=== PATIENT | female | born 1980 | race Caucasian/White ===

== ENCOUNTER 2025-06-26 18:13 | Outpatient (REF) | payer BC, MEDICARE, SELFPAY ==
--- OUTSIDE RECORDS SUMMARY | 2024-07-31 07:00 | XMS_ITS ---
Author Organization [facility] Address [address] [place] [address] Care Team Providers Care Emergency Department Name Role Phone Kath VILLALOBOS, Gael Primary Care Provider UnavailEmir Jackson Unavailable [phone] Medications Medication SIG (Take, Route, Frequency, Duration) Notes Start Date End Date Status Topiramate 100 MG TAKE 3 TABLETS BY MOUTH ONCE DAILY; Duration: 90 Active Ubrelvy 100 MG TAKE 1 TAB AT ONSET OF MIGRAINE ALONG WITH 2 EXCEDRIN MAY REPEAT X1 AFTER 4 HOURS IF HEADACHE RECURS ORALLY AT ONSET OF MIGRAINE. MAY REPEAT ONCE AFTER 2 HRS IF HEADACHE RETURNS.; Duration: 30 Active Motegrity 2 MG 1 tablet Orally Once a day; Duration: 90 days Active DULoxetine HCl 60 MG TAKE 2 CAPSULES BY MOUTH EVERY MORNING; Duration: 90 Active VITAMIN D3 5,000 UNIT SOFTGEL 125 MCG (5,000 UNIT) 0 1 qam; Duration: 01/25/2021 Active LEVOTHYROXINE 50 MCG CAPSULE 0 1 qhs; Duration: 01/25/2021 Active HUMULIN R 100 UNIT/ML VIAL 0 20 u/day via pump; Duration: 01/25/2021 Active PULMOZYME 1 MG/ML AMPUL 0 1 q[pm via neb ; Duration: 01/25/2021 Active MUCINEX FAST-MAX CHEST-CONGEST 100 MG/5 ML 0 1 bid; Duration: 01/25/2021 Active PROAIR HFA 90 MCG INHALER MCG/ACTUATION 0 PRn; Duration: 01/25/2021 Active EXCEDRIN MIGRAINE CAPLET 250-250-65 MG 0 2 tabs prn, uses 12/week; Duration: 01/25/[address] 24,000 UNITS CAPSULE 24,000-76,000 -120,000 UNIT 0 4-6 caps/meal; Duration: 01/25/2021 Active domperidone 0 10 mg qid for gastroparesis; Duration: 01/25/2021 Active CAYSTON 75 MG INHAL SOLUTION MG/ML 0 1 qpm via neb; Duration: 01/25/2021 Active CETIRIZINE HCL 10 MG TABLET 0 1 qhs; Duration: 01/25/2021 Active Vitamin B-2 100 mg 120 Oral Take 2 tabs bid with meals (4 tabs qd).; Duration: 01/25/2021 Active Belsomra 15 MG 1 tablet at bedtime as needed Oral Once a day; Duration: 01/25/2021 Active clonazePAM 0.25 MG 1 tablet Oral twice a day; Duration: 01/25/2021 Active Ondansetron HCl 8 MG 0 Oral 1 tab q6h pr n nausea.; Duration: 01/25/2021 Active Azithromycin 500 MG 0 Oral 1 tab 3 days/week; Duration: 01/25/2021 Active Omeprazole 40 MG 1 capsule 30 minutes before morning meal Orally bid Active Symbicort 80-4.5 MCG/ACT 2 puffs Inhalat ion Once a day 12/22/2021 Active Atenolol 25 MG TAKE 1 TABLET BY MOUTH EVERY DAY AT BEDTIME FOR TREMOR; Duration: 90 Active Norethindrone 0.35 MG 1 tablet Orally On ce a day 11/22/2023 Active Trikafta 50-25-37.5 & 75 MG as directed Orally 1 tab bid 07/28/2021 Active Naratriptan HCl 2.5 MG 1 tablet Oral twi ce daily for migraine prevention; Duration: 30 03/21/2024 07/31/2024 Active acetaZOLAMIDE 125 MG 1/2 tablet Orally a t night for 1 week, then increase as rafael to 1 tab every night.; Duration: 07/31/2024 Active Linzess 290 MCG 1 capsule at least 3 0 minutes before the first meal of the day on an empty stomach Orally Once a day Not-Taking QVAR 80 MCG ORAL INHALER MCG/ACTUATION 0 bid; Duration: 01/25/2021 Not-Navneet ing Qulipta 60 MG 1 tablet Orally Once a day; Duration: 30 days 09/03/2022 11/05/2024 Active Gabapentin 600 MG 1 tablet in morning, 1 tab at supper and 2 tabs at bedtime.; Duration: 30 days Active Vital Signs Blood pressure systolic 129 mm Hg 07/31/20 24 Blood pressure diastolic 77 mm Hg 024 Heart Rate 95 /min 07/31/2024 Height 66 in 07/31/2024 Weight 139.9 lbs 07/31/2024 BMI 22.58 kg/m2 07/31/2024 Weight-kg 63.46 kg 07/31/2024 Encounters [facility]counter [facility] Date [facility] [address] [place] [address] 07/31/2024 Emir Chamorro Chronic migraine wit hout aura, intractable, without status migrainosus G43.719 and Cystic fibrosis with other manifestations E84.8 Assessments Encounter Date Diagnosis (ICD Code) Assessment Notes Treatment Notes Treatment Clinical Notes Section Notes 07/31/2024 Chronic migraine without aura, intractable, without status migrainosus (ICD-10 - G43.719) 07/31/2024 Cystic fibrosis with other manifestations (ICD-10 - E84.8) Plan Of Treatment Medication Medication Name Sig Start Date Stop Date Notes acetaZOLAMIDE 125 MG 1/2 tablet Orally a t night for 1 week, then increase as rafael to 1 tab every night.; Duration: 30 days 07/31/2024 Next Appt Details Follow Up: 6 Weeks, Reason: Provider Name:Emir manzanares, 08/20/2025 11:30:00 AM, [address] [place] [address], [id number], Progress Notes * Carla TEJEDADOB:1980 (44 yo F)Acc No.[id number]:07/31/2024 Progress Notes Patient: Carla VARGAS Provider: Terence Chamorro MD :1980 A ge:43 Y S ex:Female Date:07/31/2024 Address:[address] [place] [address] Pcp:Gael Stockton MD Subjective: * Chief Complaints: * * Medical History: * Medications: T aking Atenolol 25 MG Tablet TAKE 1 TABLET BY MOUTH EVERY DAY AT BEDTIME FOR TREMOR , Taking Norethindrone 0.35 MG Tablet 1 tablet Orally Once a day , Taking Omeprazole 40 MG Capsule Delayed Release 1 capsule 30 minutes before morning meal Orally bid , Taking Symbicort 80-4.5 MCG/ACT Aerosol 2 puffs Inhalation Once a day , Taking Trikafta 50-25-37.5 & 75 MG Tablet Therapy Pack as directed Orally 1 tab bid , Taking Azithromycin 500 MG Tablet 0 Oral 1 tab 3 days/week , Taking clonazePAM 0.25 MG Tablet Disintegrating 1 tablet Oral twice a day , Taking Ondansetron HCl 8 MG Tablet 0 Oral 1 tab q6h prn nausea. , Taking Vitamin B-2 100 mg Tablet 120 Oral Take 2 tabs bid with meals (4 tabs qd). , Taking Belsomra 15 MG Tablet 1 tablet at bedtime as needed Oral Once a day , Taking CAYSTON 75 MG INHAL SOLUTION MG/ML VIAL-NEB 0 1 qpm via neb , Taking CETIRIZINE HCL 10 MG TABLET TABLET 0 1 qhs , Taking CREON DR 24,000 UNITS CAPSULE 24,000-76,000 -120,[address] 0 4-6 caps/meal , Taking domperidone 0 10 mg qid for gastroparesis , Taking EXCEDRIN MIGRAINE CAPLET 250-250-65 MG TABLET 0 2 tabs prn, uses 12/week , Taking HUMULIN R 100 UNIT/ML VIAL VIAL 0 20 u/day via pump , Taking LEVOTHYROXINE 50 MCG CAPSULE CAPSULE 0 1 qhs , Taking MUCINEX FAST-MAX CHEST-CONGEST 100 MG/5 ML LIQUID 0 1 bid , Taking PROAIR HFA 90 MCG INHALER MCG/ACTUATION HFA AER AD 0 PRn , Taking PULMOZYME 1 MG/ML AMPUL SOLUTION 0 1 q[pm via neb , Taking VITAMIN D3 5,000 UNIT SOFTGEL 125 MCG (5,000 UNIT) CAPSULE 0 1 qam , Taking Motegrity 2 MG Tablet 1 tablet Orally Once a day , Taking DULoxetine HCl 60 MG Capsule Delayed Release Particles TAKE 2 CAPSULES BY MOUTH EVERY MORNING , Taking Topiramate 100 MG Tablet TAKE 3 TABLETS BY MOUTH ONCE DAILY , Taking Ubrelvy 100 MG Tablet TAKE 1 TAB AT ONSET OF MIGRAINE ALONG WITH 2 EXCEDRIN MAY REPEAT X1 AFTER 4 HOURS IF HEADACHE RECURS ORALLY AT ONSET OF MIGRAINE. MAY REPEAT ONCE AFTER 2 HRS IF HEADACHE RETURNS. , Taking Gabapentin 600 MG Tablet 1 tablet in morning, 1 tab at supper and 2 tabs at bedtime. , Taking Naratriptan HCl 2.5 MG Tablet 1 tablet Oral twice daily for migraine prevention , stop date 07/31/2024, Taking Qulipta 60 MG Tablet 1 tablet Orally Once a day , stop date 11/05/2024, Not-Taking Linzess 290 MCG Capsule 1 capsule at least 30 minutes before the first meal of the day on an empty stomach Orally Once a day , Not-Taking QVAR 80 MCG ORAL INHALER MCG/ACTUATION AER W/ADAP 0 bid Objective: * Vitals: B P:129/77mm Hg, HR:95/min, Wt:139.9lbs, Wt-k.46 kg, Ht: 66 in, BMI:22.58Index, Body Surface Area: 1.72. Assessment: * Assessment: 1. C hronic migraine without aura, intractable, without status migrainosus - G43.719 2 . C ystic fibrosis with other manifestations - E84.8 Plan: * Treatment: * Follow Up: 6 Weeks * Billing Information: * Visit Code: 55486 OFFICE VISIT,EST PT,LEVEL 4. * Procedure Codes: * Electronic [place], [id number] on 06/26/2025 at 06:25 PM EDT Sign off status: Pending * Provider: Terence Chamorro MD Date: 1 Generated for Hadley serrano/Lizzy/eTransmitting on: 0 06/26/2025 06:25 PM EDT
--- OUTSIDE RECORDS SUMMARY | 2024-10-02 07:30 | XMS_ITS ---
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 MAY REPEAT ONCE AFTER 2 HRS IF HEADACHE RETURNS.; Duration: 30 Active QVAR 80 MCG ORAL INHALER MCG/ACTUATION 0 bid; Duration: 01/25/2021 Not-Navneet ing Gabapentin 600 MG 1 tablet in morning, 1 tab at supper and 2 tabs at bedtime.; Duration: 30 days Active Linzess 290 MCG 1 capsule at least 3 0 minutes before the first meal of the day on an empty stomach Orally Once a day Not-Taking Qulipta 60 MG 1 tablet Orally Once a day; Duration: 30 days 09/03/2022 11/05/2024 Active PULMOZYME 1 MG/ML AMPUL 0 1 q[pm via neb ; Duration: 01/25/2021 Active VITAMIN D3 5,000 UNIT SOFTGEL 125 MCG (5,000 UNIT) 0 1 qam; Duration: 01/25/2021 Active DULoxetine HCl 60 MG TAKE 2 CAPSULES BY MOUTH EVERY MORNING; Duration: 90 Active Motegrity 2 MG 1 tablet Orally Once a day; Duration: 90 days Active Topiramate 100 MG TAKE 3 TABLETS BY MOUTH ONCE DAILY; Duration: 90 Active MUCINEX FAST-MAX CHEST-CONGEST 100 MG/5 ML 0 1 bid; Duration: 01/25/2021 Active LEVOTHYROXINE 50 MCG CAPSULE 0 1 qhs; Duration: 01/25/2021 Active PROAIR HFA 90 MCG INHALER MCG/ACTUATION 0 PRn; Duration: 01/25/2021 Active HUMULIN R 100 UNIT/ML VIAL 0 20 u/day via pump; Duration: 01/25/2021 Active EXCEDRIN MIGRAINE CAPLET 250-250-65 MG 0 2 tabs prn, uses 12/week; Duration: 01/25/2021 Active Belsomra 15 MG 1 tablet at bedtime as needed Oral Once a day; Duration: 30 01/25/2021 Active CETIRIZINE HCL 10 MG TABLET 0 1 qhs; Duration: 01/25/2021 Active CAYSTON 75 MG INHAL SOLUTION MG/ML 0 1 qpm via neb; Duration: 01/25/2021 Active domperidone 0 10 mg qid for gastroparesis; Duration: 01/25/[address] 24,000 UNITS CAPSULE 24,000-76,000 -120,000 UNIT 0 4-6 caps/meal; Duration: 01/25/2021 Active clonazePAM 0.25 MG 1 tablet Oral twice a day; Duration: 01/25/2021 Active Azithromycin 500 MG 0 Oral 1 tab 3 days/week; Duration: 01/25/2021 Active Vitamin B-2 100 mg 120 Oral Take 2 tabs bid with meals (4 tabs qd).; Duration: 01/25/2021 Active Ondansetron HCl 8 MG 0 Oral 1 tab q6h pr n nausea.; Duration: 0 01/25/2021 Active Trikafta 50-25-37.5 & 75 MG as directed Orally 1 tab bid 07/28/2021 Active Atenolol 25 MG TAKE 1 TABLET BY MOUTH EVERY DAY AT BEDTIME FOR TREMOR; Duration: 90 Active Omeprazole 40 MG 1 capsule 30 minutes before morning meal Orally bid Active Norethindrone 0.35 MG 1 tablet Orally On a day 11/22/2023 Active Symbicort 80-4.5 MCG/ACT 2 puffs Inhalat ion Once a day 12/22/2021 Active Encounters [facility]counter [facility] Date [facility] [address] [place] [address] [facility]24 Emir Chamorro Plan Of Treatment Next Appt Details Provider Name:Emir Otto manzanares, 08/20/2025 11:30:00 AM, [address] [place], [address], Progress Notes * Carla TEJEDADOB:1980 (44 yo F)Acc No.[id number]:10/02/2024 Progress Notes Patient: Carla VARGAS Provider: Terence Chamorro MD :1980 A ge:43 Y S ex:Female Date:10/02/2024 Address:[address] [place], [place] [id number] Pcp:Gael Stockton MD Subjective: * Chief Complaints: [...] TABLETS BY MOUTH ONCE DAILY , Taking Gabapentin 600 MG Tablet 1 tablet in morning, 1 tab at supper and 2 tabs at bedtime. , Taking Qulipta 60 MG Tablet 1 tablet Orally Once a day , stop date 11/05/2024, Taking Ubrelvy 100 MG Tablet TAKE 1 TAB AT ONSET OF MIGRAINE ALONG WITH 2 EXCEDRIN MAY REPEAT X1 AFTER 4 HOURS IF HEADACHE RECURS ORALLY AT ONSET OF MIGRAINE. MAY REPEAT ONCE AFTER 2 HRS IF HEADACHE RETURNS. , Not-Taking Linzess 290 MCG Capsule 1 capsule at least 30 minutes before the first meal of the day on an empty stomach Orally Once a day , Not-Taking QVAR 80 MCG ORAL INHALER MCG/ACTUATION AER W/ADAP 0 bid Objective: * Vitals: Assessment: Plan: * Treatment: * Billing Information: * Visit Code: * Procedure Codes: * [place], [id number] on 06/26/2025 at 06:26 PM EDT Sign off status: Pending * Provider: Terence Chamorro MD Date: 12/03/2023 Generated for Hadley serrano/Lizzy/Adenike on: 0 06/26/2025 06:26 PM EDT
--- OUTSIDE RECORDS SUMMARY | 2025-02-25 10:30 | XMS_ITS ---
Author Organization [facility] Address [address] [place] [address] Care Team Providers Care Bible Reader Name Role Phone Kath VILLALOBOS, Gael Primary Care Provider UnavailEmir Jackson Unavailable [phone] Allergies Allergen (clinical drug ingredient) Drug/Non Drug Allergy documented on EMR Reaction Allergy Type Onset Date Status ceftazidime cefTAZidime itchy mouth and chest pain Drug Allergy Active Substance with sulfonamide structure and antibacterial mechanism of action (substance) Sulfa Antibiotics hives Drug Allergy Active vancomycin Vancomycin hives Drug Allergy Activ e REASON FOR VISIT Migraine follow up Medications Medication SIG (Take, Route, Frequency, Duration) Notes Start Date End Date Status clonazePAM 0.25 MG 1 tablet Oral twice a day; Duration: 30 days 01/25/2021 Active Vitamin B-2 100 mg 120 Oral Take 2 tabs bid with meals (4 tabs qd).; Duration: 30 01/25/2021 Active Ondansetron HCl 8 MG 0 Oral 1 tab q6h prn nausea.; Duration: 0 1-2x/day for nausea and gastroparesis 01/25/2021 Active Belsomra 15 MG 1 tablet at bedtime as needed Oral Once a day; Duration: 30 days 01/25/2021 Active CAYSTON 75 MG INHAL SOLUTION MG/ML 0 1 qpm via neb; Duration: 30 every other month 01/25/2021 Active Atenolol 25 MG TAKE 1 TABLET BY MOUTH EVERY DAY AT BEDTIME FOR TREMOR; Duration: 90 Active Trelegy Ellipta 100-62.5-25 MCG/ACT 1 puff Inhalation Once a day Active Trikafta 50-25-37.5 & 75 MG as directed Orally 1 tab bid 07/28/2021 Active Omeprazole 40 MG 1 capsule 30 minutes before morning meal Orally bid Active Azithromycin 500 MG 0 Oral 1 tab 3 days/week; Duration: 01/25/2021 Active DULoxetine HCl 60 MG 2 capsule Orally Once a day in the morning.; Duration: 90 days Active Gabapentin 600 MG 1 tablet in morning, 1 tab at supper and 2 tabs at bedtime.; Duration: 90 days Active QVAR 80 MCG ORAL INHALER MCG/ACTUATION 0 bid; Duration: 01/25/2021 Not-Taking Linzess 290 MCG 1 capsule at least 30 minutes before the first meal of the day on an empty stomach Orally Once a day Not-Taking Ubrelvy 100 MG TAKE 1 TAB BY MOUTH AT ONSET OF MIGRAINE ALONG WITH 2 EXCEDRIN MAY REPEAT 1 TIME AFTER 2 HOURS IF HEADACHE RECURS.; Duration: 8 Active PULMOZYME 1 MG/ML AMPUL 0 1 q[pm via neb; Duration: 01/25/2021 Active PROAIR HFA 90 MCG INHALER MCG/ACTUATION 0 PRn; Duration: 01/25/2021 Active VITAMIN D3 5,000 UNIT SOFTGEL 125 MCG (5,000 UNIT) 0 1 qam; Duration: 01/25/2021 Active Topiramate 100 MG 3 tablets orally Once a day; Duration: 90 days Active Motegrity 2 MG 1 tablet Orally Once a day; Duration: 90 days Active domperidone 0 10 mg qid for gastroparesis; Duration: 01/25/2021 Active HUMULIN R 100 UNIT/ML VIAL 0 20 u/day via pump; Duration: 01/25/2021 Active EXCEDRIN MIGRAINE CAPLET 250-250-65 MG 0 2 tabs prn, uses 12/week; Duration: 30 daily 01/25/2021 Active MUCINEX FAST-MAX CHEST-CONGEST 100 MG/5 ML 0 1 bid; Duration: 30 PRN 01/25/2021 Active LEVOTHYROXINE 50 MCG CAPSULE 0 1 qhs; Duration: 01/25/[address] 24,000 UNITS CAPSULE 24,000-76,000 -120,000 UNIT 0 4-6 caps/meal; Duration: 01/25/2021 Active CETIRIZINE HCL 10 MG TABLET 0 1 qhs; Duration: 01/25/2021 Active Encounters Encounter Location Date [facility] [address] [place] [address] [facility]25/2025 Emir Chamorro Chronic migraine wit hout aura, intractable, without status migrainosus G43.719 and Cystic fibrosis with other manifestations E84.8 Assessments Encounter Date Diagnosis (ICD Code) Assessment Notes Treatment Notes Treatment Clinical Notes Section Notes 02/25/2025 Chronic migraine without aura, intractable, without status migrainosus (ICD-10 - G43.719) Pt with >15 headache days per month. She has tried and failed many different medications including mAb. Pt is on Qulipta which she feels is slightly helpful but is less effective than it was when starting initially in 2021. Pt would benefit from addition of botox protocol for migraines to treat chronic migraine >15 headaches per month. Reviewed risks and benefits of botox. Pt interested in starting. Plan: -Start Botox protocol for migraines q12W -Continue Qulipta 60mg daily -Start Zavzpret 1 spray for rescue in 24h, pt has nausea and gastroparesis so would benefit from intranasal rescue medication Will continue with current regimen for now with hopes to decrease other medications once she has stabilized on botox as they have unclear efficacy at this point. Follow up in 2M after botox treatment sooner as needed. Patient agrees with plan. All questions and concerns addressed. Patient instructed to maintain headache logs. Patient advised to contact office for any change in headache pattern, increase in frequency, duration, or severity of headaches. Medication reconciliation completed. Previous office visit note reviewed. Patient presents for evaluation and management. Pt was seen and evaluated by Hina MON. Pt consents to virtual visit. 02/25/2025 Cystic fibrosis with other manifestations (ICD-10 - E84.8) Patient presents for evaluation and management. Pt was seen and evaluated by Hina MON. Pt consents to virtual visit. Plan Of Treatment Treatment Notes Assessment Notes Chronic migraine without aur a, intractable, without status migrainosus Pt with >15 headache days per month. She has tried and failed many different medications including mAb. Pt is on Qulipta which she feels is slightly helpful but is less effective than it was when starting initially in 2021. Pt would benefit from addition of botox protocol for migraines to treat chronic migraine >15 headaches per month. Reviewed risks and benefits of botox. Pt interested in starting. Plan: -Start Botox protocol for migraines q12W -Continue Qulipta 60mg daily -Start Zavzpret 1 spray for rescue in 24h, pt has nausea and gastroparesis so would benefit from intranasal rescue medication Will continue with current regimen for now with hopes to decrease other medications once she has stabilized on botox as they have unclear efficacy at this point. Follow up in 2M after botox treatment sooner as needed. Patient agrees with plan. All questions and concerns addressed. Patient instructed to maintain headache logs. Patient advised to contact office for any change in headache pattern, increase in frequency, duration, or severity of headaches. Medication reconciliation completed. Previous office visit note reviewed. Next Appt Details Follow Up: 2 Months, 2 month s, Reason: Follow-up after Botox administration Provider Name:Emir manzanares, 08/20/2025 11:30:00 AM, [address] [place] [address], [id number], Progress Notes * Carla TEJEDADOB:1980 (44 yo F)Acc No.[id number]:02/25/2025 Patient: Carla VARGAS Provider: Terence Chamorro MD :1980 A ge:44 Y S ex:Female Date:02/25/2025 Address:[address] [place] [address] Pcp:Gael Stockton MD Subjective: * Chief Complaints: * 1 . Migraine follow up. * HPI: H sabihadache: Pt presents for eval and management of migraines. Last office visit 10/31/24 via telehealth. Pt reports headaches have been not good in the past couple months. She has journals. Pt reports headaches have been gradually getting worse over the past few months. She has done prednisone once a month, last done 10/15/24 8 day taper, 4 days of 60 and 4 days of 20. She has been doing this taper once a month since the fall. She feels it initially was fantastic but now is starting to be less effective. She finds it is just taking the edge off. Headaches return to baseline after about 3-4 days. Denies side effects, she has a setting on her insulin pump to adjust it. We reviewed risks of immunosuppression with repeated steroid use. She is also taking Qulipta 60 mg per day since 08/13 and has failed all 3 injectable monoclonal antibodies. She felt it was initially very effective, but then she got COVID in Summer 2022, and she felt it reset her migraines to being awful. Headache is bifrontal and left hemicranial, pulsatile, associated with photophobia, sonophobia and nausea but no vomiting. The headache gets worse in the afternoon. Meds taking: Gabapentin, Duloxetine, Qulipta, Atenolol, mostly for tachycardia is 80s with medication and for tremors, Topiramate 300mg (unsure if helpful), Ubrelvy Meds tried: Acetazolamide 125mg (severe fatigue), naratriptan BID (not helpful she thought initially, was on for 4 months, no s/e). Propranolol BID caused severe fatigue. She did Botox 9 years ago, works great at the time, she reports weird pressure headache with sumatriptan, zolmitriptan tablet. Pt reports blood work is always normal, she checks it yearly. She is sleeping well. She denies depression. Side effects of medication include dry mouth. 08/15: 1x4, 2x4, 3x3, 4x2, 5x6, 6x1, 7x2, 8x1 09/15: 1x2, 2x1, 3x5, 4x4, 5x4, 6x3, 7x4, 8x1 10/15: 1x2, 2x1, 3x2, 4x7, 5x4, 6x3, 7x4 11/16: 0x2, 5x2, 7x1, 8x1. H eadache/Migraine: Carla is a 44-year-old female who reports experiencing chronic migraines. She describes having good and bad days, with December and January being better months compared to October and November. Carla maintains a headache diary, which shows a decrease in headache severity over the months. She notes that she has headaches almost every day, but the frequency and intensity have improved by 36% over the past months. Carla is awaiting approval for Botox treatment, which she has used successfully in the past for her migraines. She also mentions starting magnesium supplements recently, although she is unsure of their effectiveness. Carla experiences difficulty falling asleep and wakes up frequently at night to use the bathroom, approximately three times per night. She denies feeling depressed but reports dry mouth and chronic fatigue as side effects of her medications. Carla has a firm diagnosis of cystic fibrosis since she was [age] weeks old, confirmed by sweat and genetic tests. She denies symptoms of postural orthostatic tachycardia syndrome (POTS) and reports having a port for her condition. * ROS: G eneral / Constitutional: Patient denies c hills, fever, recent exposure to viruses.? O phthalmologic: Patient denies b lurry vision, diminished visual acuity, eye pain, flashes of light in the visual field, floaters in the visual field. C ardiovascular: Patient denies c hest pain, palpitations. G astrointestinal: Patient complains of c onstipation. N eurologic: Patient denies b alance difficulty, confusion, loss of strength, memory loss, seizures, tingling / numbness, tremor. P atient complains of h eadache.? * Medical History: M igraine, Cystic fibrosis, Constipation, Hypothyroidism, Gastroparesis, Anxiety, Cystic fibrosis-related diabetes (pancreatic insufficiency), Chronic migraine, ongoing, Cystic fibrosis, diagnosed at six weeks old. * Medications: T caitlyn Alaniz Ellipta 100-62.5-25 MCG/ACT Aerosol Powder Breath Activated 1 puff Inhalation Once a day , Taking Atenolol 25 MG Tablet TAKE 1 TABLET BY MOUTH EVERY DAY AT BEDTIME FOR TREMOR , Taking Omeprazole 40 MG Capsule Delayed Release 1 capsule 30 minutes before morning meal Orally bid , Taking Trikafta 50-25-37.5 & 75 MG Tablet Therapy Pack as directed Orally 1 tab bid , Taking Azithromycin 500 MG Tablet 0 Oral 1 tab 3 days/week , Taking clonazePAM 0.25 MG Tablet Disintegrating 1 tablet Oral twice a day , Taking Ondansetron HCl 8 MG Tablet 0 Oral 1 tab q6h prn nausea. , Notes to Pharmacist: 1-2x/day for nausea and gastroparesis, Taking Vitamin B-2 100 mg Tablet 120 Oral Take 2 tabs bid with meals (4 tabs qd). , Taking Belsomra 15 MG Tablet 1 tablet at bedtime as needed Oral Once a day , Taking CAYSTON 75 MG INHAL SOLUTION MG/ML VIAL-NEB 0 1 qpm via neb , Notes to Pharmacist: every other month, Taking CETIRIZINE HCL 10 MG TABLET TABLET 0 1 qhs , Taking CREON DR 24,000 UNITS CAPSULE 24,000-76,000 -120,[address] 0 4-6 caps/meal , Taking domperidone 0 10 mg qid for gastroparesis , Taking EXCEDRIN MIGRAINE CAPLET 250-250-65 MG TABLET 0 2 tabs prn, uses 12/week , Notes to Pharmacist: daily, Taking HUMULIN R 100 UNIT/ML VIAL VIAL 0 20 u/day via pump , Taking LEVOTHYROXINE 50 MCG CAPSULE CAPSULE 0 1 qhs , Taking MUCINEX FAST-MAX CHEST-CONGEST 100 MG/5 ML LIQUID 0 1 bid , Notes to Pharmacist: PRN, Taking PROAIR HFA 90 MCG INHALER MCG/ACTUATION HFA AER AD 0 PRn , Taking PULMOZYME 1 MG/ML AMPUL SOLUTION 0 1 q[pm via neb , Taking VITAMIN D3 5,000 UNIT SOFTGEL 125 MCG (5,000 UNIT) CAPSULE 0 1 qam , Taking Motegrity 2 MG Tablet 1 tablet Orally Once a day , Taking Topiramate 100 MG Tablet 3 tablets orally Once a day , Taking Gabapentin 600 MG Tablet 1 tablet in morning, 1 tab at supper and 2 tabs at bedtime. , Taking DULoxetine HCl 60 MG Capsule Delayed Release Particles 2 capsule Orally Once a day in the morning. , Taking Ubrelvy 100 MG Tablet TAKE 1 TAB BY MOUTH AT ONSET OF MIGRAINE ALONG WITH 2 EXCEDRIN MAY REPEAT 1 TIME AFTER 2 HOURS IF HEADACHE RECURS. , Not-Taking Linzess 290 MCG Capsule 1 capsule at least 30 minutes before the first meal of the day on an empty stomach Orally Once a day , Not- Taking QVAR 80 MCG ORAL INHALER MCG/ACTUATION AER W/ADAP 0 bid , Medication List reviewed and reconciled with the patient * Allergies: V ancomycin: hives, Sulfa Antibiotics: hives, cefTAZidime: itchy mouth and chest pain. Objective: * Vitals: Assessment: * Assessment: 1. C hronic migraine without aura, intractable, without status migrainosus - G43.719 (Primary)? 2. C ystic fibrosis with other manifestations - E84.8 Patient presents for evaluat ion and management. Pt was seen and evaluated by Hina MON. Pt consents to virtual visit. Plan: * Treatment: * Follow Up: 2 Months, 2 months (Reason: Follow-up after Botox administration) * Billing Information: * Visit Code: 56261 OFFICE VISIT,ELIUD PT,LEVEL 4. Modifiers: 95 * Procedure Codes: * Electronic [place], [id number] on 06/26/2025 at 06:23 PM EDT Sign off status: Pending * Provider: Terence Chamorro MD Date: 0 02/25/2025 Generated for Hadley serrano/Lizzy/eTransmitting on: 0 06/26/2025 06:23 PM EDT History and Physical Notes * HPI (History of Present Illness) Category Sub-Category Detail Notes Category Not es Headache/Migraine Carla is a 44-year-old female who reports experiencing chronic migraines. She describes having good and bad days, with December and January being better months compared to October and November. Carla maintains a headache diary, which shows a decrease in headache severity over the months. She notes that she has headaches almost every day, but the frequency and intensity have improved by 36% over the past months. Carla is awaiting approval for Botox treatment, which she has used successfully in the past for her migraines. She also mentions starting magnesium supplements recently, although she is unsure of their effectiveness. Carla experiences difficulty falling asleep and wakes up frequently at night to use the bathroom, approximately three times per night. She denies feeling depressed but reports dry mouth and chronic fatigue as side effects of her medications. Carla has a firm diagnosis of cystic fibrosis since she was six weeks old, confirmed by sweat and genetic tests. She denies symptoms of postural orthostatic tachycardia syndrome (POTS) and reports having a port for her condition.
--- OUTSIDE RECORDS SUMMARY | 2025-06-19 07:30 | XMS_ITS ---
Author Organization [facility] Address [address] [place] [address] Care Team Providers Care Greeter Name Role Phone Kath VILLALOBOS, Gael Primary Care Provider UnavailEmir Jackson Unavailable [phone] Medications Medication SIG (Take, Route, Frequency, Duration) Notes Start Date End Date Status Atenolol 25 MG TAKE 1 TABLET BY MOUTH EVERY DAY AT BEDTIME FOR TREMOR; Duration: 90 Active QVAR 80 MCG ORAL INHALER MCG/ACTUATION 0 bid; Duration: 01/25/2021 Not-Taking Linzess 290 MCG 1 capsule at least 30 minutes before the first meal of the day on an empty stomach Orally Once a day Not-Taking Qulipta 60 MG 1 tablet Orally Once a day; Duration: 30 days 09/03/2022 Active Ubrelvy 100 MG TAKE 1 TAB BY MOUTH AT ONSET OF MIGRAINE ALONG WITH 2 EXCEDRIN MAY REPEAT 1 TIME AFTER 2 HOURS IF HEADACHE RECURS.; Duration: 8 Active VITAMIN D3 5,000 UNIT SOFTGEL 125 MCG (5,000 UNIT) 0 1 qam; Duration: 01/25/2021 Active Topiramate 100 MG 3 tablets orally Once a day; Duration: 90 days Active Motegrity 2 MG 1 tablet Orally Once a day; Duration: 90 days Active DULoxetine HCl 60 MG 2 capsule Orally Once a day in the morning.; Duration: 90 days Active Gabapentin 600 MG 1 tablet in morning, 1 tab at supper and 2 tabs at bedtime.; Duration: 90 days Active PROAIR HFA 90 MCG INHALER MCG/ACTUATION 0 PRn; Duration: 01/25/2021 Active PULMOZYME 1 MG/ML AMPUL 0 1 q[pm via neb; Duration: 01/25/2021 Active HUMULIN R 100 UNIT/ML VIAL 0 20 u/day via pump; Duration: 01/25/2021 Active MUCINEX FAST-MAX CHEST-CONGEST 100 MG/5 ML 0 1 bid; Duration: 30 PRN 01/25/2021 Active LEVOTHYROXINE 50 MCG CAPSULE 0 1 qhs; Duration: 01/25/2021 Active EXCEDRIN MIGRAINE CAPLET 250-250-65 MG 0 2 tabs prn, uses 12/week; Duration: 30 daily 01/25/2021 Active CETIRIZINE HCL 10 MG TABLET 0 1 qhs; Duration: 01/25/2021 Active CAYSTON 75 MG INHAL SOLUTION MG/ML 0 1 qpm via neb; Duration: 30 every other month 01/25/2021 Active domperidone 0 10 mg qid for gastroparesis; Duration: 01/25/[address] 24,000 UNITS CAPSULE 24,000-76,000 -120,000 UNIT 0 4-6 caps/meal; Duration: 01/25/2021 Active Belsomra 15 MG 1 tablet at bedtime as needed Oral Once a day; Duration: 30 days 01/25/2021 Active Vitamin B-2 100 mg 120 Oral Take 2 tabs bid with meals (4 tabs qd).; Duration: 01/25/2021 Active Ondansetron HCl 8 MG 0 Oral 1 tab q6h prn nausea.; Duration: 0 1-2x/day for nausea and gastroparesis 01/25/2021 Active clonazePAM 0.25 MG 1 tablet Oral twice a day; Duration: 30 days 01/25/2021 Active Azithromycin 500 MG 0 Oral 1 tab 3 days/week; Duration: 01/25/2021 Active Trikafta 50-25-37.5 & 75 MG as directed Orally 1 tab bid 07/28/2021 Active Omeprazole 40 MG 1 capsule 30 minutes before morning meal Orally bid Active Trelegy Ellipta 100-62.5-25 MCG/ACT 1 puff Inhalation Once a day Active Vital Signs Blood pressure systolic 141 mm Hg 06/19/20 25 Blood pressure diastolic 77 mm Hg 025 Heart Rate 98 /min 06/19/2025 Height 66 in 06/19/2025 Weight 144.6 lbs 06/19/2025 BMI 23.34 kg/m2 06/19/2025 Weight-kg 65.59 kg 06/19/2025 Encounters Encounter Location Date Provider Diagnosis [facility] [address] [place] [address] 06/19/2025 Emir Chamorro Chronic migraine wit hout aura, intractable, without status migrainosus G43.719 and Cystic fibrosis with other manifestations E84.8 Assessments Encounter Date Diagnosis (ICD Code) Assessment Notes Treatment Notes Treatment Clinical Notes Section Notes 06/19/2025 Chronic migraine without aura, intractable, without status migrainosus (ICD-10 - G43.719) 06/19/2025 Cystic fibrosis with other manifestations (ICD-10 - E84.8) Plan Of Treatment Next Appt Details Follow Up: 2 Months, Reason: Provider Name:Emir Menjivar Brandon manzanares, 08/20/2025 11:30:00 AM, [address] [place] [address], [phone], Progress Notes * Carla TEJEDADOB:1980 (44 yo F)Acc No.[id number]:06/19/2025 Progress Notes Patient: Carla VARGAS Provider: Terence Chamorro MD :1980 A ge:44 Y S ex:Female Date:06/19/2025 Address:[address] [place] [address] Pcp:Gael Stockton MD Subjective: * Chief Complaints: * * Medical History: * Medications: T aking Trelegy Ellipta 100-62.5-25 MCG/ACT Aerosol Powder Breath Activated 1 puff Inhalation Once a day , Taking Omeprazole 40 [...] AFTER 2 HOURS IF HEADACHE RECURS. , Taking Qulipta 60 MG Tablet 1 tablet Orally Once a day , stop date 07/16/2025, Taking Atenolol 25 MG Tablet TAKE 1 TABLET BY MOUTH EVERY DAY AT BEDTIME FOR TREMOR , Not-Taking Linzess 290 MCG Capsule 1 capsule at least 30 minutes before the first meal of the day on an empty stomach Orally Once a day , Not-Taking QVAR 80 MCG ORAL INHALER MCG/ACTUATION AER W/ADAP 0 bid Objective: * Vitals: B P:141/77mm Hg, HR:98/min, Wt:144.6lbs, Wt-k.59 kg, Ht: 66 in, BMI:23.34Index, Body Surface Area: 1.75. Assessment: * Assessment: 1. C hronic migraine without aura, intractable, without status migrainosus - G43.719 (Primary)? 2. C ystic fibrosis with other manifestations - E84.8 Plan: * Treatment: * Follow Up: 2 Months * Billing Information: * Visit Code: 31613 OFFICE VISIT,EST PT,LEVEL 4. * Procedure Codes: * [place], [id number] on 06/26/2025 at 06:26 PM EDT Sign off status: Pending * Provider: Terence Chamorro MD Date: 0 06/19/2025 Generated for Hadley serrano/Lizzy/Robertitting on: 0 06/26/2025 06:26 PM EDT
--- OUTSIDE RECORDS SUMMARY | 2025-06-26 18:22 | XMS_ITS | Encounter Summary ---
Author Organization [facility] Address [address] [place] [address] Care Team Providers Care Accounting Professional Name Role Phone Sanjay Fernandes MD Primary Care Provider [phone] Franklin Simmons MD Unavailable [phone] Godwin Saunders DO Unavailable [phone] Gael Stockton MD Unavailable Unavailable Gael Stockton MD Primary Care Provider Unavail able Godwin Malcolm MD Unavailable Unavailable Gael Stockton MD Unavailable Unavailable Ochoa Heather FLIGHT CONTROL MANAGER Unavailable [phone] Antonia Willis MD Unavailable Logan Doran MD Unavailable [phone] Sanjay Fernandes MD Primary Care Provider [phone] Reason for Visit * Reason Comments Medication Refill Encounter Details Date Type Department Care Team (Late st Contact Info) Description 03/05/2018 Refill [facility] [place] [address] [place] [address] [address] [place] [address] Yvette Green APRN Chronic migraine without aura, with intractable migraine, so stated, with status migrainosus Social History Tobacco Use Types Packs/Day Years Used Date Smoking Tobacco: Never Smokeless Tobacco: Never Alcohol Use Standard Drinks/Week Comments No 0 (1 standard drink = 0.6 oz pur e alcohol) Comments No Sex and Gender Information Value Date Recorded Sex Assigned at Female 02/17/2023 1:57 PM EDT Legal Sex Female 2:57 PM EDT Gender Identity Female 02/17/2023 1:57 PM EDT Sexual Orientation Heterosexual (straight) 02/17 1:57 PM EDT documented as of this encounter Plan of Treatment Upcoming Encounters Date Type Department Care Team (Latest Contact Info) Description 07/02/2025 11:00 AM EDT Clinical Support [facility] [address] [place] [address] 4th [place] [phone] 08/18/2025 10:30 AM EDT Hospital Encounter [facility] [address] [place] [address] [phone] Vitor Morales MD [address] [place] [address] [id number] 08/18/2025 10:30 AM EDT Appointment [facility] [address] [place] [address] Vitor Morales MD [address] [place] [address] 08/18/2025 10:30 AM EDT - 08/18/2025 11:00 AM EDT Surgery [facility] [address] [place] [address] [phone] Vitor Morales MD [address] [place] [address] COLONOSCOPY 05/04/2026 11:00 AM EDT Office Visit [facility] Department of Cardiology [place] [address] [place] [phone] Aashish Silva PA [address] [place] [address] Scheduled Procedures Name Priority Associated Diagnoses Date/Ti me COLONOSCOPY Colon cancer screening 08/18/2025 10:30 AM EDT documented as of this encounter Visit Diagnoses Diagnosis Chronic migraine without aura, with intractable migraine, so stated, with status migrainosus Chronic migraine without aura, with intractable migraine, so stated, with status migrainosus Colon cancer screening Special screening for malignant neoplasms, colon documented in this encounter Additional Health Concerns Infection Onset Date Last Indicated Resolved Time 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:Sputum- 09/201610/18/2016 10/18/2016 08/28/2018 12:30 PM EST MDRO Comment:Contact Precautions every admission, 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 Other CF 08/16/2018 08/28/2018 08/28/2018 Cystic Fibrosis (CF) Comment:Place on contact isolation for each encounter 12/05/2023 12/05/2023 documented as of this encounter Care Teams Accounting Professional Relationship Specialty Start Date End Date Sanjay Fernandes MD [address] [place] [address] PCP - General Pulmonary Disease 05/28/16 06/22/20 Gael Stockton MD [address] [place] [address] PCP - General Internal Medicine 06/23/20 05/04/25 Gael Stockton MD PCP - [facility] Medicare Patients 11/23/22 03/22/23 Sanjay Fernandes MD [address] [place] [address] PCP - General Pulmonary Disease 05/05/25 Franklin Simmons MD [address] [place], [place] [phone] Physician Otolaryngology 06/14/17 Godwin Saunders DO [address] [place] [address] Physician Endocrinology 06/14/17 Gael Stockton MD [address] [address] Internal Medicine 05/26/20 Godwin Malcolm MD [address] [address] Hematology Oncology 11/03/20 Heather Packer, FLIGHT CONTROL MANAGER [address] [place] [address] Respiratory Care Practitioner Respiratory Therapist 09/20/24 Antonia Willis MD [address] [facility] [place] [address] Internal Medicine 02/17/25 Logan Doran MD 30 [place] [address] 03/18/25 documented as of this encounter
--- OUTSIDE RECORDS SUMMARY | 2025-06-26 18:22 | XMS_ITS | Encounter Summary ---
Author Organization [facility] Address [address] [place] [address] Care Team Providers Care Hotel Front Desk Agent Name Role Phone Sanjay Fernandes MD Primary Care Provider [phone] Franklin Simmons MD Unavailable Godwin Saunders DO Unavailable [phone] Gael Stockton MD Unavailable Unavailable Gael Stockton MD Primary Care Provider Unavail able Godwin Malcolm MD Unavailable Unavailable Gael Stockton MD Unavailable Unavailable Heather Packer MANAGER STORE Unavailable Antonia Willis MD Unavailable Logan Doran MD Unavailable Sanjay Fernandes MD Primary Care Provider Encounter Details Date Type Department Care Team (Late st Contact Info) Description 03/21/2018 Scanned Document [facility] [address] [facility] [address] [place], [place] [phone] Lisa Barr PA [address] [place], [place] [phone] Social History Tobacco Use Types Packs/Day Years [...] 11:00 AM EDT Clinical Support [facility] [address] [place] [address] 4th [place] [phone] 08/18/2025 10:30 AM EDT Hospital Encounter [facility] [address] [place] [phone] Vitor Morales MD [address] [place] [address] [phone] 08/18/2025 10:30 AM EDT Appointment [facility] [address] [place] [address] Vitor Morales MD [address] [place] [address] [id number] 08/18/2025 10:30 AM EDT - 08/18/2025 11:00 AM EDT Surgery [facility] [address] [place] [address] [phone] Vitor Morales MD [address] [place] [address] COLONOSCOPY 05/04/2026 11:00 AM EDT Office Visit [facility] Department of Cardiology [place] [address] [place] [phone] Aashish Silva PA [address] [place] [address] Scheduled Procedures Name Priority Associated Diagnoses Date/Ti me COLONOSCOPY Colon cancer screening 08/18/2025 10:30 AM EDT documented as of this encounter Visit Diagnoses Not on filedocumented in this encounter Additional Health Concerns Infection [...] documented as of this encounter Care Teams Hotel Front Desk Agent Relationship Specialty Start Date End Date Sanjay Fernandes MD [address] [place] [address] PCP - General Pulmonary Disease 05/28/16 06/22/20 Gael Stockton MD [address] [place] [address] PCP - General Internal Medicine 06/23/20 05/04/25 Gael Stockton MD PCP - [facility] Medicare Patients 11/23/22 03/22/23 Sanjay Fernandes MD [address] [place] [address] PCP - General Pulmonary Disease 05/05/25 Franklin iSmmons MD [address] [place] [address] Physician Otolaryngology 06/14/17 Godwin Saunders DO [address] [place] [address] Physician Endocrinology 06/14/17 Gael Stockton MD [address] [address] Internal Medicine 05/26/20 Godwin Malcolm MD [address] [address] Hematology Oncology 11/03/20 Heather Packer, MANAGER STORE [address] [place] [address] Respiratory Care Practitioner Respiratory Therapist 09/20/24 Antonia Willis MD [address] [facility] [place] [address] Internal Medicine 02/17/25 Logan Doran MD 30 [place] [address] 03/18/25 documented as of this encounter
--- OUTSIDE RECORDS SUMMARY | 2025-06-26 18:22 | XMS_ITS | Encounter Summary ---
Author Organization [facility] Address [address] [place] [address] Care Team Providers Care Postdoctoral Fellow Name Role Phone Sanjay Fernandes MD Primary Care Provider Franklin Simmons MD Unavailable [phone] Godwin Saunders DO Unavailable Gael Stockton MD Unavailable Unavailable Gael Stockton MD Primary Care Provider Unavail able Godwin Malcolm MD Unavailable Unavailable Gael Stockton MD Unavailable Unavailable Heather Packer DIET TECHNICIAN REGISTERED Unavailable [phone] Antonia Willis MD Unavailable Logan Doran MD Unavailable [phone] Sanjay Fernandes MD Primary Care Provider Encounter Details Date Type Department Care Team (Late st Contact Info) Description 04/03/2018 Scanned Document [facility] [address] [place] [phone] Social History Tobacco Use Types Packs/Day Years [...] 07/02/2025 11:00 AM EDT Clinical Support [facility]rosis [facility] [address] [place] [address] 4th [place] [phone] 08/18/2025 10:30 AM EDT Hospital Encounter [facility] Gastroenterology Division [address] [place] [phone] Vitor Morales MD [address] [place] [address] [id number] 08/18/2025 10:30 AM EDT Appointment [facility] [address] [place] [address] Vitor Morales MD [address] [place] [address] [id number] 08/18/2025 10:30 AM EDT - 08/18/2025 11:00 AM EDT Surgery [facility]astro[facility]ology [facility] [address] [place] [address] [phone] Vitor Morales MD [address] [place] [address] [phone] COLONOSCOPY 05/04/2026 11:00 AM EDT Office Visit [facility] Department of Cardiology [place] [address] [place] [phone] Aashish Silva PA [address] [place] [address] 056653 Scheduled Procedures Name Priority Associated Diagnoses Date/Ti [...] documented as of this encounter Care Teams Postdoctoral Fellow Relationship Specialty Start Date End Date Sanjay Fernandes MD [address] [address] PCP - General Pulmonary Disease 05/28/16 06/22/20 Gael Stockton MD [address] [place] [address] PCP - General Internal Medicine 06/23/20 05/04/25 Gael Stockton MD PCP - [facility] Medicare Patients 11/23/22 03/22/23 Sanjay Fernandes MD [address] [place] [address] PCP - General Pulmonary Disease 05/05/25 Franklin Simmons MD [address] [place] [address] Physician Otolaryngology 06/14/17 Godwin Saunders DO [address] [address] Physician Endocrinology 06/14/17 Gael Stockton MD [address] [place] [address] Internal Medicine 05/26/20 Godwin Malcolm MD 85 [facility] 923 [place] [address] Hematology Oncology 11/03/20 Heather Packer, DIET TECHNICIAN REGISTERED [address] [facility] 4 [place] [address] Respiratory Care Practitioner Respiratory Therapist 09/20/24 Antonia Willis MD 850 [facility] 530 [facility] [place] [address] Internal Medicine 02/17/25 Logan Doran MD 30 [place] [address] 03/18/25 documented as of this encounter
--- OUTSIDE RECORDS SUMMARY | 2025-06-26 18:22 | XMS_ITS | Encounter Summary ---
Author Organization [facility] Address [address] [place] [address] Care Team Providers Care Informatics Scientist Name Role Phone Sanjay Fernandes MD Primary Care Provider Franklin Simmons MD Unavailable [phone] Godwin Saunders DO Unavailable [phone] Gael Stockton MD Unavailable Unavailable Gael Stockton MD Primary Care Provider Unavail able Godwin Malcolm MD Unavailable Unavailable Gael Stockton MD Unavailable Unavailable Heather Packer FIREBRICK LAYER HELPER Unavailable [phone] Antonia Willis MD Unavailable Logan Doran MD Unavailable [phone] Sanjay Fernandes MD Primary Care Provider Encounter Details Date Type Department Care Team (Late st Contact Info) Description 03/20/2018 Scanned Document [facility] [address] [place] [phone] Social History Tobacco Use Types Packs/Day [...] EDT Clinical Support [facility] [address] [place] [address] 4th [place] [phone] 08/18/2025 10:30 AM EDT Hospital Encounter [facility] Gastroenterology Division [address] [place] [phone] Vitor Morales MD [address] [place] [address] [phone] 08/18/2025 10:30 AM EDT Appointment [facility] [address] [place] [address] Vitor Morales MD [address] [place] [address] [phone] 08/18/2025 10:30 AM EDT - 08/18/2025 11:00 AM EDT Surgery [facility] [address] [place] [address] [phone] Vitor Morales MD [address] [place] [address] [phone] COLONOSCOPY 05/04/2026 11:00 AM EDT Office Visit [facility] Department of Cardiology [place] [address] [place] [phone] Aashish Silva PA [address] [place] [address] [phone] Scheduled Procedures Name Priority Associated Diagnoses Date/Ti [...] documented as of this encounter Care Teams Informatics Scientist Relationship Specialty Start Date End Date Sanjay Fernandes MD [address] [address] PCP - General Pulmonary Disease 05/28/16 06/22/20 Gael Stockton MD [address] [place] [address] PCP - General Internal Medicine 06/23/20 05/04/25 Gael Stockton MD PCP - [facility] Medicare Patients 11/23/22 03/22/23 Sanjay Fernandes MD [address] [place] [address] PCP - General Pulmonary Disease 05/05/25 Franklin Simmons MD [address] [place] [address] Physician Otolaryngology 06/14/17 Godwin Saunders DO [address] [address] Physician Endocrinology 06/14/17 Gael Stockton MD [address] [place] [address] Internal Medicine 05/26/20 Godwin Malcolm MD 85 [facility] 923 [place] [address] Hematology Oncology 11/03/20 Heather Packer, FIREBRICK LAYER HELPER [address] [facility] 4 [place] [address] Respiratory Care Practitioner Respiratory Therapist 09/20/24 Antonia Willis MD 850 [facility] 530 [facility] [place] [address] Internal Medicine 02/17/25 Logan Doran MD 30 [place] [address] 03/18/25 documented as of this encounter
--- OUTSIDE RECORDS SUMMARY | 2025-06-26 18:22 | XMS_ITS | Encounter Summary ---
Author Organization [facility] Address [address] [place] [address] Care Team Providers Care Allocations Clerk Name Role Phone Sanjay Fernandes MD Primary Care Provider Franklin Simmons MD Unavailable Godwin Saunders DO Unavailable [phone] Gael Stockton MD Unavailable Unavailable Gael Stockton MD Primary Care Provider Unavail able Godwin Malcolm MD Unavailable Unavailable Gael Stockton MD Unavailable Unavailable Heather Packer FABRICATION AND ASSEMBLY SUPERVISOR Unavailable [phone] Antonia Willis MD Unavailable Logan Doran MD Unavailable Sanjay Fernandes MD Primary Care Provider [phone] Encounter Details Date Type Department Care Team (Late st Contact Info) Description 03/21/2018 Scanned Document [facility] [address] [facility] [place], [place] [phone] Lisa Barr PA [address] [place], [place] [phone] Social History Tobacco Use Types Packs/Day Years [...] 11:00 AM EDT Clinical Support [facility] [address] [place] [address] 4th [place] [phone] 08/18/2025 10:30 AM EDT Hospital Encounter [facility]astro[facility]ology [facility] [address] [place] [phone] Vitor Morales MD [address] [place] [address] [id number] 08/18/2025 10:30 AM EDT Appointment [facility] [address] [place] [address] Vitor Morales MD [address] [place] [address] [phone] 08/18/2025 10:30 AM EDT - 08/18/2025 11:00 AM EDT Surgery [facility] [address] [place] [phone] Vitor Morales MD [address] [place] [address] COLONOSCOPY 05/04/2026 11:00 AM EDT Office Visit [facility] Department of Cardiology [place] [address] [place] [phone] Aashish Silva PA [address] [place] [address] Scheduled Procedures Name Priority Associated Diagnoses Date/Ti [...] documented as of this encounter Care Teams Allocations Clerk Relationship Specialty Start Date End Date Sanjay Fernandes MD [address] [place] [address] PCP - General Pulmonary Disease 05/28/16 06/22/20 Gael Stockton MD [address] [place] [address] PCP - General Internal Medicine 06/23/20 05/04/25 Gael Stockton MD PCP - [facility] Medicare Patients 11/23/22 03/22/23 Sanjay Fernandes MD [address] [place] [address] PCP - General Pulmonary Disease 05/05/25 Franklin Simmons MD [address] [place] [address] Physician Otolaryngology 06/14/17 Godwin Saunders DO [address] [place] [address] Physician Endocrinology 06/14/17 Gael Stockton MD [address] [address] Internal Medicine 05/26/20 Godwin Malcolm MD [address] [address] Hematology Oncology 11/03/20 Heather Packer, FABRICATION AND ASSEMBLY SUPERVISOR [address] [place] [address] Respiratory Care Practitioner Respiratory Therapist 09/20/24 Antonia Willis MD [address] [facility] [place] [address] Internal Medicine 02/17/25 Logan Doran MD 30 [place] [address] 03/18/25 documented as of this encounter
--- OUTSIDE RECORDS SUMMARY | 2025-06-26 18:22 | XMS_ITS | Encounter Summary ---
Author Organization [facility] Address [address] [place] [address] Care Team Providers Care Ship Laborer Name Role Phone Sanjay Fernandes MD Primary Care Provider Franklin Simmons MD Unavailable [phone] Godwin Saunders DO Unavailable [phone] Gael Stockton MD Unavailable Unavailable Gael Stockton MD Primary Care Provider Unavail able Godwin Malcolm MD Unavailable Unavailable Gael Stockton MD Unavailable Unavailable Heather Packer PRIVATE SECRETARY Unavailable Antonia Willis MD Unavailable Logan Doran MD Unavailable Sanjay Fernandes MD Primary Care Provider Encounter Details Date Type Department Care Team (Late st Contact Info) Description 04/04/2018 Scanned Document [facility] [address] [place] [address] 4th [place] [phone] Sanjay Fernandes MD [address] [place] [address] Social History Tobacco Use Types Packs/Day Years [...] 11:00 AM EDT Clinical Support [facility] 79 [facility] 4th [place] [phone] 08/18/2025 10:30 AM EDT Hospital Encounter [facility] Gastroenterology Division [address] [place] [phone] Vitor Morales MD [address] [place] [address] [phone] 08/18/2025 10:30 AM EDT Appointment [facility] [address] [place] [address] Vitor Morales MD [address] [place] [address] [phone] 08/18/2025 10:30 AM EDT - 08/18/2025 11:00 AM EDT Surgery [facility]ology Division [address] [place] [address] [phone] Vitor Morales MD [address] [place] [address] COLONOSCOPY 05/04/2026 11:00 AM EDT Office Visit [facility] Department of Cardiology [place] [address] [place] [phone] Aashish Silva PA [address] [place] [address] Scheduled Procedures Name Priority Associated Diagnoses Date/Ti wi COLONOSCOPY Colon cancer screening 08/18/2025 10:30 AM [...] documented as of this encounter Care Teams Ship Laborer Relationship Specialty Start Date End Date Sanjay Fernandes MD [address] [place] [address] PCP - General Pulmonary Disease 05/28/16 06/22/20 Gael Stockton MD [address] [place] [address] PCP - General Internal Medicine 06/23/20 05/04/25 Gael Stockton MD PCP - [facility] Medicare Patients 11/23/22 03/22/23 Sanjay Fernandes MD [address] [place] [address] PCP - General Pulmonary Disease 05/05/25 Franklin Simmons MD [address] [place] [address] Physician Otolaryngology 06/14/17 Godwin Saunders DO [address] [place] [address] Physician Endocrinology 06/14/17 Gael Stockton MD [address] [address] Internal Medicine 05/26/20 Godwin Malcolm MD [address] [address] Hematology Oncology 11/03/20 Heather Packer, PRIVATE SECRETARY [address] [place] [address] [place] [address] Respiratory Care Practitioner Respiratory Therapist 09/20/24 Antonia Willis MD [address] [facility] [place] [address] Internal Medicine 02/17/25 Logan Doran MD 30 [place] [address] 03/18/25 documented as of this encounter
--- OUTSIDE RECORDS SUMMARY | 2025-06-26 18:22 | XMS_ITS | Encounter Summary ---
Author Organization [facility] Address [address] [place] [address] Care Team Providers Care Loader Helper Name Role Phone Sanjay Fernandes MD Primary Care Provider Franklin Simmons MD Unavailable [phone] Godwin Saunders DO Unavailable Gael [place] MD Unavailable Unavailable Gael [place] MD Primary Care Provider Unavail able Godwin Malcolm MD Unavailable Unavailable Gael [place] MD Unavailable Unavailable Heather Packer BIG DATA SOFTWARE ENGINEER Unavailable Antonia Willis MD Unavailable Logan Doran MD Unavailable Sanjay Fernandes MD Primary Care Provider Encounter Details Date Type Department Care Team (Late st Contact Info) Description 04/05/2018 Telephone [facility] [address] [place] [phone] Provider, MD Devyn [address] [place] [address] Social History Tobacco Use Types Packs/Day Years [...] PM EDT documented as of this encounter Miscellaneous Notes * Telephone Encounter - Evelin Shravan - 04/05/2018 12:56 PM EDT Carla's rx for Dexilant was approved today from 04/05/2018-04/05/2019. [facility] [place], [place] they reprocessed the claim, it paid and they will fill. I called Vitor Floyd, no answer and vm box is full. Called Carla and gave her the update. Note for future reference... Although her insurance card provides the RX information for express scripts (bin [id number], PCN [id number], RxGrp MASA), Her plan [employer] [place] is the plan that handles the PAs at phone number . To get this approved need to let the insurance know that she has tried and failed all other therapy options for this diagnosis (omeprazole, pantoprazole, etc.) documented in this encounter Plan of Treatment Upcoming Encounters Date Type Department Care Team (Latest Contact Info) Description 07/02/2025 11:00 AM EDT Clinical Support [facility] [address] [place] [phone] 08/18/2025 10:30 AM EDT Hospital Encounter [facility] Gastroenterology Division [address] [place] [phone] Vitor Morales MD [address] [place] [address] [phone] 08/18/2025 10:30 AM EDT Appointment [facility] [address] [phone] Vitor Morales MD [address] [place] [address] 08/18/2025 10:30 AM EDT - 08/18/2025 11:00 AM EDT Surgery [facility] Gastroenterology Division [address] [place] [phone] Vitor Morales MD [address] [place] [address] COLONOSCOPY 05/04/2026 11:00 AM EDT Office Visit [facility] Department of Cardiology [place] [address] [place] [phone] Aashish Silva PA [address] [place] [address] Scheduled Procedures Name Priority Associated Diagnoses Date/Ti [...] documented as of this encounter Care Teams Loader Helper Relationship Specialty Start Date End Date Sanjay Fernandes MD [address] [place] [address] PCP - General Pulmonary Disease 05/28/16 06/22/20 Gael [place] MD [address] [place] [address] PCP - General Internal Medicine 06/23/20 05/04/25 Gael [place] MD PCP - [facility] Medicare Patients 11/23/22 03/22/23 Sanjay Fernandes MD [address] [phone] PCP - General Pulmonary Disease 05/05/25 Franklin Simmons MD [address] [place] [address] Physician Otolaryngology 06/14/17 Godwin Saunders DO [address] [place] [address] Physician Endocrinology 06/14/17 Gael [place] MD [address] [place] [address] Internal Medicine 05/26/20 Godwin Malcolm MD [address] [place] [address] Hematology Oncology 11/03/20 Heather Packer, BIG DATA SOFTWARE ENGINEER [address] [place] [address] [place] [address] Respiratory Care Practitioner Respiratory Therapist 09/20/24 Antonia Willis MD [address] [place] [address] and [place] [address] Internal Medicine 02/17/25 Logan Doran MD [address] [place] [address] 03/18/25 documented as of this encounter
--- OUTSIDE RECORDS SUMMARY | 2025-06-26 18:23 | XMS_ITS | Encounter Summary ---
Author Organization [facility] Address [address] [place] [address] Care Team Providers Care Electronic Funds Transfer Coordinator Name Role Phone Franklin Simmons MD Unavailable [phone] Godwin Saunders DO Unavailable Gael [place] MD Unavailable Unavailable Gael [place] MD Primary Care Provider Unavail able Godwin Malcolm MD Unavailable Unavailable Gael [place] MD Unavailable Unavailable OchoaHeather NURSE NAVIGATOR Unavailable Antonia Willis MD Unavailable Logan Doran MD Unavailable Sanjay Fernandes MD Primary Care Provider Encounter Details Date Type Department Care Team (Late st Contact Info) Description 12/22/2021 Scanned Document [facility] [address] [place] [address] [address] [place] [phone] Social History Tobacco Use Types Packs/Day Years Used Date Smoking Tobacco: Never Smokeless Tobacco: Never Alcohol Use Standard Drinks/Week Comments No 0 (1 standard drink = 0.6 oz pur e alcohol) PHQ-2 Answer Date Recorded PHQ-2 Total Score 1 10/06/2021 Comments No Sex and Gender Information Value [...] EDT Clinical Support [facility] [address] [place] [address] [address] [place] [phone] 08/18/2025 10:30 AM EDT Hospital Encounter [facility] Gastroenterology Division [address] [place] [phone] Vitor Morales MD [address] [place] [address] [phone] 08/18/2025 10:30 AM EDT Appointment [facility] [address] [place] [address] Vitor Morales MD [address] [place] [address] [phone] 08/18/2025 10:30 AM EDT - 08/18/2025 11:00 AM EDT Surgery [facility] Gastroenterology Division [address] [place] [phone] Vitor Morales MD [address] [place] [address] [phone] COLONOSCOPY 05/04/2026 11:00 AM EDT Office Visit [facility] Physicians Department of Cardiology [place] [address] [place] [phone] Aashish Silva PA [address] [place] [address] 798703 Scheduled Procedures Name Priority Associated Diagnoses Date/Ti me COLONOSCOPY Colon cancer screening 08/18/2025 10:30 AM EDT documented as of this encounter Visit Diagnoses Not on filedocumented in this encounter Additional Health Concerns Infection Onset Date Last Indicated Resolved Time MDRO Comment:Contact Precautions every admission, 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 Other CF 08/16/2018 08/28/2018 08/28/2018 Cystic Fibrosis (CF) Comment:Place on contact isolation for each encounter 12/05/2023 12/05/2023 documented as of this encounter Care Teams Electronic Funds Transfer Coordinator Relationship Specialty Start Date End Date Gael [place] MD PCP - General Internal Medicine 06/23/20 05/04/25 Gael [place] MD PCP - [place] Medicare Patients 11/23/22 03/22/23 Sanjay Fernandes MD 85 [facility] 923 [place] [address] PCP - General Pulmonary Disease 05/05/25 Franklin Simmons MD Physician Otolaryngology 06/14/17 Godwin Saunders DO Physician Endocrinology 06/14/17 Gael [place] MD Internal Medicine 05/26/20 Godwin Malcolm MD Hematology Oncology 11/03/20 Heather Pacekr, NURSE NAVIGATOR [address] [place] 4 [place] [address] Respiratory Care Practitioner Respiratory Therapist 09/20/24 Antonia Willis MD 850 [facility] [address] [place] [address] Internal Medicine 02/17/25 Logan Doran MD 30 [place] [address] 03/18/25 documented as of this encounter
--- OUTSIDE RECORDS SUMMARY | 2025-06-26 18:23 | XMS_ITS | Encounter Summary ---
Author Organization [facility] Address [address] [place] [address] Care Team Providers Care Ferry Hand Name Role Phone Franklin Simmons MD Unavailable Godwin Saunders DO Unavailable Gael [place] MD Unavailable Unavailable Gael [place] MD Primary Care Provider Unavail able Godwin Malcolm MD Unavailable Unavailable Gael [place] MD Unavailable Unavailable Heather Packer REGISTERED MIDWIFE Unavailable Antonia Willis MD Unavailable Logan Doran MD Unavailable [phone] Sanjay Fernandes MD Primary Care Provider Reason for Visit * Reason Comments Medication Refill Encounter Details Date Type Department Care Team (Late st Contact Info) Description 04/30/2022 Refill [facility] [address] [place] [address] [address] [place] [phone] Terry Su MD [address] [phone] Neuralgia Social History Tobacco Use Types Packs/Day Years Used Date Smoking Tobacco: Never Smokeless Tobacco: Never Alcohol Use Standard Drinks/Week Comments No 0 (1 standard drink = 0.6 oz pur e alcohol) PHQ-2 Answer Date Recorded PHQ-2 Total Score 1 03/23/2022 Comments No Sex and Gender Information Value [...] 11:00 AM EDT Clinical Support [facility] [address] [place] [address] 4[address] [place] [phone] 08/18/2025 10:30 AM EDT Hospital Encounter [facility] Gastroenterology Division [address] [place] [phone] Vitor Morales MD [address] [place], [place] [phone] 08/18/2025 10:30 AM EDT Appointment [facility] [address] [place] [address] Vitor Morales MD [address] [place] [address] [phone] 08/18/2025 10:30 AM EDT - 08/18/2025 11:00 AM EDT Surgery [facility] Gastroenterology Division [address] [place] [phone] Vitor Morales MD [address] [place] [address] [phone] COLONOSCOPY 05/04/2026 11:00 AM EDT Office Visit [facility] Physicians Department of Cardiology [place] [address] [place] [phone] Aashish Silva PA [address] [place] [address] Scheduled Procedures Name Priority Associated Diagnoses Date/Ti me COLONOSCOPY Colon cancer screening 08/18/2025 10:30 AM EDT documented as of this encounter Visit Diagnoses Diagnosis Neuralgia Unspecified neuralgia, neuritis, and radiculitis Colon cancer screening Special screening for malignant [...] documented as of this encounter Care Teams Ferry Hand Relationship Specialty Start Date End Date Gael [place] MD PCP - General Internal Medicine 06/23/20 05/04/25 Gael [place] MD PCP - [facility] Medicare Patients 11/23/22 03/22/23 Sanjay Fernandes MD [address] [place] [address] PCP - General Pulmonary Disease 05/05/25 Franklin Simmons MD Physician Otolaryngology 06/14/17 Godwin Saunders DO Physician Endocrinology 06/14/17 Gael [place] MD Internal Medicine 05/26/20 Godwin Malcolm MD Hematology Oncology 11/03/20 Heather Packer, REGISTERED MIDWIFE [facility] [place] [address] Respiratory Care Practitioner Respiratory Therapist 09/20/24 Antonia Willis MD [address] [address] [place] [address] Internal Medicine 02/17/25 Logan Doran MD 30 [place] [address] 03/18/25 documented as of this encounter
--- OUTSIDE RECORDS SUMMARY | 2025-06-26 18:23 | XMS_ITS | Encounter Summary ---
Author Organization [facility] Address [address] [place] [address] Care Team Providers Care Workers Compensation Specialist Name Role Phone Sanjay Fernandes MD Primary Care Provider Franklin Simmons MD Unavailable [phone] Godwin Saunders DO Unavailable [phone] Gael [place] MD Unavailable Unavailable Gael [place] MD Primary Care Provider Unavail able Godwin Malcolm MD Unavailable Unavailable Gael [place] MD Unavailable Unavailable Heather Packer FIXTURE FABRICATOR REPAIRER Unavailable [phone] Antonia Willis MD Unavailable Logan Doran MD Unavailable [phone] Sanjay Fernandes MD Primary Care Provider [phone] Encounter Details Date Type Department Care Team (Late st Contact Info) Description 04/23/2020 Scanned Document [facility] [address] [place] [phone] Social History Tobacco Use Types Packs/Day [...] Orientation Heterosexual (straight) 02/17 1:57 PM EDT COVID-19 Exposure Response Date Recorded In the last month, have you been in contact with someone who was confirmed or suspected to have Coronavirus / COVID-19? No / Unsure 04/16/2020 11:19 AM EDT documented as of this encounter Plan of Treatment Upcoming Encounters Date Type Department Care Team (Latest Contact Info) Description 07/02/2025 11:00 AM EDT Clinical Support [facility] [address] [place] [address] [address] [place] [phone] 08/18/2025 10:30 AM EDT Hospital Encounter [facility] Gastroenterology Division [address] [place] [phone] Vitor Morales MD [address] [place] [address] 08/18/2025 10:30 AM EDT Appointment [facility] [address] [place] [address] Vitor Morales MD [address] [place] [address] [phone] 08/18/2025 10:30 AM EDT - 08/18/2025 11:00 AM EDT Surgery [facility] Gastroenterology Division [address] [place] [phone] Vitor Morales MD [address] [place] [address] COLONOSCOPY 05/04/2026 11:00 AM EDT Office Visit [facility] Department of Cardiology [place] [address] [place] [phone] Aashish Silva PA [address] [place] [address] Scheduled Procedures Name Priority Associated Diagnoses Date/Ti [...] documented as of this encounter Care Teams Workers Compensation Specialist Relationship Specialty Start Date End Date Sanjay Fernandes MD [address] [place] [address] PCP - General Pulmonary Disease 05/28/16 06/22/20 Gael [place] MD [address] [place] [address] PCP - General Internal Medicine 06/23/20 05/04/25 Gael [place] MD PCP - [facility] Medicare Patients 11/23/22 03/22/23 Sanjay Fernandes MD [address] [place] [address] PCP - General Pulmonary Disease 05/05/25 Franklin Simmons MD [address] [place] [address] Physician Otolaryngology 06/14/17 Godwin Saunders DO [address] [place] [address] Physician Endocrinology 06/14/17 Gael [place] MD [address] [place] [address] Internal Medicine 05/26/20 Godwin Malcolm MD 85 [facility] 923 [place] [address] Hematology Oncology 11/03/20 Heather Packer, FIXTURE FABRICATOR REPAIRER [address] [place] 4 [place] [address] Respiratory Care Practitioner Respiratory Therapist 09/20/24 Antonia Willis MD 850 [facility] 530 [facility] and [place] [address] Internal Medicine 02/17/25 Logan Doran MD 30 [place] [address] 03/18/25 documented as of this encounter
--- OUTSIDE RECORDS SUMMARY | 2025-06-26 18:23 | XMS_ITS | Encounter Summary ---
Author Organization [facility] Address [address] [place] [address] Care Team Providers Care Mosaicist Name Role Phone Franklin Simmons MD Unavailable [phone] Godwin Saunders DO Unavailable [phone] Gael [place] MD Unavailable Unavailable Gael [place] MD Primary Care Provider Unavail able Godwin Malcolm MD Unavailable Unavailable Gael [place] MD Unavailable Unavailable OchoaHeather WAREHOUSE HAND Unavailable Antonia Willis MD Unavailable Logan Doran MD Unavailable [phone] Sanjay Fernandes MD Primary Care Provider Reason for Visit * Reason Comments Medication Management Encounter Details Date Type Department Care Team (Late st Contact Info) Description 04/18/2022 Telephone [facility] [address] [place] [address] Vitor Morales MD [address] [phone] Medication Management Social History Tobacco Use Types Packs/Day Years [...] Exposure Response Date Recorded In the last 10 days, have yo u been in contact with someone who was confirmed or suspected to have Coronavirus/COVID-19? No / Unsure 03/23/2022 10:00 AM EDT documented as of this encounter Miscellaneous Notes * Telephone Encounter - Mady Case - 04/18/2022 11:04 AM EDT PA for Omeprazole 40mg- Pt has bcbs of [place] all PPI's are an Exclusion from the pt's plan PA for Motegrity 2mg submitted via CMM I will let you know when decision is made. documented in this encounter Plan of Treatment Upcoming Encounters Date Type Department Care Team (Latest Contact Info) Description 07/02/2025 11:00 AM EDT Clinical Support [facility]rosis [facility] [address] [place] [phone] 08/18/2025 10:30 AM EDT Hospital Encounter [facility] Gastroenterology Division [address] [place] [phone] Vitor Morales MD [address] [place] [address] 08/18/2025 10:30 AM EDT Appointment [facility] [address] [address] Vitor Morales MD [address] [place] [address] [phone] 08/18/2025 10:30 AM EDT - 08/18/2025 11:00 AM EDT Surgery [facility] Gastroenterology Division 85 [place] [address] Vitor Morales MD 85 [facility] 1000 [place] [address] COLONOSCOPY 05/04/2026 11:00 AM EDT Office Visit [facility] Department of Cardiology [place] [address] [place] [phone] Aashish Silva PA [address] [place] [address] Scheduled Procedures Name Priority Associated Diagnoses Date/Ti oh COLONOSCOPY Colon cancer screening 08/18/2025 10:30 AM [...] documented as of this encounter Care Teams Mosaicist Relationship Specialty Start Date End Date Gael [place] MD PCP - General Internal Medicine 06/23/20 05/04/25 Gael [place] MD PCP - [facility] Medicare Patients 11/23/22 03/22/23 Sanjay Fernandes MD [address] [place], [place] [address]43 [place] [address] PCP - General Pulmonary Disease 05/05/25 Franklin Simmons MD Physician Otolaryngology 06/14/17 Godwin Saunders DO Physician Endocrinology 06/14/17 Gael [place] MD Internal Medicine 05/26/20 Godwin Malcolm MD Hematology Oncology 11/03/20 Heather Packer, WAREHOUSE HAND 79 [facility] 4 [place] [address] Respiratory Care Practitioner Respiratory Therapist 09/20/24 Antonia Willis MD [address] [place], [place] [address]am and [place] [address] Internal Medicine 02/17/25 Logan Doran MD 30 [place] [address] 03/18/25 documented as of this encounter
--- OUTSIDE RECORDS SUMMARY | 2025-06-26 18:23 | XMS_ITS | Encounter Summary ---
Author Organization [facility] Address [address] [place] [address] Care Team Providers Care Metal Mockup Maker Name Role Phone Franklin Simmons MD Unavailable Godwin Saunders DO Unavailable Gael [place] MD Unavailable Unavailable Gael [place] MD Primary Care Provider Unavail able Godwin Malcolm MD Unavailable Unavailable Gael [place] MD Unavailable Unavailable Heather Packer FOURDRINIER OPERATOR Unavailable Antonia Willis MD Unavailable Logan Doran MD Unavailable Sanjay Fernandes MD Primary Care Provider [phone] Reason for Visit * Reason Comments Medication Refill Encounter Details Date Type Department Care Team (Late st Contact Info) Description 01/16/2022 Refill [facility] [address] [place] [address] [address] [place] [address] Terry Su MD [address] [phone] GERD with esophagitis Social History Tobacco Use Types Packs/Day Years [...] 11:00 AM EDT Clinical Support [facility] 79 [facility] 4th [place] [phone] 08/18/2025 10:30 AM EDT Hospital Encounter [facility] Gastroenterology Division [address] [place] [phone] Vitor Morales MD [address] [place] [address] [phone] 08/18/2025 10:30 AM EDT Appointment [facility] [address] [place] [address] Vitor Morales MD [address] [place] [address] [phone] 08/18/2025 10:30 AM EDT - 08/18/2025 11:00 AM EDT Surgery [facility] Gastroenterology Division [address] [place] [phone] Vitor Morales MD [address] [place] [address] [phone] COLONOSCOPY 05/04/2026 11:00 AM EDT Office Visit [facility] Department of Cardiology [place] [address] [place] [phone] Aashish Silva PA [address] [place] [address] Scheduled Procedures Name Priority Associated Diagnoses Date/Ti me COLONOSCOPY Colon cancer screening 08/18/2025 10:30 AM EDT documented as of this encounter Visit Diagnoses Diagnosis GERD with esophagitis Colon cancer screening Special screening for malignant [...] documented as of this encounter Care Teams Metal Mockup Maker Relationship Specialty Start Date End Date Gael [place] MD PCP - General Internal Medicine 06/23/20 05/04/25 Gael [place] MD PCP - [place] Medicare Patients 11/23/22 03/22/23 Sanjay Fernandes MD [address] [place] [address] PCP - General Pulmonary Disease 05/05/25 Franklin Simmons MD Physician Otolaryngology 06/14/17 Godwin Saunders DO Physician Endocrinology 06/14/17 Gael [place] MD Internal Medicine 05/26/20 Godwin Malcolm MD Hematology Oncology 11/03/20 Heather Packer, FOURDRINIER OPERATOR [address] [place] 4 [place] [address] Respiratory Care Practitioner Respiratory Therapist 09/20/24 Antonia Willis MD [address] [place] [address] and [place] [address] Internal Medicine 02/17/25 Logan Doran MD 30 [place] [address] 03/18/25 documented as of this encounter
--- OUTSIDE RECORDS SUMMARY | 2025-06-26 18:23 | XMS_ITS | Encounter Summary ---
Author Organization [facility] Address [address] [place] [address] Care Team Providers Care Assistant Farm Operations Manager Name Role Phone Sanjay Fernandes MD Primary Care Provider Franklin Simmons MD Unavailable [phone] Godwin Saunders DO Unavailable Gael Stockton MD Unavailable Unavailable Gael Stockton MD Primary Care Provider Unavail able Godwin Malcolm MD Unavailable Unavailable Gael Stockton MD Unavailable Unavailable Heather Packer VEHICLE DETAILER Unavailable [phone] Antonia Willis MD Unavailable Logan Doran MD Unavailable [phone] Sanjay Fernandes MD Primary Care Provider Encounter Details Date Type Department Care Team (Late st Contact Info) Description 01/08/[address] [facility] [address] [place] [address] Alexandra Kendrick MA [address] [place] [address] Social History Tobacco Use Types Packs/Day Years [...] 11:00 AM EDT Clinical Support [facility] [address] [place] [address] 4th [place] [phone] 08/18/2025 10:30 AM EDT Hospital Encounter [facility] G[facility]ology [facility] [address] [place] [phone] Vitor Morales MD [address] [place] [address] [phone] 08/18/2025 10:30 AM EDT Appointment [facility] [address] [place] [address] Vitor Morales MD [address] [place] [address] [phone] 08/18/2025 10:30 AM EDT - 08/18/2025 11:00 AM EDT Surgery [facility] Gastroenterology [facility] [address] [place] [phone] Vitor Morales MD [address] [place] [address] COLONOSCOPY 05/04/2026 11:00 AM EDT Office Visit [facility] Department of Cardiology [place] [address] [place] [address] Aashish Silva PA [address] [place] [address] Scheduled Procedures Name Priority Associated Diagnoses Date/Ti [...] documented as of this encounter Care Teams Assistant Farm Operations Manager Relationship Specialty Start Date End Date Sanjay Fernandes MD [address] [place] [address] PCP - General Pulmonary Disease 05/28/16 06/22/20 Gael Stockton MD [address] [place] [address] PCP - General Internal Medicine 06/23/20 05/04/25 Gael Stockton MD PCP - [facility] Medicare Patients 11/23/22 03/22/23 Sanjay Fernandes MD [address] [place] [address] PCP - General Pulmonary Disease 05/05/25 Franklin Simmons MD [address] [place] [address] Physician Otolaryngology 06/14/17 Godwin Saunders DO [address] [place] [address] Physician Endocrinology 06/14/17 Gael Stockton MD [address] [address] Internal Medicine 05/26/20 Godwin Malcolm MD [address] [address] Hematology Oncology 11/03/20 Heather Packer, VEHICLE DETAILER [address] [place] [address] [place] [address] Respiratory Care Practitioner Respiratory Therapist 09/20/24 Antonia Willis MD [address] [facility] [place] [address] Internal Medicine 02/17/25 Logan Doran MD 30 [place] [address] 03/18/25 documented as of this encounter
--- OUTSIDE RECORDS SUMMARY | 2025-06-26 18:23 | XMS_ITS | Encounter Summary ---
Author Organization [facility] Address [address] [place] [address] Care Team Providers Care Sleeve Maker Name Role Phone Franklin Simmons MD Unavailable [phone] Godwin Saunders DO Unavailable [phone] Gael Stockton MD Unavailable Unavailable Gael Stockton MD Primary Care Provider Unavail able Godwin Malcolm MD Unavailable Unavailable Gael Stockton MD Unavailable Unavailable OchoaHeather POOL HAND Unavailable Antonia Willis MD Unavailable Logan Doran MD Unavailable [phone] Sanjay Fernandes MD Primary Care Provider Encounter Details Date Type Department Care Team (Late st Contact Info) Description 09/08/2020 Scanned Document [facility] [address] [place] [phone] Social History Tobacco Use Types Packs/Day Years [...] AM EDT Clinical Support [facility] [address] [facility] 4th [place] [phone] 08/18/2025 10:30 AM EDT Hospital Encounter [facility] Gastroenterology Division [address] [place] [phone] Vitor Morales MD [address] [place] [address] [phone] 08/18/2025 10:30 AM EDT Appointment [facility] [address] [place] [address] Vitor Morales MD [address] [place] [place] [address] [phone] 08/18/2025 10:30 AM EDT - 08/18/2025 11:00 AM EDT Surgery [facility] [address] [place] [phone] Vitor Morales MD [address] [place] [place] [address] [phone] COLONOSCOPY 05/04/2026 11:00 AM EDT Office Visit [facility] Department of Cardiology [place] [address] [place] [phone] Aashish Silva PA [address] [place] [address] [phone] Scheduled Procedures Name Priority Associated Diagnoses Date/Ti [...] documented as of this encounter Care Teams Sleeve Maker Relationship Specialty Start Date End Date Gael Stockton MD PCP - General Internal Medicine 06/23/20 05/04/25 Gael Stockton MD PCP - [place] Medicare Patients 11/23/22 03/22/23 Sanjay Fernandes MD 85 [facility] [address] [place] [address] PCP - General Pulmonary Disease 05/05/25 Franklin Simmons MD Physician Otolaryngology 06/14/17 Godwin Saunders DO Physician Endocrinology 06/14/17 Gael Stockton MD Internal Medicine 05/26/20 Godwin Malcolm MD Hematology Oncology 11/03/20 Heather Packer, POOL HAND [address] [place] [address] [place] [address] Respiratory Care Practitioner Respiratory Therapist 09/20/24 Antonia Willis MD [address] [place] [address] [facility] [place] [address] Internal Medicine 02/17/25 Logan Doran MD [address] [place] [address] 03/18/25 documented as of this encounter
--- OUTSIDE RECORDS SUMMARY | 2025-06-26 18:23 | XMS_ITS | Encounter Summary ---
Author Organization [facility] Address [address] [place] [address] Care Team Providers Care Criminology Professor Name Role Phone Sanjay Fernandes MD Primary Care Provider Franklin Simmons MD Unavailable [phone] Godwin Saunders DO Unavailable Gael Stockton MD Unavailable Unavailable Gael Stockton MD Primary Care Provider Unavail able Godwin Malcolm MD Unavailable Unavailable Gael Stockton MD Unavailable Unavailable Heather Packer QUALITY CONTROL ASSISTANT Unavailable Antonia Willis MD Unavailable Logan Doran MD Unavailable Sanjay Fernandes MD Primary Care Provider Encounter Details Date Type Department Care Team (Late st Contact Info) Description 01/31/2018 Scanned Document [facility] [address] [place] [address] 4th [place] [phone] Sanjay Fernandes MD [address] [place] [address] Social History Tobacco Use Types Packs/Day Years [...] 11:00 AM EDT Clinical Support [facility] [address] [facility] 4th [place] [phone] 08/18/2025 10:30 AM EDT Hospital Encounter [facility]ology [facility] [address] [place] [phone] Vitor Morales MD [address] [place] [address] [phone] 08/18/2025 10:30 AM EDT Appointment [facility] [address] [place] [address] Vitor Morales MD [address] [place] [address] [phone] 08/18/2025 10:30 AM EDT - 08/18/2025 11:00 AM EDT Surgery [facility] [address] [place] [phone] Vitor Morales MD [address] [place] [address] COLONOSCOPY 05/04/2026 11:00 AM EDT Office Visit [facility] Department of Cardiology [place] [address] [place] [phone] Aashish Silva PA [address] [place] [address] Scheduled Procedures Name Priority Associated Diagnoses Date/Ti de COLONOSCOPY Colon cancer screening 08/18/2025 10:30 AM [...] documented as of this encounter Care Teams Criminology Professor Relationship Specialty Start Date End Date Sanjay Fernandes MD [address] [place] [address] PCP - General Pulmonary Disease 05/28/16 06/22/20 Gael Stockton MD [address] [place] [address] PCP - General Internal Medicine 06/23/20 05/04/25 Gael Stockton MD PCP - [place] Medicare Patients 11/23/22 03/22/23 Sanjay Fernandes MD [address] [place] [address] PCP - General Pulmonary Disease 05/05/25 Franklin Simmons MD [address] [place] [address] Physician Otolaryngology 06/14/17 Godwin Saunders DO [address] [place] [address] Physician Endocrinology 06/14/17 Gael Stockton MD [address] [address] Internal Medicine 05/26/20 Godwin Malcolm MD [address] [address] Hematology Oncology 11/03/20 Heather Packer, QUALITY CONTROL ASSISTANT [address] [place] [address] [place] [address] Respiratory Care Practitioner Respiratory Therapist 09/20/24 Antonia Willis MD [address] [facility] [place] [address] Internal Medicine 02/17/25 Logan Doran MD [address] [place] [address] 03/18/25 documented as of this encounter
--- OUTSIDE RECORDS SUMMARY | 2025-06-26 18:23 | XMS_ITS ---
Author Name [facility] Organization Unknown Results Test Name/Text Value Interpretation Date Range Source Gram Stn Spec Abnormal 03/31/2025 [facility] Gram Stn Spec SEE NOTE Normal 01/24/2025 [facility] Acid fast Stn Spec SEE NOTE Normal 01/24/2025 [facility] Acid fast Stn Spec SEE NOTE Normal 09/21/2024 [facility] Fungus Spec Fungus Stn SEE NOTE Abnormal 09/21/2024 [facility] Gram Stn Spec SEE NOTE Normal 09/21/2024 [facility] History of Medication Use Medication Directions Dispensed Refills Start Date End Date Stat us metoCLOPRAMIDE (REGLAN) 5 MG tablet Take 1 tablet (5 mg total) by mouth 4 (four) times a day. 06/11/2025 active cyclobenzaprine (FLEXERIL) 10 MG tablet Take 1 tablet (10 mg total) by mouth 3 times daily (every 8 hours) as needed for muscle spasms. 04/29/2025 active cimetidine (TAGAMET) 800 MG tablet 1 tablet (800 mg total) by Mouth/Oral Cavity route every 12 hours. 02/24/2025 active cefTAZidime (FORTAZ) 2 g Recon Soln injection Infuse 2 g into a venous catheter 3 times daily (every 8 hours). 01/13/2025 active hydrOXYzine HCl (ATARAX) 25 MG tablet Take 1 tablet (25 mg total) by mouth 3 (three) times a day. Prior to ceftazidime infusion 01/13/2025 active Motegrity 2 MG tablet TAKE 1 TABLET BY MOUTH EVERY DAY 11/27/2024 active diazepam (VALIUM) 5 MG tablet 1 tablet p.o. 1.5 hours before upcoming procedure 11/26/2024 active ondansetron (ZOFRAN-ODT) 8 MG disintegrating tablet DISSOLVE 1 TABLET BY MOUTH ON TONGUE 3 TIMES A DAY EVERY 8 HOURS NEEDED FOR NAUSEA AND VOMITING 09/24/2024 active suvorexant (Belsomra) 15 MG tablet TAKE 1 TABLET BY MOUTH EVERY DAY AT NIGHT 09/24/2024 active fluticasone-umeclidiniu m-vilanterol (TRELEGY ELLIPTA) 200-62.5-25 mcg/act inhaler Inhale 1 puff daily. 08/29/2024 4 aborted norethindrone (MICRONOR) 0.35 MG tablet Take 1 tablet (0.35 mg total) by mouth daily. 12/10/2023 active norethindrone (MICRONOR) 0.35 MG tablet Take 1 tablet by mouth daily. 12/10/2023 active ciprofloxacin (CIPRO) 750 MG tablet Take 1 tablet (750 mg total) by mouth 2 (two) times a day. 08/14/2023 active Qulipta 60 MG tablet Take 1 tablet (60 mg total) by mouth daily. 02/07/2023 active predniSONE (DELTASONE) 10 MG tablet 4 tabs once daily x 3 days, then 3 tabs once daily x 3 days, then 2 tablets once daily x 3 days, then 1 tab once daily x 3 days 11/01/2022 active doxycycline (VIBRAMYCIN) 100 MG capsule Take 1 capsule (100 mg total) by mouth 2 (two) times a day. 07/28/2022 3 active predniSONE (DELTASONE) 10 MG tablet Take 1 tablet (10 mg total) by mouth daily. With food. 40mg x 3 days, then 30mg x 3 days, then 20mg x 3 days, then 10mg x 3 days and then stop. 07/22/2022 3 active linaclotide (LINZESS) 290 MCG Cap capsule Take 1 capsule (290 mcg total) by mouth every morning before breakfast. 07/19/2022 2 aborted polyethylene glycol-electrolytes (NuLYTELY, TRILYTE) 420 g solution Drink 8 OZ every 10 min for total of 10 glasses. If no effect repeat. 06/17/2022 active methylPREDNISolone (MEDROL) 8 MG tablet 2 tabs bid x 3 days, then 1 tab bid x 3 days and then 1 tab every day until complete 06/14/2022 3 active albuterol (ProAir HFA) 108 (90 Base) MCG/ACT inhaler Inhale 2 puffs every 4 (four) hours as needed for wheezing (chest tightness). 04/20/2022 active linaclotide (LINZESS) 145 MCG Cap capsule Take 1 capsule (145 mcg total) by mouth every morning before breakfast. 04/19/2022 3 active desipramine (NORPRAMIN) 50 MG tablet Take 1 tablet (50 mg total) by mouth daily. 02/14/2022 active proMETHAZINE (PHENERGAN) 12.5 MG tablet TAKE 1 TABLET BY MOUTH 3 TIMES A DAY NEEDED FOR NAUSEA OR VOMITING. Strength: 12.5 mg 02/08/2022 4 active prucalopride succinate (Motegrity) 2 MG tablet Take 1 tablet (2 mg total) by mouth daily. 01/06/2022 4 active nystatin (MYCOSTATIN) 250246 UNIT/ML suspension Take 5 mL (500,000 Units total) by mouth 4 (four) times a day. 01/03/2022 4 active beclomethasone (QVAR) 80 mcg/puff inhaler Inhale 1 puff (80 mcg total) 2 (two) times a day. 10/20/2021 active guaiFENesin (MUCINEX) 600 MG 12 hr tablet Take 1 tablet (600 mg total) by mouth 2 (two) times a day. 06/30/2021 3 active melatonin 3 MG Tab tablet Take 1 tablet (3 mg total) by mouth nightly. 06/30/2021 3 active fluticasone (FloNASE) 50 mcg/spray nasal spray 1 spray into each nostril 2 (two) times a day. 06/30/2021 active OLANZapine (ZyPREXA) 2.5 MG tablet Take 1 tablet (2.5 mg total) by mouth nightly. 06/30/2021 active senna-docusate (SENNA-S) 8.6-50 MG Take 2 tablets by mouth nightly. 06/30/2021 active DHEA 50 MG Tab Take 100 mg by mouth. 05/28/2021 active levothyroxine (SYNTHROID, LEVOTHROID) 50 MCG tablet Take 1 tablet by mouth 5 (five) times a week. Monday through monday12/17/2020 active levothyroxine (SYNTHROID, LEVOTHROID) 50 MCG tablet Take 1 tablet (50 mcg total) by mouth 5 (five) times a week. Monday through monday12/17/2020 active albuterol (PROVENTIL) (0.083%) 2.5 mg/3 mL nebulizer solution Take 3 mL (2.5 mg total) by nebulization every 4 (four) hours as needed for wheezing or shortness of breath. 10/13/2020 4 active pancrelipase (CREON) 9[address]-[address] Particles Take 4 capsules (96,000 Units total) by mouth 5 (five) times a day. Dose is in units of lipase. 4 AC, 2 with snacks 4 active calcium carbonate (TUMS) 500 MG chewable tablet Chew 1 tablet (500 mg total) every 4 (four) hours as needed for indigestion or heartburn. active diclofenac enteric coated (VOLTAREN) 75 MG EC tablet Take 1 tablet (75 mg total) by mouth. Administer with food avoid GI upset. active naratriptan (AMERGE) 2.5 MG tablet Take 1 tablet (2.5 mg total) by mouth 2 times a day. May repeat in 4 hours if unresolved. Do not exceed 5 mg in 24 hours. active PROGESTERONE PO Take 0.35 mg by mouth 1 time. 1 tablet once per day 3 weeks on 1 week off active Allergies Allergen Reaction Severity Comment Documented Date Source Statu s CEFTAZIDIME OTHER (SEE COMMENTS)OTHER (SEE COMMENTS) Tingling/numbnes s in hands, itchy sensation in mouth along with chest pain. Can tolerate infusion w/ atarax. 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 ProblemAct [facility] Medication overuse headache active 2016-12-20 ProblemAct [facility] Vitamin D deficiency active 2016 ProblemAct [facility] Asthma active 2014-04-24 ProblemAct [facility] Chronic sinusitis active 2014-04-24 ProblemAct [facility] Intractable nausea and vomiting active 2021-06-23 ProblemAct [facility] Gastroparesis active 2019-02-28 ProblemAct [facility] Localized edema active 2023-03-02 ProblemAct [facility] Iron deficiency anemia active 2020-05-24 ProblemAct [facility] Chronic migraine without aura, with intractable migraine, so stated, with status migrainosus active 2016-12-20 ProblemAct [facility] Disease of pancreas active 2014-04-24 ProblemAct [facility] Migraine active 2016-12-20 ProblemAct [facility] Acquired hypothyroidism active 2016 ProblemAct [facility] Colon cancer screening active EncounterDiagnosi sAct [facility] Neuralgia active 2017-05-01 ProblemAct [facility] Secondary diabetes mellitus active 2014-04-24 ProblemAct [facility] Cystic fibrosis with pulmonary exacerbation active 2017-03-23 ProblemAct [facility] Heart palpitations active 2024-03-04 ProblemAct [facility] 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 ProblemAct [facility] Sleep disturbance active 2016-12-20 ProblemAct [facility] Constipation active 2020-03-07 ProblemAct [facility] Insomnia active 2014-01-22 ProblemAct [facility] Macromastia active 2019-09-11 ProblemAct [facility] Pancreatic insufficiency due to cystic fibrosis active 2020-10-08 ProblemAct [facility] GERD with esophagitis active 2016-10-18 ProblemAct [facility] Pancreatic insufficiency active EncounterDiagnosisAct [facility] Need for desensitization to allergens active 2014-01-22 ProblemAct [facility] Malabsorption active 2020-03-07 ProblemAct [facility] Cystic fibrosis exacerbation active 2016 ProblemAct [facility] Immunizations Vaccine Date Source Lot Number Status Influenza, Unspecified 07/23/2019 [facility] co mpleted Influenza, Unspecified 07/23/2019 [facility] co mpleted Influenza Inactivated/Split Preservative Free IM 08/22/2018 [facility] [id number] completed Influenza Inactivated/Split Preservative Free IM 08/30/2017 [facility] [id number] completed Encounters Encounter Type Encounter Reason Primary Diagnosis Location Date Ambulatory Encounter for genera l adult medical examination without abnormal findings Encounter for general adult medical examination without abnormal findings [place] [facility] 05/05/2025 Ambulatory Follow-up Follow-up [place] [facility] 05/02/2025 Ambulatory Cystic fibrosis with pulmonary manifestations Cystic fibrosis with pulmonary manifestations [facility] 03/19/2025 Ambulatory Follow-up Follow-up [facility] 12/30/2024 Ambulatory Cystic fibrosis with pulmonary manifestations Cystic fibrosis with pulmonary manifestations [facility] 11/27/2024 Ambulatory Follow-up Follow-up [facility] 11/26/2024 Ambulatory Sinus Problem Sinus Problem [facility] 09/03/2024 Ambulatory Cystic fibrosis with pulmonary manifestations Cystic fibrosis with pulmonary manifestations [facility] 07/24/2024 Ambulatory [facility] 05/08/2024 Ambulatory Cystic fibrosis with pulmonary manifestations Cystic fibrosis with pulmonary manifestations [facility] 04/10/2024 Ambulatory Encounter for genera l adult medical examination without abnormal findings Encounter for general adult medical examination without abnormal findings [facility] 03/04/2024 Ambulatory Cystic fibrosis with pulmonary manifestations Cystic fibrosis with pulmonary manifestations [facility] 11/01/2023 Ambulatory Cystic fibrosis with pulmonary manifestations Cystic fibrosis with pulmonary manifestations [facility] 07/26/2023 Ambulatory Cystic fibrosis with pulmonary manifestations [facility] 04/05/2023 Ambulatory Palpitations [facility] 03/02/2023 Ambulatory Intestinal malabsorption, unspecified [facility] 02/17/2023 Ambulatory Gastroparesis [facility] 12/21/2022 Ambulatory Cystic fibrosis with pulmonary manifestations [facility] 10/12/2022 Ambulatory Nausea [facility] 08/22/2022 Ambulatory Cystic fibrosis with pulmonary manifestations [facility] 06/22/2022 Ambulatory Cystic fibrosis with pulmonary manifestations [facility] 03/23/2022 Ambulatory Gastroparesis [facility] 02/23/2022 Ambulatory [facility] 12/22/2021 Ambulatory Cystic fibrosis with pulmonary manifestations [facility] 10/06/2021 Ambulatory Cystic fibrosis with pulmonary manifestations [facility] 08/04/2021 Ambulatory [facility] 08/03/2021 Care Team Organization Name Specialty Phone Email Start Date End Da te [facility]ICA LEWIS Primary Care 05/05/2025 [facility] GAEL KELLY Primary Care 03/19/2025 06/03/20 25 [facility] GAEL KELLY, Primary Care 01/17/2024 4 [facility] G[facility] Berg Primary Care 08/22/2022 5 [facility] GAEL ROBIN, Primary Care 02/23/2022 06/22/20 22
--- OUTSIDE RECORDS SUMMARY | 2025-06-26 18:23 | XMS_ITS | Encounter Summary ---
Author Organization [facility] Address [address] [place] [address] Care Team Providers Care Flight Surgeon Name Role Phone Sanjay Fernandes MD Primary Care Provider Franklin Simmons MD Unavailable [phone] Godwin Saunders DO Unavailable Gael Stockton MD Unavailable Unavailable Gael Stockton MD Primary Care Provider Unavail able Godwin Malcolm MD Unavailable Unavailable Gael Stockton MD Unavailable Unavailable Heather Packer DIESEL LOCOMOTIVE CRANE OPERATOR Unavailable [phone] Antonia Willis MD Unavailable Logan Doran MD Unavailable [phone] Sanjay Fernandes MD Primary Care Provider [phone] Encounter Details Date Type Department Care Team (Late st Contact Info) Description 03/24/2020 Scanned Document [facility] [address] [place] [phone] Social History Tobacco Use Types Packs/Day [...] have Coronavirus / COVID-19? No / Unsure 03/25/2020 1:40 PM EDT documented as of this encounter Plan of Treatment Upcoming Encounters Date Type Department Care Team (Latest Contact Info) Description 07/02/2025 11:00 AM EDT Clinical Support [facility] [address] [place] [address] 4[address] [place] [phone] 08/18/2025 10:30 AM EDT Hospital Encounter [facility] Gastroenterology Division [address] [place] [phone] Vitor Morales MD [address] [place] [address] 08/18/2025 10:30 AM EDT Appointment [facility] [address] [place] [address] Vitor Morales MD [address] [place] [address] [phone] 08/18/2025 10:30 AM EDT - 08/18/2025 11:[address] [facility] Gastroenterology Division [address] [place] [phone] Vitor Morales MD [address] [place] [address] COLONOSCOPY 05/04/2026 11:00 AM EDT Office Visit [facility] Department of Cardiology [place] [address] [place] [phone] Aashish Silva PA [address] [place] [address] Scheduled Procedures Name Priority Associated Diagnoses Date/Ti [...] documented as of this encounter Care Teams Flight Surgeon Relationship Specialty Start Date End Date Sanjay Fernandes MD [address] [place] [address] PCP - General Pulmonary Disease 05/28/16 06/22/20 Gael Stockton MD [address] [place] [address] PCP - General Internal Medicine 06/23/20 05/04/25 Gael Stockton MD PCP - [place] Medicare Patients 11/23/22 03/22/23 Sanjay Fernandes MD [address] [place] [address] PCP - General Pulmonary Disease 05/05/25 Franklin Simmons MD [address] [place] [address] Physician Otolaryngology 06/14/17 Godwin Saunders DO [address] [place] [address] Physician Endocrinology 06/14/17 Gael Stockton MD [address] [place] [address] Internal Medicine 05/26/20 Godwin Malcolm MD 85 [facility] 923 [place] [address] Hematology Oncology 11/03/20 Heather Packer, DIESEL LOCOMOTIVE CRANE OPERATOR [address] [place] [address] [place] [address] Respiratory Care Practitioner Respiratory Therapist 09/20/24 Antonia Willis MD 850 [facility] 530 [facility] [place] [address] Internal Medicine 02/17/25 Logan Doran MD 30 [place] [address] 03/18/25 documented as of this encounter
--- OUTSIDE RECORDS SUMMARY | 2025-06-26 18:23 | XMS_ITS | Encounter Summary ---
Author Organization [facility] Address [address] [place] [address] Care Team Providers Care Jacquard Loom Weaver Name Role Phone Franklin Simmons MD Unavailable Godwin Saunders DO Unavailable Gael Stockton MD Unavailable Unavailable Gael Stockton MD Primary Care Provider Unavail able Godwin Malcolm MD Unavailable Unavailable Gael Stockton MD Unavailable Unavailable OchoaHeather FUR MATCHER Unavailable Antonia Willis MD Unavailable Logan Doran MD Unavailable Sanjay Fernandes MD Primary Care Provider Encounter Details Date Type Department Care Team (Late st Contact Info) Description 07/29/2020 Telephone [facility] [address] [place] [address] 4th [place] [address] Provider, Devyn, [address] [place] [address] Social History Tobacco Use Types Packs/Day Years [...] have Coronavirus / COVID-19? No / Unsure 07/20/2020 11:24 AM EDT documented as of this encounter Miscellaneous Notes * Telephone Encounter - Evelin Cheney - 07/29/2020 5:22 PM EDT Called Carla Alvesaden vm stating that Felipe is approved by her insurance. CAP sent the prescription to [facility] pharmacy and provided them with the copay processing information. Her copay will be $10. Now all set for her to coordinate delivery with her pharmacy. If any questions, encouraged her to give me a call. documented in this encounter Plan of Treatment Upcoming Encounters Date Type Department Care Team (Latest Contact Info) Description 07/02/2025 11:00 AM EDT Clinical Support [facility] [address] [place] [phone] 08/18/2025 10:30 AM EDT Hospital Encounter [facility] Gastroenterology Division [address] [place] [phone] Vitor Morales MD [address] [place], [place] [phone] 08/18/2025 10:30 AM EDT Appointment [facility] [address] [address] Vitor Morales MD [address] [place] [address] 08/18/2025 10:30 AM EDT - 08/18/2025 11:00 AM EDT Surgery [facility] Gastroenterology Division [address] [place] [phone] Vitor Morales MD 85 [facility] 1000 [place] [address] COLONOSCOPY 05/04/2026 11:00 AM EDT Office Visit [facility] Department of Cardiology [place] [address] [place] [phone] Aashish Silva PA [address] [place] [address] Scheduled Procedures Name Priority Associated Diagnoses Date/Ti co COLONOSCOPY Colon cancer screening 08/18/2025 10:30 AM [...] documented as of this encounter Care Teams Jacquard Loom Weaver Relationship Specialty Start Date End Date Gael Stockton MD PCP - General Internal Medicine 06/23/20 05/04/25 Gael Stockton MD PCP - [place] Medicare Patients 11/23/22 03/22/23 Sanjay Fernandes MD [address] [place] [address] 923 [place] [address] PCP - General Pulmonary Disease 05/05/25 Franklin Simmons MD Physician Otolaryngology 06/14/17 Godwin Saunders DO Physician Endocrinology 06/14/17 Gael Stockton MD Internal Medicine 05/26/20 Godwin Malcolm MD Hematology Oncology 11/03/20 Heather Packer, FUR MATCHER [address] [facility] [place] [address] Respiratory Care Practitioner Respiratory Therapist 09/20/24 Antonia Willis MD [address] [place] [address] and [place] [address] Internal Medicine 02/17/25 Logan Doran MD 30 [place] [address] 03/18/25 documented as of this encounter
--- OUTSIDE RECORDS SUMMARY | 2025-06-26 18:23 | XMS_ITS | Encounter Summary ---
Author Organization [facility] Address [address] [place] [address] Care Team Providers Care Sack Cleaning Hand Name Role Phone Sanjay Fernandes MD Primary Care Provider [phone] Franklin Simmons MD Unavailable [phone] Godwin Saunders DO Unavailable [phone] Gael Stockton MD Unavailable Unavailable Gael Stockton MD Primary Care Provider Unavail able Godwin Malcolm MD Unavailable Unavailable Gael Stockton MD Unavailable Unavailable Hayes Packeristina THEATRICAL AGENT Unavailable [phone] Antonia Willis MD Unavailable Logan Doran MD Unavailable [phone] Sanjay Fernandes MD Primary Care Provider [phone] Reason for Visit * Reason Comments Medication Refill Encounter Details Date Type Department Care Team (Late st Contact Info) Description 01/11/2018 Refill [facility] [address] [place] [address] Yvette Green APRN Chronic migraine without aura, [...] 11:00 AM EDT Clinical Support [facility] [address] [place] [address] 4th [place] [phone] 08/18/2025 10:30 AM EDT Hospital Encounter [facility] Gastroenterology Division [address] [place] [phone] Vitor Morales MD [address] [place] [id number] 08/18/2025 10:30 AM EDT Appointment [facility] [address] [place] [address] Vitor Morales MD [address] [place] [address] [id number] 08/18/2025 10:30 AM EDT - 08/18/2025 11:00 AM EDT Surgery [facility] Gastroenterology Division [address] [place] [phone] Vitor Morales MD [address] [place] [address] COLONOSCOPY 05/04/2026 11:00 AM EDT Office Visit [facility] Department of Cardiology [place] [address] [place] [address] Aashish Silva PA [address] [place] [address] Scheduled Procedures Name Priority Associated Diagnoses Date/Ti [...] documented as of this encounter Care Teams Sack Cleaning Hand Relationship Specialty Start Date End Date Sanjay Fernandes MD [address] [place] [address] PCP - General Pulmonary Disease 05/28/16 06/22/20 Gael Stockton MD [address] [place] [address] PCP - General Internal Medicine 06/23/20 05/04/25 Gael Stockton MD PCP - [place] Medicare Patients 11/23/22 03/22/23 Sanjay Fernandes MD [address] [place] [address] PCP - General Pulmonary Disease 05/05/25 Franklin Simmons MD [address] [place] [address] Physician Otolaryngology 06/14/17 Godwin Saunders DO [address] [place] [address] Physician Endocrinology 06/14/17 Gael Stockton MD [address] [address] Internal Medicine 05/26/20 Godwin Malcolm MD [address] [address] Hematology Oncology 11/03/20 Heather Packer, THEATRICAL AGENT [address] [place] 4 [place] [address] Respiratory Care Practitioner Respiratory Therapist 09/20/24 Antonia Willis MD [address] and [place] [address] Internal Medicine 02/17/25 Logan Doran MD 30 [place] [address] 03/18/25 documented as of this encounter
--- OUTSIDE RECORDS SUMMARY | 2025-06-26 18:23 | XMS_ITS | Encounter Summary ---
Author Organization [facility] Address [address] [place] [address] Care Team Providers Care Business Applications Developer Name Role Phone Franklin Simmons MD Unavailable Godwin Saunders DO Unavailable [phone] Gael Stokcton MD Unavailable Unavailable Gael Stockton MD Primary Care Provider Unavail able Godwin Malcolm MD Unavailable Unavailable Gael Stockton MD Unavailable Unavailable OchoaHeather LEATHER DRESSER Unavailable Antonia Willis MD Unavailable Logan Doran MD Unavailable Sanjay Fernandes MD Primary Care Provider Encounter Details Date Type Department Care Team (Late st Contact Info) Description 07/01/2020 Scanned Document [facility] [address] [place] [address] 4th [place] [phone] Selena Perez, EARLY CHILDHOOD ASSOCIATE TEACHER [address] [place] [address] Social History Tobacco Use Types Packs/Day Years [...] have Coronavirus / COVID-19? No / Unsure 07/01/2020 2:04 PM EDT documented as of this encounter Plan of Treatment Upcoming Encounters Date Type Department Care Team (Latest Contact Info) Description 07/02/2025 11:00 AM EDT Clinical Support [facility] [address] [place] [address] 4th [place] [phone] 08/18/2025 10:30 AM EDT Hospital Encounter [facility] Gastroenterology Division [address] [place] [phone] Vitor Morales MD [address] [place] [address] [phone] 08/18/2025 10:30 AM EDT Appointment [facility] [address] [address] Vitor Morales MD [address] [place] [address] [phone] 08/18/2025 10:30 AM EDT - 08/18/2025 11:00 AM EDT Surgery [facility] Gastroenterology Division [address] [place] [phone] Vitor Morales MD [address] [place] [address] [phone] COLONOSCOPY 05/04/2026 11:00 AM EDT Office Visit [facility] Department of Cardiology [place] [address] [place] [phone] Aashish Silva PA [address] [place] [address] Scheduled Procedures Name Priority Associated Diagnoses Date/Ti [...] documented as of this encounter Care Teams Business Applications Developer Relationship Specialty Start Date End Date Gael Stockton MD PCP - General Internal Medicine 06/23/20 05/04/25 Gael Stockton MD PCP - [place] Medicare Patients 11/23/22 03/22/23 Sanjay Fernandes MD [address] [place] [address] PCP - General Pulmonary Disease 05/05/25 Franklin Simmons MD Physician Otolaryngology 06/14/17 Godwin Saunders DO Physician Endocrinology 06/14/17 Gael Stockton MD Internal Medicine 05/26/20 Godwin Malcolm MD Hematology Oncology 11/03/20 Heather Packer, LEATHER DRESSER [address] [place] [address] [place] [address] Respiratory Care Practitioner Respiratory Therapist 09/20/24 Antonia Willis MD [address] [place] [address] [place] [address] Internal Medicine 02/17/25 Logan Doran MD 30 [place] [address] 03/18/25 documented as of this encounter
--- OUTSIDE RECORDS SUMMARY | 2025-06-26 18:23 | XMS_ITS | Encounter Summary ---
Author Organization [facility] Address [address] [place] [address] Care Team Providers Care Rigging Foreman Name Role Phone Franklin Simmons MD Unavailable Gowdin Saunders DO Unavailable Gael Stockton MD Unavailable Unavailable Gael Stockton MD Primary Care Provider Unavail able Godwin Malcolm MD Unavailable Unavailable Gael Stockton MD Unavailable Unavailable OchoaHeather APPRENTICE EMBALMER Unavailable Antonia Willis MD Unavailable Logan Doran MD Unavailable [phone] Sanjay Fernandes MD Primary Care Provider Encounter Details Date Type Department Care Team (Late st Contact Info) Description 08/18/2020 Scanned Document [facility] [address] [place] [address] 4th [place] [phone] Jersey Morris, DO [address] [phone] Social History Tobacco Use Types Packs/Day Years [...] have Coronavirus / COVID-19? No / Unsure 08/07/2020 1:43 PM EDT documented as of this encounter Plan of Treatment Upcoming Encounters Date Type Department Care Team (Latest Contact Info) Description 07/02/2025 11:00 AM EDT Clinical Support [facility] [address] [place] [address] 4th [place] [phone] 08/18/2025 10:30 AM EDT Hospital Encounter [facility] Gastroenterology Division [address] [place] [phone] Vitor Morales MD [address] [place] [address] [phone] 08/18/2025 10:30 AM EDT Appointment [facility] [address] [address] Vitor Morales MD [address] [place] [address] [phone] 08/18/2025 10:30 AM EDT - 08/18/2025 11:00 AM EDT Surgery [facility] Gastroenterology Division [address] [place] [phone] Vitor Morales MD [address] [place] [address] [phone] COLONOSCOPY 05/04/2026 11:00 AM EDT Office Visit [facility] Department of Cardiology [place] [address] [place] [phone] Aashish Silva PA [address] [place] [address] Scheduled Procedures Name Priority Associated Diagnoses Date/Ti [...] documented as of this encounter Care Teams Rigging Foreman Relationship Specialty Start Date End Date Gael Stockton MD PCP - General Internal Medicine 06/23/20 05/04/25 Gael Stockton MD PCP - [place] Medicare Patients 11/23/22 03/22/23 Sanjay Fernandes MD [address] [place] [address] PCP - General Pulmonary Disease 05/05/25 Franklin Simmons MD Physician Otolaryngology 06/14/17 Godwin Saunders DO Physician Endocrinology 06/14/17 Gael Stockton MD Internal Medicine 05/26/20 Godwin Malcolm MD Hematology Oncology 11/03/20 Heather Packer, APPRENTICE EMBALMER [address] [address] [place] [address] Respiratory Care Practitioner Respiratory Therapist 09/20/24 Antonia Willis MD [address] [place] [address] [place] [place] [address] Internal Medicine 02/17/25 Logan Doran MD 30 [place] [address] 03/18/25 documented as of this encounter
--- OUTSIDE RECORDS SUMMARY | 2025-06-26 18:23 | XMS_ITS | Clinical Summary ---
Author Organization [facility] Address [address] [place] [address] Care Team Providers Care Dietetic Technician Registered Name Role Phone Unavailable Primary Care Provider Unavailabl e Source Comments Please note that some or all of the patient's information could have additional privacy protections. State laws allow health care providers to render certain types of treatment to minors without parental consent. Please do not assume that this information can be shared solely by obtaining just the consent of the patient's parent/guardian. Please determine if all or part of the patient's care was rendered without parent/guardian involvement. And, if so, obtain the minor's consent prior to disclosure.[facility] Social History Tobacco Use Types Packs/Day Years Used Date Smoking Tobacco: Never Assessed Comments Unknown Sex and Gender Information Value Date Recorded Sex Assigned at Not on file Legal Sex Female 2:27 AM EST Gender Identity Not on file Sexual Orientation Not on file Plan of Treatment Not on file
--- OUTSIDE RECORDS SUMMARY | 2025-06-26 18:23 | XMS_ITS | Encounter Summary ---
Author Organization [facility] Address [address] [place] [address] Care Team Providers Care Track Announcer Name Role Phone Franklin Simmons MD Unavailable [phone] Godwin Saunders DO Unavailable [phone] Gael Stockton MD Unavailable Unavailable Gael Stockton MD Primary Care Provider Unavail able Godwin Malcolm MD Unavailable Unavailable Gael Stockton MD Unavailable Unavailable DanielHeather fraser COLOR DIPPER Unavailable Antonia Willis MD Unavailable Logan Doran MD Unavailable [phone] Sanjay Fernandes MD Primary Care Provider Encounter Details Date Type Department Care Team (Late st Contact Info) Description 10/27/2021 Mobile [facility] [address] [place] [address] 4th [place] [phone] Sanjay Fernandes MD [address] [place] [address] Primary insomnia (Primary Dx) Social History Tobacco Use Types Packs/Day Years [...] 11:00 AM EDT Clinical Support [facility] 4th [place] [phone] 08/18/2025 10:30 AM EDT Hospital Encounter [facility] Gastroenterology Division [address] [place] [phone] Vitor Morales MD [address] [place] [address] 08/18/2025 10:30 AM EDT Appointment [facility] [address] [place] [address] Vitor Morales MD [address] [place] [address] [phone] 08/18/2025 10:30 AM EDT - 08/18/2025 11:00 AM EDT Surgery [facility] Gastroenterology Division [address] [place] [phone] Vitor Morales MD [address] [place] [address] COLONOSCOPY 05/04/2026 11:00 AM EDT Office Visit [facility] Department of Cardiology [place] [address] [place] [phone] Aashish Silva PA [address] [place] [address] Scheduled Procedures Name Priority Associated Diagnoses Date/Ti me COLONOSCOPY Colon cancer screening 08/18/2025 10:30 AM EDT documented as of this encounter Visit Diagnoses Diagnosis Primary insomnia- Primary Persistent disorder of initiating or maintaining sleep Colon cancer screening Special screening for malignant [...] documented as of this encounter Care Teams Track Announcer Relationship Specialty Start Date End Date Gael Stockton MD PCP - General Internal Medicine 06/23/20 05/04/25 Gael Stockton MD PCP - [place] Medicare Patients 11/23/22 03/22/23 Sanjay Fernandes MD [address] [place] [address] PCP - General Pulmonary Disease 05/05/25 Franklin Simmons MD Physician Otolaryngology 06/14/17 Godwin Saunders DO Physician Endocrinology 06/14/17 Gael Stockton MD Internal Medicine 05/26/20 Godwin Malcolm MD Hematology Oncology 11/03/20 Heather Packer, COLOR DIPPER [address] [place] [address] [place] [address] Respiratory Care Practitioner Respiratory Therapist 09/20/24 Antonia Willis MD [address] [place], [place] [address]am and [place] [address] Internal Medicine 02/17/25 Logan Doran MD 30 [place] [address] 03/18/25 documented as of this encounter
--- OUTSIDE RECORDS SUMMARY | 2025-06-26 18:23 | XMS_ITS | Encounter Summary ---
Author Organization [facility] Address [address] [place] [address] Care Team Providers Care Correspondence Clerk Name Role Phone Franklin Simmons MD Unavailable Godwin Saunders DO Unavailable [phone] Gael Stockton MD Unavailable Unavailable Gael Stockton MD Primary Care Provider Unavail able Godwin Malcolm MD Unavailable Unavailable Gael Stockton MD Unavailable Unavailable OchoaHeather TILE BURNER Unavailable Antonia Willis MD Unavailable Logan Doran MD Unavailable Sanjay Fernandes MD Primary Care Provider [phone] Encounter Details Date Type Department Care Team (Late st Contact Info) Description 08/14/2020 Telephone [facility] [address] [place] [address] 4th [place] [phone] Provider, Devyn, [address] [place] [address] Social History Tobacco Use Types Packs/Day Years [...] * Telephone Encounter - Evelin Cheney - 08/14/2020 4:51 PM EDT Carla called saying she did get my messages but wanted to confirm again, what pharmacy the medication was sent to. I told her [facility]. I was surprised that she did not receive her Felipe and that [facility] hadn't reached out. I called [facility] and spoke with Juli from the CF dept. She stated that [facility] is ready with a $0 copay. They called two different phone numbers between yesterday and today, but were unsuccessful in reaching Carla. All they need in to touch base with her to schedule delivery. The numbers they were calling was [phone] and [phone]. I gave Juli the number [phone] and that the [phone] is still a good number for Carla. Called Carla with the update. Let her know they will make another attempt to call and schedule delivery. She confirmed the numbers I provided [facility] for her are both good. Encouraged her to contact [facility]. Told Carla if she doesn't hear from them or make contact with them by Monday to give me a call Monday after 12pm and I will follow up again documented in this encounter Plan of Treatment Upcoming Encounters Date Type Department Care Team (Latest Contact Info) Description 07/02/2025 11:00 AM EDT Clinical Support [facility] [address] [place] [phone] 08/18/2025 10:30 AM EDT Hospital Encounter [facility] Gastroenterology Division [address] [place] [phone] Vitor Morales MD [address] [place] [address] [id number] 08/18/2025 10:30 AM EDT Appointment [facility] [address] 3RD [place] [address] Vitor Morales MD [address] [place] [address] [phone] 08/18/2025 10:30 AM EDT - 08/18/2025 11:00 AM EDT Surgery [facility] Gastroenterology Division [address] [place] [phone] Viotr Morales MD [address] [place] [address] [phone] COLONOSCOPY 05/04/2026 11:00 AM EDT Office Visit [facility] Department of Cardiology [place] [address] [place] [address] Aashish Silva PA [address] [place] [address] Scheduled Procedures Name Priority Associated Diagnoses Date/Ti [...] documented as of this encounter Care Teams Correspondence Clerk Relationship Specialty Start Date End Date Gael Stockton MD PCP - General Internal Medicine 06/23/20 05/04/25 Gael Stockton MD PCP - [facility] Medicare Patients 11/23/22 03/22/23 Sanjay Fernandes MD 85 [facility] 923 [place] [address] PCP - General Pulmonary Disease 05/05/25 Franklin Simmons MD Physician Otolaryngology 06/14/17 Godwin Saunders DO Physician Endocrinology 06/14/17 Gael Stockton MD Internal Medicine 05/26/20 Godwin Malcolm MD Hematology Oncology 11/03/20 Heather Packer, TILE BURNER [address] [place] 4 [place] [address] Respiratory Care Practitioner Respiratory Therapist 09/20/24 Antonia Willis MD 850 [facility] [address] [facility] [place] [address] Internal Medicine 02/17/25 Logan Doran MD 30 [place] [address] 03/18/25 documented as of this encounter
--- OUTSIDE RECORDS SUMMARY | 2025-06-26 18:23 | XMS_ITS | Encounter Summary ---
Author Organization [facility] Address [address] [place] [address] Care Team Providers Care Physician Practice Consultant Name Role Phone Sanjay Fernandes MD Primary Care Provider Franklin Simmons MD Unavailable Godwin Saunders DO Unavailable [phone] Gael Stockton MD Unavailable Unavailable Gael Stockton MD Primary Care Provider Unavail able Godwin Malcolm MD Unavailable Unavailable Gael Stockton MD Unavailable Unavailable Ochoa Heather RETAIL PERFORMANCE SPECIALIST Unavailable Antonia Willis MD Unavailable Logan Doran MD Unavailable Sanjay Fernandes MD Primary Care Provider Reason for Visit * Reason Comments Medication Refill Encounter Details Date Type Department Care Team (Late st Contact Info) Description 06/12/2020 Refill [facility] [address] [facility] [address] [place] [phone] Lisa Barr PA 65 [facility] [address] [place], [place] [phone] Chronic migraine without aura, with intractable migraine, [...] or suspected to have Coronavirus / COVID-19? Unable to assess 06/05/2020 6:32 AM EDT documented as of this encounter Plan of Treatment Upcoming Encounters Date Type Department Care Team (Latest Contact Info) Description 07/02/2025 11:00 AM EDT Clinical Support [facility] [address] [place] [address] 4th [place] [phone] 08/18/2025 10:30 AM EDT Hospital Encounter [facility] Gastroenterology Division [address] [place] [phone] Vitor Morales MD [address] [place], [place] [phone] 08/18/2025 10:30 AM EDT Appointment [facility] [address] [place] [address] Vitor Morales MD [address] [place] [address] [phone] 08/18/2025 10:30 AM EDT - 08/18/2025 11:00 AM EDT Surgery [facility] Gastroenterology Division [address] [place] [phone] Vitor Morales MD [address] [place] [address] [phone] COLONOSCOPY 05/04/2026 11:00 AM EDT Office Visit [facility] Department of Cardiology [place] [address] [place] [address] Aashish Silva PA [address] [place] [address] Scheduled Procedures Name Priority Associated Diagnoses Date/Ti [...] documented as of this encounter Care Teams Physician Practice Consultant Relationship Specialty Start Date End Date Sanjay Fernandes MD [address] [place] [address] PCP - General Pulmonary Disease 05/28/16 06/22/20 Gael Stockton MD [address] [place] [address] PCP - General Internal Medicine 06/23/20 05/04/25 Gael Stockton MD PCP - [facility] Medicare Patients 11/23/22 03/22/23 Sanjay Fernandes MD [address] [place] [address] PCP - General Pulmonary Disease 05/05/25 Franklin Simmons MD [address] [address] Physician Otolaryngology 06/14/17 Godwin Saunders DO [address] [address] Physician Endocrinology 06/14/17 Gael Stockton MD 85 [place] [address] Internal Medicine 05/26/20 Godwin Malcolm MD [address] [place] [address] Hematology Oncology 11/03/20 Heather Packer, RETAIL PERFORMANCE SPECIALIST [address] [address] Respiratory Care Practitioner Respiratory Therapist 09/20/24 Antonia Willis MD [address] and [place] [address] Internal Medicine 02/17/25 Logan Doran MD 30 [place] [address] 03/18/25 documented as of this encounter
--- OUTSIDE RECORDS SUMMARY | 2025-06-26 18:23 | XMS_ITS | Encounter Summary ---
Author Organization [facility] Address [address] [place] [address] Care Team Providers Care Assembler Fishing Floats Name Role Phone Sanjay Fernandes MD Primary Care Provider Franklin Simmons MD Unavailable [phone] Godwin Saunders DO Unavailable Gael Stockton MD Unavailable Unavailable Gael Stockton MD Primary Care Provider Unavail able Godwin Malcolm MD Unavailable Unavailable Gael Stockton MD Unavailable Unavailable Heather Packer REAL TIME ANALYST Unavailable Antonia Willis MD Unavailable Logan Doran MD Unavailable Sanjay Fernandes MD Primary Care Provider [phone] Encounter Details Date Type Department Care Team (Late st Contact Info) Description 05/30/2018 Scanned Document [facility] [address] [place] [address] 4th [place] [phone] Sanjay Fernandes MD [address] [place] [address] Social History Tobacco Use Types Packs/Day Years [...] 11:00 AM EDT Clinical Support [facility] [address] [facility] 4th [place] [phone] 08/18/2025 10:30 AM EDT Hospital Encounter [facility] Gastroenterology Division [address] [place] [phone] Vitor Morales MD [address] [place] [address] [phone] 08/18/2025 10:30 AM EDT Appointment [facility] [address] [place] [address] Vitor Morales MD [address] [place] [address] [phone] 08/18/2025 10:30 AM EDT - 08/18/2025 11:00 AM EDT Surgery [facility] Gastroenterology Division [address] [place] [phone] Vitor Morales MD [address] [place] [address] COLONOSCOPY 05/04/2026 11:00 AM EDT Office Visit [facility] Department of Cardiology [place] [address] [place] [phone] Aashish Silva PA [address] [place] [address] Scheduled Procedures Name Priority Associated Diagnoses Date/Ti pr COLONOSCOPY Colon cancer screening 08/18/2025 10:30 AM [...] documented as of this encounter Care Teams Assembler Fishing Floats Relationship Specialty Start Date End Date Sanjay Fernandes MD [address] [place] [address] PCP - General Pulmonary Disease 05/28/16 06/22/20 Gael Stockton MD [address] [place] [address] PCP - General Internal Medicine 06/23/20 05/04/25 Gael Stockton MD PCP - [facility] Medicare Patients 11/23/22 03/22/23 Sanjay Fernandes MD [address] [place] [address] PCP - General Pulmonary Disease 05/05/25 Franklin Simmons MD [address] [place] [address] Physician Otolaryngology 06/14/17 Godwin Saunders DO [address] [place] [address] Physician Endocrinology 06/14/17 Gael Stockton MD [address] [address] Internal Medicine 05/26/20 Godwin Malcolm MD [address] [address] Hematology Oncology 11/03/20 Heather Packer, REAL TIME ANALYST [address] [place] 4 [place] [address] Respiratory Care Practitioner Respiratory Therapist 09/20/24 Antonia Willis MD [address] and [place] [address] Internal Medicine 02/17/25 Logan Doran MD 30 [place] [address] 03/18/25 documented as of this encounter
--- OUTSIDE RECORDS SUMMARY | 2025-06-26 18:23 | XMS_ITS | Encounter Summary ---
Author Organization [facility] Address [address] [place] [address] Care Team Providers Care Order Make Up Clerk Name Role Phone Sanjay Fernandes MD Primary Care Provider [phone] Franklin Simmons MD Unavailable [phone] Godwin Saunders DO Unavailable Gael Stockton MD Unavailable Unavailable Gael Stockton MD Primary Care Provider Unavail able Godwin Malcolm MD Unavailable Unavailable Gael Stockton MD Unavailable Unavailable Heather Packer FOOD SERVICES COORDINATOR Unavailable Antonia Willis MD Unavailable Logan Doran MD Unavailable Sanjay Fernandes MD Primary Care Provider Encounter Details Date Type Department Care Team (Late st Contact Info) Description 05/01/2020 Telephone [facility] [address] [place] [phone] Provider, MD Devyn [address] [place] [address] Social History Tobacco Use Types Packs/Day Years [...] have Coronavirus / COVID-19? No / Unsure 05/04/2020 10:08 AM EDT documented as of this encounter Miscellaneous Notes * Telephone Encounter - Evelin Cheney - 05/01/2020 4:08 PM EDT Carla called me saying she is out of colistin and her pharmacy cannot fill. I attempted a PA over CMM, but her plan did not accept the request. I called her plan and spoke with a rep named Lissett. Reference number for the call is PA- [id number]. Answered clinical questions. She stated this review could have been done by the pharmacy but was willing to take my call. She forwarded this to the clinical pharmacist for further review. 24 hour TAT. I called Carla with the update. I told her to check with her pharmacy if they are open tomorrow since plan will have a determination and it is the weekend. I told her if any issues to give me a call and we can address it Monday. She agreed. documented in this encounter Plan of Treatment Upcoming Encounters Date Type Department Care Team (Latest Contact Info) Description 07/02/2025 11:00 AM EDT Clinical Support [facility] [address] [place] [address] 4th [place] [phone] 08/18/2025 10:30 AM EDT Hospital Encounter Gastroenterology Division [address] [place] [address] Vitor Morales MD [address] [place] [address] 08/18/2025 10:30 AM EDT Appointment [facility] [address] 3RD [place] [address] Vitor Morales MD [address] [place] [address] 08/18/2025 10:30 AM EDT - 08/18/2025 11:00 AM EDT Surgery Gastroenterology Division [address] [place] [phone] Vitor Morales MD [address] [place] [address] [phone] COLONOSCOPY 05/04/2026 11:00 AM EDT Office Visit [facility] Department of Cardiology [place] [address] [place] [phone] Aashish Silva PA [address] [place] [address] Scheduled Procedures Name Priority Associated Diagnoses Date/Ti [...] documented as of this encounter Care Teams Order Make Up Clerk Relationship Specialty Start Date End Date Sanjay Fernandes MD [address] [place] [address] PCP - General Pulmonary Disease 05/28/16 06/22/20 Gael Stockton MD [address] [place] [address] PCP - General Internal Medicine 06/23/20 05/04/25 Gael Stockton MD PCP - [facility] Medicare Patients 11/23/22 03/22/23 Sanjay Fernandes MD [address] [place] [address] PCP - General Pulmonary Disease 05/05/25 Franklin Simmons MD [address] [place] [address] Physician Otolaryngology 06/14/17 Godwin Saunders DO [address] [place] [address] Physician Endocrinology 06/14/17 Gael Stockton MD [address] [place] [address] Internal Medicine 05/26/20 Godwin Malcolm MD [address] [place] [address] Hematology Oncology 11/03/20 Heather Packer, FOOD SERVICES COORDINATOR [address] [facility] 4 [place] [address] Respiratory Care Practitioner Respiratory Therapist 09/20/24 Antonia Willis MD [address] [place] [address] and [facility] [place] [address] Internal Medicine 02/17/25 Logan Doran MD 30 [place] [address] 03/18/25 documented as of this encounter
--- OUTSIDE RECORDS SUMMARY | 2025-06-26 18:23 | XMS_ITS | Encounter Summary ---
Author Organization [facility] Address [address] [place] [address] Care Team Providers Care Laborer Tin [place] Name Role Phone Franklin Simmons MD Unavailable Godwin Saunders DO Unavailable Gael Stockton MD Unavailable Unavailable Gael Stockton MD Primary Care Provider Unavail able Godwin Malcolm MD Unavailable Unavailable Gael Stockton MD Unavailable Unavailable OchoaHeather SHOPPER Unavailable Antonia Willis MD Unavailable Logan Doran MD Unavailable Sanjay Fernandes MD Primary Care Provider Reason for Visit * Reason Comments Medication Management Encounter Details Date Type Department Care Team (Late st Contact Info) Description 04/19/2022 Telephone [facility] 30 [place] [phone] Vitor Morales MD [address] [phone] Medication Management Social History Tobacco Use Types [...] * Telephone Encounter - Mady Case - 04/19/2022 8:56 AM EDT Denial for Motegrity 2mg Denial #[id number] Denial Reason: Pt needs to try Amitiza AND Linzess. documented in this encounter Plan of Treatment Upcoming Encounters Date Type Department Care Team (Latest Contact Info) Description 07/02/2025 11:00 AM EDT Clinical Support [facility] [address] [place] [phone] 08/18/2025 10:30 AM EDT Hospital Encounter [facility] Gastroenterology Division [address] [place] [phone] Vitor Morales MD [address] [place] [address] 08/18/2025 10:30 AM EDT Appointment [facility] [address] [address] Vitor Morales MD [address] [place] [address] [phone] 08/18/2025 10:30 AM EDT - 08/18/2025 11:00 AM EDT Surgery [facility] Gastroenterology Division [address] [place] [phone] Vitor Morales MD 85 [facility] 1000 [place] [address] COLONOSCOPY 05/04/2026 11:00 AM EDT Office Visit [facility] Department of Cardiology [place] [address] [place] [phone] Aashish Silva PA [address] [place] [address] Scheduled Procedures Name Priority Associated Diagnoses Date/Ti ca COLONOSCOPY Colon cancer screening 08/18/2025 10:30 AM [...] documented as of this encounter Care Teams Laborer Tin [place] Relationship Specialty Start Date End Date Gael Stockton MD PCP - General Internal Medicine 06/23/20 05/04/25 Gael Stockton MD PCP - [facility] Medicare Patients 11/23/22 03/22/23 Sanjay Fernandes MD 85 [facility] 923 [place] [address] PCP - General Pulmonary Disease 05/05/25 Franklin Simmons MD Physician Otolaryngology 06/14/17 Godwin Saunders DO Physician Endocrinology 06/14/17 Gael tSockton MD Internal Medicine 05/26/20 Godwin Malcolm MD Hematology Oncology 11/03/20 Heather Packer, SHOPPER [address] [facility] 4 [place] [address] Respiratory Care Practitioner Respiratory Therapist 09/20/24 Antonia Willis MD [address] [place], [place] [address]am and [place] [address] Internal Medicine 02/17/25 Logan Doran MD 30 [place] [address] 03/18/25 documented as of this encounter
--- OUTSIDE RECORDS SUMMARY | 2025-06-26 18:23 | XMS_ITS | Encounter Summary ---
Author Organization [facility] Address [address] [place] [address] Care Team Providers Care Sprinkling Truck Driver Name Role Phone Sanjay Fernandes MD Primary Care Provider Franklin Simmons MD Unavailable [phone] Godwin Saunders DO Unavailable Gael Stockton MD Unavailable Unavailable Gael Stockton MD Primary Care Provider Unavail able Godwin Malcolm MD Unavailable Unavailable Gael Stockton MD Unavailable Unavailable Heather Packer SUPERCHARGE REPAIR SUPERVISOR Unavailable Antonia Willis MD Unavailable Logan Doran MD Unavailable Sanjay Fernandes MD Primary Care Provider Encounter Details Date Type Department Care Team (Late st Contact Info) Description 01/17/2018 Scanned Document [facility] [address] [place] [address] 4th [place] [phone] Sanjay Fernandes MD [address] [place] [address] Social History Tobacco Use Types Packs/Day Years [...] 11:00 AM EDT Clinical Support [facility] 79 [facility] 4th [place] [phone] 08/18/2025 10:30 AM EDT Hospital Encounter [facility] Gastroenterology Division [address] [place] [phone] Vitor Morales MD [address] [place] [phone] 08/18/2025 10:30 AM EDT Appointment [facility] [address] [place] [address] Vitor Morales MD [address] [place] [address] [phone] 08/18/2025 10:30 AM EDT - 08/18/2025 11:00 AM EDT Surgery [facility] Gastroenterology Division [address] [place] [phone] Vitor Morales MD [address] [place] [address] COLONOSCOPY 05/04/2026 11:00 AM EDT Office Visit [facility] Department of Cardiology [place] [address] [place] [phone] Aashish Silva PA [address] [place] [address] Scheduled Procedures Name Priority Associated Diagnoses Date/Ti nm COLONOSCOPY Colon cancer screening 08/18/2025 10:30 AM [...] documented as of this encounter Care Teams Sprinkling Truck Driver Relationship Specialty Start Date End Date Sanjay Fernandes MD [address] [place] [address] PCP - General Pulmonary Disease 05/28/16 06/22/20 Gael Stockton MD [address] [place] [address] PCP - General Internal Medicine 06/23/20 05/04/25 Gael Stockton MD PCP - [facility] Medicare Patients 11/23/22 03/22/23 Sanjay Fernandes MD [address] [place] [address] PCP - General Pulmonary Disease 05/05/25 Franklin Simmons MD [address] [place] [address] Physician Otolaryngology 06/14/17 Godwin Saunders DO [address] [place] [address] Physician Endocrinology 06/14/17 Gael Stockton MD [address] [address] Internal Medicine 05/26/20 Godwin Malcolm MD [address] [address] Hematology Oncology 11/03/20 Heather Packer, SUPERCHARGE REPAIR SUPERVISOR [address] [place] 4 [place] [address] Respiratory Care Practitioner Respiratory Therapist 09/20/24 Antonia Willis MD [address] and [place] [address] Internal Medicine 02/17/25 Logan Doran MD 30 [place] [address] 03/18/25 documented as of this encounter
--- OUTSIDE RECORDS SUMMARY | 2025-06-26 18:23 | XMS_ITS | Encounter Summary ---
Author Organization [facility] Address [address] [place] [address] Care Team Providers Care Director Television News Name Role Phone Sanjay Fernandes MD Primary Care Provider Franklin Simmons MD Unavailable [phone] Godwin Saunders DO Unavailable Gael Stockton MD Unavailable Unavailable Gael Stockton MD Primary Care Provider Unavail able Godwin Malcolm MD Unavailable Unavailable Gael Stockton MD Unavailable Unavailable Heather Packer DIRECTOR VIDEO Unavailable [phone] Antonia Willis MD Unavailable Logan Doran MD Unavailable Sanjay Fernandes MD Primary Care Provider Encounter Details Date Type Department Care Team (Late st Contact Info) Description 06/19/2020 Scanned Document [facility] [address] [place] [phone] Social History Tobacco Use Types Packs/Day [...] have Coronavirus / COVID-19? No / Unsure 06/17/2020 1:02 PM EDT documented as of this encounter Plan of Treatment Upcoming Encounters Date Type Department Care Team (Latest Contact Info) Description 07/02/2025 11:00 AM EDT Clinical Support [facility] [address] [place] [address] 4[address] [place] [phone] 08/18/2025 10:30 AM EDT Hospital Encounter [facility] Gastroenterology Division [address] [place] [phone] Vitor Morales MD [address] [place] [address] 08/18/2025 10:30 AM EDT Appointment [facility] [address] [place] [address] Vitor Morales MD [address] [place] [phone] 08/18/2025 10:30 AM EDT - 08/18/2025 11:00 AM EDT Surgery [facility] Gastroenterology Division [address] [place] [phone] Vitor Morales MD [address] [place] [address] COLONOSCOPY 05/04/2026 11:00 AM EDT Office Visit [facility] Physicians Department of Cardiology [place] [address] [place] [phone] Aashish Silva PA [address] [place] [address] Scheduled Procedures Name Priority Associated Diagnoses Date/Ti [...] documented as of this encounter Care Teams Director Television News Relationship Specialty Start Date End Date Sanjay Fernandes MD [address] [place] [address] PCP - General Pulmonary Disease 05/28/16 06/22/20 Gael Stockton MD [address] [place] [address] PCP - General Internal Medicine 06/23/20 05/04/25 Gael Stockton MD PCP - [facility] Medicare Patients 11/23/22 03/22/23 Sanjay Fernandes MD [address] [place] [address] PCP - General Pulmonary Disease 05/05/25 Franklin Simmons MD [address] [place] [address] Physician Otolaryngology 06/14/17 Godwin Saunders DO [address] [place] [address] Physician Endocrinology 06/14/17 Gael Stockton MD [address] [place] [address] Internal Medicine 05/26/20 Godwin Malcolm MD 85 [facility] 923 [place] [address] Hematology Oncology 11/03/20 Heather Packer, DIRECTOR VIDEO [address] [place] 4 [place] [address] Respiratory Care Practitioner Respiratory Therapist 09/20/24 Antonia Willis MD 850 [facility] 530 [facility] [place] [address] Internal Medicine 02/17/25 Logan Doran MD 30 [place] [address] 03/18/25 documented as of this encounter
--- OUTSIDE RECORDS SUMMARY | 2025-06-26 18:23 | XMS_ITS | Encounter Summary ---
Author Organization [facility] Address [address] [place] [address] Phone Care Team Providers Care Power Sewing Machine Operator Name Role Phone KeyshawnNyla Flor COMPLAINT CLERK Unavailable Sandrine Bartlett CNM Unavailable Antonia York COMPLAINT CLERK Unavailable Oscar Ruiz MD Unavailable Elizabeth Mcintosh COMPLAINT CLERK Unavailable [phone] Demi Perez COMPLAINT CLERK Unavailable Kady Bryant COMPLAINT CLERK Unavailable [phone] Azalea Rehman MD Unavailable Jael Ruiz COMPLAINT CLERK Unavailable [phone] Logan Doran MD Unavailable Sandrine Faustin RDCS Unavailable [email or web address] Halle Cornelius MD Unavailable Maddi Mayers MD Unavailable Chiquis Gusman MD Unavailable [phone] Tremaine Florez MD Unavailable [phone] Sanjay Fernandes MD Primary Care Provider [phone] Hernán Jimenez DO, MPH Unavailable Encounter Details Date Type Department Care Team (Late st Contact Info) Description 05/21/2019 Procedure Pass OR Admitting Dept - Virtual Department [address] [place] [address] Social History Tobacco Use Types Packs/Day Years Used Date Smoking Tobacco: Never Smokeless Tobacco: Never Alcohol Use Standard Drinks/Week Comments No 0 (1 standard drink = 0.6 oz pur e alcohol) Comments No Sex and Gender Information Value Date Recorded Sex Assigned at Female 03/22/2019 9:55 AM EDT Legal Sex Female 5:21 PM EST Gender Identity Female 03/22/2019 9:55 AM EDT Sexual Orientation Choose not to disclose 2019 4:52 PM EST documented as of this encounter Plan of Treatment Upcoming Encounters Date Type Department Care Team (Late Contact Info) Description 07/04/2025 11:30 AM EDT Office Visit [address] [address] Maddi Mayers MD [address] [place] [address] [facility] [place] [place] [address] [email or web address] Caroline [email or web address], PT 4 [place] [address] 07/04/2025 3:00 PM EDT Office Visit [address] [address] Jessica Keyes [address] [place] [address], [address] [place] [address] [email or web address] 07/08/2025 1:15 PM EDT Office Visit [address] [address] Maddi Mayers MD [address] [place] [address], [place], [place] [phone] [email or web address] Caroline [email or web address] 4 [place] [address] [email or web address] 07/15/2025 11:30 AM EDT Office Visit [address] [address] Maddi Mayers MD [address] [place] [address] Sports [facility], [place] [address] [email or web address] Caroline [email or web address], PT 4 [place] [address] 07/22/2025 11:30 AM EDT Office Visit [address] [address] Maddi Mayers MD [address] [place] [address], [place] [address] [email or web address], PT 4 [place] [address] 07/29/2025 11:00 AM EDT Office Visit [address] [address] Maddi Mayers MD [address] [place] [address] Sports [facility], [place] [address] [email or web address] Indira Willingham, TOBACCO BUYER 4 [place] [address] 08/05/2025 11:30 AM EDT Office Visit [address] [phone] Maddi Mayers MD [address] [place] [address] Sports [facility], [place] [address] [email or web address] Caroline [email or web address], PT 4 [place] [address] 08/12/2025 11:00 AM EDT Office Visit [address] [address] Maddi Mayers MD [address] [place] [address] [facility], [place] [address] [email or web address] Indira [email or web address] PTA [address] [place] [address] 08/20/2025 11:00 AM EDT Office Visit [address] [address] Maddi Mayers MD [address] [place] [address] [facility], [place] [address] [email or web address] Caroline [email or web address], PT 4 [place] [address] 08/22/2025 11:00 AM EDT Office Visit [facility], Department of Neurology [address] [place] [address] Antonia Haynes MD [address] [place] [address] documented as of this encounter Visit Diagnoses Not on filedocumented in this encounter Additional Health Concerns 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 per Infection Control as part of historical infection status reconciliation 05/09/2004 05/09/2004 01/09/20 1:25 AM EDT CoV-Risk 02/12/2021 02/13/2021 02/22/2021 1:23 AM EDT documented as of this encounter Care Teams Power Sewing Machine Operator Relationship Specialty Start Date End Date Sanjay Fernandes MD [address] [place] [address] PCP - General Pulmonary Disease 04/17/18 Nyla Mahajan, COMPLAINT CLERK [address] [place] [address] Historical LMR Provider 08/09/17 2 Sandrine Bartlett CNM [address] [place] [address] Historical LMR Provider 08/09/17 2 Antonia York COMPLAINT CLERK 30 [place] [address] Historical LMR Provider 08/09/17 2 Oscar Ruiz MD [address] [place] [address] 102 [place] [address] Historical LMR Provider 08/09/17 10/30/21 Elizabeth Mcintosh, COMPLAINT CLERK [address] [place] [address] Historical LMR Provider 08/09/17 10/30/21 Demi Perez, COMPLAINT CLERK [address] [place] [phone] Historical LMR Provider 08/09/17 2 Kady Bryant, COMPLAINT CLERK [address] [place] [address] Historical LMR Provider 08/09/17 2 Azalea Rehman MD [address] [place] [address] Historical LMR Provider 08/09/17 Jael Ruiz NP [address] [place] [address] Historical LMR Provider 08/09/17 2 Logan Doran MD [address] [place] [address] Historical LMR Provider 08/09/17 Sandrine Faustin, [facility] Historical LMR Provider 08/09/17 10/30/21 Halle Cornelius MD [address] [place] [phone] Historical LMR Provider 08/09/17 2 Maddi Mayers MD [address] [place] [address] [facility], [facility] [place] [address] Historical LMR Provider 08/09/17 Chiquis Gusman MD [address] [place] [address] Historical LMR Provider 08/09/17 Tremaine Florez MD 61 [place] [address] Historical LMR Provider 08/09/17 2 Hernán Jimenez DO, MPH 30 [place] [address] [email or web address] Insurance Assigned Provider 01/27/24 03/02/24 documented as of this encounter Additional Source Comments The information contained in this document represents components of the legal health record. It is not the complete legal health record.[facility]
--- OUTSIDE RECORDS SUMMARY | 2025-06-26 18:23 | XMS_ITS | Encounter Summary ---
Author Organization [facility] Address [address] [place] [address] Care Team Providers Care Financial Institution President Name Role Phone Franklin Simmons MD Unavailable Godwin Saunders DO Unavailable Gael Stockton MD Unavailable Unavailable Gael Stockton MD Primary Care Provider Unavail able Godwin Malcolm MD Unavailable Unavailable Gael Stockton MD Unavailable Unavailable OchoaHeather FLOTATION TANK OPERATOR Unavailable Antonia Willis MD Unavailable Logan Doran MD Unavailable Sanjay Fernandes MD Primary Care Provider Encounter Details Date Type Department Care Team (Late st Contact Info) Description 09/16/[address] [facility] 65 [facility] [address] [place] [phone] Sergio Gonzalez MD [address] [facility] [address] [place] [address] Social History Tobacco Use Types Packs/Day Years [...] AM EDT Clinical Support [facility] [address] [place] [address] 4th [place] [phone] 08/18/2025 10:30 AM EDT Hospital Encounter [facility] Gastroenterology Division [address] [place] [phone] Vitor Morales MD [address] [place] [phone] 08/18/2025 10:30 AM EDT Appointment [facility] [address] [place] [address] Vitor Moarles MD [address] [place] [address] [phone] 08/18/2025 10:30 AM EDT - 08/18/2025 11:00 AM EDT Surgery [facility] Gastroenterology Division [address] [place] [phone] Vitor Morales MD [address] [place] [address] COLONOSCOPY 05/04/2026 11:00 AM EDT Office Visit [facility] Department of Cardiology [place] [address] [place] [phone] Aashish Silva PA [address] [place] [address] Scheduled Procedures Name Priority Associated Diagnoses Date/Ti [...] documented as of this encounter Care Teams Financial Institution President Relationship Specialty Start Date End Date Gael Stockton MD PCP - General Internal Medicine 06/23/20 05/04/25 Gael Stockton MD PCP - [facility] Medicare Patients 11/23/22 03/22/23 Sanjay Fernandes MD [address] [place] [address] 923 [place] [address] PCP - General Pulmonary Disease 05/05/25 Franklin Simmons MD Physician Otolaryngology 06/14/17 Godwin Saunders DO Physician Endocrinology 06/14/17 Gael Stockton MD Internal Medicine 05/26/20 Godwin Malcolm MD Hematology Oncology 11/03/20 Heather Packer, FLOTATION TANK OPERATOR [address] [place] 4 [place] [address] Respiratory Care Practitioner Respiratory Therapist 09/20/24 Antonia Willis MD [address] [place] [address] 530 [facility] [place] [address] Internal Medicine 02/17/25 Logan Doran MD 30 [place] [address] 03/18/25 documented as of this encounter
--- OUTSIDE RECORDS SUMMARY | 2025-06-26 18:23 | XMS_ITS | Encounter Summary ---
Author Organization [facility] Address [address] [place] [address] Care Team Providers Care Casting Operator Helper Name Role Phone Franklin Simmons MD Unavailable [phone] Godwin Saunders DO Unavailable [phone] Gael Stockton MD Unavailable Unavailable Gael Stockton MD Primary Care Provider Unavail able Godwin Malcolm MD Unavailable Unavailable Gael Stockton MD Unavailable Unavailable OchoaHeather FOUNDRY MOLDER Unavailable Antonia Willis MD Unavailable Logan Doran MD Unavailable Sanjay Fernandes MD Primary Care Provider Encounter Details Date Type Department Care Team (Late st Contact Info) Description 02/01/2022 Scanned Document [facility] Pulmonary [place] 85 [facility] [address] [place] [phone] Social History Tobacco Use Types Packs/Day Years [...] EDT Clinical Support [facility] [address] [place] [address] 4[address] [place] [phone] 08/18/2025 10:30 AM EDT Hospital Encounter [facility] Gastroenterology Division [address] [place] [phone] Vitor Morales MD [address] [place] [address] [phone] 08/18/2025 10:30 AM EDT Appointment [facility] [address] [place] [address] Vitor Morales MD [address] [place] [address] [phone] 08/18/2025 10:30 AM EDT - 08/18/2025 11:00 AM EDT Surgery [facility] Gastroenterology Division [address] [place] [phone] Vitor Morales MD [address] [place] [address] [phone] COLONOSCOPY 05/04/2026 11:00 AM EDT Office Visit [facility] Department of Cardiology [place] [address] [place] [address] Aashish Silva PA [address] [place] [phone] Scheduled Procedures Name Priority Associated Diagnoses Date/Ti nh COLONOSCOPY Colon cancer screening 08/18/2025 10:30 AM [...] documented as of this encounter Care Teams Casting Operator Helper Relationship Specialty Start Date End Date Gael Stockton MD PCP - General Internal Medicine 06/23/20 05/04/25 Gael Stockton MD PCP - [facility] Medicare Patients 11/23/22 03/22/23 Sanjay Fernandes MD [address] [place] [address] PCP - General Pulmonary Disease 05/05/25 Franklin Simmons MD Physician Otolaryngology 06/14/17 Godwin Saunders DO Physician Endocrinology 06/14/17 Gael Stockton MD Internal Medicine 05/26/20 Godwin Malcolm MD Hematology Oncology 11/03/20 Heather Packer, FOUNDRY MOLDER [address] [place] 4 [place] [address] Respiratory Care Practitioner Respiratory Therapist 09/20/24 Antonia Willis MD [address] [place] [address] and [place] [address] Internal Medicine 02/17/25 Logan Doran MD [address] [place] [address] 03/18/25 documented as of this encounter
--- OUTSIDE RECORDS SUMMARY | 2025-06-26 18:23 | XMS_ITS | Encounter Summary ---
Author Organization [facility] Address [address] [place] [address] Care Team Providers Care Director Cost Name Role Phone Sanjay Fernandes MD Primary Care Provider [phone] Franklin Simmons MD Unavailable [phone] Godwin Saunders DO Unavailable [phone] Gael Stockton MD Unavailable Unavailable Gael Stockton MD Primary Care Provider Unavail able Godwin Malcolm MD Unavailable Unavailable Gael Stockton MD Unavailable Unavailable Heather Packer OUTBOUND SUPERVISOR Unavailable [phone] Antonia Willis MD Unavailable Logan Doran MD Unavailable Sanjay Fernandes MD Primary Care Provider [phone] Encounter Details Date Type Department Care Team (Late st Contact Info) Description 01/28/2020 Scanned Document [facility] 65 [facility] [address] [place] [address] Lisa Barr PA 65 [facility] [address] [place] [address] Social History Tobacco Use Types [...] have Coronavirus / COVID-19? No / Unsure 01/27/2020 4:23 PM EDT documented as of this encounter Plan of Treatment Upcoming Encounters Date Type Department Care Team (Latest Contact Info) Description 07/02/2025 11:00 AM EDT Clinical Support [facility] [address] [place] [address] 4th [place] [phone] 08/18/2025 10:30 AM EDT Hospital Encounter [facility] Gastroenterology Division [address] [place] [phone] Vitor Morales MD [address] [place] [address] [phone] 08/18/2025 10:30 AM EDT Appointment [facility] [address] [place] [address] Vitor Morales MD [address] [place] [address] [phone] 08/18/2025 10:30 AM EDT - 08/18/2025 11:00 AM EDT Surgery [facility] Gastroenterology Division [address] [place] [phone] Vitor Morales MD [address] [place] [address] [phone] COLONOSCOPY 05/04/2026 11:00 AM EDT Office Visit [facility] Department of Cardiology [place] [address] [place] [address] Aashish Silva PA [address] [place] [address] Scheduled Procedures Name Priority Associated Diagnoses Date/Ti [...] as of this encounter Care Teams Director Cost Relationship Specialty Start Date End Date Sanjay Fernandes MD [address] [place] [address] PCP - General Pulmonary Disease 05/28/16 06/22/20 Gael Stockton MD [address] [place] [address] PCP - General Internal Medicine 06/23/20 05/04/25 Gael Stockton MD PCP - [facility] Medicare Patients 11/23/22 03/22/23 Sanjay Fernandes MD [address] [place] [address] PCP - General Pulmonary Disease 05/05/25 Franklin Simmons MD [address] [place] [address] Physician Otolaryngology 06/14/17 Godwin Saunders DO [address] [place] [address] Physician Endocrinology 06/14/17 Gael Stockton MD [address] [address] Internal Medicine 05/26/20 Godwin Malcolm MD [address] [address] Hematology Oncology 11/03/20 Heather Packer, OUTBOUND SUPERVISOR [address] [place] 4 [place] [address] Respiratory Care Practitioner Respiratory Therapist 09/20/24 Antonia Willis MD [address] [address] [facility] [place] [address] Internal Medicine 02/17/25 Logan Doran MD 30 [place] [address] 03/18/25 documented as of this encounter
--- OUTSIDE RECORDS SUMMARY | 2025-06-26 18:23 | XMS_ITS | Encounter Summary ---
Author Organization [facility] Address [address] [place] [address] Care Team Providers Care Clinical Support Associate Name Role Phone Sanjay Fernandes MD Primary Care Provider Franklin Simmons MD Unavailable Godwin Saunders DO Unavailable Gael Stockton MD Unavailable Unavailable Gael Stockton MD Primary Care Provider Unavail able Godwin Malcolm MD Unavailable Unavailable Gael Stockton MD Unavailable Unavailable Ochoa Heather CLIENT EXPERIENCE SPECIALIST Unavailable Antonia Willis MD Unavailable Logan Doran MD Unavailable [phone] Sanjay Fernandes MD Primary Care Provider Reason for Visit * Reason Comments Medication Refill Encounter Details Date Type Department Care Team (Late st Contact Info) Description 04/27/2020 Refill [facility] 65 [facility] [address] [place] [phone] Lisa Barr PA 65 [facility] [address] [place], [place] [phone] Social History Tobacco Use Types Packs/Day Years [...] AM EDT Clinical Support [facility] Cystic Fibrosis Center [address] [place] [address] 4th [place] [address] 08/18/2025 10:30 AM EDT Hospital Encounter [facility] Gastroenterology Division [address] [place] [phone] Vitor Morales MD [address] [place] [address] [phone] 08/18/2025 10:30 AM EDT Appointment [facility] [address] [place] [address] Vitor Morales MD [address] [place] [address] [phone] 08/18/2025 10:30 AM EDT - 08/18/2025 11:00 AM EDT Surgery [facility] Gastroenterology Division [address] [place] [phone] Vitor Morales MD [address] [place] [address] [phone] COLONOSCOPY 05/04/2026 11:00 AM EDT Office Visit [facility] Department of Cardiology [place] [address] [place] [phone] Aashish Silva PA [address] [place] [address] Scheduled Procedures Name Priority Associated Diagnoses Date/Ti [...] documented as of this encounter Care Teams Clinical Support Associate Relationship Specialty Start Date End Date Sanjay Fernandes MD [address] [place] [address] PCP - General Pulmonary Disease 05/28/16 06/22/20 Gael Stockton MD [address] [place] [address] PCP - General Internal Medicine 06/23/20 05/04/25 Gael Stockton MD PCP - [place] Medicare Patients 11/23/22 03/22/23 Sanjay Fernandes MD [address] [place] [address] PCP - General Pulmonary Disease 05/05/25 Franklin Simmons MD [address] [place] [address] Physician Otolaryngology 06/14/17 Godwin Saunders DO [address] [place] [address] Physician Endocrinology 06/14/17 Gael Stockton MD [address] [address] Internal Medicine 05/26/20 Godwin Malcolm MD [address] [address] Hematology Oncology 11/03/20 Heather Packer, CLIENT EXPERIENCE SPECIALIST [address] [place] 4 [place] [address] Respiratory Care Practitioner Respiratory Therapist 09/20/24 Antonia Willis MD [address] and [place] [address] Internal Medicine 02/17/25 Logan Doran MD 30 [place] [address] 03/18/25 documented as of this encounter
--- OUTSIDE RECORDS SUMMARY | 2025-06-26 18:23 | XMS_ITS | Encounter Summary ---
Author Organization [facility] Address [address] [place] [address] Care Team Providers Care Dairy Clerk Name Role Phone Franklin Simmons MD Unavailable Godwin Saunders DO Unavailable Gael Stockton MD Unavailable Unavailable Gael Stockton MD Primary Care Provider Unavail able Godwin Malcolm MD Unavailable Unavailable Gael Stockton MD Unavailable Unavailable OchoaHeather CREDIT RISK ANALYST Unavailable [phone] Antonia Willis MD Unavailable Logan Doran MD Unavailable Sanjay Fernandes MD Primary Care Provider Encounter Details Date Type Department Care Team (Late st Contact Info) Description 08/03/2020 [facility] Pulmonary [place] [address] [place] [phone] Jersey Morris, DO [address] [address] Cystic fibrosis (HCC); Pseudomonas aeruginosa colonization Social History Tobacco Use Types Packs/Day Years [...] 11:00 AM EDT Clinical Support [facility] [address] [place] [address] 4th [place] [phone] 08/18/2025 10:30 AM EDT Hospital Encounter [facility] Gastroenterology Division [address] [place] [phone] Vitor Morales MD [address] [place] [address] 08/18/2025 10:30 AM EDT Appointment [facility] [address] [address] Vitor Morales MD [address] [place] [address] [phone] 08/18/2025 10:30 AM EDT - 08/18/2025 11:00 AM EDT Surgery [facility]astroenterology [facility] [address] [place] [address] [phone] Vitor Morales MD [address] [place] [address] [phone] COLONOSCOPY 05/04/2026 11:00 AM EDT Office Visit [facility] Department of Cardiology [place] [address] [place] [phone] Aashish Silva PA [address] [place] [address] Scheduled Procedures Name Priority Associated Diagnoses Date/Ti me COLONOSCOPY Colon cancer screening 08/18/2025 10:30 AM EDT documented as of this encounter Visit Diagnoses Diagnosis Cystic fibrosis (HCC) Cystic fibrosis without mention of meconium ileus Pseudomonas aeruginosa colonization Colon cancer screening Special screening for malignant [...] documented as of this encounter Care Teams Dairy Clerk Relationship Specialty Start Date End Date Gael Stockton MD PCP - General Internal Medicine 06/23/20 05/04/25 Gael Stockton MD PCP - [place] Medicare Patients 11/23/22 03/22/23 Sanjay Fernandes MD [address] [place] [address] PCP - General Pulmonary Disease 05/05/25 Franklin Simmons MD Physician Otolaryngology 06/14/17 Godwin Saunders DO Physician Endocrinology 06/14/17 Gael Stockton MD Internal Medicine 05/26/20 Godwin Malcolm MD Hematology Oncology 11/03/20 Heather Packer, CREDIT RISK ANALYST [address] [place] [address] [place] [address] Respiratory Care Practitioner Respiratory Therapist 09/20/24 Antonia Willis MD [address] [address] [facility] [place] [address] Internal Medicine 02/17/25 Logan Doran MD 30 [place] [address] 03/18/25 documented as of this encounter
--- OUTSIDE RECORDS SUMMARY | 2025-06-26 18:23 | XMS_ITS | Encounter Summary ---
Author Organization [facility] Address [address] [place] [address] Care Team Providers Care Personnel Representative Name Role Phone Franklin Simmons MD Unavailable Godwin Saunders DO Unavailable Gael Stockton MD Unavailable Unavailable Gael Stockton MD Primary Care Provider Unavail able Godwin Malcolm MD Unavailable Unavailable Gael Stockton MD Unavailable Unavailable OchoaHeather SPECIAL FORCES SPECIALIST Unavailable Antonia Willis MD Unavailable Logan Doran MD Unavailable Sanjay Fernandes MD Primary Care Provider Encounter Details Date Type Department Care Team (Late st Contact Info) Description 04/19/2022 Scanned Document [facility] [address] [place] [address] Vitor Morales MD 85 [facility] [address] [place] [address] Social History Tobacco Use Types Packs/Day Years [...] AM EDT Clinical Support [facility] [address] [place] [address] 4th [place] [phone] 08/18/2025 10:30 AM EDT Hospital Encounter [facility] Gastroenterology Division [address] [place] [phone] Vitor Morales MD [address] [place] [address] [phone] 08/18/2025 10:30 AM EDT Appointment [facility] [address] [place] [address] Vitor Morales MD [address] [place] [address] [phone] 08/18/2025 10:30 AM EDT - 08/18/2025 11:00 AM EDT Surgery [facility] Gastroenterology Division [address] [place] [phone] Vitor Morales MD [address] [place] [address] COLONOSCOPY 05/04/2026 11:00 AM EDT Office Visit [facility] Department of Cardiology [place] [address] [place] [phone] Aashish Silva PA [address] [place] [address] Scheduled Procedures Name Priority Associated Diagnoses Date/Ti ak COLONOSCOPY Colon cancer screening 08/18/2025 10:30 AM [...] documented as of this encounter Care Teams Personnel Representative Relationship Specialty Start Date End Date Gael Stockton MD PCP - General Internal Medicine 06/23/20 05/04/25 Gael Stockton MD PCP - [place] Medicare Patients 11/23/22 03/22/23 Sanjay Fernandes MD [address] [place] [address] PCP - General Pulmonary Disease 05/05/25 Franklin Simmons MD Physician Otolaryngology 06/14/17 Godwin Saunders DO Physician Endocrinology 06/14/17 Gael Stockton MD Internal Medicine 05/26/20 Godwin Malcolm MD Hematology Oncology 11/03/20 Heather Packer, SPECIAL FORCES SPECIALIST [address] [place] 4 [place] [address] Respiratory Care Practitioner Respiratory Therapist 09/20/24 Antonia Willis MD [address] [address] [facility] [address] Internal Medicine 02/17/25 Logan Doran MD 30 [place] [address] 03/18/25 documented as of this encounter
--- OUTSIDE RECORDS SUMMARY | 2025-06-26 18:23 | XMS_ITS | Encounter Summary ---
Author Organization [facility] Address [address] [place] [address] Care Team Providers Care Lean Facilitator Name Role Phone Franklin Simmons MD Unavailable [phone] Godwin Saunders DO Unavailable [phone] Gael Stockton MD Unavailable Unavailable Gael Stockton MD Primary Care Provider Unavail able Godwin Malcolm MD Unavailable Unavailable Gael Stockton MD Unavailable Unavailable OchoaHeather ENVIRONMENTAL FIELD TECHNICIAN Unavailable Antonia Willis MD Unavailable Logan Doran MD Unavailable Sanjay Fernandes MD Primary Care Provider Encounter Details Date Type Department Care Team (Late st Contact Info) Description 10/06/2020 Scanned Document [facility] [address] [place] [phone] Social History Tobacco Use Types Packs/Day Years [...] have Coronavirus / COVID-19? No / Unsure 10/08/2020 1:14 PM EST documented as of this encounter Plan of Treatment Upcoming Encounters Date Type Department Care Team (Latest Contact Info) Description 07/02/2025 11:00 AM EDT Clinical Support [facility] [address] [place] [address] 4th [place] [phone] 08/18/2025 10:30 AM EDT Hospital Encounter [facility] Gastroenterology Division [address] [place] [address] [phone] Vitor Morales MD [address] [place] [address] [phone] 08/18/2025 10:30 AM EDT Appointment [facility] [address] [place] [address] Vitor Morales MD [address] [place] [address] 08/18/2025 10:30 AM EDT - 08/18/2025 11:00 AM EDT Surgery [facility] Gastroenterology Division [address] [place] [phone] Vitor Morales MD [address] [place] [address] COLONOSCOPY 05/04/2026 11:00 AM EDT Office Visit [facility] Department of Cardiology [place] [address] [place] [address] Aashish Silva PA [address] [place] [address] Scheduled Procedures Name Priority Associated Diagnoses Date/Ti [...] documented as of this encounter Care Teams Lean Facilitator Relationship Specialty Start Date End Date Gael Stockton MD PCP - General Internal Medicine 06/23/20 05/04/25 Gael Stockton MD PCP - [place] Medicare Patients 11/23/22 03/22/23 Sanjay Fernandes MD 85 [facility] 923 [place] [address] PCP - General Pulmonary Disease 05/05/25 Franklin Simmons MD Physician Otolaryngology 06/14/17 Godwin Saunders DO Physician Endocrinology 06/14/17 Gael Stockton MD Internal Medicine 05/26/20 Godwin Malcolm MD Hematology Oncology 11/03/20 Heather Packer, ENVIRONMENTAL FIELD TECHNICIAN [address] [place] [address] [place] [address] Respiratory Care Practitioner Respiratory Therapist 09/20/24 Antonia Willis MD 850 [facility] 530 [facility] [place] [address] Internal Medicine 02/17/25 Logan Doran MD 30 [place] [address] 03/18/25 documented as of this encounter
--- OUTSIDE RECORDS SUMMARY | 2025-06-26 18:23 | XMS_ITS | Encounter Summary ---
Author Organization [facility] Address [address] [place] [address] Care Team Providers Care Technical Laboratory Asst Name Role Phone Sanjay Fernandes MD Primary Care Provider [phone] Franklin Simmons MD Unavailable [phone] Godwin Saunders DO Unavailable [phone] Gael Stockton MD Unavailable Unavailable Gael Stockton MD Primary Care Provider Unavail able Godwin Malcolm MD Unavailable Unavailable Gael Stockton MD Unavailable Unavailable Ochoa Heather EMERGENCY MEDICAL DISPATCHER Unavailable Antonia Willis MD Unavailable Logan Doran MD Unavailable Sanjay Fernandes MD Primary Care Provider Reason for Visit * Reason Comments Medication Refill Encounter Details Date Type Department Care Team (Late st Contact Info) Description 05/08/2020 Refill [facility] [place] [address] [place], [place] [phone] Lisa Barr PA [address] [place], [place] [phone] Chronic migraine without aura, with intractable migraine, [...] have Coronavirus / COVID-19? No / Unsure 05/07/2020 3:03 PM EDT documented as of this encounter Plan of Treatment Upcoming Encounters Date Type Department Care Team (Latest Contact Info) Description 07/02/2025 11:00 AM EDT Clinical Support [facility] [address] [place] [address] 4th [place] [phone] 08/18/2025 10:30 AM EDT Hospital Encounter [facility] Gastro[facility]ology Division [address] [place] [phone] Vitor Morales MD [address] [place] [address] 08/18/2025 10:30 AM EDT Appointment [facility] [address] [place] [address] Vitor Morales MD [address] [place] [address] [phone] 08/18/2025 10:30 AM EDT - 08/18/2025 11:00 AM EDT Surgery [facility] Gastroenterology Division [address] [place] [phone] Vitor Morales MD [address] [place] [address] [phone] COLONOSCOPY 05/04/2026 11:00 AM EDT Office Visit [facility] Department of Cardiology [place] [address] [place] [address] Aashish Silva PA [address] [place] [address] Scheduled Procedures Name Priority Associated Diagnoses Date/Ti [...] documented as of this encounter Care Teams Technical Laboratory Asst Relationship Specialty Start Date End Date Sanjay Fernandes MD [address] [place] [address] PCP - General Pulmonary Disease 05/28/16 06/22/20 Gael Stockton MD [address] [place] [address] PCP - General Internal Medicine 06/23/20 05/04/25 Gael Stockton MD PCP - [place] Medicare Patients 11/23/22 03/22/23 Sanjay Fernandes MD [address] [place] [address] PCP - General Pulmonary Disease 05/05/25 Franklin Simmons MD [address] [address] Physician Otolaryngology 06/14/17 Godwin Saunders DO [address] [address] Physician Endocrinology 06/14/17 Gael Stockton MD [address] [phone] Internal Medicine 05/26/20 Godwin Malcolm MD [address] [place] [address] Hematology Oncology 11/03/20 Heather Packer, EMERGENCY MEDICAL DISPATCHER [address] [place] [address] [place] [address] Respiratory Care Practitioner Respiratory Therapist 09/20/24 Antonia Willis MD [address] [facility] [place] [address] Internal Medicine 02/17/25 Logan Doran MD 30 [place] [address] 03/18/25 documented as of this encounter
--- OUTSIDE RECORDS SUMMARY | 2025-06-26 18:23 | XMS_ITS | Encounter Summary ---
Author Organization [facility] Address [address] [place] [address] Care Team Providers Care Manager Talent Name Role Phone Franklin Simmons MD Unavailable [phone] Godwin Saunders DO Unavailable Gael Stockton MD Unavailable Unavailable Gael Stockton MD Primary Care Provider Unavail able Godwin Malcolm MD Unavailable Unavailable Heather Packer RADIO JOURNALIST Unavailable [phone] Antonia Willis MD Unavailable Logan Doran MD Unavailable [phone] Sanjay Fernandes MD Primary Care Provider [phone] Encounter Details Date Type Department Care Team (Late st Contact Info) Description 05/02/2025 Telephone [facility] Pulmonary [place] [address] [address] Esthela Wilson PA [address] [address] Social History Tobacco Use Types Packs/Day Years Used Date Smoking Tobacco: Never Smokeless Tobacco: Never Alcohol Use Standard Drinks/Week Comments No 0 (1 standard drink = 0.6 oz pur e alcohol) PHQ-2 Answer Date Recorded PHQ-2 Total Score 0 03/19/2025 Comments Unknown Sex and Gender Information Value Date Recorded Sex Assigned at Female 02/17/2023 1:57 PM EDT Legal Sex Female 2:57 PM EDT Gender Identity Female 02/17/2023 1:57 PM EDT Sexual Orientation Heterosexual (straight) 02/17 1:57 PM EDT documented as of this encounter Miscellaneous Notes * Telephone Encounter - Randa Mcdonald MA - 05/02/2025 3:32 PM EDT Pt called requesting to speak with a provider before the office close in regards she have a few questions, she was in the ER overnight on Monday and ct scan showed pt had pneumonia and is on meds and have questions on other meds, pt can be reached at [phone], please advise. documented in this encounter Plan of Treatment Upcoming Encounters Date Type Department Care Team (Latest Contact Info) Description 07/02/2025 11:00 AM EDT Clinical Support [facility] [address] [place] [address] 4th [place] [phone] 08/18/2025 10:30 AM EDT Hospital Encounter [facility] Gastroenterology Division [address] [place] [phone] Vitor Morales MD [address] [place] [address] 08/18/2025 10:30 AM EDT Appointment [facility] [address] [place] [address] Vitor Morales MD [address] [place] [address] [phone] 08/18/2025 10:30 AM EDT - 08/18/2025 11:00 AM EDT Surgery [facility] Gastroenterology Division [address] [place] [phone] Vitor Morales MD [address] [place], [place] [address], [place] [address] COLONOSCOPY 05/04/2026 11:00 AM EDT Office Visit [facility] Department of Cardiology [place] [address] [place] [phone] Aashish Silva PA [address] [place] [address] Scheduled Procedures Name Priority Associated Diagnoses Date/Ti [...] documented as of this encounter Care Teams Manager Talent Relationship Specialty Start Date End Date Gael Stockton MD PCP - General Internal Medicine 06/23/20 05/04/25 Sanjay Fernandes MD [address] [place] [address] 923 [place] [address] PCP - General Pulmonary Disease 05/05/25 Franklin Simmons MD Physician Otolaryngology 06/14/17 Godwin Saunders DO Physician Endocrinology 06/14/17 Gael Stockton MD Internal Medicine 05/26/20 Godwin Malcolm MD Hematology Oncology 11/03/20 Heather Packer, RADIO JOURNALIST [address] [place] [address] [place] [address] Respiratory Care Practitioner Respiratory Therapist 09/20/24 Antonia Willis MD [address] [facility] [place] [address] Internal Medicine 02/17/25 Logan Doran MD 30 [place] [address] 03/18/25 documented as of this encounter
--- OUTSIDE RECORDS SUMMARY | 2025-06-26 18:23 | XMS_ITS | Encounter Summary ---
Author Organization [facility] Address [address] [place] [address] Care Team Providers Care Manager Hotel Name Role Phone Franklin Simmons MD Unavailable Godwin Saunders DO Unavailable Gael Stockton MD Unavailable Unavailable Gael Stockton MD Primary Care Provider Unavail able Godwin Malcolm MD Unavailable Unavailable Gael Stockton MD Unavailable Unavailable OchoaHeather EDGE BANDER OPERATOR Unavailable [phone] Antonia Willis MD Unavailable Logan Doran MD Unavailable Sanjay Fernandes MD Primary Care Provider Encounter Details Date Type Department Care Team (Late st Contact Info) Description 07/15/2020 Scanned Document [facility] [address] [place] [address] 4th [place] [phone] Selena Perez, WASHER HAND [address] [place] [address] Social History Tobacco Use Types Packs/Day Years [...] 11:00 AM EDT Clinical Support [facility] [address] [place] [address] 4th [place] [phone] 08/18/2025 10:30 AM EDT Hospital Encounter [facility] Gastroenterology Division [address] [place] [phone] Vitor Morales MD [address] [place] [address] [phone] 08/18/2025 10:30 AM EDT Appointment [facility] [address] [address] Vitor Morales MD [address] [place] [address] [phone] 08/18/2025 10:30 AM EDT - 08/18/2025 11:00 AM EDT Surgery [facility] Gastroenterology Division [address] [place] [phone] Vitor Morales MD [address] [place] [address] [phone] COLONOSCOPY 05/04/2026 11:00 AM EDT Office Visit [facility] Department of Cardiology [place] [address] [place] [phone] Aashish Silva PA [address] [place] [address] Scheduled Procedures Name Priority Associated Diagnoses Date/Ti [...] as of this encounter Care Teams Manager Hotel Relationship Specialty Start Date End Date Gael Stockton MD PCP - General Internal Medicine 06/23/20 05/04/25 Gael Stockton MD PCP - [place] Medicare Patients 11/23/22 03/22/23 Sanjay Fernandes MD [address] [place] [address] PCP - General Pulmonary Disease 05/05/25 Franklin Simmons MD Physician Otolaryngology 06/14/17 Godwin Saunders DO Physician Endocrinology 06/14/17 Gael Stockton MD Internal Medicine 05/26/20 Godwin Malcolm MD Hematology Oncology 11/03/20 Heather Packer, EDGE BANDER OPERATOR [address] [place] [address] [place] [address] Respiratory Care Practitioner Respiratory Therapist 09/20/24 Antonia Willis MD [address] [place] [address] [place] [address] Internal Medicine 02/17/25 Logan Doran MD 30 [place] [address] 03/18/25 documented as of this encounter
--- OUTSIDE RECORDS SUMMARY | 2025-06-26 18:24 | XMS_ITS | Encounter Summary ---
Author Organization [facility] Address [address] [place] [address] Care Team Providers Care Geriatric Assistant Name Role Phone Sanjay Fernandes MD Primary Care Provider Franklin Simmons MD Unavailable [phone] Godwin Saunders DO Unavailable [phone] Gael Stockton MD Unavailable Unavailable Gael Stockton MD Primary Care Provider Unavail able Godwin Malcolm MD Unavailable Unavailable Gael Stockton MD Unavailable Unavailable Heather Packer CELL OPERATOR Unavailable [phone] Antonia Willis MD Unavailable Logan Doran MD Unavailable [phone] Sanjay Fernandes MD Primary Care Provider Encounter Details Date Type Department Care Team (Late st Contact Info) Description 11/13/2018 Scanned Document [facility] [place] [facility] [address] [place] [phone] Social History Tobacco Use Types Packs/Day [...] EDT Clinical Support [facility]rosis [facility] [address] [place] [address] 4th [place] [phone] 08/18/2025 10:30 AM EDT Hospital Encounter [facility] Gastroenterology Division [address] [place] [phone] Vitor Morales MD [address] [place] [address] [phone] 08/18/2025 10:30 AM EDT Appointment [facility] [address] [place] [address] Vitor Morales MD [address] [place] [address] [phone] 08/18/2025 10:30 AM EDT - 08/18/2025 11:00 AM EDT Surgery [facility] Gastroenterology Division [address] [place] [address] [phone] Vitor Morales MD [address] [place] [address] [phone] COLONOSCOPY 05/04/2026 11:00 AM EDT Office Visit [facility] Department of Cardiology [place] [address] [place] [phone] Aashish Silva PA [address] [place] [address] [phone] Scheduled Procedures Name Priority Associated Diagnoses Date/Ti [...] documented as of this encounter Care Teams Geriatric Assistant Relationship Specialty Start Date End Date Sanjay Fernandes MD [address] [place] [address] PCP - General Pulmonary Disease 05/28/16 06/22/20 Gael Stockton MD [address] [place] [address] PCP - General Internal Medicine 06/23/20 05/04/25 Gael Stockton MD PCP - [place] Medicare Patients 11/23/22 03/22/23 Sanjay Fernandes MD [address] [place] [address] PCP - General Pulmonary Disease 05/05/25 Franklin Simmons MD [address] [place] [address] Physician Otolaryngology 06/14/17 Godwin Saunders DO [address] [place] [address] Physician Endocrinology 06/14/17 Gael Stockton MD [address] [place] [address] Internal Medicine 05/26/20 Godwin Malcolm MD [address] [place] [address] Hematology Oncology 11/03/20 Heather Packer, CELL OPERATOR [address] [place] [address] [place] [address] Respiratory Care Practitioner Respiratory Therapist 09/20/24 Antonia Willis MD [address] [facility] [address] Internal Medicine 02/17/25 Logan Doran MD 30 [place] [address] 03/18/25 documented as of this encounter
--- OUTSIDE RECORDS SUMMARY | 2025-06-26 18:24 | XMS_ITS | Encounter Summary ---
Author Organization [facility] Address [address] [place] [address] Care Team Providers Care Wet Machine Cutter Name Role Phone Sanjay Fernandes MD Primary Care Provider Franklin Simmons MD Unavailable [phone] Godwin Saunders DO Unavailable Gael Stockton MD Unavailable Unavailable Gael Stockton MD Primary Care Provider Unavail able Godwin Malcolm MD Unavailable Unavailable Gael Stockton MD Unavailable Unavailable Heather Packer MENTAL HEALTH CASE MANAGER Unavailable [phone] Antonia Willis MD Unavailable [place] Doran MD Unavailable Sanjay Fernandes MD Primary Care Provider Encounter Details Date Type Department Care Team (Late st Contact Info) Description 11/08/2018 Scanned Document [facility] [place] [facility] [address] [place] [phone] Social History Tobacco Use Types Packs/Day [...] EDT Clinical Support [facility] [address] [place] [address] 4th [place] [phone] 08/18/2025 10:30 AM EDT Hospital Encounter Gastroenterology Division [address] [place] [phone] Vitor Morales MD [address] [place] [address] [phone] 08/18/2025 10:30 AM EDT Appointment [facility] [address] [place] [address] Vitor Morales MD [address] [place] [address] [phone] 08/18/2025 10:30 AM EDT - 08/18/2025 11:00 AM EDT Surgery Gastroenterology Division [address] [place] [address] [phone] Vitor Morales MD [address] [place] [address] [phone] COLONOSCOPY 05/04/2026 11:00 AM EDT Office Visit [facility] Physicians Department of Cardiology [place] [address] [place] [phone] Aashish Silva PA [address] [place] [address] 664753 Scheduled Procedures Name Priority Associated Diagnoses Date/Ti [...] documented as of this encounter Care Teams Wet Machine Cutter Relationship Specialty Start Date End Date Sanjay Fernandes MD [address] [place] [address] PCP - General Pulmonary Disease 05/28/16 06/22/20 Gael Stockton MD [address] [place] [address] PCP - General Internal Medicine 06/23/20 05/04/25 Gael Stockton MD PCP - [place] Medicare Patients 11/23/22 03/22/23 Sanjay Fernandes MD [address] [place] [address] PCP - General Pulmonary Disease 05/05/25 Franklin Simmons MD [address] [place] [address] Physician Otolaryngology 06/14/17 Godwin Saunders DO [address] [place] [address] Physician Endocrinology 06/14/17 Gael Stockton MD [address] [place] [address] Internal Medicine 05/26/20 Godwin Malcolm MD [address] [place] [address] Hematology Oncology 11/03/20 Heather Packer, MENTAL HEALTH CASE MANAGER [address] [place] [address] Respiratory Care Practitioner Respiratory Therapist 09/20/24 Antonia Willis MD [address] [facility] [place] [address] Internal Medicine 02/17/25 [place] Doran MD 30 [place] [address] 03/18/25 documented as of this encounter
--- OUTSIDE RECORDS SUMMARY | 2025-06-26 18:24 | XMS_ITS | Encounter Summary ---
Author Organization [facility] Address [address] [place] [address] Care Team Providers Care Adzing And Boring Machine Helper Name Role Phone Sanjay Fernandes MD Primary Care Provider Franklin Simmons MD Unavailable [phone] Godwin Saunders DO Unavailable Gael Stockton MD Unavailable Unavailable Gael Stockton MD Primary Care Provider Unavail able Godwin Malcolm MD Unavailable Unavailable Gael Stockton MD Unavailable Unavailable Heather Packer OPEN SOAPER TENDER Unavailable [phone] Antonia Willis MD Unavailable [place] Doran MD Unavailable [phone] Sanjay Fernandes MD Primary Care Provider Encounter Details Date Type Department Care Team (Late st Contact Info) Description 08/16/2018 Scanned Document [facility] [place] [facility]rosis [facility] [address] [place] [phone] Social History Tobacco Use Types Packs/Day [...] EDT Clinical Support [facility] [address] [place] [address] 4th [place] [phone] 08/18/2025 10:30 AM EDT Hospital Encounter Gastroenterology Division [address] [place] [phone] Vitor Morales MD [address] [place] [address] [phone] 08/18/2025 10:30 AM EDT Appointment [facility] [address] [place] [address] Vitor Morales MD [address] [place] [address] [phone] 08/18/2025 10:30 AM EDT - 08/18/2025 11:00 AM EDT Surgery Gastroenterology Division [address] [place] [phone] Vitor Morales MD [address] [place] [address] [phone] COLONOSCOPY 05/04/2026 11:00 AM EDT Office Visit [facility] Physicians Department of Cardiology [place] [address] [place] [phone] Aashish Silva PA [address] [place] [address] 735203 Scheduled Procedures Name Priority Associated Diagnoses Date/Ti [...] documented as of this encounter Care Teams Adzing And Boring Machine Helper Relationship Specialty Start Date End Date Sanjay Fernandes MD [address] [address] PCP - General Pulmonary Disease 05/28/16 06/22/20 Gael Stockton MD [address] [place] [address] PCP - General Internal Medicine 06/23/20 05/04/25 Gael Stockton MD PCP - [place] Medicare Patients 11/23/22 03/22/23 Sanjay Fernandes MD [address] [place] [address] PCP - General Pulmonary Disease 05/05/25 [place] Simmons MD [address] [place] [address] Physician Otolaryngology 06/14/17 Godwin Saunders DO [address] [address] Physician Endocrinology 06/14/17 Gael Stockton MD [address] [place] [address] Internal Medicine 05/26/20 Godwin Malcolm MD 85 [facility] 923 [place] [address] Hematology Oncology 11/03/20 Heather Packer, OPEN SOAPER TENDER [address] [facility] 4 [place] [address] Respiratory Care Practitioner Respiratory Therapist 09/20/24 Antonia Willis MD 850 [facility] 530 [facility] [place] [address] Internal Medicine 02/17/25 [place] Doran MD 30 [place] [address] 03/18/25 documented as of this encounter
--- OUTSIDE RECORDS SUMMARY | 2025-06-26 18:24 | XMS_ITS | Encounter Summary ---
Author Organization [facility] Address [address] [place] [address] Care Team Providers Care Bass Mechanism Maker Name Role Phone Sanjay Fernandes MD Primary Care Provider Franklin Simmons MD Unavailable [phone] Godwin Saunders DO Unavailable [phone] Gael Stockton MD Unavailable Unavailable Gael Stockton MD Primary Care Provider Unavail able Godwin Malcolm MD Unavailable Unavailable Gael Stockton MD Unavailable Unavailable Heather Packer HEAD BANDER AND LINER OPERATOR Unavailable Antonia Willis MD Unavailable [place] Doran MD Unavailable [phone] Sanjay Fernandes MD Primary Care Provider [phone] Encounter Details Date Type Department Care Team (Late st Contact Info) Description 08/01/2018 Scanned Document [facility] [place] [facility] C[facility] Fibrosis Center [address] [place] [address] 4th [place] [phone] Sanjay Fernandes MD [address] [place] [address] 76869 Social History Tobacco Use Types Packs/Day Years [...] 11:00 AM EDT Clinical Support [facility] [place] [facility] 79 [facility] 4th [place] [phone] 08/18/2025 10:30 AM EDT Hospital Encounter [facility] Gastroenterology Division [address] [place] [address] [phone] Vitor Morales MD [address] [place] [address] [phone] 08/18/2025 10:30 AM EDT Appointment [facility] [address] [place] [address] Vitor Morales MD [address] [place] [address] [phone] 08/18/2025 10:30 AM EDT - 08/18/2025 11:[address] [facility] Gastroenterology Division [address] [place] [address] [phone] Vitor Morales MD [address] [place] [address] COLONOSCOPY 05/04/2026 11:00 AM EDT Office Visit [facility] Physicians Department of Cardiology [place] [address] [place] [phone] Aashish Silva PA [address] [place] [address] Scheduled Procedures Name Priority Associated Diagnoses Date/Ti ri COLONOSCOPY Colon cancer screening 08/18/2025 10:30 AM [...] documented as of this encounter Care Teams Bass Mechanism Maker Relationship Specialty Start Date End Date Sanjay Fernandes MD [address] [place] [address] PCP - General Pulmonary Disease 05/28/16 06/22/20 Gael Stockton MD [address] [place] [address] PCP - General Internal Medicine 06/23/20 05/04/25 Gael Stockton MD PCP - [place] Medicare Patients 11/23/22 03/22/23 Sanjay Fernandes MD [address] [place] [address] 16156 PCP - General Pulmonary Disease 05/05/25 Franklin Simmons MD [address] [place] [address] Physician Otolaryngology 06/14/17 Godwin Saunders DO [address] [place] [address] Physician Endocrinology 06/14/17 Gael Stockton MD [address] [address] Internal Medicine 05/26/20 Godwin Malcolm MD [address] [address] Hematology Oncology 11/03/20 Heather Packer, HEAD BANDER AND LINER OPERATOR [address] [place] 4 [place] [address] Respiratory Care Practitioner Respiratory Therapist 09/20/24 Antonia Willis MD [address] [facility] [place] [address] Internal Medicine 02/17/25 [place] Doran MD 30 [place] [address] 03/18/25 documented as of this encounter
--- OUTSIDE RECORDS SUMMARY | 2025-06-26 18:24 | XMS_ITS | Encounter Summary ---
Author Organization [facility] Address [address] [place] [address] Care Team Providers Care Sealer Aircraft Name Role Phone Sanjay Fernandes MD Primary Care Provider [phone] Franklin Simmons MD Unavailable [phone] Godwin Saunders DO Unavailable Gael Stockton MD Unavailable Unavailable Gael Stockton MD Primary Care Provider Unavail able Godwin Malcolm MD Unavailable Unavailable Gael Stockton MD Unavailable Unavailable Heather Packer FISHERIES ENFORCEMENT OFFICER Unavailable [phone] Antonia Willis MD Unavailable [place] Doran MD Unavailable Sanjay Fernandes MD Primary Care Provider Encounter Details Date Type Department Care Team (Late st Contact Info) Description 07/11/2018 Scanned Document [facility] [place] [facility]rosis Center [address] [place] [phone] Social History Tobacco Use Types Packs/Day [...] Clinical Support The [facility] Fibrosis Center [address] [place] [address] 4th [place] [phone] 08/18/2025 10:30 AM EDT Hospital Encounter [facility] Gastroenterology Division [address] [place] [phone] Vitor Morales MD [address] [place] [address] [phone] 08/18/2025 10:30 AM EDT Appointment [facility] [address] [place] [address] Vitor Morales MD [address] [place] [address] [phone] 08/18/2025 10:30 AM EDT - 08/18/2025 11:00 AM EDT Surgery [facility] Gastroenterology Division [address] [place] [address] [phone] Vitor Morales MD [address] [place] [address] [phone] COLONOSCOPY 05/04/2026 11:00 AM EDT Office Visit [facility] Physicians Department of Cardiology [place] [address] [place] [phone] Aashish Silva PA [address] [place] [address] [phone] Scheduled Procedures Name Priority Associated Diagnoses Date/Ti [...] documented as of this encounter Care Teams Sealer Aircraft Relationship Specialty Start Date End Date Sanjay Fernandes MD [address] [place] [address] [address] PCP - General Pulmonary Disease 05/28/16 06/22/20 Gael Stockton MD [address] [place] [address] PCP - General Internal Medicine 06/23/20 05/04/25 Gael Stockton MD PCP - [place] Medicare Patients 11/23/22 03/22/23 Sanjay Fernandes MD [address] [place] [address] PCP - General Pulmonary Disease 05/05/25 Franklin Simmons MD [address] [place] [address] Physician Otolaryngology 06/14/17 Godwin Saunders DO [address] [place] [address] [address] Physician Endocrinology 06/14/17 Gael Stockton MD [address] [place] [address] Internal Medicine 05/26/20 Godwin Malcolm MD 85 [facility] 923 [place] [address] Hematology Oncology 11/03/20 Heather Packer, FISHERIES ENFORCEMENT OFFICER 79 [facility] 4 [place] [address] Respiratory Care Practitioner Respiratory Therapist 09/20/24 Antonia Willis MD 850 [facility] 530 [facility] [place] [address] Internal Medicine 02/17/25 [place] Doran MD 30 [place] [address] 03/18/25 documented as of this encounter
--- OUTSIDE RECORDS SUMMARY | 2025-06-26 18:24 | XMS_ITS | Encounter Summary ---
Author Organization [facility] Address [address] [place] [address] Care Team Providers Care Abstract Searcher Name Role Phone Franklin Simmons MD Unavailable Godwin Saunders DO Unavailable Gael Stockton MD Unavailable Unavailable Gael Stockton MD Primary Care Provider Unavail able Godwin Malcolm MD Unavailable Unavailable Heather Packer DIGITAL MEDIA REPRESENTATIVE Unavailable Antonia Willis MD Unavailable [place] Doran MD Unavailable [phone] Sanjay Fernandes MD Primary Care Provider Encounter Details Date Type Department Care Team (Late st Contact Info) Description 03/19/2025 Scanned Document [facility] [address] [place] [address] [phone] Anabela Ralph MA [address] [place] [address] 4 [place], [place] [phone] Social History Tobacco Use Types Packs/Day Years [...] PM EDT documented as of this encounter Functional Status * Question Answer Date of Assessment Author Feeling nervous, anxious, or on edge 1 03/19/2025 12:00 PM EDT Kady Garcia LC SW Not being able to stop or co ntrol worrying 0 03/19/2025 12:00 PM EDT Kady Garcia LC SW Worrying too much about diff erent things 1 03/19/2025 12:00 PM EDT Kady Garcia LC SW Trouble relaxing 0 03/19/2025 12:00 PM EDT Kady Garcia LCSW Being so restless that it is hard to sit still 0 03/19/2025 12:00 PM EDT Kady Garcia LC SW Becoming easily annoyed or irritable 1 03/19/2025 12:00 PM EDT Kady Garcia LC SW Feeling afraid as if somethi ng awful might happen 1 03/19/2025 12:00 PM EDT Kady Garcia LC SW * Over the past 2 weeks, how often have you been bothered by any of the following problems? Question Answer Date of Assessment Author Patient Health Questionnaire -2 Score 0 03/19/2025 12:00 PM EDT Kady Garcia LC SW * Question Answer Date of Assessment Author Patient Health Questionnaire -9 Score 7 03/19/2025 12:00 PM EDT Kady Garcia LC SW * Over the last 2 weeks, how often have you been bothered by any of the following problems? Question Answer Date of Assessment Author BLAKE-7 Total Score 4 03/19/2025 12:00 PM EDT Kady Garcia LCSW * Question Answer Date of Assessment Author Little interest or pleasure in doing things Not at all 03/19/2025 12:00 PM EDT Kady Garcia LCSW Feeling down, depressed, or hopeless Not at all 03/19/2025 12:00 PM EDT Kady Garcia LCSW Trouble falling or staying asleep, or sleeping too much More than half the days 03/19/2025 12:00 PM EDT Kady Garcia LCSW Feeling tired or having little energy More than half the days 03/19/2025 12:00 PM EDT Kady Garcia LCSW Poor appetite or overeating Nearly every day 03/19/2025 12:00 PM EDT Kady Garcia LCSW Feeling bad about yourself - or that you are a failure or have let yourself or your family down Not at all 03/19/2025 12:00 PM EDT Kady Garcia LCSW Trouble concentrating on things, such as reading the newspaper or watching television Not at all 03/19/2025 12:00 PM EDT Kady Garcia LCSW Moving or speaking so slowly that other people could have noticed? Or the opposite - being so fidgety or restless that you have been moving around a lot more than usual. Not at all 03/19/2025 12:00 PM EDT Kady Garcia LCSW Thoughts that you would be better off or hurting yourself in some way Not at all 03/19/2025 12:00 PM EDT Kady Garcia LCSW How difficult have these problems made it for you to do your work, take care of things at home, or get along with other people? Not difficult at all 03/19/2025 12:00 PM EDT Kady Garcia LCSW documented as of this encounter Plan of Treatment Upcoming Encounters Date Type Department Care Team (Latest Contact Info) Description 07/02/2025 11:00 AM EDT Clinical Support [facility] [address] [place] [phone] 08/18/2025 10:30 AM EDT Hospital Encounter [facility] Gastroenterology Division [address] [place] [address] [phone] Vitor Morales MD [address] [place] [address] [phone] 08/18/2025 10:30 AM EDT Appointment [facility] [address] [address] Vitor Morales MD [address] [place] [address] 08/18/2025 10:30 AM EDT - 08/18/2025 11:00 AM EDT Surgery [facility] Gastroenterology Division [address] [place] [phone] Vitor Morales MD [address] [place] [address] COLONOSCOPY 05/04/2026 11:00 AM EDT Office Visit [facility] Department of Cardiology [place] [address] [place] [phone] Aashish Silva PA [address] [place] [address] Scheduled Procedures Name Priority Associated Diagnoses Date/Ti [...] documented as of this encounter Care Teams Abstract Searcher Relationship Specialty Start Date End Date Gael Stockton MD PCP - General Internal Medicine 06/23/20 05/04/25 Sanjay Fernandes MD [address] [place] [address] PCP - General Pulmonary Disease 05/05/25 Franklin Simmons MD Physician Otolaryngology 06/14/17 Godwin Saunders DO Physician Endocrinology 06/14/17 Gael Stockton MD Internal Medicine 05/26/20 Godwin Malcolm MD Hematology Oncology 11/03/20 Heather Packer, DIGITAL MEDIA REPRESENTATIVE [address] [facility] 4 [place] [address] Respiratory Care Practitioner Respiratory Therapist 09/20/24 Antonia Willis MD [address] [facility] [place] [address] Internal Medicine 02/17/25 [place] Doran MD 30 [place] [address] 03/18/25 documented as of this encounter
--- OUTSIDE RECORDS SUMMARY | 2025-06-26 18:24 | XMS_ITS | Encounter Summary ---
Author Organization [facility] Address [address] [place] [address] Care Team Providers Care Senior Sales Representative Name Role Phone Sanjay Fernandes MD Primary Care Provider Franklin Simmons MD Unavailable [phone] Godwin Saunders DO Unavailable [phone] Gael Stockton MD Unavailable Unavailable Gael Stockton MD Primary Care Provider Unavail able Godwin Malcolm MD Unavailable Unavailable Gael Stockton MD Unavailable Unavailable Heather Packer HEATER PLANER OPERATOR Unavailable [phone] Antonia Willis MD Unavailable [place] Doran MD Unavailable [phone] Sanjay Fernandes MD Primary Care Provider Encounter Details Date Type Department Care Team (Late st Contact Info) Description 08/16/2018 Scanned Document [facility] [address] [place] [phone] Social History Tobacco Use Types Packs/Day [...] EDT Clinical Support [facility] [address] [place] [address] 4[address] [place] [phone] 08/18/2025 10:30 AM EDT Hospital Encounter [facility] Gastroenterology Division [address] [place] [phone] Vitor Morales MD [address] [place] [address] [phone] 08/18/2025 10:30 AM EDT Appointment [facility] [address] [place] [address] Vitor Morales MD [address] [place] [address] [phone] 08/18/2025 10:30 AM EDT - 08/18/2025 11:00 AM EDT Surgery [facility] Gastroenterology Division [address] [place] [address] [phone] Vitor Morales MD [address] [place] [address] [phone] COLONOSCOPY 05/04/2026 11:00 AM EDT Office Visit [facility] Physicians Department of Cardiology [place] [address] [place] [phone] Aashish Silva PA [address] [place] [address] [phone] Scheduled Procedures Name Priority Associated Diagnoses Date/Ti [...] documented as of this encounter Care Teams Senior Sales Representative Relationship Specialty Start Date End Date Sanjay Fernandes MD [address] [address] PCP - General Pulmonary Disease 05/28/16 06/22/20 Gael Stockton MD [address] [place] [address] PCP - General Internal Medicine 06/23/20 05/04/25 Gael Stockton MD PCP - [place] Medicare Patients 11/23/22 03/22/23 Sanjay Fernandes MD [address] [place] [address] PCP - General Pulmonary Disease 05/05/25 Franklin Simmons MD [address] [place] [address] Physician Otolaryngology 06/14/17 Godwin Saunders DO [address] [address] Physician Endocrinology 06/14/17 Gael Stockton MD [address] [place] [address] Internal Medicine 05/26/20 Godwin Malcolm MD 85 [facility] 923 [place] [address] Hematology Oncology 11/03/20 Heather Packer, HEATER PLANER OPERATOR [address] [place] [facility] 4 [place] [address] Respiratory Care Practitioner Respiratory Therapist 09/20/24 Antonia Willis MD 850 [facility] 530 [facility] [address] Internal Medicine 02/17/25 [place] Doran MD 30 [place] [address] 03/18/25 documented as of this encounter
--- OUTSIDE RECORDS SUMMARY | 2025-06-26 18:24 | XMS_ITS | Encounter Summary ---
Author Organization Formerly [facility] Address [address] [place] [address] Care Team Providers Care Contract Post Office Clerk Name Role Phone Sanjay Fernandes MD Primary Care Provider Franklin Simmons MD Unavailable Godwin Saunders DO Unavailable Gael Stockton MD Unavailable Unavailable Gael Stockton MD Primary Care Provider Unavail able Godwin Malcolm MD Unavailable Unavailable Gael Stockton MD Unavailable Unavailable Heather Packer BATH TESTER Unavailable Antonia Willis MD Unavailable Logan Doran MD Unavailable [phone] Sanjay Fernandes MD Primary Care Provider Encounter Details Date Type Department Care Team (Late st Contact Info) Description 07/09/[address] [facility] [address] [place], [place] [phone] Sergio Gonzalez MD [address] [place], [place] [phone] Social History Tobacco Use Types Packs/Day Years [...] 11:00 AM EDT Clinical Support [facility] [address] [place] [address] 4th [place] [phone] 08/18/2025 10:30 AM EDT Hospital Encounter [facility] Gastroenterology Division [address] [place] [phone] Vitor Morales MD [address] [place] [address] [phone] 08/18/2025 10:30 AM EDT Appointment [facility] [address]RD [facility] [address] Vitor Morales MD [address] [place] [address] [phone] 08/18/2025 10:30 AM EDT - 08/18/2025 11:00 AM EDT Surgery [facility] Gastroenterology Division [address] [place] [address] [phone] Vitor Morales MD [address] [place] [address] COLONOSCOPY 05/04/2026 11:00 AM EDT Office Visit [facility] Department of Cardiology [place] [address] [place] [phone] Aashish Silva PA [address] [place] [address] Scheduled Procedures Name Priority Associated Diagnoses Date/Ti [...] documented as of this encounter Care Teams Contract Post Office Clerk Relationship Specialty Start Date End Date Sanjay Fernandes MD [address] [place] [address] PCP - General Pulmonary Disease 05/28/16 06/22/20 Gael Stockton MD [address] [place] [address]00 PCP - General Internal Medicine 06/23/20 05/04/25 Gael Stockton MD PCP - [place] Medicare Patients 11/23/22 03/22/23 Sanjay Fernandes MD [address] [place] [address]9 PCP - General Pulmonary Disease 05/05/25 Franklin Simmons MD [address] [place] [address] 29189 Physician Otolaryngology 06/14/17 Godwin Saunders DO [address] [place] [address] 60864 Physician Endocrinology 06/14/17 Gael Stockton MD [address] [address] Internal Medicine 05/26/20 Godwin Malcolm MD [address] [address] Hematology Oncology 11/03/20 Heather Packer, BATH TESTER [address] [place] [address] Respiratory Care Practitioner Respiratory Therapist 09/20/24 Antonia Willis MD [address] [facility] [place] [address] Internal Medicine 02/17/25 Logan Doran MD 30 [place] [address] 03/18/25 documented as of this encounter
--- OUTSIDE RECORDS SUMMARY | 2025-06-26 18:24 | XMS_ITS | Encounter Summary ---
Author Organization [facility] Address [address] [place] [address] Care Team Providers Care Technical Implementation Lead Name Role Phone Franklin Simmons MD Unavailable Godwin Saunders DO Unavailable [phone] Gael Stockton MD Unavailable Unavailable Gael Stockton MD Primary Care Provider Unavail able Godwin Malcolm MD Unavailable Unavailable Gael Stockton MD Unavailable Unavailable DanielHeather fraser STAFF PSYCHIATRIST Unavailable Antonia Willis MD Unavailable Logan Doran MD Unavailable [phone] Sanjay Fernandes MD Primary Care Provider Encounter Details Date Type Department Care Team (Late st Contact Info) Description 06/08/2021 Mobile [facility] [address] [place] [address] 4th [place] [phone] Sanjay Fernandes MD [address] [place] [address] Cystic fibrosis (HCC) (Primary Dx) Social History Tobacco Use Types Packs/Day Years Used Date Smoking Tobacco: Never Smokeless Tobacco: Never Alcohol Use Standard Drinks/Week Comments No 0 (1 standard drink = 0.6 oz pur e alcohol) PHQ-2 Answer Date Recorded PHQ-2 Total Score 0 03/31/2021 Comments No Sex and Gender Information Value [...] have Coronavirus / COVID-19? No / Unsure 05/19/2021 3:18 PM EDT documented as of this encounter Plan of Treatment Upcoming Encounters Date Type Department Care Team (Latest Contact Info) Description 07/02/2025 11:00 AM EDT Clinical Support [facility] [address] [place] [address] 4th [place] [phone] 08/18/2025 10:30 AM EDT Hospital Encounter [facility] Gastroenterology Division [address] [place] [phone] Vitor Morales MD [address] [place] [address] [phone] 08/18/2025 10:30 AM EDT Appointment [facility] [address] 3RD [place] [address] Vitor Morales MD [address] [place] [address] [phone] 08/18/2025 10:30 AM EDT - 08/18/2025 11:00 AM EDT Surgery [facility] Gastroenterology Division [address] [place] [phone] Vitor [place]ales MD [address] [place] [address] [phone] COLONOSCOPY 05/04/2026 11:00 AM EDT Office Visit [facility] Department of Cardiology [place] [address] [place] [address] Aashish Silva PA [address] [place] [address] Scheduled Procedures Name Priority Associated Diagnoses Date/Ti me COLONOSCOPY Colon cancer screening 08/18/2025 10:30 AM EDT documented as of this encounter Visit Diagnoses Diagnosis Cystic fibrosis (HCC)- Primary Cystic fibrosis without mention of meconium ileus Colon cancer screening Special screening for malignant [...] as of this encounter Care Teams Technical Implementation Lead Relationship Specialty Start Date End Date Gael Stockton MD PCP - General Internal Medicine 06/23/20 05/04/25 Gael Stockton MD PCP - [place] Medicare Patients 11/23/22 03/22/23 Sanjay Fernandes MD [address] [place] [address] PCP - General Pulmonary Disease 05/05/25 Franklin Simmons MD Physician Otolaryngology 06/14/17 Godwin Saunders DO Physician Endocrinology 06/14/17 Gael Stockton MD Internal Medicine 05/26/20 Godwin Malcolm MD Hematology Oncology 11/03/20 Heather Packer, STAFF PSYCHIATRIST [address] [place] [address] [address] Respiratory Care Practitioner Respiratory Therapist 09/20/24 Antonia Willis MD [address] [facility] [place] [address] Internal Medicine 02/17/25 Logan Doran MD 30 [place] [address] 03/18/25 documented as of this encounter
--- OUTSIDE RECORDS SUMMARY | 2025-06-26 18:24 | XMS_ITS | Encounter Summary ---
Author Organization [facility] Address [address] [place] [address] Care Team Providers Care Sand Buffer Name Role Phone Sanjay Fernandes MD Primary Care Provider Franklin Simmons MD Unavailable [phone] Godwin Saunders DO Unavailable [phone] Gael Stockton MD Unavailable Unavailable Gael Stockton MD Primary Care Provider Unavail able Godwin Malcolm MD Unavailable Unavailable Gael Stockton MD Unavailable Unavailable OchoaHeather HEEL SPLITTER Unavailable Antonia Willis MD Unavailable Logan Doran MD Unavailable Sanjay Fernandes MD Primary Care Provider Reason for Visit * Reason Comments Medication Refill Encounter Details Date Type Department Care Team (Late st Contact Info) Description 12/05/2018 Refill [facility] [address] [place] [address] 4th [place] [phone] Sanjay Fernandes MD [address] [place] [phone] Other insomnia Social History Tobacco Use Types Packs/Day Years [...] 11:00 AM EDT Clinical Support [facility] [address] [place] [address] 4th [place] [phone] 08/18/2025 10:30 AM EDT Hospital Encounter [facility] G[facility]enterology Division [address] [place] [phone] Vitor [place] MD [address] [place], [place] [phone] 08/18/2025 10:30 AM EDT Appointment [facility] [address] 3[address] [place] [address] Vitor Morales MD [address] [place] [address] [phone] 08/18/2025 10:30 AM EDT - 08/18/2025 11:00 AM EDT Surgery [facility] Gastroenterology Division [address] [place] [address] [phone] Vitor [place]ales MD [address] [place] [address] [phone] COLONOSCOPY 05/04/2026 11:00 AM EDT Office Visit [facility] Department of Cardiology [place] [address] [place] [address] Aashish Silva PA [address] [place] [address] Scheduled Procedures Name Priority Associated Diagnoses Date/Ti me COLONOSCOPY Colon cancer screening 08/18/2025 10:30 AM EDT documented as of this encounter Visit Diagnoses Diagnosis Other insomnia Colon cancer screening Special screening for malignant [...] documented as of this encounter Care Teams Sand Buffer Relationship Specialty Start Date End Date Sanjay Fernandes MD [address] [place] [address] PCP - General Pulmonary Disease 05/28/16 06/22/20 Gael Stockton MD [address] [place] [address] PCP - General Internal Medicine 06/23/20 05/04/25 Gael Stockton MD PCP - [place] Medicare Patients 11/23/22 03/22/23 Sanjay Fernandes MD [address] [place] [address] PCP - General Pulmonary Disease 05/05/25 Franklin Simmons MD [address] [place] [address] Physician Otolaryngology 06/14/17 Godwin Saunders DO [address] [place] [address] Physician Endocrinology 06/14/17 Gael Stockton MD [address] [address] Internal Medicine 05/26/20 Godwin Malcolm MD [address] [address] Hematology Oncology 11/03/20 Heatehr Packer, HEEL SPLITTER [address] [place] [address] Respiratory Care Practitioner Respiratory Therapist 09/20/24 Antonia Willis MD [address] [place] [address] and [place] [address] Internal Medicine 02/17/25 Logan Doran MD 30 [place] [address] 03/18/25 documented as of this encounter
--- OUTSIDE RECORDS SUMMARY | 2025-06-26 18:24 | XMS_ITS | Encounter Summary ---
Author Organization [facility]ly [facility] Address [address] [place] [address] Care Team Providers Care Guard Captain Name Role Phone Sanjay Fernandes MD Primary Care Provider Franklni Simmons MD Unavailable [phone] Godwin Saunders DO Unavailable Gael Stockton MD Unavailable Unavailable Gael Stockton MD Primary Care Provider Unavail able Godwin Malcolm MD Unavailable Unavailable Gael Stockton MD Unavailable Unavailable Heather Packer BRICK OFFBEARER Unavailable Antonia Willis MD Unavailable Logan Doran MD Unavailable Sanjay Fernandes MD Primary Care Provider Encounter Details Date Type Department Care Team (Late st Contact Info) Description 10/18/2018 Scanned Document [facility] [address] [place] [phone] Vitor Duggan, PT [address] [place] [address] Social History Tobacco Use Types Packs/Day Years [...] [facility] [address] [place] [address] 4th [place] [phone] 08/18/2025 10:30 AM EDT Hospital Encounter [facility] Gastroenterology Division [address] [place] [address] [phone] Vitor [place] MD [address] [place] [address] [phone] 08/18/2025 10:30 AM EDT Appointment [facility] [address]RD [place] [address] Vitor [place]ales MD [address] [place] [address] [phone] 08/18/2025 10:30 AM EDT - 08/18/2025 11:00 AM EDT Surgery [facility] Gastroenterology Division [address] [place] [address] [phone] Vitor [place] MD [address] [place] [address] COLONOSCOPY 05/04/2026 11:00 AM EDT Office Visit [facility] Department of Cardiology [place] [address] [place] [address] Aashish Silva PA [address] [place] [address] Scheduled Procedures Name Priority Associated Diagnoses Date/Ti [...] documented as of this encounter Care Teams Guard Captain Relationship Specialty Start Date End Date Sanjay Fernandes MD 85 [place] [address] PCP - General Pulmonary Disease 05/28/16 06/22/20 Gael Stockton MD [address] [place] [address] PCP - General Internal Medicine 06/23/20 05/04/25 Gael Stockton MD PCP - [place] Medicare Patients 11/23/22 03/22/23 Sanjay Fernandes MD [address] [place] [address] PCP - General Pulmonary Disease 05/05/25 Franklin Simmons MD [address] [place] [address] Physician Otolaryngology 06/14/17 Godwin Saunders DO [address] [place] [address] Physician Endocrinology 06/14/17 Gael Stockton MD [address] [place] [address] Internal Medicine 05/26/20 Godwin Malcolm MD 85 [facility] 923 [place] [address] Hematology Oncology 11/03/20 Heather Packer, BRICK OFFBEARER [address] [facility] 4 [place] [address] Respiratory Care Practitioner Respiratory Therapist 09/20/24 Antonia Willis MD 850 [facility] [address] [facility] [place] [address] Internal Medicine 02/17/25 Logan Doran MD 30 [place] [address] 03/18/25 documented as of this encounter
--- OUTSIDE RECORDS SUMMARY | 2025-06-26 18:24 | XMS_ITS | Encounter Summary ---
Author Organization [facility] Address [address] [place] [address] Care Team Providers Care Putty Worker Name Role Phone Sanjay Fernandes MD Primary Care Provider Franklin Simmons MD Unavailable Godwin Saunders DO Unavailable Gael Stockton MD Unavailable Unavailable Gael Stockton MD Primary Care Provider Unavail able Godwin Malcolm MD Unavailable Unavailable Gael Stockton MD Unavailable Unavailable Heather Packer CORPORATE GENERAL MANAGER Unavailable Antonia Willis MD Unavailable Logan Doran MD Unavailable Sanjay Fernandes MD Primary Care Provider Encounter Details Date Type Department Care Team (Late st Contact Info) Description 08/07/[address] [facility] [address] [place] [phone] Provider, MD Devyn [address] [place] [address] Social History Tobacco Use Types Packs/Day Years [...] * Telephone Encounter - Evelin Cheney - 08/07/2018 9:44 AM EDT Carla left a message for me stating her pharmacy does not have the hycodan syrup that Elis was supposed to prescribe. I returned Carla's call to find out what pharmacy she wants it sent to, but she did not answer. I left a voice message. documented in this encounter Plan of Treatment Upcoming Encounters Date Type Department Care Team (Latest Contact Info) Description 07/02/2025 11:00 AM EDT Clinical Support [facility] [address] [place] [address] 4th [place] [phone] 08/18/2025 10:30 AM EDT Hospital Encounter [facility] Gastroenterology Division [address] [place] [phone] Vitor Morales MD [address] [place], [place] [phone] 08/18/2025 10:30 AM EDT Appointment [facility] [address] [place] [address] Vitor Morales MD [address] [place] [address] [phone] 08/18/2025 10:30 AM EDT - 08/18/2025 11:00 AM EDT Surgery [facility] Gastroenterology Division [address] [place] [address] [phone] Vitor Morales MD [address] [place] [address] COLONOSCOPY 05/04/2026 11:00 AM EDT Office Visit [facility] Department of Cardiology [place] [address] [place] [address] Aashish Silva PA 289 [place] [address] Scheduled Procedures Name Priority Associated Diagnoses Date/Ti [...] documented as of this encounter Care Teams Putty Worker Relationship Specialty Start Date End Date Sanjay Fernandes MD [address] [place] [address] PCP - General Pulmonary Disease 05/28/16 06/22/20 Gael Stockton MD [address] [place] [address] PCP - General Internal Medicine 06/23/20 05/04/25 Gael Stockton MD PCP - [place] Medicare Patients 11/23/22 03/22/23 Sanjay Fernandes MD [address] [place] [address] PCP - General Pulmonary Disease 05/05/25 Franklin Simmons MD [address] [address] Physician Otolaryngology 06/14/17 Godwin Saunders DO [address] [address] Physician Endocrinology 06/14/17 Gael Stockton MD [address] [address] Internal Medicine 05/26/20 Godwin Malcolm MD [address] [place] [address] Hematology Oncology 11/03/20 Heather Packer, CORPORATE GENERAL MANAGER [address] [place] [address] [place] [address] Respiratory Care Practitioner Respiratory Therapist 09/20/24 Antonia Willis MD [address] [place] [address] and [place] [address] Internal Medicine 02/17/25 Logan Doran MD 30 [place] [address] 03/18/25 documented as of this encounter
--- OUTSIDE RECORDS SUMMARY | 2025-06-26 18:24 | XMS_ITS | Encounter Summary ---
Author Organization [facility] Address [address] [place] [address] Care Team Providers Care Bag Making Machine Operator Name Role Phone Franklin Simmons MD Unavailable [phone] Godwin Saunders DO Unavailable [phone] Gael Stockton MD Unavailable Unavailable Gael Stockton MD Primary Care Provider Unavail able Godwin Malcolm MD Unavailable Unavailable Gael Stockton MD Unavailable Unavailable OchoaHeather DISC SANDER Unavailable Antonia Willis MD Unavailable Logan Doran MD Unavailable Sanjay Fernandes MD Primary Care Provider [phone] Encounter Details Date Type Department Care Team (Late st Contact Info) Description 06/23/2021 Scanned Document [facility] [address] [place] [address] 4th [place] [phone] Social History Tobacco Use Types Packs/Day Years [...] have Coronavirus / COVID-19? No / Unsure 06/25/2021 7:49 AM EDT documented as of this encounter Plan of Treatment Upcoming Encounters Date Type Department Care Team (Latest Contact Info) Description 07/02/2025 11:00 AM EDT Clinical Support [facility] [address] [place] [address] 4th [place] [phone] 08/18/2025 10:30 AM EDT Hospital Encounter [facility] Gastroenterology Division [address] [place] [address] [phone] Vitor [place]ales MD [address] [place] [address] 08/18/2025 10:30 AM EDT Appointment [facility] [address] [place] [address] Vitor Morales MD [address] [place] [address] [phone] 08/18/2025 10:30 AM EDT - 08/18/2025 11:00 AM EDT Surgery [facility] Gastroenterology Division [address] [place] [address] [phone] Vitor Morales MD [address] [place] [address] COLONOSCOPY 05/04/2026 11:00 AM EDT [facility] Department of Cardiology [place] [address] [place] [phone] Aashish Silva PA [address] [place] [address] Scheduled Procedures Name Priority Associated Diagnoses Date/Ti [...] documented as of this encounter Care Teams Bag Making Machine Operator Relationship Specialty Start Date End Date Gael Stockton MD PCP - General Internal Medicine 06/23/20 05/04/25 Gael Stockton MD PCP - [place] Medicare Patients 11/23/22 03/22/23 Sanjay Fernandes MD [address] [place], [place] [address] [place] [address] PCP - General Pulmonary Disease 05/05/25 Frnaklin Simmons MD Physician Otolaryngology 06/14/17 Godwin Saunders DO Physician Endocrinology 06/14/17 Gael Stockton MD Internal Medicine 05/26/20 Godwin Malcolm MD Hematology Oncology 11/03/20 Heather Packer, DISC SANDER [address] [facility] 4 [place] [address] Respiratory Care Practitioner Respiratory Therapist 09/20/24 Antonia Willis MD [address] [place] [address] [place] [address] Internal Medicine 02/17/25 Logan Doran MD 30 [place] [address] 03/18/25 documented as of this encounter
--- OUTSIDE RECORDS SUMMARY | 2025-06-26 18:24 | XMS_ITS | Encounter Summary ---
Author Organization [facility] Address [address] [place] [address] Care Team Providers Care Service Car Operator Name Role Phone Sanjay Fernandes MD Primary Care Provider Franklin Simmons MD Unavailable Godwin Saunders DO Unavailable [phone] Gael Stockton MD Unavailable Unavailable Gael Stockton MD Primary Care Provider Unavail able Godwin Malcolm MD Unavailable Unavailable Gael Stockton MD Unavailable Unavailable Heather Packer CARPENTER ROUGH Unavailable Antonia Willsi MD Unavailable Logan Doran MD Unavailable Sanjay Fernandes MD Primary Care Provider Encounter Details Date Type Department Care Team (Late st Contact Info) Description 06/06/2018 Scanned Document [facility] [address] [facility] [place], [place] [phone] Lisa aBrr PA [address] [place], [place] [phone] Social History Tobacco Use Types Packs/Day Years [...] 11:00 AM EDT Clinical Support [facility] [address] [place] [address] 4th [place] [phone] 08/18/2025 10:30 AM EDT Hospital Encounter [facility] Gastroenterology Division [address] [place] [address] [phone] Vitor Morales MD [address] [place] [address] [phone] 08/18/2025 10:30 AM EDT Appointment [facility] [address] [place] [address] Vitor Morales MD [address] [place] [address] [phone] 08/18/2025 10:30 AM EDT - 08/18/2025 11:00 AM EDT Surgery [facility] Gastroenterology Division [address] [place] [phone] Vitor Morales MD [address] [place] [address] COLONOSCOPY 05/04/2026 11:00 AM EDT [facility] Department [facility] [place] [address] [place] [phone] Aashish Silva PA [address] [place] [address] Scheduled Procedures Name Priority Associated Diagnoses Date/Ti [...] documented as of this encounter Care Teams Service Car Operator Relationship Specialty Start Date End Date Sanjay Fernandes MD [address] [place] [address] PCP - General Pulmonary Disease 05/28/16 06/22/20 Gael Stockton MD [address] [place] [address] PCP - General Internal Medicine 06/23/20 05/04/25 Gael Stockton MD PCP - [place] Medicare Patients 11/23/22 03/22/23 Sanjay Fernandes MD [address] [place] [address] PCP - General Pulmonary Disease 05/05/25 Franklin Simmons MD [address] [place] [address] Physician Otolaryngology 06/14/17 Godwin Saunders DO [address] [place] [address] Physician Endocrinology 06/14/17 Gael Stockton MD [address] [address] Internal Medicine 05/26/20 Godwin Malcolm MD [address] [address] Hematology Oncology 11/03/20 Heather Packer, CARPENTER ROUGH [address] [place] [address] Respiratory Care Practitioner Respiratory Therapist 09/20/24 Antonia Willis MD [address] and [place] [address] Internal Medicine 02/17/25 Logan Doran MD 30 [place] [address] 03/18/25 documented as of this encounter
--- OUTSIDE RECORDS SUMMARY | 2025-06-26 18:24 | XMS_ITS | Encounter Summary ---
Author Organization [facility] Address [address] [place] [address] Care Team Providers Care Weights And Measures Sealer Name Role Phone Sanjay Fernandes MD Primary Care Provider [place] Simmons MD Unavailable [phone] Godwin Saunders DO Unavailable Gael Stockton MD Unavailable Unavailable Gael Stockton MD Primary Care Provider Unavail able Godwin Malcolm MD Unavailable Unavailable Gael Stockton MD Unavailable Unavailable Heather Packer CLINICAL PRACTICE CONSULTANT Unavailable Antonia Willis MD Unavailable Logan Doran MD Unavailable [phone] Sanjay Fernandes MD Primary Care Provider Encounter Details Date Type Department Care Team (Late st Contact Info) Description 10/09/2018 Scanned Document [facility] - [facility] [address] [facility] [place], [place] [id number] Lisa Barr PA [address] [place], [place] [id number] Social History Tobacco Use Types Packs/Day Years [...] AM EDT Clinical Support [facility] [address] [place] [address] 4th [place] [phone] 08/18/2025 10:30 AM EDT Hospital Encounter [facility] Gastroenterology Division [address] [place] [address] [phone] Vitor Morales MD [address] [place] [address] [phone] 08/18/2025 10:30 AM EDT Appointment [facility] [address] [facility] [address] Vitor Morales MD [address] [place] [address] [phone] 08/18/2025 10:30 AM EDT - 08/18/2025 11:00 AM EDT Surgery [facility] Gastroenterology Division [address] [place] [address] [phone] Vitor Morales MD [address] [place] [address] 17072 COLONOSCOPY 05/04/2026 11:00 AM EDT Office Visit [facility] Department of Cardiology [place] [address] [place] [phone] Aashish Silva PA [address] [place] [address] Scheduled Procedures Name Priority Associated Diagnoses Date/Ti [...] documented as of this encounter Care Teams Weights And Measures Sealer Relationship Specialty Start Date End Date Sanjay Fernandes MD 85 [place] [address] PCP - General Pulmonary Disease 05/28/16 06/22/20 Gael Stockton MD [address] [place] [address] PCP - General Internal Medicine 06/23/20 05/04/25 Gael Stockton MD PCP - [place] Medicare Patients 11/23/22 03/22/23 Sanjay Fernandes MD [address] [place] [address] PCP - General Pulmonary Disease 05/05/25 [place] Simmons MD [address] [place] [address]36 Physician Otolaryngology 06/14/17 Godwin Saunders DO [address] [place] [address] 21686 Physician Endocrinology 06/14/17 Gael Stockton MD [address] [place] [address] 33796 Internal Medicine 05/26/20 Godwin Malcolm MD 85 [facility] 923 [place] [address] Hematology Oncology 11/03/20 Heather Packer, CLINICAL PRACTICE CONSULTANT [address] [facility] 4 [place] [address] Respiratory Care Practitioner Respiratory Therapist 09/20/24 Antonia Willis MD 850 [facility] 530 [facility] [place] [address] Internal Medicine 02/17/25 Logan Doran MD 30 [place] [address] 03/18/25 documented as of this encounter
--- OUTSIDE RECORDS SUMMARY | 2025-06-26 18:24 | XMS_ITS | Encounter Summary ---
Author Organization [facility] Address [address] [place] [address] Care Team Providers Care Manufacturing Software Engineer Name Role Phone Sanjay Fernandes MD Primary Care Provider [place] MD Unavailable Godwin Saunders DO Unavailable [phone] Gael Stockton MD Unavailable Unavailable Gael Stockton MD Primary Care Provider Unavail able Godwin Malcolm MD Unavailable Unavailable Gael Stockton MD Unavailable Unavailable Heather Packer FAST FOOD SERVICES MANAGER Unavailable Antonia Willis MD Unavailable Logan Doran MD Unavailable Sanjay Fernandes MD Primary Care Provider [phone] Encounter Details Date Type Department Care Team (Late st Contact Info) Description 10/05/2018 Scanned Document [facility] [address] [facility] [place], [place] [phone] Lisa Barr PA [address] [place], [place] [phone] Social History Tobacco Use Types Packs/Day Years [...] 11:00 AM EDT Clinical Support [facility] [address] [place] [address] 4th [place] [phone] 08/18/2025 10:30 AM EDT Hospital Encounter [facility] Gastroenterology Division [address] [place] [address] [phone] Vitor Morales MD [address] [place] [address] [phone] 08/18/2025 10:30 AM EDT Appointment [facility] [address] 3RD [place] [address] Vitor Morales MD [address] [place] [address] [id number] 08/18/2025 10:30 AM EDT - 08/18/2025 11:00 AM EDT Surgery [facility] Gastroenterology Division [address] [place] [address] [phone] Vitor Morales MD [address] [place] [address] COLONOSCOPY 05/04/2026 11:00 AM EDT Office Visit [facility] Department of Cardiology [place] [address] [place] [phone] Aashish Silva PA [address] [place] [address] Scheduled Procedures Name Priority Associated Diagnoses Date/Ti [...] documented as of this encounter Care Teams Manufacturing Software Engineer Relationship Specialty Start Date End Date Sanjay Fernandes MD 85 [place] [address] PCP - General Pulmonary Disease 05/28/16 06/22/20 Gael Stockton MD [address] [place] [address] PCP - General Internal Medicine 06/23/20 05/04/25 Gael Stockton MD PCP - [place] Medicare Patients 11/23/22 03/22/23 Sanjay Fernandes MD [address] [place] [address] PCP - General Pulmonary Disease 05/05/25 [place] Simmons MD [address] [place] [address] 39431 Physician Otolaryngology 06/14/17 Godwin Saunders DO [address] [place] [address] 58664 Physician Endocrinology 06/14/17 Gael Stockton MD [address] [place] [address] 9[address] Internal Medicine 05/26/20 Godwin Malcolm MD 85 [facility] 923 [place] [address] Hematology Oncology 11/03/20 Heather Packer, FAST FOOD SERVICES MANAGER 79 [place] [facility] 4 [place] [address] Respiratory Care Practitioner Respiratory Therapist 09/20/24 Antonia Willis MD 850 [facility] 530 [facility] [place] [address] Internal Medicine 02/17/25 [place] Doran MD 30 [place] [address] 03/18/25 documented as of this encounter
--- OUTSIDE RECORDS SUMMARY | 2025-06-26 18:24 | XMS_ITS | Encounter Summary ---
Author Organization [facility] Address [address] [place] [address] Care Team Providers Care Fiberglass Container Winding Operator Name Role Phone [place] MD Unavailable [phone] Godwin Saunders DO Unavailable Gael Stockton MD Unavailable Unavailable Gael Stockton MD Primary Care Provider Unavail able Godwin Malcolm MD Unavailable Unavailable Gael Stockton MD Unavailable Unavailable OchoaHeather LENS HARDENER Unavailable [phone] Antonia Willis MD Unavailable [place] Doran MD Unavailable Sanjay Fernandes MD Primary Care Provider Encounter Details Date Type Department Care Team (Late st Contact Info) Description 03/23/2022 Scanned Document [facility] [address] [place] [address] 4th [place] [phone] Social History Tobacco Use Types Packs/Day Years [...] Recorded In the last 10 days, have piyush u been in contact with someone who was confirmed or suspected to have Coronavirus/COVID-19? No / Unsure 03/23/2022 10:00 AM EDT documented as of this encounter Plan of Treatment Upcoming Encounters Date Type Department Care Team (Latest Contact Info) Description 07/02/2025 11:00 AM EDT Clinical Support [facility] [address] [place] [address] 4th [place] [phone] 08/18/2025 10:30 AM EDT Hospital Encounter [facility] Gastroenterology Division [address] [place] [address] [phone] Vitor Morales MD [address] [place] [address] 08/18/2025 10:30 AM EDT Appointment [facility] [address]RD [place] [address] Vitor Morales MD [address] [place] [address] [phone] 08/18/2025 10:30 AM EDT - 08/18/2025 11:00 AM EDT Surgery [facility] Gastroenterology Division [address] [place] [address] [phone] Vitor Morales MD [address] [place] [address] COLONOSCOPY 05/04/2026 11:00 AM EDT Office Visit [facility]icians Department of Cardiology [place] [address] [place] [phone] Aashish Silva PA [address] [place] [address] Scheduled Procedures Name Priority Associated Diagnoses Date/Ti [...] documented as of this encounter Care Teams Fiberglass Container Winding Operator Relationship Specialty Start Date End Date Gael Stockton MD PCP - General Internal Medicine 06/23/20 05/04/25 Gael Stockton MD PCP - [place] Medicare Patients 11/23/22 03/22/23 Sanjay Fernandes MD [address]803 [place] [address] PCP - General Pulmonary Disease 05/05/25 [place] Simmons MD Physician Otolaryngology 06/14/17 Godwin Saunders DO Physician Endocrinology 06/14/17 Gael Stockton MD Internal Medicine 05/26/20 Godwin Malcolm MD Hematology Oncology 11/03/20 Heather Packer, LENS HARDENER 79 [facility] 4 [place] [address] Respiratory Care Practitioner Respiratory Therapist 09/20/24 Antonia Willis MD [address] [place] [address] [facility] [place] [address] Internal Medicine 02/17/25 [place] Doran MD 30 [place] [address] 03/18/25 documented as of this encounter
--- OUTSIDE RECORDS SUMMARY | 2025-06-26 18:24 | XMS_ITS | Encounter Summary ---
Author Organization [facility] Address [address] [place] [address] Care Team Providers Care Energy Derivatives Trader Name Role Phone [place] MD Unavailable [phone] Godwin Saunders DO Unavailable [phone] Gael Stockton MD Unavailable Unavailable Gael Stockton MD Primary Care Provider Unavail able Godwin Malcolm MD Unavailable Unavailable Gael Stockton MD Unavailable Unavailable OchoaHeather ADVERTISING CAMPAIGN MANAGER Unavailable [phone] Antonia Willis MD Unavailable [place] Doran MD Unavailable Sanjay Fernandes MD Primary Care Provider [phone] Encounter Details Date Type Department Care Team (Late st Contact Info) Description 07/01/2021 Scanned Document [facility] [address] [place] [address] 4th [place] [phone] Social History Tobacco Use Types Packs/Day Years [...] 11:00 AM EDT Clinical Support [facility] [address] [place] [address] 4th [place] [phone] 08/18/2025 10:30 AM EDT Hospital Encounter [facility] Gastroenterology Division [address] [place] [address] [phone] Vitor Morales MD [address] [place] [address] 08/18/2025 10:30 AM EDT Appointment [facility] [address] [place] [address] Vitor Morales MD [address] [place] [address] [phone] 08/18/2025 10:30 AM EDT - 08/18/2025 11:00 AM EDT Surgery [facility] Gastroenterology Division [address] [place] [address] [phone] Vitor Morales MD [address] [place] [address] 91049 COLONOSCOPY 05/04/2026 11:00 AM EDT Office Visit [facility] Department of Cardiology [place] [address] [place] [phone] Aashish Silva PA [address] [place] [address] Scheduled Procedures Name Priority Associated Diagnoses Date/Ti [...] documented as of this encounter Care Teams Energy Derivatives Trader Relationship Specialty Start Date End Date Gael Stockton MD PCP - General Internal Medicine 06/23/20 05/04/25 Gael Stockton MD PCP - [place] Medicare Patients 11/23/22 03/22/23 Sajnay Fernandes MD [address] [place], [place] [address] [place] [address] PCP - General Pulmonary Disease 05/05/25 [place] Simmons MD Physician Otolaryngology 06/14/17 Godwin Saunders DO Physician Endocrinology 06/14/17 Gael Stockton MD Internal Medicine 05/26/20 Godwin Malcolm MD Hematology Oncology 11/03/20 Heather Packer, ADVERTISING CAMPAIGN MANAGER 79 [place] [facility] 4 [place] [address] Respiratory Care Practitioner Respiratory Therapist 09/20/24 Antonia Willis MD [address] [place] [address] [facility] [place] [address] Internal Medicine 02/17/25 [place] Doran MD 30 [place] [address] 03/18/25 documented as of this encounter
--- OUTSIDE RECORDS SUMMARY | 2025-06-26 18:24 | XMS_ITS | Encounter Summary ---
Author Organization [facility] Address [address] [place] [address] Care Team Providers Care Motor Polarizer Name Role Phone [place] MD Unavailable Godwin Saunders DO Unavailable Gael Stockton MD Unavailable Unavailable Gael Stockton MD Primary Care Provider Unavail able Godwin Malcolm MD Unavailable Unavailable Gael Stockton MD Unavailable Unavailable OchoaHeather INDUSTRIAL RENDERER Unavailable [phone] Antonia Willis MD Unavailable Logan Doran MD Unavailable Sanjay Fernandes MD Primary Care Provider Encounter Details Date Type Department Care Team (Late st Contact Info) Description 06/04/2021 Scanned Document [facility] [address] [place] [address] Vitor Morales MD 85 [facility] 1000 [place] [address] Social History Tobacco Use Types Packs/Day Years [...] 11:00 AM EDT Clinical Support [facility] [address] [place] [address] 4th [place] [phone] 08/18/2025 10:30 AM EDT Hospital Encounter [facility] Gastroenterology Division [address] [place] [phone] Vitor Morales MD [address] [place] [address] [phone] 08/18/2025 10:30 AM EDT Appointment [facility] [address] 3RD [place] [address] Vitor Morales MD [address] [place] [address] [phone] 08/18/2025 10:30 AM EDT - 08/18/2025 11:00 AM EDT Surgery [facility] Gastroenterology Division [address] [place] [address] [phone] Vitor Morales MD [address] [place] [address]106 COLONOSCOPY 05/04/2026 11:00 AM EDT Office Visit [facility] Department of Cardiology [place] [address] [place] [phone] Aashish Silva PA [address] [place] [address] Scheduled Procedures Name Priority Associated Diagnoses Date/Ti [...] documented as of this encounter Care Teams Motor Polarizer Relationship Specialty Start Date End Date Gael Stockton MD PCP - General Internal Medicine 06/23/20 05/04/25 Gael Stockton MD PCP - [place] Medicare Patients 11/23/22 03/22/23 Sanjay Fernandes MD [address] [place] [address] PCP - General Pulmonary Disease 05/05/25 [place] Simmons MD Physician Otolaryngology 06/14/17 Godwin Saunders DO Physician Endocrinology 06/14/17 Gael Stockton MD Internal Medicine 05/26/20 Godwin Malcolm MD Hematology Oncology 11/03/20 Heather Packer, INDUSTRIAL RENDERER [address] [place] [address] [place] [address] Respiratory Care Practitioner Respiratory Therapist 09/20/24 Antonia Willis MD [address] [address] [facility] [place] [address] Internal Medicine 02/17/25 [place] Doran MD 30 [place] [address] 03/18/25 documented as of this encounter
--- OUTSIDE RECORDS SUMMARY | 2025-06-26 18:24 | XMS_ITS | Encounter Summary ---
Author Organization [facility] Address [address] [place] [address] Care Team Providers Care Preassembler And Inspector Name Role Phone [place] Simmons MD Unavailable [phone] Godwin Saunders DO Unavailable [phone] Gael Stockton MD Unavailable Unavailable Gael Stockton MD Primary Care Provider Unavail able Godwin Malcolm MD Unavailable Unavailable Heather Packer DIRECTOR CUSTOMER Unavailable [phone] Antonia Willis MD Unavailable [place] Doran MD Unavailable Sanjay Fernandes MD Primary Care Provider [phone] Encounter Details Date Type Department Care Team (Late st Contact Info) Description 02/17/2025 Scanned Document [facility] Pulmonary [place] 85 [facility] [address] [place] [phone] Antonia Willis MD [address] [place] [address] [facility] [place] [address] Social History Tobacco Use Types Packs/Day Years Used Date Smoking Tobacco: Never Smokeless Tobacco: Never Alcohol Use Standard Drinks/Week Comments No 0 (1 standard drink = 0.6 oz pur e alcohol) PHQ-2 Answer Date Recorded PHQ-2 Total Score 0 11/27/2024 Comments Unknown Sex and Gender Information Value [...] 11:00 AM EDT Clinical Support [facility] [address] [place] [address] 4th [place] [phone] 08/18/2025 10:30 AM EDT Hospital Encounter [facility] Gastroenterology Division [address] [place] [address] [phone] Vitor Morales MD [address] [place] [address] [phone] 08/18/2025 10:30 AM EDT Appointment [facility] [address] [facility] [place] [address] Vitor Morales MD [address] [place] [address] [phone] 08/18/2025 10:30 AM EDT - 08/18/2025 11:00 AM EDT Surgery [facility] Gastroenterology Division [address] [place] [phone] Vitor Morales MD [address] [place] [address] 32778 COLONOSCOPY 05/04/2026 11:00 AM EDT Office Visit [facility] Department of Cardiology [place] [address] [place] [phone] Aashish Silva PA [address] [place] [address] Scheduled Procedures Name Priority Associated Diagnoses Date/Ti [...] documented as of this encounter Care Teams Preassembler And Inspector Relationship Specialty Start Date End Date Gael Stockton MD PCP - General Internal Medicine 06/23/20 05/04/25 Sanjay Fernandes MD 85 [facility] 923 [place] [address] PCP - General Pulmonary Disease 05/05/25 [place] Simmons MD Physician Otolaryngology 06/14/17 Godwin Saunders DO Physician Endocrinology 06/14/17 Gael Stockton MD Internal Medicine 05/26/20 Godwin Malcolm MD Hematology Oncology 11/03/20 Heather Packer, DIRECTOR CUSTOMER 79 [place] 4 [place] [address] Respiratory Care Practitioner Respiratory Therapist 09/20/24 Antonia Willis MD 850 [facility] [place] [address] Internal Medicine 02/17/25 [place] Doran MD 30 [place] [address] 03/18/25 documented as of this encounter
--- OUTSIDE RECORDS SUMMARY | 2025-06-26 18:24 | XMS_ITS | Encounter Summary ---
Author Organization [facility] Address [address] [place] [address] Care Team Providers Care Library Customer Service Clerk Name Role Phone Sanjay Fernandes MD Primary Care Provider [phone] [place] Simmons MD Unavailable [phone] Godwin Saunders DO Unavailable Gael Stockton MD Unavailable Unavailable Gael Stockton MD Primary Care Provider Unavail able Godwin Malcolm MD Unavailable Unavailable Gael Stockton MD Unavailable Unavailable Heather Packer APPRENTICE TECHNICIAN Unavailable [phone] Antonia Willis MD Unavailable [place] Doran MD Unavailable Sanjay Fernandes MD Primary Care Provider Encounter Details Date Type Department Care Team (Late st Contact Info) Description 06/12/2018 Scanned Document [facility] [address] [place] [phone] Social History Tobacco Use Types Packs/Day [...] EDT Clinical Support [facility] [address] [place] [address] 4th [place] [address]-2527 08/18/2025 10:30 AM EDT Hospital Encounter [facility] Gastroenterology Division [address] [place] [phone] Vitor Morales MD [address] [place] [address] [phone] 08/18/2025 10:30 AM EDT Appointment [facility] [address] [place] [address] Vitor oMrales MD [address] [place] [address] [phone] 08/18/2025 10:30 AM EDT - 08/18/2025 11:00 AM EDT Surgery [facility] Gastroenterology Division [address] [place] [address] [phone] Vitor Morales MD [address] [place] [address] [phone] COLONOSCOPY 05/04/2026 11:00 AM EDT Office Visit [facility]icians Department of Cardiology [place] [address] [place] [phone] Aashish Silva PA [address] [place] [address] 940253 Scheduled Procedures Name Priority Associated Diagnoses Date/Ti [...] documented as of this encounter Care Teams Library Customer Service Clerk Relationship Specialty Start Date End Date Sanjay Fernandes MD [address] [address] PCP - General Pulmonary Disease 05/28/16 06/22/20 Gael Stockton MD [address] [place] [address] PCP - General Internal Medicine 06/23/20 05/04/25 Gael Stockton MD PCP - [place] Medicare Patients 11/23/22 03/22/23 Sanjay Fernandes MD [address] [place] [address] PCP - General Pulmonary Disease 05/05/25 [place] Simmons MD [address] [place] [address] Physician Otolaryngology 06/14/17 Godwin Saunders DO [address] [address] Physician Endocrinology 06/14/17 Gael Stockton MD [address] [place] [address] Internal Medicine 05/26/20 Godwin Malcolm MD 85 [facility] 923 [place] [address] Hematology Oncology 11/03/20 Heather Packer, APPRENTICE TECHNICIAN 79 [place] [facility] 4 [place] [address] Respiratory Care Practitioner Respiratory Therapist 09/20/24 Antonia Willis MD 850 [facility] 530 [facility] [place] [address] Internal Medicine 02/17/25 [place] Doran MD 30 [place] [address] 03/18/25 documented as of this encounter
--- OUTSIDE RECORDS SUMMARY | 2025-06-26 18:24 | XMS_ITS | Encounter Summary ---
Author Organization [facility] Address [address] [place] [address] Care Team Providers Care Animal Nutritionist Name Role Phone Sanjay Fernandes MD Primary Care Provider Franklin Simmons MD Unavailable [phone] Godwin Saunders DO Unavailable Gael Stockton MD Unavailable Unavailable Gael Stockton MD Primary Care Provider Unavail able Godwin Malcolm MD Unavailable Unavailable Gael Stockton MD Unavailable Unavailable Ochoa Heather ELECTION SUPERVISOR Unavailable Antonia Willis MD Unavailable Logan Doran MD Unavailable Sanjay Fernandes MD Primary Care Provider Encounter Details Date Type Department Care Team (Late st Contact Info) Description 03/04/2020 Mobile [facility] VIRTUAL ICU [address] [place] [address] Sanjay Fernandes MD 85 [facility] [address] [place] [address] Cystic fibrosis of the lung (HCC) (Primary Dx) Social History Tobacco Use [...] have Coronavirus / COVID-19? No / Unsure 03/03/2020 7:25 AM EDT documented as of this encounter Plan of Treatment Upcoming Encounters Date Type Department Care Team (Latest Contact Info) Description 07/02/2025 11:00 AM EDT Clinical Support [facility] [address] [place] [address] 4th [place] [phone] 08/18/2025 10:30 AM EDT Hospital Encounter [facility] Gastroenterology Division [address] [place] [phone] Vitor Morales MD [address] [place] [address] [id number] 08/18/2025 10:30 AM EDT Appointment [facility] [address] [place] [address] Vitor Morales MD [address] [place] [address] [id number] 08/18/2025 10:30 AM EDT - 08/18/2025 11:00 AM EDT Surgery [facility]astroenterology Division [address] [place] [address] Vitor Morales MD [address] [place] [address] [phone] COLONOSCOPY 05/04/2026 11:00 AM EDT Office Visit [facility] Department of Cardiology [place] [address] [facility] [address] [place] [address] Aashish Silva PA [address] [place] [address] Scheduled Procedures Name Priority Associated Diagnoses Date/Ti me COLONOSCOPY Colon cancer screening 08/18/2025 10:30 AM EDT documented as of this encounter Visit Diagnoses Diagnosis Cystic fibrosis of the lung (HCC)- Primary Cystic fibrosis with pulmonary manifestations Colon cancer screening Special screening for malignant [...] documented as of this encounter Care Teams Animal Nutritionist Relationship Specialty Start Date End Date Sanjay Fernandes MD [address] [place] [address] PCP - General Pulmonary Disease 05/28/16 06/22/20 Gael Stockton MD [address] [place] [address] PCP - General Internal Medicine 06/23/20 05/04/25 Gael Stockton MD PCP - [facility] Medicare Patients 11/23/22 03/22/23 Sanjay Fernandes MD [address] [place] [address] PCP - General Pulmonary Disease 05/05/25 Franklin Simmons MD [address] [place] [address] Physician Otolaryngology 06/14/17 Godwin Suanders DO [address] [place] [address] Physician Endocrinology 06/14/17 Gael Stockton MD [address] [address] Internal Medicine 05/26/20 Godwin Maclolm MD [address] [address] Hematology Oncology 11/03/20 Heather Packer, ELECTION SUPERVISOR [address] [place] 4 [place] [address] Respiratory Care Practitioner Respiratory Therapist 09/20/24 Antonia Willis MD [address] [place], [place] [address]am and [place] [address] Internal Medicine 02/17/25 Logan Doran MD 30 [place] [address] 03/18/25 documented as of this encounter
--- OUTSIDE RECORDS SUMMARY | 2025-06-26 18:24 | XMS_ITS | Encounter Summary ---
Author Organization [facility] Address [address] [place] [address] Care Team Providers Care Dosier Operator Name Role Phone Franklin Simmons MD Unavailable [phone] Godwin Saunders DO Unavailable Gael Stockton MD Unavailable Unavailable Gael Stockton MD Primary Care Provider Unavail able Godwin Malcolm MD Unavailable Unavailable Gael Stockton MD Unavailable Unavailable OchoaHeather PROGRAM MANAGEMENT MANAGER Unavailable Antonia Willis MD Unavailable Logan Doran MD Unavailable [phone] Sanjay Fernandes MD Primary Care Provider Encounter Details Date Type Department Care Team (Late st Contact Info) Description 03/23/2022 Scanned Document [facility] [address] [place] [address] 4th [place] [phone] Social History Tobacco Use Types Packs/Day Years [...] AM EDT Clinical Support [facility] [address] [place] [address] 4th [place] [phone] 08/18/2025 10:30 AM EDT Hospital Encounter [facility] Gastroenterology Division [address] [place] [address] [phone] Vitor Morales MD [address] [place] [address] 08/18/2025 10:30 AM EDT Appointment [facility] [address] [place] [address] Vitor Morales MD [address] [place] [address] [id number] 08/18/2025 10:30 AM EDT - 08/18/2025 11:00 AM EDT Surgery [facility]astroenterology Division [address] [place] [phone] Vitor Morales MD [address] [place] [address] COLONOSCOPY 05/04/2026 11:00 AM EDT Office Visit [facility] Physicians Department of Cardiology [place] [address] [place] [address] Aashish Silva PA [address] [place] [address] Scheduled Procedures Name Priority Associated Diagnoses Date/Ti [...] documented as of this encounter Care Teams Dosier Operator Relationship Specialty Start Date End Date Gael Stockton MD PCP - General Internal Medicine 06/23/20 05/04/25 Gael Stockton MD PCP - [facility] Medicare Patients 11/23/22 03/22/23 Sanjay Fernandes MD [address] [place] [address] PCP - General Pulmonary Disease 05/05/25 Franklin Simmons MD Physician Otolaryngology 06/14/17 Godwin Saunders DO Physician Endocrinology 06/14/17 Gael Stockton MD Internal Medicine 05/26/20 Godwin Malcolm MD Hematology Oncology 11/03/20 Heather Packer, PROGRAM MANAGEMENT MANAGER [address] [facility] 4 [place] [address] Respiratory Care Practitioner Respiratory Therapist 09/20/24 Antonia Willis MD [address] [place] [address] [facility] [place] [address] Internal Medicine 02/17/25 Logan Doran MD 30 [place] [address] 03/18/25 documented as of this encounter
--- OUTSIDE RECORDS SUMMARY | 2025-06-26 18:24 | XMS_ITS | Encounter Summary ---
Author Organization [facility] Address [address] [place] [address] Care Team Providers Care Urgent Care Physician Name Role Phone Sanjay Fernandes MD Primary Care Provider [phone] Franklin Simmons MD Unavailable [phone] Godwin Saunders DO Unavailable Gael Stockton MD Unavailable Unavailable Gael Stockton MD Primary Care Provider Unavail able Godwin Malcolm MD Unavailable Unavailable Gael Stockton MD Unavailable Unavailable Heather Packer CARTOGRAPHY TEACHER Unavailable [phone] Antonia Willis MD Unavailable Logan Doran MD Unavailable Sanjay Fernandes MD Primary Care Provider Encounter Details Date Type Department Care Team (Late st Contact Info) Description 11/29/2018 Scanned Document [facility] [address] [place] [phone] Social History Tobacco Use Types Packs/Day [...] EDT Clinical Support [facility] [address] [place] [address] 4th [place] [phone] 08/18/2025 10:30 AM EDT Hospital Encounter [facility] Gastroenterology Division [address] [place] [phone] Vitor Morales MD [address] [place] [address] [phone] 08/18/2025 10:30 AM EDT Appointment [facility] [address] [place] [address] Vitor Morales MD [address] [place] [address] [id number] 08/18/2025 10:30 AM EDT - 08/18/2025 11:00 AM EDT Surgery [facility] Gastroenterology Division [address] [place] [address] [phone] Vitor Morales MD [address] [place] [address] [phone] COLONOSCOPY 05/04/2026 11:00 AM EDT Office Visit [facility] Department of Cardiology [place] [address] [place] [phone] Aashish Silva PA [address] [place] [address] 787503 Scheduled Procedures Name Priority Associated Diagnoses Date/Ti [...] documented as of this encounter Care Teams Urgent Care Physician Relationship Specialty Start Date End Date Sanjay Fernandes MD [address] [place] [address] PCP - General Pulmonary Disease 05/28/16 06/22/20 Gael Stockton MD [address] [place] [address] PCP - General Internal Medicine 06/23/20 05/04/25 Gael Stockton MD PCP - [facility] Medicare Patients 11/23/22 03/22/23 Sanjay Fernandes MD [address] [place] [address] PCP - General Pulmonary Disease 05/05/25 Franklin Simmons MD [address] [place] [address] Physician Otolaryngology 06/14/17 Godwin Saunders DO [address] [place] [address] Physician Endocrinology 06/14/17 Gael Stockton MD [address] [place] [address] Internal Medicine 05/26/20 Godwin Malcolm MD [address] [place] [address] Hematology Oncology 11/03/20 Heather Packer, CARTOGRAPHY TEACHER [address] [place] 4 [place] [address] Respiratory Care Practitioner Respiratory Therapist 09/20/24 Antonia Willis MD [address] and [place] [address] Internal Medicine 02/17/25 Logan Doran MD 30 [place] [address] 03/18/25 documented as of this encounter
--- OUTSIDE RECORDS SUMMARY | 2025-06-26 18:24 | XMS_ITS | Encounter Summary ---
Author Organization [facility] Address [address] [place] [address] Care Team Providers Care Substitute Crossing Guard Name Role Phone Sanjay Fernandes MD Primary Care Provider Franklin Simmons MD Unavailable Godwin Saunders DO Unavailable Gael Stockton MD Unavailable Unavailable Gael Stockton MD Primary Care Provider Unavail able Godwin Malcolm MD Unavailable Unavailable Gael Stockton MD Unavailable Unavailable Heather Packer GAS TORCH SOLDERER Unavailable [phone] Antonia Willis MD Unavailable Logan Doran MD Unavailable [phone] Sanjay Fernandes MD Primary Care Provider [phone] Encounter Details Date Type Department Care Team (Late st Contact Info) Description 09/27/2018 Scanned Document [facility] [address] [facility] [place], [place] [phone] Lisa Barr PA [address] [place], [place] [phone] Social History Tobacco Use Types Packs/Day Years [...] 11:00 AM EDT Clinical Support [facility] [address] [place] [address] 4th [place] [phone] 08/18/2025 10:30 AM EDT Hospital Encounter [facility] Gastroenterology Division [address] [place] [phone] Vitor Morales MD [address] [place] [address] [phone] 08/18/2025 10:30 AM EDT Appointment [facility] [address] [place] [address] Vitor Morales MD [address] [place] [address] [id number] 08/18/2025 10:30 AM EDT - 08/18/2025 11:00 AM EDT Surgery [facility] Gastroenterology Division [address] [place] [address] [phone] Vitor Morales MD [address] [place] [address] COLONOSCOPY 05/04/2026 11:00 AM EDT Office Visit [facility] Department of Cardiology [place] [address] [place] [phone] Aashish Silva PA [address] [place] [address] Scheduled Procedures Name Priority Associated Diagnoses Date/Ti [...] documented as of this encounter Care Teams Substitute Crossing Guard Relationship Specialty Start Date End Date Sanjay Fernandes MD 85 [place] [address] PCP - General Pulmonary Disease 05/28/16 06/22/20 Gael Stockton MD [address] [place] [address] PCP - General Internal Medicine 06/23/20 05/04/25 Gael Stockton MD PCP - [facility] Medicare Patients 11/23/22 03/22/23 Sanjay Fernandes MD [address] [place] [address] PCP - General Pulmonary Disease 05/05/25 Franklin Simmons MD [address] [place] [address] Physician Otolaryngology 06/14/17 Godwin Saunders DO [address] [place] [address] Physician Endocrinology 06/14/17 Gael Stockton MD [address] [place] [address] Internal Medicine 05/26/20 Godwin Malcolm MD 85 [facility] 923 [place] [address] Hematology Oncology 11/03/20 Heather Packer, GAS TORCH SOLDERER [address] [facility] 4 [place] [address] Respiratory Care Practitioner Respiratory Therapist 09/20/24 Antonia Willis MD 850 [facility] 530 [facility] and [place] [address] Internal Medicine 02/17/25 Logan Doran MD 30 [place] [address] 03/18/25 documented as of this encounter
--- OUTSIDE RECORDS SUMMARY | 2025-06-26 18:24 | XMS_ITS | Encounter Summary ---
Author Organization [facility] Address [address] [place] [address] Care Team Providers Care Dust Mixer Name Role Phone Sanjay Fernandes MD Primary Care Provider Franklin Simmons MD Unavailable Godwin Saunders DO Unavailable [phone] Gael Stockton MD Unavailable Unavailable Gael Stockton MD Primary Care Provider Unavail able Godwin Malcolm MD Unavailable Unavailable Gael Stockton MD Unavailable Unavailable Heather Packer PEDIATRIC ASSOCIATE Unavailable Antonia Willis MD Unavailable Logan Doran MD Unavailable Sanjay Fernandes MD Primary Care Provider [phone] Encounter Details Date Type Department Care Team (Late st Contact Info) Description 12/03/2018 Telephone [facility] [address] [place] [phone] Provider, MD Devyn [address] [place] [address] Social History Tobacco Use Types Packs/Day Years [...] encounter Miscellaneous Notes * Telephone Encounter - Evelinrhonda Matiashenrietta - 12/03/2018 2:18 PM EST Called [facility] for another patient and then asked the rep Moe to check and see if they shipped Carla's colistimethate sodium. I had called last week and was told it was ready for shipping they just needed to reach out to pt. Today Moe tells me that it has not been shipped out. She said she will call [facility]. When I asked the copay, Moe could not tell me because it hadn't been billed. Which is an issue because I was initially informed it was all set. Moe contacted insurance team they billed and confirmed pt's copay is $0. Moe said they just need to fill the colistimethate. I asked what the problem was since this medication was sent over on 11/26 and I had followed up twice. Moe stated they have a new system. Moe is going to rula urgent and ship colistimethate sod out to [facility]la overnight. They will still have to get shipping details and confirmation from [facility]la. I called [facility]la and left her a VM with the update and advised if [facility] does not contact her, to make sure she contacts them today to prevent any further delay and if any other issues come up, we can take care of it immediately. documented in this encounter Plan of Treatment Upcoming Encounters Date Type Department Care Team (Latest Contact Info) Description 07/02/2025 11:00 AM EDT Clinical Support [facility] [address] [place] [address] 4th [place] [address] 08/18/2025 10:30 AM EDT Hospital Encounter [facility] Gastroenterology Division [address] [place] [phone] Vitor Morales MD [address] [place] [address] [phone] 08/18/2025 10:30 AM EDT Appointment [facility] [address] 3RD [place] [address] Vitor Morales MD [address] [place] [address] [phone] 08/18/2025 10:30 AM EDT - 08/18/2025 11:00 AM EDT Surgery [facility] Gastroenterology Division [address] [place] [address] [phone] Vitor Morales MD [address] [place] [address] [phone] COLONOSCOPY 05/04/2026 11:00 AM EDT Office Visit [facility] Department of Cardiology [place] [address] [place] [address] Aashish Silva PA [address] [place] [address] [phone] Scheduled Procedures Name Priority Associated Diagnoses Date/Ti [...] documented as of this encounter Care Teams Dust Mixer Relationship Specialty Start Date End Date Sanjay Fernandes MD [address] [place] [address] PCP - General Pulmonary Disease 05/28/16 06/22/20 Gael Stockton MD [address] [place] [address] PCP - General Internal Medicine 06/23/20 05/04/25 Gael Stockton MD PCP - [facility] Medicare Patients 11/23/22 03/22/23 Sanjay Fernandes MD [address] [place] [address] PCP - General Pulmonary Disease 05/05/25 Franklin Simmons MD [address] [place] [address] Physician Otolaryngology 06/14/17 Godwin Saunders DO [address] [place] [address] Physician Endocrinology 06/14/17 Gael Stockton MD [address] [place] [address] Internal Medicine 05/26/20 Godwin Malcolm MD [address] [place] [address] Hematology Oncology 11/03/20 Heather Packer, PEDIATRIC ASSOCIATE [address] [place] [address] [address] Respiratory Care Practitioner Respiratory Therapist 09/20/24 Antonia Willis MD [address] [place], [place] [address]am and [place] [address] Internal Medicine 02/17/25 Logan Doran MD [address] [place] [address] 03/18/25 documented as of this encounter
--- OUTSIDE RECORDS SUMMARY | 2025-06-26 18:24 | XMS_ITS | Encounter Summary ---
Author Organization [facility] Address [address] [place] [address] Care Team Providers Care Customer Assistant Name Role Phone Franklin Simmons MD Unavailable [phone] Godwin Saunders DO Unavailable Gael Stockton MD Unavailable Unavailable Gael Stockton MD Primary Care Provider Unavail able Godwin Malcolm MD Unavailable Unavailable Gael Stockton MD Unavailable Unavailable OchoaHeather PERSONNEL SCHEDULER Unavailable Antonia Willis MD Unavailable Logan Doran MD Unavailable Sanjay Fernandes MD Primary Care Provider Encounter Details Date Type Department Care Team (Late st Contact Info) Description 08/04/2021 Scanned Document [facility] [address] [place] [address] 4th [place] [phone] Social History Tobacco Use Types Packs/Day Years [...] have Coronavirus / COVID-19? No / Unsure 08/04/2021 2:02 PM EDT documented as of this encounter Plan of Treatment Upcoming Encounters Date Type Department Care Team (Latest Contact Info) Description 07/02/2025 11:00 AM EDT Clinical Support [facility] [address] [place] [address] 4th [place] [phone] 08/18/2025 10:30 AM EDT Hospital Encounter [facility] Gastroenterology Division [address] [place] [phone] Vitor Morales MD [address] [place] [address] 08/18/2025 10:30 AM EDT Appointment [facility] [address] [place] [address] Vitor Morales MD [address] [place] [address] 08/18/2025 10:30 AM EDT - 08/18/2025 11:00 AM EDT Surgery [facility]ology [facility] [address] [place] [address] [phone] Vitor Morales MD [address] [place] [address] COLONOSCOPY 05/04/2026 11:00 AM EDT Office Visit [facility] Physicians Department of Cardiology [place] [address] [place] [address] Aashish Silva PA [address] [place] [address] Scheduled Procedures Name Priority Associated Diagnoses Date/Ti [...] documented as of this encounter Care Teams Customer Assistant Relationship Specialty Start Date End Date Gael Stockton MD PCP - General Internal Medicine 06/23/20 05/04/25 Gael Stockton MD PCP - [facility] Medicare Patients 11/23/22 03/22/23 Sanjay Fernandes MD [address] [place], [place] [address] [place] [address] PCP - General Pulmonary Disease 05/05/25 Franklin Simmons MD Physician Otolaryngology 06/14/17 Godwin Saunders DO Physician Endocrinology 06/14/17 Geal Stockton MD Internal Medicine 05/26/20 Godwin Malcolm MD Hematology Oncology 11/03/20 Heather Packer, PERSONNEL SCHEDULER [address] [facility] 4 [place] [address] Respiratory Care Practitioner Respiratory Therapist 09/20/24 Antonia Willis MD [address] [place] [address] [facility] [place] [address] Internal Medicine 02/17/25 Logan Doran MD 30 [place] [address] 03/18/25 documented as of this encounter
--- OUTSIDE RECORDS SUMMARY | 2025-06-26 18:24 | XMS_ITS | Encounter Summary ---
Author Organization [facility] Address [address] [place] [address] Care Team Providers Care Egg Crater Name Role Phone Franklin Simmons MD Unavailable Godwin Saunders DO Unavailable Gael Stockton MD Unavailable Unavailable Gael Stockton MD Primary Care Provider Unavail able Godwin Malcolm MD Unavailable Unavailable Heather Packer METEOROLOGICAL TECHNICIAN Unavailable Antonia Willis MD Unavailable Logan Doran MD Unavailable [phone] Sanjay Fernandes MD Primary Care Provider Encounter Details Date Type Department Care Team (Late st Contact Info) Description 05/02/2024 Scanned Document [facility] Department of Internal Medicine [place] [address] [place] [phone] Josiane Colvin PA [address] [place] [address] Social History Tobacco Use Types Packs/Day Years Used Date Smoking Tobacco: Never Smokeless Tobacco: Never Alcohol Use Standard Drinks/Week Comments No 0 (1 standard drink = 0.6 oz pur e alcohol) PHQ-2 Answer Date Recorded PHQ-2 Total Score 0 07/26/2023 Comments No Sex and Gender Information Value [...] 11:00 AM EDT Clinical Support [facility] [address] [place] [address] 4[address] [place] [phone] 08/18/2025 10:30 AM EDT Hospital Encounter [facility] G[facility]ology Division [address] [place] [address] [phone] Vitor Morales MD [address] [place] [address] [phone] 08/18/2025 10:30 AM EDT Appointment [facility] [address] [place] [address] Vitor Morales MD [address] [place] [address] [phone] 08/18/2025 10:30 AM EDT - 08/18/2025 11:00 AM EDT Surgery [facility]ology Division [address] [place] [phone] Vitor Morales MD [address] [place] [address] COLONOSCOPY 05/04/2026 11:00 AM EDT Office Visit [facility] Department of Cardiology [place] [address] [place] [address] Aashish Silva PA [address] [place] [address] Scheduled Procedures Name Priority Associated Diagnoses Date/Ti [...] documented as of this encounter Care Teams Egg Crater Relationship Specialty Start Date End Date Gael Stockton MD PCP - General Internal Medicine 06/23/20 05/04/25 Sanjay Fernandes MD [address] [place] [address] PCP - General Pulmonary Disease 05/05/25 Franklin Simmons MD Physician Otolaryngology 06/14/17 Godwin Saunders DO Physician Endocrinology 06/14/17 Gael Stockton MD Internal Medicine 05/26/20 Godwin Malcolm MD Hematology Oncology 11/03/20 Heather Packer, METEOROLOGICAL TECHNICIAN [address] [place] 4 [place] [address] Respiratory Care Practitioner Respiratory Therapist 09/20/24 Antonia Willis MD [address] and [place] [address] Internal Medicine 02/17/25 Logan Doran MD 30 [place] [address] 03/18/25 documented as of this encounter
--- OUTSIDE RECORDS SUMMARY | 2025-06-26 18:24 | XMS_ITS | Encounter Summary ---
Author Organization [facility] Address [address] [place] [address] Care Team Providers Care Webbing Supervisor Name Role Phone Franklin Simmons MD Unavailable [phone] Godwin Saunders DO Unavailable [phone] Gael Stockton MD Unavailable Unavailable Gael Stockton MD Primary Care Provider Unavail able Godwin Malcolm MD Unavailable Unavailable Gael Stockton MD Unavailable Unavailable OchoaHeather BEVELER Unavailable Antonia Willis MD Unavailable Logan Doran MD Unavailable Sanjay Fernandes MD Primary Care Provider Encounter Details Date Type Department Care Team (Late st Contact Info) Description 06/22/2021 Scanned Document [facility] [address] [place] [address] 4th [place] [phone] Social History Tobacco Use Types Packs/Day Years [...] 11:00 AM EDT Clinical Support [facility] [address] [place] [address] 4[address] [place] [address] 08/18/2025 10:30 AM EDT Hospital Encounter [facility] Gastroenterology Division [address] [place] [address] [phone] Vitor Morales MD [address] [place] [address] 08/18/2025 10:30 AM EDT Appointment [facility] [address] [place] [address] Vitor Morales MD [address] [place] [address] [phone] 08/18/2025 10:30 AM EDT - 08/18/2025 11:00 AM EDT Surgery [facility] Gastroenterology Division [address] [place] [address] [phone] Vitor Morales MD [address] [place] [address] COLONOSCOPY 05/04/2026 11:00 AM EDT Office Visit [facility] Physicians Department of Cardiology [place] [address] [place] [phone] Aashish Silva PA [address] [place] [address] Scheduled Procedures Name Priority Associated Diagnoses Date/Ti [...] documented as of this encounter Care Teams Webbing Supervisor Relationship Specialty Start Date End Date Gael Stockton MD PCP - General Internal Medicine 06/23/20 05/04/25 Gael Stockton MD PCP - [place] Medicare Patients 11/23/22 03/22/23 Sanjay Fernandes MD [address] [place], [place] [address] [place] [address] PCP - General Pulmonary Disease 05/05/25 Franklin Simmons MD Physician Otolaryngology 06/14/17 Godwin Saunders DO Physician Endocrinology 06/14/17 Gael Stockton MD Internal Medicine 05/26/20 Godwin Malcolm MD Hematology Oncology 11/03/20 Heather Packer, BEVELER [address] [facility] 4 [place] [address] Respiratory Care Practitioner Respiratory Therapist 09/20/24 Antonia Willis MD [address] [place] [address] [facility] [place] [address] Internal Medicine 02/17/25 Logan Doran MD 30 [place] [address] 03/18/25 documented as of this encounter
--- OUTSIDE RECORDS SUMMARY | 2025-06-26 18:24 | XMS_ITS | Encounter Summary ---
Author Organization [facility] Address [address] [place] [address] Care Team Providers Care District Court Bailiff Name Role Phone Franklin Simmons MD Unavailable [phone] Godwin Saunders DO Unavailable Gael Stockton MD Unavailable Unavailable Gael Stockton MD Primary Care Provider Unavail able Godwin Malcolm MD Unavailable Unavailable Gael Stockton MD Unavailable Unavailable OchoaHeather HIGHER LEVEL TEACHING ASSISTANT Unavailable Antonia Willis MD Unavailable Logan Doran MD Unavailable [phone] Sanjay Fernandes MD Primary Care Provider [phone] Encounter Details Date Type Department Care Team (Late st Contact Info) Description 06/08/2021 Scanned Document [facility] [address] [place] [address] 4th [place] [phone] Social History Tobacco Use Types Packs/Day Years [...] 11:00 AM EDT Clinical Support [facility] [address] [place] [address] 4th [place] [address] 08/18/2025 10:30 AM EDT Hospital Encounter [facility] Gastroenterology Division [address] [place] [address] [phone] Vitor Morales MD [address] [place] [address] 08/18/2025 10:30 AM EDT Appointment [facility] [address] [place] [address] Vitor Morales MD [address] [place] [address] [phone] 08/18/2025 10:30 AM EDT - 08/18/2025 11:00 AM EDT Surgery [facility] Gastroenterology Division [address] [place] [address] [phone] Vitor Morales MD [address] [place] [address] COLONOSCOPY 05/04/2026 11:00 AM EDT Office Visit [facility] Physicians Department of Cardiology [place] [address] [place] [phone] Aashish Silva PA [address] [place] [address] Scheduled Procedures Name Priority Associated Diagnoses Date/Ti [...] documented as of this encounter Care Teams District Court Bailiff Relationship Specialty Start Date End Date Gael Stockton MD PCP - General Internal Medicine 06/23/20 05/04/25 Gael Stockton MD PCP - [place] Medicare Patients 11/23/22 03/22/23 Sanjay Fernandes MD [address] [place], [place] [address] [place] [address] PCP - General Pulmonary Disease 05/05/25 Franklin Simmons MD Physician Otolaryngology 06/14/17 Godwin Saunders DO Physician Endocrinology 06/14/17 Gael Stockton MD Internal Medicine 05/26/20 Godwin Malcolm MD Hematology Oncology 11/03/20 Heather Packer, HIGHER LEVEL TEACHING ASSISTANT 79 [place] [facility] 4 [place] [address] Respiratory Care Practitioner Respiratory Therapist 09/20/24 Antonia Willis MD [address] [place] [address] [facility] [place] [address] Internal Medicine 02/17/25 Logan Doran MD 30 [place] [address] 03/18/25 documented as of this encounter
--- OUTSIDE RECORDS SUMMARY | 2025-06-26 18:24 | XMS_ITS | Encounter Summary ---
Author Organization [facility] Address [address] [place] [address] Care Team Providers Care Trigonometry Tutor Name Role Phone Franklin Simmons MD Unavailable [phone] Godwin Saunders DO Unavailable Gael Stockton MD Unavailable Unavailable Gael Stockton MD Primary Care Provider Unavail able Godwin Malcolm MD Unavailable Unavailable Gael Stockton MD Unavailable Unavailable OchoaHeather WEB FEEDER Unavailable Antonia Willis MD Unavailable Logan Doran MD Unavailable Sanjay Fernandes MD Primary Care Provider Encounter Details Date Type Department Care Team (Late st Contact Info) Description 06/23/2021 Scanned Document [facility] [address] [place] [address] 4th [place] [phone] Social History Tobacco Use Types Packs/Day Years [...] [facility] [address] [place] [address] 4th [place] [address] 08/18/2025 10:30 AM EDT Hospital Encounter [facility] Gastroenterology Division [address] [place] [phone] Vitor Morales MD [address] [place] [address] 08/18/2025 10:30 AM EDT Appointment [facility] [address] [place] [address] Vitor Morales MD [address] [place] [address] [phone] 08/18/2025 10:30 AM EDT - 08/18/2025 11:00 AM EDT Surgery [facility] Gastroenterology Division [address] [place] [address] [phone] Vitor Morales MD [address] [place] [address] COLONOSCOPY 05/04/2026 11:00 AM EDT Office Visit [facility] Physicians Department of Cardiology [place] [address] [place] [phone] Aashish Silva PA [address] [place] [address] Scheduled Procedures Name Priority Associated Diagnoses Date/Ti [...] documented as of this encounter Care Teams Trigonometry Tutor Relationship Specialty Start Date End Date Gael Stockton MD PCP - General Internal Medicine 06/23/20 05/04/25 Gael Stockton MD PCP - [place] Medicare Patients 11/23/22 03/22/23 Sanjay Fernandes MD [address] [place], [place] [address] [place] [address] PCP - General Pulmonary Disease 05/05/25 Franklin Simmons MD Physician Otolaryngology 06/14/17 Godwin Saunders DO Physician Endocrinology 06/14/17 Gael Stockton MD Internal Medicine 05/26/20 Godwin Malcolm MD Hematology Oncology 11/03/20 Heather Packer, WEB FEEDER 79 [facility] 4 [place] [address] Respiratory Care Practitioner Respiratory Therapist 09/20/24 Antonia Willis MD [address] [place] [address] [facility] [place] [address] Internal Medicine 02/17/25 Logan Doran MD 30 [place] [address] 03/18/25 documented as of this encounter
--- OUTSIDE RECORDS SUMMARY | 2025-06-26 18:24 | XMS_ITS | Encounter Summary ---
Author Organization [facility] Address [address] [place] [address] Care Team Providers Care Collator Hand Name Role Phone Franklin Simmons MD Unavailable [phone] Godwin Saunders DO Unavailable Gael Stockton MD Unavailable Unavailable Gael Stockton MD Primary Care Provider Unavail able Godwin Malcolm MD Unavailable Unavailable Heather Packer FILLER [place] Unavailable Antonia Willis MD Unavailable Logan Doran MD Unavailable Sanjay Fernandes MD Primary Care Provider [phone] Encounter Details Date Type Department Care Team (Late st Contact Info) Description 02/07/2024 Scanned Document [facility] Pulmonary [address] [place] [address] Sanjay Fernandes MD [address] [place] [address] Social History Tobacco Use Types Packs/Day Years [...] EDT Clinical Support [facility] [address] [place] [address] 4th [place] [phone] 08/18/2025 10:30 AM EDT Hospital Encounter [facility] Gastroenterology Division [address] [place] [address] [phone] Vitor Morales MD [address] [place] [address] [phone] 08/18/2025 10:30 AM EDT Appointment [facility] [address] [place] [address] Vitor Morales MD [address] [place] [address] [phone] 08/18/2025 10:30 AM EDT - 08/18/2025 11:00 AM EDT Surgery [facility] Gastroenterology Division [address] [place] [address] [phone] Vitor Morales MD [address] [place] [phone] COLONOSCOPY 05/04/2026 11:00 AM EDT Office Visit [facility] Physicians Department of Cardiology [place] [address] [place] [phone] Aashish Silva PA [address] [place] [address] Scheduled Procedures Name Priority Associated Diagnoses Date/Ti [...] documented as of this encounter Care Teams Collator Hand Relationship Specialty Start Date End Date Gael Stockton MD PCP - General Internal Medicine 06/23/20 05/04/25 Sanjay Fernandes MD 85 [facility] 923 [place] [address] PCP - General Pulmonary Disease 05/05/25 Franklin Simmons MD Physician Otolaryngology 06/14/17 Godwin Saunders DO Physician Endocrinology 06/14/17 Gael Stockton MD Internal Medicine 05/26/20 Godwin Malcolm MD Hematology Oncology 11/03/20 Heather Packer, FILLER [place] 79 [place] [facility] 4 [place] [address] Respiratory Care Practitioner Respiratory Therapist 09/20/24 Antonia Willis MD 850 [facility] 530 [facility] [place] [address] Internal Medicine 02/17/25 Logan Doran MD 30 [place] [address] 03/18/25 documented as of this encounter
--- OUTSIDE RECORDS SUMMARY | 2025-06-26 18:24 | XMS_ITS | Encounter Summary ---
Author Organization [facility] Address [address] [place] [address] Care Team Providers Care Delivery Man Name Role Phone Sanjay Fernandes MD Primary Care Provider Frnaklin Simmons MD Unavailable [phone] Godwin Saunders DO Unavailable Gael Stockton MD Unavailable Unavailable Gael Stockton MD Primary Care Provider Unavail able Godwin Malcolm MD Unavailable Unavailable Gael Stockton MD Unavailable Unavailable Heather Packer DIRECTOR MULTIMEDIA Unavailable Antonia Willis MD Unavailable Logan Doran MD Unavailable Sanjay Fernandes MD Primary Care Provider [phone] Encounter Details Date Type Department Care Team (Late st Contact Info) Description 10/09/2018 Scanned Document [facility] [address] [facility] [place], [place] [phone] Lisa Barr PA [address] [place], [place] [phone] Social History Tobacco Use Types Packs/Day Years [...] 11:00 AM EDT Clinical Support [facility] [address] [place] [address] 4th [place] [phone] 08/18/2025 10:30 AM EDT Hospital Encounter [facility] Gastroenterology Division [address] [place] [address] [phone] Vitor Morales MD [address] [place] [address] [phone] 08/18/2025 10:30 AM EDT Appointment [facility] [address] [place] [address] Vitor Morales MD [address] [place] [address] [phone] 08/18/2025 10:30 AM EDT - 08/18/2025 11:00 AM EDT Surgery [facility] Gastroenterology Division [address] [place] [address] [phone] Vitor Morales MD [address] [place] [address] COLONOSCOPY 05/04/2026 11:00 AM EDT Office Visit [facility] Department of Cardiology [place] [address] [place] [phone] Aashish Silva PA [address] [place] [address] Scheduled Procedures Name Priority Associated Diagnoses Date/Ti [...] documented as of this encounter Care Teams Delivery Man Relationship Specialty Start Date End Date Sanjay Fernandes MD 85 [place] [address] PCP - General Pulmonary Disease 05/28/16 06/22/20 Gael Stockton MD [address] [place] [address] PCP - General Internal Medicine 06/23/20 05/04/25 Gael Stockton MD PCP - [place] Medicare Patients 11/23/22 03/22/23 Sanjay Fernandes MD [address] [place] [address] PCP - General Pulmonary Disease 05/05/25 Franklin Simmons MD [address] [place] [address] Physician Otolaryngology 06/14/17 Godwin Saunders DO [address] [place] [address] Physician Endocrinology 06/14/17 Gael Stockton MD [address] [place] [address] Internal Medicine 05/26/20 Godwin Malcolm MD 85 [facility] 923 [place] [address] Hematology Oncology 11/03/20 Heather Packer, DIRECTOR MULTIMEDIA 79 [place] 4 [place] [address] Respiratory Care Practitioner Respiratory Therapist 09/20/24 Antonia Willsi MD 850 [facility] 530 [facility] [place] [address] Internal Medicine 02/17/25 Logan Doran MD 30 [place] [address] 03/18/25 documented as of this encounter
--- OUTSIDE RECORDS SUMMARY | 2025-06-26 18:24 | XMS_ITS | Encounter Summary ---
Author Organization [facility] Address [address] [place] [address] Care Team Providers Care Mechanical Inspector Name Role Phone Sanjay Fernandes MD Primary Care Provider Franlkin Simmons MD Unavailable [phone] Godwin Saunders DO Unavailable Gael Stockton MD Unavailable Unavailable Gael Stockton MD Primary Care Provider Unavail able Godwin Malcolm MD Unavailable Unavailable Gael Stockton MD Unavailable Unavailable Heather Packer SOLAR THERMAL TECHNICIAN Unavailable [phone] Antonia Willis MD Unavailable Logan Doran MD Unavailable [phone] Sanjay Fernandes MD Primary Care Provider [phone] Encounter Details Date Type Department Care Team (Late st Contact Info) Description 09/19/2018 Scanned Document [facility] [address] [place] [phone] Social History Tobacco Use Types Packs/Day [...] EDT Clinical Support [facility] [address] [place] [address] 4th [place] [phone] 08/18/2025 10:30 AM EDT Hospital Encounter [facility] Gastroenterology Division [address] [place] [phone] Vitor Morales MD [address] [place] [address] [phone] 08/18/2025 10:30 AM EDT Appointment [facility] [address] [place] [address] Vitor Morales MD [address] [place] [address] [phone] 08/18/2025 10:30 AM EDT - 08/18/2025 11:00 AM EDT Surgery [facility] Gastroenterology Division [address] [place] [address] [phone] Vitor Morales MD [address] [place] [address] [phone] COLONOSCOPY 05/04/2026 11:00 AM EDT Office Visit [facility] Physicians Department of Cardiology [place] [address] [place] [phone] Aashish Sliva PA [address] [place] [address] 013293 Scheduled Procedures Name Priority Associated Diagnoses Date/Ti [...] documented as of this encounter Care Teams Mechanical Inspector Relationship Specialty Start Date End Date Sanjay Fernandes MD [address] [place] [address] PCP - General Pulmonary Disease 05/28/16 06/22/20 Gael Stockton MD [address] [place] [address] PCP - General Internal Medicine 06/23/20 05/04/25 Gael Stockton MD PCP - [place] Medicare Patients 11/23/22 03/22/23 Sanjay Fernandes MD [address] [place] [address] PCP - General Pulmonary Disease 05/05/25 Franklin Simmons MD [address] [place] [address] Physician Otolaryngology 06/14/17 Godwin Saunders DO [address] [place] [address] Physician Endocrinology 06/14/17 Gael Stoctkon MD [address] [place] [address] Internal Medicine 05/26/20 Godwin Malcolm MD [address] [place] [address] Hematology Oncology 11/03/20 Heather Packer, SOLAR THERMAL TECHNICIAN [address] [place] 4 [place] [address] Respiratory Care Practitioner Respiratory Therapist 09/20/24 Antonia Willis MD [address] [facility] [place] [address] Internal Medicine 02/17/25 Logan Doran MD 30 [place] [address] 03/18/25 documented as of this encounter
--- OUTSIDE RECORDS SUMMARY | 2025-06-26 18:24 | XMS_ITS | Encounter Summary ---
Author Organization [facility] Address [address] [place] [address] Care Team Providers Care Jig Hand Name Role Phone Franklin Simmons MD Unavailable [phone] Godwin Saunders DO Unavailable [phone] Gael Stockton MD Unavailable Unavailable Gael Stockton MD Primary Care Provider Unavail able Godwin Malcolm MD Unavailable Unavailable Heather Packer NETWORK PROGRAM MANAGER Unavailable [phone] Antonia Willis MD Unavailable Logan Doran MD Unavailable Sanjay Fernandes MD Primary Care Provider [phone] Encounter Details Date Type Department Care Team (Late st Contact Info) Description 02/17/2025 Scanned Document [facility] Pulmonary [place] [address] [facility] [address] [place] [phone] Antonia Willis MD [address] [place] [address] [facility] [place] [address] Social History Tobacco Use Types [...] 11:00 AM EDT Clinical Support [facility] [address] [place] [address] 4th [place] [phone] 08/18/2025 10:30 AM EDT Hospital Encounter [facility] Gastroenterology Division [address] [place] [address] [phone] Vitor Morales MD [address] [place] [address] [phone] 08/18/2025 10:30 AM EDT Appointment [facility] [address] [facility] [place] [address] Vitor Morales MD [address] [place] [address] [phone] 08/18/2025 10:30 AM EDT - 08/18/2025 11:00 AM EDT Surgery [facility] Gastroenterology Division [address] [place] [phone] Vitor Morales MD [address] [place] [address]20 COLONOSCOPY 05/04/2026 11:00 AM EDT Office Visit [facility] Department of Cardiology [place] [address] [place] [phone] Aashish Silva PA [address] [place] [address] Scheduled Procedures Name Priority Associated Diagnoses Date/Ti [...] documented as of this encounter Care Teams Jig Hand Relationship Specialty Start Date End Date Gael Stockton MD PCP - General Internal Medicine 06/23/20 05/04/25 Sanjay Fernandes MD 85 [facility] 923 [place] [address] PCP - General Pulmonary Disease 05/05/25 Franklin Simmons MD Physician Otolaryngology 06/14/17 Godwin Saunders DO Physician Endocrinology 06/14/17 Gael Stockton MD Internal Medicine 05/26/20 Godwin Malcolm MD Hematology Oncology 11/03/20 Heather Packer, NETWORK PROGRAM MANAGER 79 [facility] 4 [place] [address] Respiratory Care Practitioner Respiratory Therapist 09/20/24 Antonia Willis MD 850 [facility] 530 [facility] [place] [address] Internal Medicine 02/17/25 Logan Doran MD 30 [place] [address] 03/18/25 documented as of this encounter
--- OUTSIDE RECORDS SUMMARY | 2025-06-26 18:25 | XMS_ITS | Encounter Summary ---
Author Organization [facility] Address [address] [place] [address] Care Team Providers Care Glove Machine Operator Name Role Phone Sanjay Fernandes MD Primary Care Provider Franklin Simmons MD Unavailable [phone] Godwin Saunders DO Unavailable Gael Stockton MD Unavailable Unavailable Gael Stockton MD Primary Care Provider Unavail able Godwin Malcolm MD Unavailable Unavailable Gael Stockton MD Unavailable Unavailable Heather Packer GOLF COURSE KEEPER Unavailable Antonia Willis MD Unavailable Logan Doran MD Unavailable Sanjay Fernandes MD Primary Care Provider Encounter Details Date Type Department Care Team (Late st Contact Info) Description 09/19/2018 Scanned Document [facility] [address] [place] [address] 4th [place] [phone] Sanjay Fernandes MD [address] [place] [address] Social History Tobacco Use Types Packs/Day Years [...] 11:00 AM EDT [facility] Support [facility] [address] [facility] 4th [place] [phone] 08/18/2025 10:30 AM EDT Hospital Encounter [facility] Gastro[facility]ology Division [address] [place] [address] [phone] Vitor Morales MD [address] [place] [address] [id number] 08/18/2025 10:30 AM EDT Appointment [facility] [address] [place] [address] Vitor Morales MD [address] [place] [address] [id number] 08/18/2025 10:30 AM EDT - 08/18/2025 11:00 AM EDT Surgery [facility] Gastroenterology Division [address] [place] [address] [phone] Vitor Morales MD [address] [place] [address] COLONOSCOPY 05/04/2026 11:00 AM EDT Office Visit [facility] Department of Cardiology [place] [address] [place] [phone] Aashish Silva PA [address] [place] [address] Scheduled Procedures Name Priority Associated Diagnoses Date/Ti [...] documented as of this encounter Care Teams Glove Machine Operator Relationship Specialty Start Date End Date Sanjay Fernandes MD [address] [place] [address] PCP - General Pulmonary Disease 05/28/16 06/22/20 Gael Stockton MD [address] [place] [address] PCP - General Internal Medicine 06/23/20 05/04/25 Gael Stockton MD PCP - [place] Medicare Patients 11/23/22 03/22/23 Sanjay Fernandes MD [address] [place] [address] PCP - General Pulmonary Disease 05/05/25 Franklin Simmons MD [address] [place] [address] Physician Otolaryngology 06/14/17 Godwin Saunders DO [address] [place] [address] Physician Endocrinology 06/14/17 Gael Stockton MD [address] [place] [address] Internal Medicine 05/26/20 Godwin Malcolm MD 85 [facility] 923 [place] [address] Hematology Oncology 11/03/20 Heather Packer, GOLF COURSE KEEPER [address] [place] 4 [place] [address] Respiratory Care Practitioner Respiratory Therapist 09/20/24 Antonia Willis MD 850 [facility] [address] [facility] [address] Internal Medicine 02/17/25 Logan Doran MD 30 [place] [address] 03/18/25 documented as of this encounter
--- OUTSIDE RECORDS SUMMARY | 2025-06-26 18:25 | XMS_ITS | Encounter Summary ---
Author Organization [facility] Address [address] [place] [address] Care Team Providers Care Cashier Greeter Name Role Phone Sanjay Fernandes MD Primary Care Provider Franklin Simmons MD Unavailable [phone] Godwin Saunders DO Unavailable [phone] Gael Stockton MD Unavailable Unavailable Gael Stockton MD Primary Care Provider Unavail able Godwin Malcolm MD Unavailable Unavailable Gael Stockton MD Unavailable Unavailable Heather Packer MOTOR BOSS Unavailable Antonia Willis MD Unavailable Logan Doran MD Unavailable Sanjay Fernandes MD Primary Care Provider Encounter Details Date Type Department Care Team (Late st Contact Info) Description 01/16/2019 Scanned Document [facility] [address] [place] [address] 4th [place] [phone] Sanjay Fernandes MD [address] [place] [address] Social History Tobacco Use Types Packs/Day Years [...] 11:00 AM EDT Clinical Support [facility] 79 [facility] 4th [place] [phone] 08/18/2025 10:30 AM EDT Hospital Encounter [facility] Gastroenterology Division [address] [place] [address] [phone] Vitor Morales MD [address] [place] [address] [id number] 08/18/2025 10:30 AM EDT Appointment [facility] [address] [place] [address] Vitor Morales MD [address] [place] [address] [id number] 08/18/2025 10:30 AM EDT - 08/18/2025 11:00 AM EDT Surgery [facility] Gastroenterology Division [address] [place] [phone] Vitor Morales MD [address] [place] [address] COLONOSCOPY 05/04/2026 11:00 AM EDT Office Visit [facility] Physicians Department of Cardiology [place] [address] [place] [phone] Aashish Silva PA [address] [place] [address] Scheduled Procedures Name Priority Associated Diagnoses Date/Ti [...] documented as of this encounter Care Teams Cashier Greeter Relationship Specialty Start Date End Date Sanjay Fernandes MD [address] [place] [address] PCP - General Pulmonary Disease 05/28/16 06/22/20 Gael Stockton MD [address] [place] [address] PCP - General Internal Medicine 06/23/20 05/04/25 Gael Stockton MD PCP - [place] Medicare Patients 11/23/22 03/22/23 Sanjay Fernandes MD [address] [place] [address] PCP - General Pulmonary Disease 05/05/25 Franklin Simmons MD [address] [place] [address] Physician Otolaryngology 06/14/17 Godwin Saunders DO [address] [place] [address] Physician Endocrinology 06/14/17 Gael Stockton MD [address] [place] [address] Internal Medicine 05/26/20 Godwin Malcolm MD 85 [facility] 923 [place] [address] Hematology Oncology 11/03/20 Heather Packer, MOTOR BOSS [address] [place] 4 [place] [address] Respiratory Care Practitioner Respiratory Therapist 09/20/24 Antonia Willis MD 850 [facility] [address] [facility] [place] [address] Internal Medicine 02/17/25 Logan Doran MD 30 [place] [address] 03/18/25 documented as of this encounter
--- OUTSIDE RECORDS SUMMARY | 2025-06-26 18:25 | XMS_ITS | Encounter Summary ---
Author Organization [facility] Address [address] [place] [address] Care Team Providers Care Billboard Mechanic Name Role Phone Sanjay Fernandes MD Primary Care Provider Franklin Simmons MD Unavailable Godwin Saunders DO Unavailable Gael Stockton MD Unavailable Unavailable Gael Stockton MD Primary Care Provider Unavail able Godwin Malcolm MD Unavailable Unavailable Gael Stockton MD Unavailable Unavailable Heather Packer CORE CARRIER Unavailable Antonia Willis MD Unavailable Logan Doran MD Unavailable Sanjay Fernandes MD Primary Care Provider Encounter Details Date Type Department Care Team (Late st Contact Info) Description 02/26/2019 Scanned Document [facility] [address] [facility] [place], [place] [phone] Lisa Barr PA [address] [facility] [address] [place], [place] [phone] Social History Tobacco Use Types Packs/Day Years [...] 11:00 AM EDT Clinical Support [facility] [address] [place] [address] 4th [place] [phone] 08/18/2025 10:30 AM EDT Hospital Encounter [facility] Gastroenterology Division [address] [place] [address] [phone] Vitor Morales MD [address] [place] [address] [id number] 08/18/2025 10:30 AM EDT Appointment [facility] [address] [place] [address] Vitor Morales MD [address] [place] [address] [phone] 08/18/2025 10:30 AM EDT - 08/18/2025 11:00 AM EDT Surgery [facility] Gastroenterology Division [address] [place] [address] [phone] Vitor Morales MD [address] [place] [address] COLONOSCOPY 05/04/2026 11:00 AM EDT Office Visit [facility] Department of Cardiology [place] [address] [place] [phone] Aashish Silva PA [address] [place] [address] Scheduled Procedures Name Priority Associated Diagnoses Date/Ti [...] documented as of this encounter Care Teams Billboard Mechanic Relationship Specialty Start Date End Date Sanjay Fernandes MD 85 [place] [address] PCP - General Pulmonary Disease 05/28/16 06/22/20 Gael Stockton MD [address] [place] [address] PCP - General Internal Medicine 06/23/20 05/04/25 Gael Stockton MD PCP - [place] Medicare Patients 11/23/22 03/22/23 Sanjay Fernandes MD [address] [place] [address] PCP - General Pulmonary Disease 05/05/25 Franklin Simmons MD [address] [place] [address] Physician Otolaryngology 06/14/17 Godwin Saunders DO [address] [place] [address] Physician Endocrinology 06/14/17 Gael Stockton MD [address] [place] [address] Internal Medicine 05/26/20 Godwin Malcolm MD 85 [facility] 923 [place] [address] Hematology Oncology 11/03/20 Heather Packer, CORE CARRIER [address] [place] [facility] 4 [place] [address] Respiratory Care Practitioner Respiratory Therapist 09/20/24 Antonia Willis MD 850 [facility] 530 [facility] [place] [address] Internal Medicine 02/17/25 Logan Doran MD 30 [place] [address] 03/18/25 documented as of this encounter
--- OUTSIDE RECORDS SUMMARY | 2025-06-26 18:25 | XMS_ITS | Patient Health Record ---
Author Organization [facility] Address [address] [place] [address] Care Team Providers Care Air Conditioning Manager Name Role Phone Kath VILLALOBOS, Gael Primary Care Provider Unavailab Emir Cordoba Unavailable [phone] Hina Kinney Unavailable [phone] Allergies Allergen (clinical drug ingredient) Drug/Non Drug Allergy documented on EMR Reaction Allergy Type Onset Date Status ceftazidime cefTAZidime itchy mouth and chest pain Drug Allergy Active Substance with sulfonamide structure and antibacterial mechanism of action (substance) Sulfa Antibiotics hives Drug Allergy Active vancomycin Vancomycin hives Drug Allergy Activ e Reason For Referral No Information Medications Medication SIG (Take, Route, Frequency, Duration) Notes Start Date End Date Status Ondansetron HCl 8 MG 0 Oral 1 tab q6h prn nausea.; Duration: 0 1-2x/day for nausea and gastroparesis 01/25/2021 Active Trikafta 50-25-37.5 & 75 MG as directed Orally 1 tab bid 07/28/2021 Active QVAR 80 MCG ORAL INHALER MCG/ACTUATION 0 bid; Duration: 30 01/25/2021 Not-Taking Omeprazole 40 MG 1 capsule 30 minutes before morning meal Orally bid Active Linzess 290 MCG 1 capsule at least 30 minutes before the first meal of the day on an empty stomach Orally Once a day Not-Taking clonazePAM 0.25 MG 1 tablet Oral twice a day; Duration: 30 days 01/25/2021 Active Azithromycin 500 MG 0 Oral 1 tab 3 days/week; Duration: 30 01/25/2021 Active Ubrelvy 100 MG TAKE 1 TAB BY MOUTH AT ONSET OF MIGRAINE ALONG WITH 2 EXCEDRIN MAY REPEAT 1 TIME AFTER 2 HOURS IF HEADACHE RECURS.; Duration: 8 Active Topiramate 100 MG 3 tablets orally Once a day; Duration: 90 days Active Motegrity 2 MG 1 tablet Orally Once a day; Duration: 90 days Active Trelegy Ellipta 100-62.5-25 MCG/ACT 1 puff Inhalation Once a day Active DULoxetine HCl 60 MG 2 capsule Orally Once a day in the morning.; Duration: 90 days Active Gabapentin 600 MG 1 tablet in morning, 1 tab at supper and 2 tabs at bedtime.; Duration: 90 days Active PROAIR HFA 90 MCG INHALER MCG/ACTUATION 0 PRn; Duration: 30 01/25/2021 Active VITAMIN D3 5,000 UNIT SOFTGEL 125 MCG (5,000 UNIT) 0 1 qam; Duration: 01/25/2021 Active PULMOZYME 1 MG/ML AMPUL 0 1 q[pm via neb; Duration: 01/25/2021 Active Atenolol 25 MG TAKE 1 TABLET BY MOUTH EVERY DAY AT BEDTIME FOR TREMOR; Duration: 90 Active HUMULIN R 100 UNIT/ML VIAL 0 20 u/day via pump; Duration: 01/25/2021 Active EXCEDRIN MIGRAINE CAPLET 250-250-65 MG 0 2 tabs prn, uses 12/week; Duration: 30 daily 01/25/2021 Active Qulipta 60 MG 1 tablet Orally Once a day; Duration: 30 days 09/03/2022 5 Active MUCINEX FAST-MAX CHEST-CONGEST 100 MG/5 ML 0 1 bid; Duration: 30 PRN 01/25/2021 Active LEVOTHYROXINE 50 MCG CAPSULE 0 1 qhs; Duration: 30 01/25/2021 Active CETIRIZINE HCL 10 MG TABLET 0 1 qhs; Duration: 01/25/2021 Active CAYSTON 75 MG INHAL SOLUTION MG/ML 0 1 qpm via neb; Duration: 30 every other month 01/25/2021 Active domperidone 0 10 mg qid for gastroparesis; Duration: 01/25/[address] 24,000 UNITS CAPSULE 24,000-76,000 -120,000 UNIT 0 4-6 caps/meal; Duration: 30 01/25/2021 Active Belsomra 15 MG 1 tablet at bedtime as needed Oral Once a day; Duration: 30 days 01/25/2021 Active Vitamin B-2 100 mg 120 Oral Take 2 tabs bid with meals (4 tabs qd).; Duration: 30 01/25/2021 Active Problems Problem Type SNOMED Code ICD Code Onset Dates Problem Status W/U Status Risk Notes Problem Cystic fibrosis (025988495) Cystic fibrosis with other manifestations (E84.8) Active confirmed Problem Chronic intractable migraine without aura (74071883465742 5) Chronic migraine without aura, intractable, without status migrainosus (G43.719) Active confirmed Vital Signs Heart Rate 98 /min 06/19/2025 Blood pressure diastolic 77 mm Hg 06/19/2025 Weight-kg 65.59 kg 06/19/2025 Height 66 in 06/19/2025 Blood pressure systolic 141 mm Hg 06/19/2025 Weight 144.6 lbs 06/19/2025 BMI 23.34 kg/m2 06/19/2025 Encounters Encounter Location Date [facility] [address] [place] [phone] 07/31/2024 Emir Chamorro Chronic migraine wit hout aura, intractable, without status migrainosus G43.719 and Cystic fibrosis with other manifestations E84.8 [facility] [address] [place] [phone] 02/25/2025 Emir Chamorro Chronic migraine wit hout aura, intractable, without status migrainosus G43.719 and Cystic fibrosis with other manifestations E84.8 [facility] [employer] [facility] [employer] [address] [place] [phone] 06/19/2025 Emir Chamorro Chronic migraine wit hout aura, intractable, without status migrainosus G43.719 and Cystic fibrosis with other manifestations E84.8 [facility] [employer] [facility] [employer] [address] [place] [phone] 10/31/2024 Hina Kinney Chronic migraine wit hout aura, intractable, without status migrainosus G43.719 and Cystic fibrosis with other manifestations E84.8 [facility] [employer] [address] [place] [phone] 10/31/2024 Emir [facility]orro [facility] [address] [place] [phone] 07/08/2024 Emir Chamorro Chronic migraine wit hout aura, intractable, without status migrainosus G43.719 [facility] [address] [place] [address] 07/08/2024 [facility] [address] [place] [address] 07/22/2024 [facility] [address] [place] [address] 08/01/2024 Emir Ashtyn [facility] [address] [place] [address] 08/20/2024 [facility] [address] [place] [address] 10/08/2024 [facility] [address] [place] [address] 10/09/2024 [facility] [address] [place] [address] 10/30/2024 [facility] [address] [place] [address] 01/09/2025 [facility] [address] [place] [address] 03/18/2025 [facility] [address] [place] [address] 05/30/2025 [facility] [address] [place] [address] 06/02/2025 Emir Ashtyn Assessments Encounter Date Diagnosis (ICD Code) Assessment Notes Treatment Notes Treatment Clinical Notes Section Notes 07/08/2024 Chronic migraine without aura, intractable, without status migrainosus (ICD-10 - G43.719) 10/31/2024 Chronic migraine without aura, intractable, without status [...] MON. Pt consents to virtual visit. 02/25/2025 Chronic migraine without aura, intractable, without [...] Hina MON. Pt consents to virtual visit. 06/19/2025 Cystic fibrosis with other manifestations (ICD-10 - E84.8) 06/19/2025 Chronic migraine without aura, intractable, without status migrainosus (ICD-10 - G43.719) 07/31/2024 Chronic migraine without aura, intractable, without status migrainosus (ICD-10 - G43.719) 10/31/2024 Cystic fibrosis with other manifestations (ICD-10 - E84.8) Patient presents for evaluation and management. Pt was seen and evaluated by Hina MON. Pt consents to virtual visit. 07/31/2024 Cystic fibrosis with other manifestations (ICD-10 - E84.8) Plan Of Treatment Next Appt Details Provider Name:Emir manzanares, 08/20/2025 11:30:00 AM, [address] [place] [address], [phone], Insurance Providers Payer Name Payer Address Payer Phone Subscriber Number Group Number Insured Name Patient Relationship to Insured Coverage Start Date Coverage End Date [employer] PPO [address] [place], [place] [id number] Carla Alves Self - patient is the insured Medical (General) History Medical History History ICD Code Migraine Cystic fibrosis Constipation Hypothyroidism Gastroparesis anxiety cystic fibrosis-related diabetes (pancre atic insufficiency) Chronic migraine, ongoing Cystic fibrosis, diagnosed at [age] weeks old
--- OUTSIDE RECORDS SUMMARY | 2025-06-26 18:25 | XMS_ITS | Encounter Summary ---
Author Organization [facility] Address [address] [place] [address] Care Team Providers Care Wharf Tender Name Role Phone Sanjay Fernandes MD Primary Care Provider Franklin Simmons MD Unavailable Godwin Saunders DO Unavailable Gael Stockton MD Unavailable Unavailable Gael Stockton MD Primary Care Provider Unavail able Godwin Malcolm MD Unavailable Unavailable Gael Stockton MD Unavailable Unavailable Heather Packer FIRE REGULATOR Unavailable [phone] Antonia Willis MD Unavailable Logan Doran MD Unavailable Sanjay Fernandes MD Primary Care Provider Encounter Details Date Type Department Care Team (Late st Contact Info) Description 01/25/2019 Scanned Document [facility] [facility] [address] [facility] [place], [place] [phone] Lisa Barr PA [address] [place], [place] [phone] Social History Tobacco Use Types Packs/Day Years [...] 11:00 AM EDT [facility] [address] [place] [address] 4th [place] [phone] 08/18/2025 10:30 AM EDT Hospital Encounter [facility] Gastroenterology Division [address] [place] [address] [phone] Vitor Morales MD [address] [place] [address] [phone] 08/18/2025 10:30 AM EDT Appointment [facility] [address] [place] [address] Vitor Morales MD [address] [place] [address] [phone] 08/18/2025 10:30 AM EDT - 08/18/2025 11:00 AM EDT Surgery [facility] Gastroenterology Division [address] [place] [address] [phone] Vitor Morales MD [address] [place] [address] COLONOSCOPY 05/04/2026 11:00 AM EDT Office Visit [facility] Department of Cardiology [place] [address] [place] [phone] Aashish Silva PA [address] [place] [address] Scheduled Procedures Name Priority Associated Diagnoses Date/Ti [...] documented as of this encounter Care Teams Wharf Tender Relationship Specialty Start Date End Date Sanjay Fernandes MD [address] [place] [address] PCP - General Pulmonary Disease 05/28/16 06/22/20 Gael Stockton MD [address] [place] [address] PCP - General Internal Medicine 06/23/20 05/04/25 Gael Stockton MD PCP - [facility] Medicare Patients 11/23/22 03/22/23 Sanjay Fernandes MD [address] [place] [address] PCP - General Pulmonary Disease 05/05/25 Franklin Simmons MD [address] [place] [address] Physician Otolaryngology 06/14/17 Godwin Saunders DO [address] [place] [address] Physician Endocrinology 06/14/17 Gael Stockton MD [address] [place] [address] Internal Medicine 05/26/20 Godwin Malcolm MD 85 [facility] 923 [place] [address] Hematology Oncology 11/03/20 Heather Packer, FIRE REGULATOR 79 [facility] 4 [place] [address] Respiratory Care Practitioner Respiratory Therapist 09/20/24 Antonia Willis MD 850 [facility] 530 [facility] [place] [address] Internal Medicine 02/17/25 Logan Doran MD 30 [place] [address] 03/18/25 documented as of this encounter
--- OUTSIDE RECORDS SUMMARY | 2025-06-26 18:25 | XMS_ITS | Encounter Summary ---
Author Organization [facility] Address [address] [place] [address] Care Team Providers Care Wrapper Selector Name Role Phone Sanjay Fernandes MD Primary Care Provider Franklin Simmons MD Unavailable [phone] Godwin Saunders DO Unavailable [phone] Gael Stockton MD Unavailable Unavailable Gael Stockton MD Primary Care Provider Unavail able Godwin Malcolm MD Unavailable Unavailable Gael Stockton MD Unavailable Unavailable Heather Packer PATIENT INTAKE COORDINATOR Unavailable [phone] Antonia Willis MD Unavailable Logan Doran MD Unavailable [phone] Sanjay Fernandes MD Primary Care Provider Encounter Details Date Type Department Care Team (Late st Contact Info) Description 02/27/2019 Scanned Document [facility] [address] [place] [phone] Social History Tobacco Use Types Packs/Day [...] EDT Clinical Support [facility] [address] [place] [address] 4[address] [place] [phone] 08/18/2025 10:30 AM EDT Hospital Encounter [facility]ology [facility] [address] [place] [phone] Vitor Morales MD [address] [place] [address] [id number] 08/18/2025 10:30 AM EDT Appointment [facility] [address] [place] [address] Vitor Morales MD [address] [place] [address] [id number] 08/18/2025 10:30 AM EDT - 08/18/2025 11:00 AM EDT Surgery [facility] [address] [place] [phone] Vitor Morales MD [address] [place] [address] [phone] COLONOSCOPY 05/04/2026 11:00 AM EDT Office Visit [facility] Department of Cardiology [place] [address] [place] [phone] Aashish Silva PA [address] [place] [address] [phone] Scheduled Procedures Name Priority Associated Diagnoses Date/Ti [...] documented as of this encounter Care Teams Wrapper Selector Relationship Specialty Start Date End Date Sanjay Fernandes MD [address] [place] [address] PCP - General Pulmonary Disease 05/28/16 06/22/20 Gael Stockton MD [address] [place] [address] PCP - General Internal Medicine 06/23/20 05/04/25 Gael Stockton MD PCP - [place] Medicare Patients 11/23/22 03/22/23 Sanjay Fernandes MD [address] [place] [address] PCP - General Pulmonary Disease 05/05/25 Franklin Simmons MD [address] [place] [address] Physician Otolaryngology 06/14/17 Godwin Saunders DO [address] [place] [address] Physician Endocrinology 06/14/17 Gael Stockton MD [address] [place] [address] Internal Medicine 05/26/20 Godwin Malcolm MD [address] [place] [address] Hematology Oncology 11/03/20 Heather Packer, PATIENT INTAKE COORDINATOR [address] [place] [address] [place] [address] Respiratory Care Practitioner Respiratory Therapist 09/20/24 Antonia Willis MD [address] [facility] [place] [address] Internal Medicine 02/17/25 Logan Doran MD [address] [place] [address] 03/18/25 documented as of this encounter
--- OUTSIDE RECORDS SUMMARY | 2025-06-26 18:25 | XMS_ITS | Encounter Summary ---
Author Organization [facility] Address [address] [place] [address] Care Team Providers Care Director Of Therapy Services Name Role Phone Sanjay Fernandes MD Primary Care Provider Franklin Simmons MD Unavailable [phone] Godwin Saunders DO Unavailable Gael Stockton MD Unavailable Unavailable Gael Stockton MD Primary Care Provider Unavail able Godwin Malcolm MD Unavailable Unavailable Gael Stockton MD Unavailable Unavailable Heather Packer DRILLING AND PRODUCTION SUPERINTENDENT Unavailable Antonia Willis MD Unavailable Logan Doran MD Unavailable Sanjay Fernandes MD Primary Care Provider Encounter Details Date Type Department Care Team (Late st Contact Info) Description 12/26/2018 Scanned Document [facility] [address] [place] [address] Lisa Barr PA [address] [place] [address] [address] [place] [address] Social History Tobacco Use Types Packs/Day Years [...] AM EDT Clinical Support [facility] [place] [facility] [address] [place] [address] 4[address] [place] [phone] 08/18/2025 10:30 AM EDT Hospital Encounter [facility] Gastroenterology Division [address] [place] [phone] Vitor Morales MD [address] [place] [address] [id number] 08/18/2025 10:30 AM EDT Appointment [facility] [address] [place] [address] Vitor Morales MD [address] [place] [address] [phone] 08/18/2025 10:30 AM EDT - 08/18/2025 11:00 AM EDT Surgery [facility]astro[facility] [address] [place] [phone] Vitor Morales MD [address] [place] [address] COLONOSCOPY 05/04/2026 11:00 AM EDT Office Visit [facility] Department of Cardiology [place] [address] [place] [phone] Aashish Silva PA [address] [place] [address] Scheduled Procedures Name Priority Associated Diagnoses Date/Ti [...] as of this encounter Care Teams Director Of Therapy Services Relationship Specialty Start Date End Date Sanjay Fernandes MD [address] [place] [address] PCP - General Pulmonary Disease 05/28/16 06/22/20 Gael Stockton MD [address] [place] [address] PCP - General Internal Medicine 06/23/20 05/04/25 Gael Stockton MD PCP - [place] Medicare Patients 11/23/22 03/22/23 Sanjay Fernandes MD [address] [place] [address] PCP - General Pulmonary Disease 05/05/25 Franklin Simmons MD [address] [place] [address] Physician Otolaryngology 06/14/17 Godwin Saunders DO [address] [address] Physician Endocrinology 06/14/17 Gael Stockton MD [address] [place] [phone] Internal Medicine 05/26/20 Godwin Malcolm MD 85 [facility] 923 [place] [address] Hematology Oncology 11/03/20 Heather Packer, DRILLING AND PRODUCTION SUPERINTENDENT [facility] [place] [address] Respiratory Care Practitioner Respiratory Therapist 09/20/24 Antonia Willis MD 850 [facility] 530 [facility] [place] [address] Internal Medicine 02/17/25 Logan Doran MD 30 [place] [address] 03/18/25 documented as of this encounter
--- OUTSIDE RECORDS SUMMARY | 2025-06-26 18:25 | XMS_ITS | Encounter Summary ---
Author Organization [facility] Address [address] [place] [address] Care Team Providers Care Metropolitan Editor Name Role Phone Sanjay Fernandes MD Primary Care Provider Franklin Simmons MD Unavailable [phone] Gowdin Saunders DO Unavailable Gael Stockton MD Unavailable Unavailable Gael Stockton MD Primary Care Provider Unavail able Godwin Malcolm MD Unavailable Unavailable Gael Stockton MD Unavailable Unavailable Heather Packer CYTOGENETIC TECHNICIAN Unavailable [phone] Antonia Willis MD Unavailable Logan Doran MD Unavailable [phone] Sanjay Fernandes MD Primary Care Provider Encounter Details Date Type Department Care Team (Late st Contact Info) Description 01/13/2017 Scanned Document [facility] [place] [address] [place] [address] [place] [address] Yvette Green APRN Social History Tobacco Use Types Packs/Day Years [...] 11:00 AM EDT Clinical Support [facility] [address] [place] [address] 4[address] [place] [phone] 08/18/2025 10:30 AM EDT Hospital Encounter [facility] Gastroenterology Division [address] [place] [phone] Vitor Morales MD [address] [place] [address] [phone] 08/18/2025 10:30 AM EDT Appointment [facility] [address] [phone] Vitor Morales MD [address] [place] [address] [phone] 08/18/2025 10:30 AM EDT - 08/18/2025 11:00 AM EDT Surgery [facility] Gastroenterology Division [address] [place] [phone] Vitor Morales MD [address] [place] [address] [phone] COLONOSCOPY 05/04/2026 11:00 AM EDT Office Visit [facility] Phys[facility] Department of Cardiology [place] [address] [place] [phone] Aashish Silva PA [address] [place] [address] Scheduled Procedures Name Priority Associated Diagnoses Date/Ti [...] documented as of this encounter Care Teams Metropolitan Editor Relationship Specialty Start Date End Date Sanjay Fernandes MD [address] [place] [address] PCP - General Pulmonary Disease 05/28/16 06/22/20 Gael Stockton MD [address] [place] [address] PCP - General Internal Medicine 06/23/20 05/04/25 Gael Stockton MD PCP - [place] Medicare Patients 11/23/22 03/22/23 Sanjay Fernandes MD [address] [place] [address] PCP - General Pulmonary Disease 05/05/25 Franklin Simmons MD [address] [place] [address] Physician Otolaryngology 06/14/17 Godwin Saunders DO [address] [place] [address] Physician Endocrinology 06/14/17 Gael Stockton MD [address] [place] [address] Internal Medicine 05/26/20 Godwin Malcolm MD 85 [facility] 923 [place] [address] Hematology Oncology 11/03/20 Heather Packer, CYTOGENETIC TECHNICIAN [address] [facility] [place] [address] Respiratory Care Practitioner Respiratory Therapist 09/20/24 Antonia Willis MD 850 [facility] [address] [facility] [address] Internal Medicine 02/17/25 Logan Doran MD [address] [place] [address] 03/18/25 documented as of this encounter
--- OUTSIDE RECORDS SUMMARY | 2025-06-26 18:25 | XMS_ITS | Clinical Summary ---
Author Organization Formerly [facility] Address [address] [place] [address] Care Team Providers Care Support Services Tech Name Role Phone Franklin Simmons MD Unavailable [phone] Godwin Saunders DO Unavailable Gael Stockton MD Unavailable Unavailable Godwin Malcolm MD Unavailable Unavailable ArsenioHeather lópez ADULT NEUROPSYCHOLOGIST Unavailable [phone] Antonia Willis MD Unavailable Logan Doran MD Unavailable Sanjay Fernandes MD Primary Care Provider Allergies Active Allergy Reactions Criticality Noted Date Comments Ceftazidime Itching,Other (See Comments) High 02/12/2019 Tingling/numbness in hands, itchy sensation in mouth along with chest pain. Chest tightness Sulfa Antibiotics Rash/Dermatitis Low 08/03/2016 Vancomycin Rash/Dermatitis Low 08/03/2016 IV formulation only Medications cetirizine (ZyrTEC) 10 MG tablet Take 1 tablet (10 mg total) by mouth daily. Active PATIENT OWN INSULIN PUMPIndications:C FRD Inject under the skin continuous. T-slim with Humalog insulin in pump Basal Rates: 12AM-3AM: 0.4 units/hr, 3AM-8AM: 0.2 units/hr, 8AM-11AM: 0.2 units/hr, 11AM-2PM: 0.4 units/hr, 2PM-6PM: 0.1 units/hr, 6PM-8PM: 0.56 units/hr, 8PM-12AM: 0.74 units/hr. Total Daily Basal Dose: 8.48 units Meal Bolus: 12AM-3AM: 1:15, 3AM-8AM: 1:18, 8AM-11AM: 1:16, 11AM-2PM: 1:16, 2PM-6PM: 1:16, 6PM-8PM: 1:15, 8PM-12AM: 1:15 Correction Factor: 12AM-12AM: 1:50 Target BAM-12AM: 120 mg/dL Active Insulin: 3 hours Active levothyroxine (SYNTHROID, LEVOTHROID) 100 MCG tabletIndications :Patient monday and Monday Take 1 tablet (100 mcg total) by mouth 2 (two) times a week. Active HUMALOG 100 UNIT/ML injection INJECT 200 UNITS VIA INSULIN PUMP EVERY 3 DAYS 1 018 Active calcium carbonate (TUMS) 500 MG chewable tablet Chew 1 tablet (500 mg total) every 4 (four) hours as needed for indigestion or heartburn. Active aspirin-acetamino phen-caffeine (EXCEDRIN MIGRAINE) 250-250-65 mg per tablet Take 1 tablet by mouth 4 times daily (every 6 hours) as needed for headaches. Active Cannabidiol Non-THC (CBD) Misc [place]/Smoke/Vapor /Oil Inhale as needed. Active Cannabis (MARIJUANA) Misc Medical Prescription Strength Take by mouth. THC edibles and drops CBD at night Active Respiratory Therapy Supplies (Sharmila Altera Nebulizer Handset) MiscIndications:C ystic fibrosis with pulmonary manifestations (HCC) Use with [facility] as directed 1 Package 11 020 Active levothyroxine (SYNTHROID, LEVOTHROID) 50 MCG tablet Take 1 tablet (50 mcg total) by mouth 5 (five) times a week. Monday through monday 021 Active OMEprazole (PriLOSEC) 40 MG capsuleIndication s:Gastroesophagea l reflux disease with esophagitis without hemorrhage Take 1 capsule (40 mg total) by mouth 2 (two) times a day before meals. 180 capsule 3 Active albuterol (ProAir HFA) 108 (90 Base) MCG/ACT inhalerIndication s:Cystic fibrosis (HCC),Moderate persistent asthma without complication Inhale 2 puffs every 4 (four) hours as needed for wheezing (chest tightness). 8.5 each Active gabapentin (NEURONTIN) 600 MG tablet Taking 600 mg 2 times and 1,200 at night Active Blood Pressure Monitoring (B-D ASSURE BPM/AUTO ARM CUFF) MiscIndications:C ystic fibrosis with pulmonary manifestations (HCC),Primary hypertension Take blood pressure once daily 1 each Active Insulin Infusion Pump Supplies (T:slim Insulin Cartridge 3ml) Misc T:slim Insulin Cartridge 3ml MISC Quantity: 10 Refills: 0 Start: 26-Aug-2016 Active insulin glargine (Lantus SoloStar) 100 units/mL prefilled pen injection Inject under the skin. Active DULoxetine (CYMBALTA) 60 MG capsule Take 1 capsule (60 mg total) by mouth 2 (two) times a day. Taking 2 capsules once daily Active Continuous Blood Gluc Sensor (Dexcom G6 Sensor) [facility] Dexcom G6 Sensor Refills: 0 Start: 15-Aug-2019 Active Cholecalciferol 25 MCG (1000 UT) tablet Take 5 tablets (5,000 Units total) by mouth daily. Active Qulipta 60 MG tablet Take 1 tablet (60 mg total) by mouth daily. Active Multiple Vitamin (Daily-Jose Elias) Tab Take 1 tablet by mouth daily. Active nystatin (MYCOSTATIN) 700717 UNIT/ML suspensionIndicat ions:Cystic fibrosis of the lung (HCC) Take 5 mL (500,000 Units total) by mouth 4 (four) times a day. 280 mL 3 Active atenolol (TENORMIN) 25 MG tablet TAKE 1 TABLET BY MOUTH EVERY DAY AT BEDTIME FOR TREMOR Active albuterol (PROVENTIL) (0.083%) 2.5 mg/3 mL nebulizer solutionIndicatio ns:Cystic fibrosis of the lung (HCC) Take 3 mL (2.5 mg total) by nebulization every 4 (four) hours as needed for wheezing or shortness of breath. 360 mL Active Continuous Glucose Transmitter (Dexcom G6 Transmitter) Misc CHANGE EVERY 90 DAYS. FOR CONTINUOUS GLUCOSE MONITORING E11.9 Active Baqsimi Two Pack intranasal device USE 1 SPRAY IN LEFT NOSTRIL IF NEEDED. MAY REPEAT IN 15 MINUTES IN ALTERNATE NOSTRIL Active fluticasone-umecl idinium-vilantero l (TRELEGY ELLIPTA) 200-62.5-25 mcg/act inhalerIndication s:Cystic fibrosis of the lung (HCC) Inhale 1 puff daily. 60 each Active predniSONE (DELTASONE) 10 MG tabletIndications :Cystic fibrosis with pulmonary manifestations (HCC) Take 1 tablet (10 mg total) by mouth daily. 4 tabs for 3 days, 3 tabs for 3 days, 2 tabs for 3 days, 1 tab for 3 days. 30 tablet 1 025 Active Motegrity 2 MG tabletIndications :Gastroparesis,Ot her constipation TAKE 1 TABLET BY MOUTH EVERY DAY 90 tablet 3 025 Active dornase brendon (PULMOZYME) 2.5 MG/2.5ML nebulizer solutionIndicatio ns:Cystic fibrosis with pulmonary manifestations (HCC) Inhale 2.5 mg 2 (two) times a day. 150 mL 025 Active Aztreonam Lysine ([place]) 75 MG Recon SolnIndications:C ystic fibrosis (HCC) Inhale 75 mg 3 (three) times a day. Cycle on 4 weeks and off 4 weeks. New Altera handset for each [place] refill 84 mL 5 025 2025 Active Trikafta 100-50-75 & 150 MG tablet therapy packIndications:C ystic fibrosis of the lung (HCC) TAKE 2 ORANGE TABLETS IN THE MORNING AND 1 BLUE TABLET IN THE EVENING APPROXIMATELY 12 HOURS APART. TAKE WITH FAT-CONTAINING FOOD 84 tablet 3 025 Active proCHLORPERAZINE (COMPAZINE) 10 MG tabletIndications :Nausea TAKE 1 TABLET (10 MG TOTAL) BY MOUTH 3 TIMES DAILY (EVERY 8 HOURS) NEEDED FOR NAUSEA OR VOMITING. 60 tablet 1 025 Active proMETHAZINE (PHENERGAN) 12.5 MG tabletIndications :Nausea TAKE 1 TABLET BY MOUTH 3 TIMES A DAY NEEDED FOR NAUSEA OR VOMITING. Strength: 12.5 mg 30 tablet 3 025 Active cimetidine (TAGAMET) 800 MG tablet 1 tablet (800 mg total) by Mouth/Oral Cavity route every 12 hours. 025 Active diclofenac enteric coated (VOLTAREN) 75 MG EC tablet Take 1 tablet (75 mg total) by mouth. Administer with food avoid GI upset. Active ondansetron (ZOFRAN-ODT) 8 MG disintegrating tabletIndications :Cystic fibrosis with pulmonary manifestations (HCC) DISSOLVE 1 TABLET BY MOUTH ON TONGUE 3 TIMES A DAY EVERY 8 HOURS NEEDED FOR NAUSEA AND VOMITING 72 tablet 7 025 Active azithromycin (ZITHROMAX) 500 MG tabletIndications :Cystic fibrosis with pulmonary manifestations (HCC) Take 1 tablet (500 mg total) by mouth 3 (three) times a week on Monday, Monday, Monday. 36 tablet 3 025 2024 Active clonazePAM (KlonoPIN) 0.25 MG disintegrating tabletIndications :Anxiety Take 1 tablet (0.25 mg total) by mouth 2 (two) times a day as needed for anxiety. 60 tablet 5 025 Active suvorexant (Belsomra) 15 MG tabletIndications :Insomnia,Cystic fibrosis of the lung (HCC) Take 1 tablet (15 mg total) by mouth nightly. 30 tablet 5 025 Active cyclobenzaprine (FLEXERIL) 10 MG tabletIndications :Cystic fibrosis of the lung (HCC) Take 1 tablet (10 mg total) by mouth 3 times daily (every 8 hours) as needed for muscle spasms. 25 tablet 025 Active polyethylene glycol-electrolyt es (NuLYTELY, TRILYTE) 420 g solutionIndicatio ns:Colon cancer screening Take as directed for Colonoscopy/GI Procedure. See administration instructions. 4000 mL 025 Active Creon 93595-12767 units Cap DR ParticlesIndicati ons:Pancreatic insufficiency TAKE 4 CAPSULES BY MOUTH WITH EACH MEAL AND 2 CAPS WITH EACH SNACK 500 capsule 11 025 Active metoCLOPRAMIDE (REGLAN) 10 MG tabletIndications :Gastroparesis Take 1 tablet (10 mg total) by mouth 4 (four) times a day. 120 tablet 1 025 Active pancrelipase (Creon) 0[address] units [address] ArinIndcely ons:Pancreatic insufficiency TAKE 4 CAPSULES BY MOUTH WITH EACH MEAL AND 2 CAPS WITH EACH SNACK 540 capsule 11 024 2024 Discontinued metoCLOPRAMIDE (REGLAN) 5 mg/5 mL oral solutionIndicatio ns:Gastroparesis Take 5 mL (5 mg total) by mouth 4 (four) times a day before meals and nightly. 120 mL 025 2024 Discontinued metoCLOPRAMIDE (REGLAN) 5 MG tabletIndications :Gastroparesis Take 1 tablet (5 mg total) by mouth 4 (four) times a day. 120 tablet 3 025 2024 Discontinued Active Problems Problem Noted Date Diagnosed Date Heart palpitations 03/04/2024 Assessment & Plan (03/04/2024 10:16 AM EDT): Patient did not complain of any palpitations interval year. Patient is on atenolol for tremor. This may be helping Localized edema 03/02/2023 Intractable nausea and vomiting 06/23/2021 Pancreatic insufficiency due to cystic fibrosis 10/08/2020 Assessment & Plan (02/20/2021 5:04 AM EDT): Continue Creon Iron deficiency anemia 05/24/2020 Malabsorption 03/07/2020 Constipation 03/07/2020 Macromastia 09/11/2019 Gastroparesis 02/28/2019 Assessment & Plan (02/20/2021 5:04 AM EDT): Continue domperidone, Dexilant, Pepcid, Tums. Follows with [facility]. 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 Toure and Dr. Fernandes Pulmonary recommendations discussed with patient Albuterol 4 times a day MetaNebs 4 times a day Pulmozyme twice a day Budesonide twice a day Sputum sample, blood cultures. 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 Migraine 12/20/2016 Sleep disturbance 12/20/2016 Medication overuse headache 12/20/2016 GERD with esophagitis 10/18/2016 Acquired hypothyroidism 2016 Assessment & Plan (02/20/2021 5:04 AM EDT): Continue levothyroxine Vitamin D deficiency 2016 Cystic fibrosis exacerbation 2016 Migraine 07/01/2015 Asthma 04/24/2014 Chronic sinusitis 04/24/2014 Secondary diabetes mellitus 04/24/2014 Assessment & Plan (02/20/2021 5:00 AM EDT): Diabetes secondary to pancreatic insufficiency, cystic fibrosis On insulin pump Endocrine consult order placed in epic Disease of pancreas 04/24/2014 Cystic fibrosis of the lung 01/22/2014 Overview (08/03/2016): Description : has grown cepacia x 2 2011, genotype [id number] Need for desensitization to allergens 01/22/2014 Insomnia 01/22/2014 Resolved Problems Problem Noted Date Diagnosed Date Resolved Date Myalgia 05/01/2017 09/11/2019 Encounters Date Type Department Care Team Description 06/18/2025 Orders Only [address] [phone] Cindy Morales MD Gastroparesis (Primary Dx) 06/15/2025 Refill [facility] [place] [facility] [address] [place] [address] Sanjay Fernandes MD Pancreatic insufficiency 06/11/2025 Orders Only [facility] [address] [place] [phone] Cindy Morales MD Gastroparesis (Primary Dx) 06/05/2025 Orders Only [address] [place] [phone] Maile Gerard PA Gastroparesis (Primary Dx) 05/16/[address] [place] [phone] Sanjay Fernandes MD 05/05/2025 9:00 AM EDT Office Visit [facility] Department of Cardiology [address] [place] [address] Aashish Silva PA Preventative health care (Primary Dx); Heart palpitations; Leg swelling 05/02/2025 11:30 AM EDT Telemedicine [address] [place] [phone] Cindy Morales MD Colon cancer screening (Primary Dx); Gastroparesis 05/02/[address] [place] [phone] Esthela Wilson PA 04/29/2025 Orders Only [facility] [address] [facility] [address] [place] [phone] Sanjay Fernandes MD Cystic fibrosis of the lung (HCC) (Primary Dx) 04/21/2025 Refill [facility] [place] [facility] [place] [address] [place] [address] Devyn Rueda MD Anxiety; Insomnia; Cystic fibrosis of the lung (HCC) 04/17/2025 Orders Only [facility] [place] [address] [facility] [place] [phone] [place] Morris, Cystic fibrosis of the lung (HCC) (Primary Dx) 04/17/2025 Telephone [facility] [place] [address] [place] [address] [address] [place] [phone] Jersey Morris, 04/16/2025 Refill [facility] [place] [facility] [place] [facility] [address] [facility] 4th [place] [phone] Jersey Morris, Cystic fibrosis with pulmonary manifestations (HCC) 03/27/2025 Orders Only [facility] [place] [address] [facility] [address] [place] [phone] Sanjay Fernandes MD from Last 3 Months Immunizations Immunization Administration Dates Next Due Influenza Inactivated/Split Preservative Free IM 08/22/2018,08/30/2017 Influenza, Unspecified 07/23/2019 Family History Medical History Relation Name Comments Asthma Brother Malignant Hyperthermia Brother Hypertension Father COPD Maternal Grandfather Cholelithiasis Mother Diabetes Mother Heart disease Mother Hypertension Mother Migraines Mother Heart disease Paternal Grandfather Diabetes Paternal Grandmother Relation Name Status Comments Brother Father Maternal Grandfather Mother Paternal Grandfather Paternal Grandmother Social History Tobacco Use Types Packs/Day Years Used Date Smoking Tobacco: Never Smokeless Tobacco: Never Tobacco Cessation:Counseling Given: Not Answered Alcohol Use Standard Drinks/Week Comments No 0 (1 standard drink = 0.6 oz pur e alcohol) PHQ-2 Answer Date Recorded PHQ-2 Total Score 0 03/19/2025 Comments Unknown Sex and Gender Information Value Date Recorded Sex Assigned at Female 02/17/2023 1:57 PM EDT Legal Sex Female 2:57 PM EDT Gender Identity Female 02/17/2023 1:57 PM EDT Sexual Orientation Heterosexual (straight) 02/17 1:57 PM EDT Last Filed Vital Signs Vital Sign Reading Time Taken Comments Blood Pressure 108/62 05/05/2025 9:11 AM EDT Pulse 92 05/05/2025 9:11 AM EDT Temperature 36.2 C (97.2 F) 03/19/2025 10:52 AM EDT Respiratory Rate 20 07/02/2021 2:00 PM EDT Oxygen Saturation 96% 05/05/2025 9:11 AM EDT Inhaled Oxygen Concentration - - Weight 65 kg (143 lb 3.2 oz) 05/05/2025 9:11 AM EDT Height 166.4 cm (5' 5.5 ) 05/02/2025 11:36 AM ED T Body Mass Index 23.47 05/02/2025 11:36 AM EDT Plan of Treatment Upcoming Encounters Date Type Department Care Team (Latest Contact Info) Description 07/02/2025 11:00 AM EDT Clinical Support [facility] [address] [place] [address] [address] [place] [phone] 08/18/2025 10:30 AM EDT Hospital Encounter [facility] [address] [place] [phone] Cindy Morales MD [address] [place] [phone] 08/18/2025 10:30 AM EDT Appointment [facility] [address] [place] [address] Cindy Morales MD [address] [place] [phone] 08/18/2025 10:30 AM EDT - 08/18/2025 11:00 AM EDT Surgery [facility] [address] [place] [phone] Cindy Morales MD [address] [place] [phone] COLONOSCOPY 05/04/2026 11:00 AM EDT Office Visit [facility] Department of Cardiology [place] [address] [facility] [address] [place] [phone] Aashish Silva PA [address] [place] [address] Scheduled Procedures Name Priority Associated Diagnoses Date/Ti me COLONOSCOPY Colon cancer screening 08/18/2025 10:30 AM EDT Health Maintenance Due Date Last Done Comments Hepatitis C Virus Screening 1980 Lipid Panel 1990 Ophthalmology Exam 1990 HIV Screening 1993 Microalbumin/Creatinine Rati o Urine 1998 DTaP/Tdap/Td Vaccines (1 - Tdap) 1999 Hepatitis B Vaccines (1 of 3 - 19+ 3-dose series) 1999 Pneumococcal Vaccine: Pediat tamika (0-5 Years) and At-Risk Patients (6 to 49 Years) (1 of 2 - PCV) 1999 Pap Smear (Ages 21-65) 2001 HPV Vaccines (1 - 3-dose SCD M series) 2007 Creatinine with GFR 07/14/2023 07/14/2022, 07/02/2021, 07/01/2021, Additional history exists Hemoglobin A1C 05/03/2024 02/02/2024, 06/24, 02/20/2021, Additional history exists Foot Exam 03/04/2025 03/04/2024, 02/20, 03/04/2024, Additional history exists Influenza Vaccine 05/23/2025 09/19/2023, , 09/22/2021, Additional history exists COVID-19 Vaccine (3 - 2024-2 6 season) 2025 01/13/2021, 12/16/2020 Mammogram 02/26/2026 02/27/2024 Chronic Controlled Substance User PDMP Review Discontinued 08/02/2023, 06/23/2021, 02/19/2021 Goals Goal Patient Goal Type Associated Problems Recent Progress Patient-Stated? Author Autogenerat ed Goal Care Plan Autogenerated Problem No [employer] Implanted Type Area [employer]ueding Supervisor Device Identifier Shelf Expiration Date Model / Serial / Lot Port Implantable Infusion Vaccess Ct 6fr Power Injectable - [id number] Implanted:Qty: 1 on 10/10/2016 by Mark Gonzales III, MD at [facility] Access Port Right: Chest Wall [employer] - [id number] 05/19/2018 [id number] / [id number] / [id number] Procedures Procedure Name Priority Date/Time Associated Diagnosis Comments ECG 12-LEAD Routine 05/05/2025 9:15 AM EDT Preventative health care MG DIAGNOSTIC BILATERAL MAMMOGRAM WITH TOMOSYNTHESIS Routine 03/27/2025 9:53 AM EDT IMAGING BREAST/BX/MAMMO Routine 02/27/2024 HEMOGLOBIN A1C Routine 07/14/2022 11:30 AM EDT Cystic fibrosis with pulmonary manifestations (HCC) Disorder of pancreatic internal secretion, unspecified COMPREHENSIVE METABOLIC PANEL Routine 07/14/2022 11:30 AM EDT Cystic fibrosis with pulmonary manifestations (HCC) from Last 3 Months or Most Recently Relevant to Health Maintenance Results * ECG 12 lead (05/05/2025 9:15 AM EDT) 05/05/2025 9:15 AM EDT us Aashish STATON ECG ORDERABLES Final Result * MG DIAGNOSTIC BILATERAL MAMMOGRAM WITH TOMOSYNTHESIS (03/27/2025 9:53 AM EDT) Anatomical Region Laterality Modality Other us Sanjay Fernandes MD IMG LEGACY PROCEDURES Final Result * Imaging Breast/Bx/Mammo Result (02/27/2024) Anatomical Region Laterality Modality Other us Scan Pulmonary IMG LEGACY PROCEDURES Final Resu lt * (ABNORMAL) Hemoglobin A1c (07/14/2022 11:30 AM EDT) Hemoglobin A1C 8.4(H) <5.7 % of total Hgb [employer] Comment: For someone without known diabetes, a hemoglobin A1c value of 6.5% or greater indicates that they may have diabetes and this should be confirmed with a follow-up test. For someone with known diabetes, a value <7% indicates that their diabetes is well controlled and a value greater than or equal to 7% indicates suboptimal control. A1c targets should be individualized based on duration of diabetes, age, comorbid conditions, and other considerations. Currently, no consensus exists regarding use of hemoglobin A1c for diagnosis of diabetes for children. Blood specimen (specimen) Blood specimen / Unknown 07/14/2022 11:30 AM EDT 07/14/2022 11:30 AM EDT Narrative [facility] - 07/17/2022 10:57 PM EDT FASTING:NO FASTING: NO us Terry Su MD LAB BLOOD ORDERABLES Final Res ult [facility] [address] [place] [address], [place] [phone] * (ABNORMAL) Comprehensive Metabolic Panel (07/14/2022 11:30 AM EDT) Pathologist [facility] Glucose 253(H) 65 - 139 mg/dL [facility] Comment: Non-fasting reference interval Blood Urea Nitrogen (BUN) 7 7 - 25 mg/dL [facility] Creatinine 0.77 0.50 - 0.99 mg/dL [facility] Creatinine w/ eGFR 99 > OR = 60 mL/min/1 .73m2 [facility] Comment: The eGFR is based on the CKD-EPI 2020 equation. To calculate the new eGFR from a previous Creatinine or Cystatin C result, go to https://www.kidney.org/professionals/ kdoqi/gfr%5Fcalculator BUN/Creatinine Ratio NOT APPLICABLE 6 - 22 (calc) [facility] Sodium 130(L) 135 - 146 mmol/L [facility] Potassium 3.7 3.5 - 5.3 mmol/L [facility] Chloride 103 98 - 110 mmol/L [facility] CO2 17(L) 20 - 32 mmol/L [facility] Calcium 9.0 8.6 - 10.2 mg/dL [facility] Protein, Total 5.9(L) 6.1 - 8.1 g/dL [facility] Albumin 3.6 3.6 - 5.1 g/dL [facility] Globulin 2.3 1.9 - 3.7 g/dL (calc) [facility] Albumin/Globuli n Ratio 1.6 1.0 - 2.5 (calc) [facility] Bilirubin, Total 0.2 0.2 - 1.2 mg/dL [facility] Alkaline Phosphatase 88 31 - 125 U/L [facility] Aspartate Aminotrans (AST) 11 10 - 30 U/L [facility] Alanine Aminotrans (ALT) 13 6 - 29 U/L [facility] Blood specimen (specimen) Blood specimen / Unknown 07/14/2022 11:30 AM EDT 07/14/2022 11:30 AM EDT Narrative [facility] - 07/17/2022 10:57 PM EDT FASTING:NO FASTING: NO us Terry Su MD LAB BLOOD ORDERABLES Final Res ult [facility] [address] [place] [address], [place] [address] from Last 3 Months or Most Recently Relevant to Health Maintenance Additional Health Concerns Active Problems Noted Date Diagnosed Date Autogenerated Problem 05/06/2025 Infection Onset Date Last Indicated MDRO Comment:Contact Precautions every admission, 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 Other CF 08/16/2018 08/28/2018 08/28/2018 Cystic Fibrosis (CF) Comment:Place on contact isolation for each encounter 12/05/2023 12/05/2023 Insurance [facility] - PPO MEDICARE PART A & B [facility] MEDICARE PART A & B [facility] [place]IC[facility] PART A & B [place] [place] [facility] MEDIC[facility] PART A & B Advance Directives * Full Code (Latest Code Status on File) Date Activated Date Inactivated Comments 06/23/2021 6:20 PM * Full Code Date Activated Date Inactivated Comments 02/19/2021 7:09 PM 06/23/2021 5:31 PM Question Answer Comments Decision Thoroughly Discussed with: Patient * Full Code Date Activated Date Inactivated Comments 09/11/2019 2:51 PM 06/08/2020 9:45 AM * Full Code Date Activated Date Inactivated Comments 09/11/2019 6:31 AM 09/11/2019 2:51 PM * Full Code Date Activated Date Inactivated Comments 08/15/2018 5:34 PM 09/11/2019 6:19 AM Question Answer Comments Decision Thoroughly Discussed with: Patient Care Teams Support Services Tech Relationship Specialty Start Date End Date Sanjay Fernandes MD [address] [place] [id number] PCP - General Pulmonary Disease 05/05/25 Franklin Simmons MD Physician Otolaryngology 06/14/17 Godwin Saunders DO Physician Endocrinology 06/14/17 Gael Stockton MD Internal Medicine 05/26/20 Godwin Malcolm MD Hematology Oncology 11/03/20 Heather Packer, ADULT NEUROPSYCHOLOGIST [address] [facility] [address] [place] [address] Respiratory Care Practitioner Respiratory Therapist 09/20/24 Antonia Willis MD [address] [facility] [address] Internal Medicine 02/17/25 Logan Doran MD [address] [place] [address] 03/18/25
--- OUTSIDE RECORDS SUMMARY | 2025-06-26 18:25 | XMS_ITS | Encounter Summary ---
Author Organization [facility] Address [address] [place] [address] Care Team Providers Care Roofer Metal Name Role Phone Sanjay Fernandes MD Primary Care Provider [phone] Franklin Simmons MD Unavailable [phone] Godwin Saunders DO Unavailable Gael Stockton MD Unavailable Unavailable Gael Stockton MD Primary Care Provider Unavail able Godwin Malcolm MD Unavailable Unavailable Gael Stockton MD Unavailable Unavailable Heather Packer TIE CUTTER Unavailable [phone] Antonia Willis MD Unavailable Logan Doran MD Unavailable [phone] Sanjay Fernandes MD Primary Care Provider Encounter Details Date Type Department Care Team (Late st Contact Info) Description 01/28/2019 Scanned Document [facility] [address] [place] [phone] Social History Tobacco Use Types Packs/Day [...] EDT Clinical Support [facility] [address] [place] [address] 4th [place] [phone] 08/18/2025 10:30 AM EDT Hospital Encounter [facility] Gastroenterology Division [address] [place] [phone] Vitor Morales MD [address] [place] [address] [phone] 08/18/2025 10:30 AM EDT Appointment [facility] [address] [place] [address] Vitor Morales MD [address] [place] [address] [phone] 08/18/2025 10:30 AM EDT - 08/18/2025 11:00 AM EDT Surgery [facility] Gastroenterology Division [address] [place] [phone] Vitor Morales MD [address] [place] [address] [phone] COLONOSCOPY 05/04/2026 11:00 AM EDT Office Visit [facility] Physicians Department of Cardiology [place] [address] [place] [phone] Aashish Silva PA [address] [place] [address] [phone] Scheduled Procedures Name Priority Associated Diagnoses Date/Ti [...] documented as of this encounter Care Teams Roofer Metal Relationship Specialty Start Date End Date Sanjay Fernandes MD [address] [place] [address] PCP - General Pulmonary Disease 05/28/16 06/22/20 Gael Stockton MD [address] [place] [address] PCP - General Internal Medicine 06/23/20 05/04/25 Gael Stockton MD PCP - [facility] Medicare Patients 11/23/22 03/22/23 Sanjay Fernandes MD [address] [place] [address] PCP - General Pulmonary Disease 05/05/25 Franklin Simmons MD [address] [place] [address] Physician Otolaryngology 06/14/17 Godwin Saunders DO [address] [place] [address] Physician Endocrinology 06/14/17 Gael Stockton MD [address] [place] [address] Internal Medicine 05/26/20 Godwin Malcolm MD [address] [place] [address] Hematology Oncology 11/03/20 Heather Packer, TIE CUTTER [address] [place] 4 [place] [address] Respiratory Care Practitioner Respiratory Therapist 09/20/24 Antonia Willis MD [address] and [place] [address] Internal Medicine 02/17/25 Logan Doran MD 30 [place] [address] 03/18/25 documented as of this encounter
--- OUTSIDE RECORDS SUMMARY | 2025-06-26 18:25 | XMS_ITS | Encounter Summary ---
Author Organization [facility] Address [address] [place] [address] Care Team Providers Care Financial Sales Representative Name Role Phone Sanjay Fernandes MD Primary Care Provider Franklin Simmons MD Unavailable [phone] Godwin Saunders DO Unavailable [phone] Gael Stockton MD Unavailable Unavailable Gael Stockton MD Primary Care Provider Unavail able Godwin Malcolm MD Unavailable Unavailable Gael Stockton MD Unavailable Unavailable Ochoa Heather SHOE CASER Unavailable Antonia Willis MD Unavailable Logan Doran MD Unavailable Sanjay Fernandes MD Primary Care Provider Reason for Visit * Reason Onset Date Comments Medication Refill 10/14/2016 Encounter Details Date Type Department Care Team (Late st Contact Info) Description 10/14/2016 Refill [facility] [address] [place] [phone] Provider, MD Devyn [address] [place] [address] Cystic fibrosis (HCC) (Primary Dx); Moderate persistent asthma without complication Social History Tobacco Use Types Packs/Day Years Used Date Smoking Tobacco: Never Smokeless Tobacco: Never Comments Unknown Sex and Gender Information Value [...] 11:00 AM EDT Clinical Support [facility] [address] [facility] 4th [place] [phone] 08/18/2025 10:30 AM EDT Hospital Encounter [facility] Gastroenterology Division [address] [place] [phone] Vitor Morales MD [address] [place] [address] [id number] 08/18/2025 10:30 AM EDT Appointment [facility] [address] [place] [address] Vitor Morales MD [address] [place] [address] [phone] 08/18/2025 10:30 AM EDT - 08/18/2025 11:00 AM EDT Surgery [facility] Gastroenterology Division [address] [place] [phone] Vitor Morales MD [address] [place] [address] COLONOSCOPY 05/04/2026 11:00 AM EDT Office Visit [facility] Department of Cardiology [place] [address] [place] [phone] Aashish Silva PA [address] [place] [address] Scheduled Procedures Name Priority Associated Diagnoses Date/Ti wi COLONOSCOPY Colon cancer screening 08/18/2025 10:30 AM EDT documented as of this encounter Visit Diagnoses Diagnosis Cystic fibrosis (HCC)- Primary Cystic fibrosis without mention of meconium ileus Moderate persistent asthma without complication Colon cancer screening Special screening for malignant [...] as of this encounter Care Teams Financial Sales Representative Relationship Specialty Start Date End Date Sanjay Fernandes MD [address] [place] [address] PCP - General Pulmonary Disease 05/28/16 06/22/20 Gael Stockton MD [address] [place] [address] PCP - General Internal Medicine 06/23/20 05/04/25 Gael Stockton MD PCP - [facility] Medicare Patients 11/23/22 03/22/23 Sanjay Fernandes MD [address] [place] [address] PCP - General Pulmonary Disease 05/05/25 Franklin Simmons MD [address] [place] [address] Physician Otolaryngology 06/14/17 Godwin Saunders DO [address] [place] [address] Physician Endocrinology 06/14/17 Gael Stockton MD [address] [address] Internal Medicine 05/26/20 Godwin Malcolm MD [address] [address] Hematology Oncology 11/03/20 Heather Packer, SHOE CASER [address] [place] [address] [place] [address] Respiratory Care Practitioner Respiratory Therapist 09/20/24 Antonia Willis MD [address] [facility] [place] [address] Internal Medicine 02/17/25 Logan Doran MD 30 [place] [address] 03/18/25 documented as of this encounter
--- OUTSIDE RECORDS SUMMARY | 2025-06-26 18:25 | XMS_ITS | Encounter Summary ---
Author Organization [facility] Address [address] [place] [address] Care Team Providers Care Cement Worker Name Role Phone Sanjay Fernandes MD Primary Care Provider Franklin Simmons MD Unavailable Godwin Saunders DO Unavailable [phone] Gael Stockton MD Unavailable Unavailable Gael Stockton MD Primary Care Provider Unavail able Godwin Malcolm MD Unavailable Unavailable Gael Stockton MD Unavailable Unavailable Heather Packer CODE ENFORCEMENT OFFICER Unavailable Antonia Willis MD Unavailable Logan Doran MD Unavailable [phone] Sanjay Fernandes MD Primary Care Provider Encounter Details Date Type Department Care Team (Late st Contact Info) Description 12/24/2018 Telephone [facility] [address] [place] [phone] Provider, MD Devyn [address] [place] [address] Social History Tobacco Use Types Packs/Day Years [...] Miscellaneous Notes * Telephone Encounter - Evelin Matiashenrietta - 12/24/2018 4:51 PM EST Carla reached out to me saying her PA for Belsomra was denied. I did not intiate a PA or know that it required a PA. She said one of the docs in the office prescribed it so I worked on an appeal but found that Dr. Baltazar is prescribing this. I told her to reach out to the [facility] office to have Dr. Baltazar's [place] or whoever initiated the PA to complete the appeal. I can only do PAs for meds prescribed by the cf clinic providers. Also the insurance was getting mixed information from me and whoever initiated the PA, as far as provider information. It is best to have the [facility] office complete this PA. documented in this encounter Plan of Treatment Upcoming Encounters Date Type Department Care Team (Latest Contact Info) Description 07/02/2025 11:00 AM EDT Clinical Support [facility] [place] [facility] [address] [place] [phone] 08/18/2025 10:30 AM EDT Hospital Encounter [facility] Gastroenterology Division [address] [place] [phone] Vitor Morales MD [address] [place], [place] [phone] 08/18/2025 10:30 AM EDT Appointment [facility] [address] [address] Vitor Morales MD [address] [place] [address] [phone] 08/18/2025 10:30 AM EDT - 08/18/2025 11:00 AM EDT Surgery [facility] Gastroenterology Division [address] [place] [phone] Vitor Morales MD [address] [address] COLONOSCOPY 05/04/2026 11:00 AM EDT Office Visit [facility] Department of Cardiology [place] [address] [place] [phone] Aashish Silva PA [address] [place] [address] Scheduled Procedures Name Priority Associated Diagnoses Date/Ti [...] documented as of this encounter Care Teams Cement Worker Relationship Specialty Start Date End Date Sanjay Fernandes MD [address] [place] [address] PCP - General Pulmonary Disease 05/28/16 06/22/20 Gael Stockton MD [address] [place] [address] PCP - General Internal Medicine 06/23/20 05/04/25 Gael Stockton MD PCP - [facility] Medicare Patients 11/23/22 03/22/23 Sanjay Fernandes MD [address] [place] [address] PCP - General Pulmonary Disease 05/05/25 Franklin Simmons MD [address] [place] [address] Physician Otolaryngology 06/14/17 Godwin Saunders DO [address] [place] [address] Physician Endocrinology 06/14/17 Gael Stockton MD [address] [place], [place] [phone] Internal Medicine 05/26/20 Godwin Malcolm MD [address] [place] [address] Hematology Oncology 11/03/20 Heather Packer, CODE ENFORCEMENT OFFICER [address] [place] [address] [place] [address] Respiratory Care Practitioner Respiratory Therapist 09/20/24 Antonia Willis MD [address] [place] [address] and [place] [address] Internal Medicine 02/17/25 Logan Doran MD [address] [place] [address] 03/18/25 documented as of this encounter
--- OUTSIDE RECORDS SUMMARY | 2025-06-26 18:25 | XMS_ITS | Encounter Summary ---
Author Organization [facility] Address [facility] [address] [place] [address] Phone Care Team Providers Care Research Program Manager Name Role Phone Azalea Rehman MD Unavailable Logan Doran MD Unavailable [phone] Maddi Mayers MD Unavailable [phone] Chiquis Gusman MD Unavailable [phone] Sanjay Fernandes MD Primary Care Provider Encounter Details Date Type Department Care Team (Late st Contact Info) Description 12/03/2024 Procedure Pass [facility], [address] [address] Social History Tobacco Use Types Packs/Day Years Used Date Smoking Tobacco: Never Smokeless Tobacco: Never Alcohol Use Standard Drinks/Week Comments No 0 (1 standard drink = 0.6 oz pur e alcohol) Education Answer Date Recorded Are you interested in more education? Not on kriss e 02/17/2023 Are you concerned about learning? Not on file 02/17/2023 No 02/17/2023 No 02/17/2023 Digital Access Answer Date Recorded No 03/19/2023 No 03/19/2023 Reliable internet access at home? Not on file 03/19/2023 Device with a working camera? Not on file Comments No Sex and Gender Information Value Date Recorded Sex Assigned at Female 03/22/2019 9:55 AM EDT Legal Sex Female 5:21 PM EST Gender Identity Female 03/22/2019 9:55 AM EDT Sexual Orientation Choose not to disclose 2019 4:52 PM EST documented as of this encounter Plan of Treatment Upcoming Encounters Date Type Department Care Team (Late st Contact Info) Description 07/04/2025 11:30 AM EDT Office Visit [address] [address] Maddi Mayers MD [address] [place] [address] Orthopedics Sports [facility], [place], [place] [phone] [email or web address] Caroline [email or web address], PT 4 [place], [place] [email or web address] 07/04/2025 3:00 PM EDT Office Visit [address] [address] Jessica Keyes [address] [place] [address], [address] [place] [address] [email or web address] 07/08/2025 1:15 PM EDT Office Visit [address] [address] Maddi Mayers MD [address] [place] [address], [place], [place] [phone] [email or web address] Caroline [email or web address], PT [address] [place], [place] [id number] 07/15/2025 11:30 AM EDT Office Visit [address] [phone] Maddi Mayers MD [address] [place] [address], [place], [place] [phone] [email or web address] Caroline [email or web address], PT 4 [place] [address] [email or web address] 07/22/2025 11:30 AM EDT Office Visit [address] [address] Maddi Mayers MD [address] [place] [address] Sports [facility], [place] [address] [email or web address] Caroline [email or web address], PT 4 [place] [address] 07/29/2025 11:00 AM EDT Office Visit [address] [address] Maddi Mayers MD [address] [place] [address], [place] [address] [email or web address] Indira Willingham, ASSEMBLER [employer]INGER [employer] [address] [place] [address] 08/05/2025 11:30 AM EDT Office Visit [address] [address] Maddi Mayers MD [address] [place] [address] Sports [facility], [place] [address] [email or web address] Caroline [email or web address], PT 4 [place] [address] 08/12/2025 11:00 AM EDT Office Visit [address] [address] Maddi Mayers MD [address] [place] [address] Sports [facility], [place] [address] [email or web address] [email or web address] PTA 4 [place] [address] 08/20/2025 11:00 AM EDT Office Visit [facility] Rehabilitation Services [address] [place] [address] [phone] Maddi Mayers MD [address] [place] [address] [facility] [place] [address] [email or web address] Caroline [email or web address], PT 4 [place] [address] 08/22/2025 11:00 AM EDT Office Visit [facility], Department of Neurology [address] [place] [address] Antonia Haynes MD [address] [place] [address] documented as of this encounter Visit Diagnoses Not on filedocumented in this encounter Care Teams Research Program Manager Relationship Specialty Start Date End Date Sanjay Fernandes MD [address] [place] [address] PCP - General Pulmonary Disease 04/17/18 Azalea Rehman MD [address] [address] Historical LMR Provider 08/09/17 Logan Doran MD [address] [address] Historical LMR Provider 08/09/17 Maddi Mayers MD [address] [place] [address] Orthopedics [facility] Medicine, [place] [address] Historical LMR Provider 08/09/17 Chiquis Gusman MD [address] [place] [address] 102 [place] [address] [email or web address] Historical LMR Provider 08/09/17 documented as of this encounter Additional Source Comments The information contained in this document represents components of the legal health record. It is not the complete legal health record.[facility]
--- OUTSIDE RECORDS SUMMARY | 2025-06-26 18:25 | XMS_ITS | Encounter Summary ---
Author Organization [facility] Address [address] [place] [address] Care Team Providers Care Patient Support Partner Name Role Phone Sanjay Fernandes MD Primary Care Provider Franklin Simmons MD Unavailable [phone] Godwin Saunders DO Unavailable [phone] Gael Stockton MD Unavailable Unavailable Gael Stockton MD Primary Care Provider Unavail able Godwin Malcolm MD Unavailable Unavailable Gael Stockton MD Unavailable Unavailable Heather Packer STAFF EDITOR Unavailable [phone] Antonia Willis MD Unavailable Logan Doran MD Unavailable Sanjay Fernandes MD Primary Care Provider [phone] Encounter Details Date Type Department Care Team (Late st Contact Info) Description 05/01/2017 Scanned Document [address] [place] [address] Yvette Green APRN Social History Tobacco Use [...] EDT Clinical Support [facility] Cystic Fibrosis Center [address] [place] [address] 4th [place] [phone] 08/18/2025 10:30 AM EDT Hospital Encounter [facility] Gastroenterology Division [address] [place] [phone] Vitor Morales MD [address] [place] [address] [phone] 08/18/2025 10:30 AM EDT Appointment [facility] [address] [place] [address] Vitor Morales MD [address] [place] [address] [phone] 08/18/2025 10:30 AM EDT - 08/18/2025 11:00 AM EDT Surgery [facility] Gastroenterology Division [address] [place] [phone] Vitor Morales MD [address] [place] [address] [phone] COLONOSCOPY 05/04/2026 11:00 AM EDT Office Visit [facility] Physicians Department of Cardiology [place] [address] [place] [phone] Aashish Silva PA [address] [place] [address] [phone] Scheduled Procedures Name Priority Associated Diagnoses Date/Ti [...] documented as of this encounter Care Teams Patient Support Partner Relationship Specialty Start Date End Date Sanjay Fernandes MD [address] [address] PCP - General Pulmonary Disease 05/28/16 06/22/20 Gael Stockton MD [address] [place] [address] PCP - General Internal Medicine 06/23/20 05/04/25 Gael Stockton MD PCP - [facility] Medicare Patients 11/23/22 03/22/23 Sanjay Fernandes MD [address] [place] [address] PCP - General Pulmonary Disease 05/05/25 Franklin Simmons MD [address] [place] [address] Physician Otolaryngology 06/14/17 Godwin Saunders DO [address] [address] Physician Endocrinology 06/14/17 Gael Stockton MD [address] [place] [address] Internal Medicine 05/26/20 Godwin Malcolm MD 85 [facility] 923 [place] [address] Hematology Oncology 11/03/20 Heather Packer, STAFF EDITOR [address] [facility] 4 [place] [address] Respiratory Care Practitioner Respiratory Therapist 09/20/24 Antonia Willis MD 850 [facility] 530 [facility] and [place] [address] Internal Medicine 02/17/25 Logan Doran MD 30 [place] [address] 03/18/25 documented as of this encounter
--- OUTSIDE RECORDS SUMMARY | 2025-06-26 18:25 | XMS_ITS | Encounter Summary ---
Author Organization [facility] Address [address] [place] [address] Care Team Providers Care Development Technologist Name Role Phone Sanjay Fernandes MD Primary Care Provider Franklin Simmons MD Unavailable [phone] Godwin Saunders DO Unavailable Gael Stockton MD Unavailable Unavailable Gael Stockton MD Primary Care Provider Unavail able Godwin Malcolm MD Unavailable Unavailable Gael Stockton MD Unavailable Unavailable Heather Packre MOLD CUTTING MACHINE OPERATOR Unavailable [phone] Antonia Willis MD Unavailable Logan Doran MD Unavailable Sanjay Fernandes MD Primary Care Provider Encounter Details Date Type Department Care Team (Late st Contact Info) Description 03/23/2017 Documentation [facility] PULMONARY S[facility] IP [address] [place] [address] Ashley Whipple, SHEMAR [address] [place] [address] Social History Tobacco Use Types Packs/Day Years [...] 11:00 AM EDT Clinical Support [facility] [address] [facility] 4th [place] [phone] 08/18/2025 10:30 AM EDT Hospital Encounter [facility] Gastroenterology Division [address] [place] [phone] Vitor Morales MD [address] [place] [address] [phone] 08/18/2025 10:30 AM EDT Appointment [facility] [address] [place] [address] Vitor Morales MD [address] [place] [address] [phone] 08/18/2025 10:30 AM EDT - 08/18/2025 11:00 AM EDT Surgery [facility] Gastroenterology Division [address] [place] [phone] Vitor Morales MD [address] [place] [address] COLONOSCOPY 05/04/2026 11:00 AM EDT Office Visit [facility] Physicians Department of Cardiology [place] [address] [place] [phone] Aashish Silva PA [address] [place] [address] Scheduled Procedures Name Priority Associated Diagnoses Date/Ti [...] documented as of this encounter Care Teams Development Technologist Relationship Specialty Start Date End Date Sanjay Fernandes MD [address] [place] [address] PCP - General Pulmonary Disease 05/28/16 06/22/20 Gael Stockton MD [address] [place] [address] PCP - General Internal Medicine 06/23/20 05/04/25 Gael Stockton MD PCP - [facility] Medicare Patients 11/23/22 03/22/23 Sanjay Fernandes MD [address] [place] [address] PCP - General Pulmonary Disease 05/05/25 Fraknlin Simmons MD [address] [place] [address] Physician Otolaryngology 06/14/17 Godwin Saunders DO [address] [place] [address] Physician Endocrinology 06/14/17 Gael Stockton MD [address] [address] Internal Medicine 05/26/20 Godwin Malcolm MD [address] [address] Hematology Oncology 11/03/20 Heather Packer, MOLD CUTTING MACHINE OPERATOR [address] [place] 4 [place] [address] Respiratory Care Practitioner Respiratory Therapist 09/20/24 Antonia Willis MD [address] [place] [address] and [place] [address] Internal Medicine 02/17/25 Logan Doran MD 30 [place] [address] 03/18/25 documented as of this encounter
--- OUTSIDE RECORDS SUMMARY | 2025-06-26 18:25 | XMS_ITS | Encounter Summary ---
Author Organization [facility] Address [address] [facility] [address] [place] [address] Phone Care Team Providers Care Business Attorney Name Role Phone Azalea Rehman MD Unavailable Logan Doran MD Unavailable [phone] Maddi Mayers MD Unavailable [phone] Chiquis Gusman MD Unavailable [phone] Sanjay Fernandes MD Primary Care Provider Encounter Details Date Type Department Care Team (Late st Contact Info) Description 03/21/2025 Procedure Pass [facility], [address] [address] Social History Tobacco Use Types Packs/Day Years [...] with a working camera? Not on file Intimate Partner Violence Answer Date R ecorded Are you denied basic needs s uch as food, clothing, or medical care? No 02/14/2025 In the past 12 months have y ou been in a relationship with a person who hurts, threatens, or tries to control you? No 02/14/2025 Are you denied basic needs s uch as food, clothing, or medical care? No 02/14/2025 In the past 12 months have y ou been in a relationship with a person who hurts, threatens, or tries to control you? No 02/14/2025 Comments No Sex and Gender Information Value [...] Description 07/04/2025 11:30 AM EDT Office Visit [address] [address] Maddi Mayers MD [address] [place] [address] [facility] [place], [place] [phone] [email or web address] PT 4 [place] [address] 07/04/2025 3:00 PM EDT Office Visit [address] [address] Jessica Keyes [address] [place] [address], [address] [place] [address] [email or web address] 07/08/2025 1:15 PM EDT Office Visit [address] [phone] Maddi Mayers MD [address] [place], [place] [address]s [facility] [place], [place] [phone] [email or web address], PT 4 [place] [address] 07/15/2025 11:30 AM EDT Office Visit [address] [address] Maddi Mayers MD [address] [place] [address] [facility], [place] [address] [email or web address], PT 4 [place] [address] 07/22/2025 11:30 AM EDT Office Visit [address] [address] Maddi Mayers MD [address] [place] [address], [place] [address] [email or web address], PT 4 [place] [address] 07/29/2025 11:00 AM EDT Office Visit [address] [address] Maddi Mayers MD [address] [place] [address], [place] [address] [email or web address], INSTALLATIONS INSPECTOR 4 [place] [address] 08/05/2025 11:30 AM EDT Office Visit [address] [address] Maddi Mayers MD [address] [place] [address] [facility], [place] [address] [email or web address] PT 4 [place] [address] 08/12/2025 11:00 AM EDT Office Visit [address] [address] Maddi Mayers MD [address] [place] [address] Orthopedics [facility], [place] [address] [email or web address] PTA [address] [place] [address] 08/20/2025 11:00 AM EDT Office Visit [address] [address] Maddi Mayers MD [address] [place], [place] [address]s [facility], [place] [address] [email or web address], PT 4 [place] [address] 08/22/2025 11:00 AM EDT Office Visit [facility], Department of Neurology [address] [place] [address] Antonia Haynes MD [address] [place] [address] documented as of this encounter Visit Diagnoses Not on filedocumented in this encounter Care Teams Business Attorney Relationship Specialty Start Date End Date Sanjay Fernandes MD [address] [place] [address] PCP - General Pulmonary Disease 04/17/18 Azalea Rehman MD [address] [address] Historical LMR Provider 08/09/17 Logan Doran MD [address] [address] Historical LMR Provider 08/09/17 Maddi Mayers MD [address] [place] [address] [facility], [place] [address] Historical LMR Provider 08/09/17 Chiquis Gusman MD [address] [place] [address] Historical LMR Provider 08/09/17 documented as of this encounter Additional Source Comments The information contained in this document represents components of the legal health record. It is not the complete legal health record.[facility]
--- OUTSIDE RECORDS SUMMARY | 2025-06-26 18:25 | XMS_ITS | Encounter Summary ---
Author Organization [facility] Address [address] [place] [address] Care Team Providers Care Industrial Gas Fitter Helper Name Role Phone Sanjay Fernandes MD Primary Care Provider [phone] Franklin Simmons MD Unavailable [phone] Godwin Saunders DO Unavailable Gael Stockton MD Unavailable Unavailable Gael Stockton MD Primary Care Provider Unavail able Godwin Malcolm MD Unavailable Unavailable Gael Stockton MD Unavailable Unavailable Ochoa Heather HAND CULTIVATOR Unavailable [phone] Antonia Willis MD Unavailable Logan Doran MD Unavailable [phone] Sanjay Fernandes MD Primary Care Provider Reason for Visit * Reason Comments Medication Refill Encounter Details Date Type Department Care Team (Late st Contact Info) Description 02/03/2019 Refill [facility] [address] [place], [place] [phone] Lisa Barr PA [address] [place], [place] [id number] Chronic migraine without aura, with intractable migraine, [...] 11:00 AM EDT Clinical Support [facility] [address] [place] [address] 4th [place] [phone] 08/18/2025 10:30 AM EDT Hospital Encounter [facility] [address] [place] [address] [phone] Vitor Morales MD [address] [place], [place] [phone] 08/18/2025 10:30 AM EDT Appointment [facility] [address] [place] [address] Vitor Morales MD [address] [place] [address] [phone] 08/18/2025 10:30 AM EDT - 08/18/2025 11:00 AM EDT Surgery [facility] [address] [place] [address] [phone] Vitor Morales MD [address] [place] [address] [phone] COLONOSCOPY 05/04/2026 11:00 AM EDT Office Visit [facility] Department of Cardiology [place] [address] [place] [address] Aashish Silva PA [address] [place] [address] Scheduled Procedures Name Priority Associated Diagnoses Date/Ti [...] documented as of this encounter Care Teams Industrial Gas Fitter Helper Relationship Specialty Start Date End Date Sanjay Fernandes MD [address] [place] [address] PCP - General Pulmonary Disease 05/28/16 06/22/20 Gael Stockton MD [address] [place] [address] PCP - General Internal Medicine 06/23/20 05/04/25 Gael Stockton MD PCP - [facility] Medicare Patients 11/23/22 03/22/23 Sanjay Fernandes MD [address] [place] [address] PCP - General Pulmonary Disease 05/05/25 Franklin Simmons MD [address] [place] [address] Physician Otolaryngology 06/14/17 Godwin Saunders DO [address] [place] [address] Physician Endocrinology 06/14/17 Gael Stockton MD [address] [address] Internal Medicine 05/26/20 Godwin Malcolm MD [address] [address] Hematology Oncology 11/03/20 Heather Packer, HAND CULTIVATOR [address] [place] 4 [place] [address] Respiratory Care Practitioner Respiratory Therapist 09/20/24 Antonia Willis MD [address] [facility] [place] [address] Internal Medicine 02/17/25 Logan Doran MD 30 [place] [address] 03/18/25 documented as of this encounter
--- OUTSIDE RECORDS SUMMARY | 2025-06-26 18:25 | XMS_ITS | Encounter Summary ---
Author Organization [facility] Address [address] [place] [address] Care Team Providers Care Hand Wrapper Operator Name Role Phone Sanjay Fernandes MD Primary Care Provider Franklin Simmons MD Unavailable [phone] Godwin Saunders DO Unavailable Gael Stockton MD Unavailable Unavailable Gael Stockton MD Primary Care Provider Unavail able Godwin Malcolm MD Unavailable Unavailable Gael Stockton MD Unavailable Unavailable Heather Packer MANAGER FLOAT Unavailable [phone] Antonia Willis MD Unavailable Logan Doran MD Unavailable Sanjay Fernandes MD Primary Care Provider Encounter Details Date Type Department Care Team (Late st Contact Info) Description 02/15/2017 Scanned Document [facility] [place] [facility] [address] [place] [phone] Social History Tobacco Use Types Packs/Day [...] [facility] [address] [place] [address] 4[address] [place] [phone] 08/18/2025 10:30 AM EDT Hospital Encounter [facility] [address] [place] [phone] Vitor Morales MD [address] [place] [phone] 08/18/2025 10:30 AM EDT Appointment [facility] [address] [place] [address] Vitor Morales MD [address] [place] [phone] 08/18/2025 10:30 AM EDT - 08/18/2025 11:00 AM EDT Surgery [facility] [address] [place] [phone] Vitor Morales MD [address] [place] [phone] COLONOSCOPY 05/04/2026 11:00 AM EDT Office Visit [facility] Physicians Department of Cardiology [place] [address] [place] [phone] Aashish Silva PA [address] [place] [address] Scheduled Procedures Name Priority Associated Diagnoses Date/Ti [...] documented as of this encounter Care Teams Hand Wrapper Operator Relationship Specialty Start Date End Date Sanjay Fernandes MD [address] [address] PCP - General Pulmonary Disease 05/28/16 06/22/20 Gael Stockton MD [address] [place] [address] PCP - General Internal Medicine 06/23/20 05/04/25 Gael Stockton MD PCP - [facility] Medicare Patients 11/23/22 03/22/23 Sanjay Fernandes MD [address] [place] [address] PCP - General Pulmonary Disease 05/05/25 Franklin Simmons MD [address] [place] [address] Physician Otolaryngology 06/14/17 Godwin Saunders DO [address] [address] Physician Endocrinology 06/14/17 Gael Stockton MD [address] [place] [address] Internal Medicine 05/26/20 Godwin Malcolm MD 85 [facility] 923 [place] [address] Hematology Oncology 11/03/20 Heather Packer, MANAGER FLOAT [facility] 4 [place] [address] Respiratory Care Practitioner Respiratory Therapist 09/20/24 Antonia Willis MD 850 [facility] 530 [facility] [place] [address] Internal Medicine 02/17/25 Logan Doran MD 30 [place] [address] 03/18/25 documented as of this encounter
--- OUTSIDE RECORDS SUMMARY | 2025-06-26 18:25 | XMS_ITS | Encounter Summary ---
Author Organization [facility] Address [address] [place] [address] Care Team Providers Care Mining Manager Name Role Phone Sanjay Fernandes MD Primary Care Provider Franklin Simmons MD Unavailable [phone] Godwin Saunders DO Unavailable Gael Stockton MD Unavailable Unavailable Gael Stockton MD Primary Care Provider Unavail able Godwin Malcolm MD Unavailable Unavailable Gael Stockton MD Unavailable Unavailable Heather Packer INSTALLATION MANAGER Unavailable Antonia Willis MD Unavailable Logan Doran MD Unavailable Sanjay Fernandes MD Primary Care Provider Encounter Details Date Type Department Care Team (Late st Contact Info) Description 12/14/2016 Scanned Document [facility]rosis [facility] [address] [place] [phone] Social History Tobacco Use Types Packs/Day [...] EDT Clinical Support [facility] [address] [facility] 4th [place] [phone] 08/18/2025 10:30 AM EDT Hospital Encounter [facility] [address] [place] [phone] Vitor Morales MD [address] [place] [phone] 08/18/2025 10:30 AM EDT Appointment [facility] [address]RD [place] [address] Vitor Morales MD [address] [place] [phone] 08/18/2025 10:30 AM EDT - 08/18/2025 11:00 AM EDT Surgery [facility] [address] [place] [phone] Vitor Morales MD [address] [place] [phone] COLONOSCOPY 05/04/2026 11:00 AM EDT Office Visit [facility] Department of Cardiology [place] [address] [place] [address] Aashish Silva PA [address] [place] [address] 267003 Scheduled Procedures Name Priority Associated Diagnoses Date/Ti me COLONOSCOPY Colon cancer screening 08/18/2025 10:30 AM EDT documented as of this encounter Visit Diagnoses Not on filedocumented in this encounter Additional Health Concerns Infection Onset Date Last Indicated Resolved Time 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:Sputum- 09/2016 10/18/2016 10/18/2016 08/28/2018 12:30 PM EST MDRO Comment:Contact Precautions every admission, 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 Other CF 08/16/2018 08/28/2018 08/28/2018 Cystic Fibrosis (CF) Comment:Place on contact isolation for each encounter 12/05/2023 12/05/2023 documented as of this encounter Care Teams Mining Manager Relationship Specialty Start Date End Date Sanjay Fernandes MD [address] [place] [address] PCP - General Pulmonary Disease 05/28/16 06/22/20 Gael Stockton MD [address] [place] [address] PCP - General Internal Medicine 06/23/20 05/04/25 Gael Stockton MD PCP - [facility] Medicare Patients 11/23/22 03/22/23 Sanjay Fernandes MD [address] [place] [address] PCP - General Pulmonary Disease 05/05/25 Franklin Simmons MD [address] [place] [address] Physician Otolaryngology 06/14/17 Godwin Saunders DO [address] [place] [address] Physician Endocrinology 06/14/17 Gael Stockton MD [address] [place] [address] Internal Medicine 05/26/20 Godwin Malcolm MD [address] [place] [address] Hematology Oncology 11/03/20 Heather Packer, INSTALLATION MANAGER [address] [place] [address] [place] [address] Respiratory Care Practitioner Respiratory Therapist 09/20/24 Antonia Willis MD [address] [facility] [place] [address] Internal Medicine 02/17/25 Logan Doran MD 30 [place] [address] 03/18/25 documented as of this encounter
--- OUTSIDE RECORDS SUMMARY | 2025-06-26 18:25 | XMS_ITS | Encounter Summary ---
Author Organization [facility] Address [address] [place] [address] Care Team Providers Care Informatics Specialist Name Role Phone Sanjay Fernandes MD Primary Care Provider Franklin Simmons MD Unavailable [phone] Godwin Saunders DO Unavailable Gael Stockton MD Unavailable Unavailable Gael Stockton MD Primary Care Provider Unavail able Godwin Malcolm MD Unavailable Unavailable Gael Stockton MD Unavailable Unavailable Heather Packer NURSING INSTRUCTOR Unavailable [phone] Antonia Willis MD Unavailable Logan Doran MD Unavailable Sanjay Fernandes MD Primary Care Provider Encounter Details Date Type Department Care Team (Late st Contact Info) Description 09/19/2018 Scanned Document [facility] [address] [place] [address] 4[address] [place] [phone] Sanjay Fernandes MD [address] [place] [address] Social History Tobacco Use Types Packs/Day Years [...] 11:00 AM EDT Clinical Support [facility] 79 [facility] 4th [place] [phone] 08/18/2025 10:30 AM EDT Hospital Encounter [facility] [address] [place] [phone] Vitor Morales MD [address] [place] [phone] 08/18/2025 10:30 AM EDT Appointment [facility] [address] [place] [address] Vitor Morales MD [address] [place] [address] [phone] 08/18/2025 10:30 AM EDT - 08/18/2025 11:00 AM EDT Surgery [facility] [address] [place] [phone] Vitor Morales MD [address] [place] [address] COLONOSCOPY 05/04/2026 11:00 AM EDT Office Visit [facility] Physicians Department of Cardiology [place] [address] [place] [phone] Aashish Silva PA [address] [place] [address] Scheduled Procedures Name Priority Associated Diagnoses Date/Ti [...] as of this encounter Care Teams Informatics Specialist Relationship Specialty Start Date End Date Sanjay Fernandes MD [address] [place] [address] PCP - General Pulmonary Disease 05/28/16 06/22/20 Gael Stockton MD [address] [place] [address] PCP - General Internal Medicine 06/23/20 05/04/25 Gael Stockton MD PCP - [facility] Medicare Patients 11/23/22 03/22/23 Sanjay Fernandes MD [address] [place] [address] PCP - General Pulmonary Disease 05/05/25 Franklin Simmons MD [address] [place] [address] Physician Otolaryngology 06/14/17 Godwin Saunders DO [address] [place] [address] Physician Endocrinology 06/14/17 Gael Stockton MD [address] [place] [address] Internal Medicine 05/26/20 Godwin Malcolm MD 85 [facility] 923 [place] [address] Hematology Oncology 11/03/20 Heather Packer, NURSING INSTRUCTOR [address] [place] 4 [place] [address] Respiratory Care Practitioner Respiratory Therapist 09/20/24 Antonia Willis MD 850 [facility] 530 [facility] [place] [address] Internal Medicine 02/17/25 Logan Doran MD 30 [place] [address] 03/18/25 documented as of this encounter
--- OUTSIDE RECORDS SUMMARY | 2025-06-26 18:25 | XMS_ITS | Encounter Summary ---
Author Organization [facility] Address [address] [place] [address] Phone Care Team Providers Care Potato Chip Maker Name Role Phone Azalea Rehman MD Unavailable Logan Doran MD Unavailable [phone] Maddi Mayers MD Unavailable [phone] Chiquis Gusman MD Unavailable [phone] Sanjay Fernandes MD Primary Care Provider Encounter Details Date Type Department Care Team (Late st Contact Info) Description 04/30/2025 Procedure Pass [facility], Ct Scan - [address] [address] Social History Tobacco Use Types Packs/Day Years Used Date Smoking Tobacco: Never Smokeless Tobacco: Never Alcohol Use Standard Drinks/Week Comments No 0 (1 standard drink = 0.6 oz pur e alcohol) Education Answer Date Recorded Are you interested in more education? Not on kriss e 02/17/2023 Are you concerned about learning? Not on file 02/17/2023 No 02/17/2023 No 02/17/2023 Food Answer Date Recorded Within the past 6 months we worried whether our food would run out before we got money to buy more. Never True 05/01/2025 Within the past 6 months the food we bought just didn't last and we didn't have enough money to get more. Never True Residential Stability Answer Date Recor ded What is your housing situation today? I have tommy jamison 05/01/2025 How many times have you move d in the past 12 months? Zero (I did not move) 05/01/2025 Paying for Meds Answer Date Recorded Do you have trouble paying for medicines? No 05/01/2025 Paying Utility Bills Answer Date Record ed Do you have trouble paying your heating or elect ricity bill? No 05/01/2025 Transportation Answer Date Recorded Has the lack of transportati on kept you from medical appointments or from getting medications? No 05/01/2025 Digital Access Answer Date Recorded No 05/01/2025 Yes 05/01/2025 Do you have reliable internet access at home? Ye s 05/01/2025 Do you have a device (e.g., phone, tablet, computer) with a working camera? Yes 05/01/2025 Intimate Partner Violence Answer Date R ecorded Are you denied basic needs s uch as food, clothing, or medical care? No 04/30/2025 In the past 12 months have y ou been in a relationship with a person who hurts, threatens, or tries to control you? No 04/30/2025 Are you denied basic needs s uch as food, clothing, or medical care? No 04/30/2025 In the past 12 months have y ou been in a relationship with a person who hurts, threatens, or tries to control you? No 04/30/2025 Comments No Sex and Gender Information Value Date Recorded Sex Assigned at Female 03/22/2019 9:55 AM EDT Legal Sex Female 5:21 PM EST Gender Identity Female 03/22/2019 9:55 AM EDT Sexual Orientation Choose not to disclose 2019 4:52 PM EST documented as of this encounter Functional Status * Calculated C-SSRS Risk Score (Lifetime/Recent) Answer Date of Assessment Author No Risk Indicated 04/30/2025 9:16 PM EDT Alexandra Preston RN * [place] Suicide Severity Rating Scale (Screener/Recent Self-Report) Question Answer Date of Assessment Author 1. Wish to be (Past 1 Month) No 025 9:16 PM EDT Alexandra See, KRISTINE 2. Non-Specific Active Suici marissa Thoughts (Past 1 Month) No 04/30/2025 9:16 PM EDT Dian See RN 6. Suicidal Behavior (Lifetime) No 9:16 PM EDT Alexandra See RN documented as of this encounter Plan of Treatment Upcoming Encounters Date Type Department Care Team (Late st Contact Info) Description 07/04/2025 11:30 AM EDT Office Visit [address] [address] Maddi Mayers MD [address] [place], [place] [address]s Sports [facility], [place] [address] [email or web address] Caroline [email or web address], PT [address] [place] [address] 07/04/2025 3:00 PM EDT Office Visit [address] [address] Jessica Keyes [address] [place] [address], [address] [place] [address] [email or web address] 07/08/2025 1:15 PM EDT Office Visit [address] [address] Maddi Mayers MD [address] [place] [address], [place] [address] [email or web address] Caroline [email or web address], PT [address] [place], [place] [id number] 07/15/2025 11:30 AM EDT Office Visit [address] [phone] Maddi Mayers MD [address] [place] [address], [place], [place] [phone] [email or web address] Caroline [email or web address], PT [address] [place] [address] 07/22/2025 11:30 AM EDT Office Visit [address] [address] Maddi Mayers MD [address] [place] [address] Orthopedics Sports [facility], [place] [address] [email or web address], PT [address] [place] [address] 07/29/2025 11:00 AM EDT Office Visit [address] [address] Maddi Mayers MD [address] [place] [address] Sports [facility], [place] [address] [email or web address] PTA [address] [place] [address] 08/05/2025 11:30 AM EDT Office Visit [address] [address] Maddi Mayers MD [address] [place], [place] [address]s Sports [facility], [place] [address] [email or web address] Caroline [email or web address], PT [address] [place] [address] 08/12/2025 11:00 AM EDT Office Visit [address] [address] Maddi Mayers MD [address] [facility] [place], [place] [phone] [email or web address] PTA [address] [place] [address] 08/20/2025 11:00 AM EDT Office Visit [facility] [address] [place] [address] [phone] Maddi Mayers MD [address] [place] [address] [facility] [place] [address] [email or web address] Caroline [email or web address], PT [address] [place] [address] 08/22/2025 11:00 AM EDT Office Visit [facility], Department of Neurology [address] [place] [address] Antonia Haynes MD [address] [place] [address] documented as of this encounter Visit Diagnoses Not on filedocumented in this encounter Care Teams Potato Chip Maker Relationship Specialty Start Date End Date Sanjay Fernandes MD [address] [place] [address] PCP - General Pulmonary Disease 04/17/18 Azalea Rehman MD [address] [place] [address] [phone] Historical LMR Provider 08/09/17 Logan Doran MD [address] [place] [address] [phone] Historical LMR Provider 08/09/17 Maddi Mayers MD [address] [place] [address] [facility], [place] [address] Historical LMR Provider 08/09/17 Chiquis Gusman MD [address] [place] [address] Historical LMR Provider 08/09/17 documented as of this encounter Additional Source Comments The information contained in this document represents components of the legal health record. It is not the complete legal health record.[facility]
--- OUTSIDE RECORDS SUMMARY | 2025-06-26 18:25 | XMS_ITS | Encounter Summary ---
Author Organization [facility] Address [address] [place] [address] Care Team Providers Care Drum Operator Name Role Phone Sanjay Fernandes MD Primary Care Provider Franklin Simmons MD Unavailable [phone] Godwin Saunders DO Unavailable Gael Stockton MD Unavailable Unavailable Gael Stockton MD Primary Care Provider Unavail able Godwin Malcolm MD Unavailable Unavailable Gael Stockton MD Unavailable Unavailable Heather Packer MACHINE DYER Unavailable [phone] Antonia Willis MD Unavailable Logan Doran MD Unavailable Sanjay Fernandes MD Primary Care Provider Encounter Details Date Type Department Care Team (Late st Contact Info) Description 01/11/2017 Scanned Document [facility] [address] [place] [phone] Social History Tobacco Use Types Packs/Day [...] EDT Clinical Support The [facility] [address] [place] [address] [address] [place] [phone] 08/18/2025 10:30 AM EDT Hospital Encounter [facility] [address] [place] [phone] Vitor Morales MD [address] [place] [id number] 08/18/2025 10:30 AM EDT Appointment [facility] [address] [place] [address] Vitor Morales MD [address] [place] [address] [id number] 08/18/2025 10:30 AM EDT - 08/18/2025 11:00 AM EDT Surgery [facility] [address] [place] [phone] Vitor Morales MD [address] [place] [address] [phone] COLONOSCOPY 05/04/2026 11:00 AM EDT Office Visit [facility] Department of Cardiology [place] [address] [place] [phone] Aashish Silva PA [address] [place] [address] [phone] Scheduled Procedures Name Priority Associated Diagnoses Date/Ti [...] documented as of this encounter Care Teams Drum Operator Relationship Specialty Start Date End Date Sanjay Fernandes MD [address] [address] PCP - General Pulmonary Disease 05/28/16 06/22/20 Gael Stockton MD [address] [place] [address] PCP - General Internal Medicine 06/23/20 05/04/25 Gael Stockton MD PCP - [facility] Medicare Patients 11/23/22 03/22/23 Sanjay Fernandes MD [address] [place] [address] PCP - General Pulmonary Disease 05/05/25 Franklin Simmons MD [address] [place] [address] Physician Otolaryngology 06/14/17 Godwin Saunders DO [address] [address] Physician Endocrinology 06/14/17 Gael Stockton MD [address] [place] [address] Internal Medicine 05/26/20 Godwin Malcolm MD 85 [facility] 923 [place] [address] Hematology Oncology 11/03/20 Heather Packer, MACHINE DYER [address] [facility] 4 [place] [address] Respiratory Care Practitioner Respiratory Therapist 09/20/24 Antonia Willis MD 850 [facility] 530 [facility] [place] [address] Internal Medicine 02/17/25 Logan Doran MD [address] [place] [address] 03/18/25 documented as of this encounter
--- OUTSIDE RECORDS SUMMARY | 2025-06-26 18:25 | XMS_ITS | Encounter Summary ---
Author Organization [facility] Address [address] [place] [address] Care Team Providers Care Technical Sales Specialist Name Role Phone Sanjay Fernandes MD Primary Care Provider Franklin Simmons MD Unavailable [phone] Godwin Saunders DO Unavailable [phone] Gael Stockton MD Unavailable Unavailable Gael Stockton MD Primary Care Provider Unavail able Godwin Malcolm MD Unavailable Unavailable Gael Stockton MD Unavailable Unavailable OchoaHeather LATIN DANCE INSTRUCTOR Unavailable [phone] Antonia Willis MD Unavailable Logan Doran MD Unavailable Sanjay Fernandes MD Primary Care Provider Reason for Visit * Reason Onset Date Comments Medication Refill 10/28/2016 Encounter Details Date Type Department Care Team (Late st Contact Info) Description 10/28/2016 Refill [facility] [address] [place] [phone] Provider, MD Devyn [address] [place] [address] Social History Tobacco Use Types Packs/Day Years [...] 11:00 AM EDT Clinical Support [facility] 79 [facility] [address] [place] [phone] 08/18/2025 10:30 AM EDT Hospital Encounter [facility]astro[facility]ology Division [address] [place] [phone] Vitor Morales MD [address] [place] [phone] 08/18/2025 10:30 AM EDT Appointment [facility] [address] [place] [address] Vitor Morales MD [address] [place] [id number] 08/18/2025 10:30 AM EDT - 08/18/2025 11:00 AM EDT Surgery [facility] [address] [place] [phone] Vitor Morales MD [address] [place] [address] COLONOSCOPY 05/04/2026 11:00 AM EDT Office Visit [facility] Department of Cardiology [place] [address] [place] [phone] Aashish Silva PA [address] [place] [address] Scheduled Procedures Name Priority Associated Diagnoses Date/Ti [...] as of this encounter Care Teams Technical Sales Specialist Relationship Specialty Start Date End Date Sanjay Fernandes MD [address] [place] [address] PCP - General Pulmonary Disease 05/28/16 06/22/20 Gael Stockton MD [address] [place] [address] PCP - General Internal Medicine 06/23/20 05/04/25 Gael Stockton MD PCP - [facility] Medicare Patients 11/23/22 03/22/23 Sanjay Fernandes MD [address] [place] [address] PCP - General Pulmonary Disease 05/05/25 Franklin Simmons MD [address] [place] [address] Physician Otolaryngology 06/14/17 Godwin Saunders DO [address] [place] [address] Physician Endocrinology 06/14/17 Gael Stockton MD [address] [address] Internal Medicine 05/26/20 Godwin Malcolm MD [address] [address] Hematology Oncology 11/03/20 Heather Packer, LATIN DANCE INSTRUCTOR [address] [place] [address] [place] [address] Respiratory Care Practitioner Respiratory Therapist 09/20/24 Antonia Willis MD [address] [place] [address] and [place] [address] Internal Medicine 02/17/25 Logan Doran MD [address] [place] [address] 03/18/25 documented as of this encounter
--- OUTSIDE RECORDS SUMMARY | 2025-06-26 18:25 | XMS_ITS | Encounter Summary ---
Author Organization [facility] Address [address] [place] [address] Care Team Providers Care Fish Agent Name Role Phone Sanjay Fernandes MD Primary Care Provider [phone] Franklin Simmons MD Unavailable [phone] Godwin Saunders DO Unavailable Gael Stockton MD Unavailable Unavailable Gael Stockton MD Primary Care Provider Unavail able Godwin Malcolm MD Unavailable Unavailable Gael Stockton MD Unavailable Unavailable Heather Packer DRAFT ROLLER PICKER Unavailable [phone] Antonia Willis MD Unavailable Logan Doran MD Unavailable Sanjay Fernandes MD Primary Care Provider Encounter Details Date Type Department Care Team (Late st Contact Info) Description 02/20/2019 Scanned Document [facility] [address] [place] [phone] Social History Tobacco Use Types Packs/Day [...] 07/02/2025 11:00 AM EDT Clinical Support [facility] [address] [place] [address] 4[address] [place] [phone] 08/18/2025 10:30 AM EDT Hospital Encounter [facility] Gastroenterology Division [address] [place] [phone] Vitor Morales MD [address] [place] [address] [phone] 08/18/2025 10:30 AM EDT Appointment [facility] [address] [place] [address] Vitor Morales MD [address] [place] [address] [phone] 08/18/2025 10:30 AM EDT - 08/18/2025 11:00 AM EDT Surgery [facility] [address] [place] [phone] Vitor Morales MD [address] [place] [address] [phone] COLONOSCOPY 05/04/2026 11:00 AM EDT Office Visit [facility] Department of Cardiology [place] [address] [place] [phone] Aashish Silva PA [address] [place] [address] [phone] Scheduled Procedures Name Priority Associated Diagnoses Date/Ti [...] documented as of this encounter Care Teams Fish Agent Relationship Specialty Start Date End Date Sanjay Fernandes MD [address] [place] [address] PCP - General Pulmonary Disease 05/28/16 06/22/20 Gael Stockton MD [address] [place] [address] PCP - General Internal Medicine 06/23/20 05/04/25 Gael Stockton MD PCP - [place] Medicare Patients 11/23/22 03/22/23 Sanjay Fernandes MD [address] [place] [address] PCP - General Pulmonary Disease 05/05/25 Franklin Simmons MD [address] [place] [address] Physician Otolaryngology 06/14/17 Godwin Saunders DO [address] [place] [address] Physician Endocrinology 06/14/17 Gael Stockton MD [address] [place] [address] Internal Medicine 05/26/20 Godwin Malcolm MD [address] [place] [address] Hematology Oncology 11/03/20 Heather Packer, DRAFT ROLLER PICKER [address] [place] [address] [place] [address] Respiratory Care Practitioner Respiratory Therapist 09/20/24 Antonia Willis MD [address] [facility] [address] Internal Medicine 02/17/25 Logan Doran MD [address] [place] [address] 03/18/25 documented as of this encounter
--- OUTSIDE RECORDS SUMMARY | 2025-06-26 18:25 | XMS_ITS | Clinical Summary ---
Author Organization [facility] Address [facility] [address] [place] [phone] Phone Care Team Providers Care Preventive Maintenance Engineer Name Role Phone Azalea Rehman MD Unavailable Logan Doran MD Unavailable Maddi Mayers MD Unavailable [phone] Chiquis Gusman MD Unavailable [phone] Sanjay Fernandes MD Primary Care Provider Allergies Active Allergy Reactions Criticality Noted Date Comments Ceftazidime 02/12/2019 Other reaction(s): Other (See Comments) Tingling/numbness in hands, itchy sensation in mouth along with chest pain. Sulfa (Sulfonamide Antibiotics) 05/13/2018 Hives Sulfasalazine Rash Low 08/03/2016 Vancomycin Rash Low 08/03/2016 Zolmitriptan Other (See Comments) 09/30/2004 ear pain Medications albuterol 2.5 mg /3 mL (0.083 %) nebulizer solutionIndication s:prn Indications: prn 04/11/20 17 Active cetirizine (ZYRTEC) 10 MG tablet Take 10 mg by mouth daily. Active cholecalciferol (VITAMIN D3) 1,000 unit tablet Take 2,000 Units by mouth. 10/13/20 16 Active pancrelipase, tgqpje-cqxzmkuf-al ylase, (CREON) 24,000-76,000 -120,000 unit CpDR Takes 5 capsules with meals and 2 capsules with snacks 02/28/20 Active dornase alpha (PULMOZYME) 1 mg/mL nebulizer solution Inhale 2.5 mg into the lungs. 05/11/20 17 Active insulin lispro (ADMELOG, HUMALOG) 100 unit/mL injection vial Inject under the skin. Active levothyroxine (SYNTHROID, LEVOTHROID) 50 MCG tablet Take 50 mcg by mouth every morning. Active albuterol 90 mcg/actuation inhaler INHALE 2 PUFFS BY MOUTH EVERY 4 HOURS NEEDED 6 11/19/19 Active therapeutic multivitamin tablet Take 1 tablet by mouth daily. Active subcutaneous insulin pump (INSULIN PUMP [id number] [facility] Inject under the skin. Active azithromycin (ZITHROMAX) 500 MG tablet TAKE 1 TABLET (500 MG TOTAL) BY MOUTH 3 (THREE) TIMES A WEEK ON MONDAY, MONDAY, MONDAY. 05/26/20 Active aztreonam lysine (CAYSTON) 75 mg/mL Nebu Take 75 mg by nebulization every 28 days. Active aspirin/acetaminop hen/caffeine (EXCEDRIN MIGRAINE ORAL)Indications:p rn Take by mouth daily as needed. Indications: prn Active calcium carbonate 500 mg (200 mg elemental) chewable tabletIndications: prn Take 1 tablet by mouth every 4 (four) hours as needed. Indications: prn Active elexacaftor-tezaca ftor-ivacaftor (TRIKAFTA) 100-50-75 mg(d) /150 mg (n) tablet Take by mouth daily. 12/08/19 22 Active ondansetron (ZOFRAN-ODT) 8 MG disintegrating tabletIndications: prn Take 8 mg by mouth every 8 (eight) hours as needed. Indications: prn 12/10/19 22 Active promethazine (PHENERGAN) 12.5 MG tabletIndications: prn Take 12.5 mg by mouth daily as needed. Indications: prn 11/25/19 22 Active MOTEGRITY 2 mg tablet Take 2 mg by mouth daily. 12/05/19 22 Active topiramate (TOPAMAX) 100 MG tablet Take 300 mg by mouth nightly at bedtime. 11/28/19 22 Active UBRELVY 100 mg tabletIndications: prn Take 100 mg by mouth as needed. Indications: prn 12/05/19 22 Active DOMPERIDONE, BULK, MISC by Miscellaneous route. 20 mg tid and qhs Active senna (SENOKOT) 8.6 mg tabletIndications: 6 tablets daily Take 2 tablets by mouth daily. Indications: 6 tablets daily Active DULoxetine (CYMBALTA) 60 MG capsule Take 120 mg by mouth daily. Active omeprazole (PRILOSEC) 40 MG capsule Take 40 mg by mouth 2 (two) times a day before meals. Active BELSOMRA 15 mg tabletIndications: prn as needed. Indications: prn 07/03/20 22 Active gabapentin (NEURONTIN) 600 MG tablet Taking 600 mg 2 times and 1,200 at night 07/04/20 22 Active clonazePAM (KLONOPIN) 0.25 MG disintegrating tablet Take 0.25 mg by mouth 2 (two) times a day. 06/14/20 22 Active QULIPTA 60 mg tablet Take 1 tablet by mouth every morning. 03/07/20 23 Active atenolol (TENORMIN) 25 MG tablet TAKE 1 TABLET BY MOUTH EVERY DAY AT BEDTIME FOR TREMOR 01/18/20 24 Active DEXCOM G6 SENSOR [place] CHANGE EVERY 10 DAYS. FOR CONTINUOUS GLUCOSE MONITORING E11.9 04/04/20 24 Active primidone (MYSOLINE) 50 MG tablet Take 0.5 tablets (25 mg total) by mouth nightly at bedtime. 45 tablet 2 04/02/20 25 026 Active levoFLOXacin (LEVAQUIN) 750 MG tablet Take 1 tablet (750 mg total) by mouth nightly at bedtime. 05/01/20 25 Active predniSONE (DELTASONE) 10 MG tablet Take 3 tablets (30 mg total) by mouth nightly at bedtime. 05/01/20 25 Active Active Problems Problem Noted Date Diagnosed Date Hypokalemia 05/01/2025 Assessment & Plan (05/01/2025 3:17 AM EDT): Presumably due to poor p.o. intake over the past days to weeks plan repletion she is getting normal saline 40 of K she has received 40 oral IR and 40 oral ER We will recheck in a few hours Plan is for dc once K replete if pt able to tolerate orals and feels improved Pneumonia of both lower lobes due to infectious organism 05/01/2025 Assessment & Plan (05/01/2025 3:17 AM EDT): Significant bilateral lower lobe pneumonias for which she is being managed as an outpatient with Levaquin beginning yesterday. She does have a white count of 33 she has begun steroids 4 days ago however she reports she does not usually get this make a white count reaction to them. She has not noted any overt fevers at home although she has not checked she has been taking her meds as per usual and presented mostly for her left-sided chest pain more so than this known worsening CF exacerbation. For now we will continue with her outpatient plan of prednisone and Levaquin If she were to have increased respiratory compromise or worsening signs of infection would consider transfer to her CF center in [place] where she would receive optimized care. She is aware and agreeable to that plan she is hoping to have potassium replacement and be discharged home. Chest pain on breathing 05/01/2025 Assessment & Plan (05/01/2025 3:17 AM EDT): Had sudden onset left-sided chest pain with cough she was concerned she pulled a muscle Leland rib the pain was quite considerable and she came to the ER this was her primary reason for presentation. CT chest did not reveal fracture. She does likely have a muscular strain based on exam. This is certainly interfering with her attempts at airway clearance and given her cystic fibrosis diagnosis this is of significant risk and concern. We will ask her to continue her home regimen for airway management and clearance and medications as well. She will need to bring these from home. I anticipate she may be discharged tomorrow if her potassium is better and she is feeling well enough. If not it is reasonable to think she may need transfer to [place] in the near future for further CF care. Hyperprolactinemia 03/21/2025 Assessment & Plan (03/21/2025 4:41 PM EDT): Her secondary oligomenorrhea is highly likely due to her hyperprolactinemia which is most likely due to her domperidone use for gastroparesis. I explained the elevated prolactin levels can inhibit ovulation. I explained that the only way to determine if the medication is causing the elevated prolactin levels is to discontinue it but her history of gastroparesis is significant and she depends on the domperidone. I did explain that there is a possibility that a pituitary adenoma could also be contributing to the elevated prolactin levels and since we really cannot discontinue the domperidone, I do think it is reasonable to check a pituitary MRI to rule out a pituitary adenoma and she is amenable to this. She was instructed to contact us if she does not hear from radiology within a couple of weeks. Type 1 diabetes mellitus 06/20/2024 Assessment & Plan (05/01/2025 3:17 AM EDT): Continue home pump QID monitoring and pump checks Heart palpitations 03/04/2024 Overview (06/20/2024): Last Assessment & Plan: Patient did not complain of any palpitations interval year. Patient is on atenolol for tremor. This may be helping Iron deficiency anemia 05/24/2020 Labial infection 07/09/2019 Assessment & Plan (07/09/2019 1:30 PM EDT): No area amenable to I&D today; can try longer course of clinda at higher dose, soak BID, apply topical mupirocin; if not improving, it is possible an incision to open and follow with frequent salt water soaks my be of benefit Gastroparesis 02/28/2019 Overview (06/20/2024): Last Assessment & Plan: Continue domperidone, Dexilant, Pepcid, Tums. Follows with CT BILLY. 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 We will continue this plan of course presuming she will be discharged tomorrow with her to follow-up with her team in the very near future She will need to bring many of her meds from home to continue her standard CF care while she is here as well. Pancreatic insufficiency due to cystic fibrosis 11/06/2003 Overview (06/20/2024): pancreatic insufficiency; on enzymes Last Assessment & Plan: Continue Creon Assessment & Plan (05/01/2025 3:17 AM EDT): Continue creon Constipation 11/06/2003 Overview (12/13/2014): Constipation; on miralax, uses go-lytely 1-2 times yearly[address] Lee, GI, [facility] Gastroesophageal reflux disease 11/06/2003 Overview (12/13/2014): Gastroesophageal reflux disease Environmental allergies 11/06/2003 Overview (12/13/2014): Environmental allergy; cats,dust pollen,hay Migraine 11/06/2003 Overview (12/13/2014): Migraine headache; ON NEURONTIN WITH FAIR CONTROL. nEED TO CONSIDER NEURO EVAL Migraines Resolved Problems Problem Noted Date Diagnosed Date Resolved Date Breast hypertrophy in female 08/13/2018 06/20/2024 Encounters Date Type Department Care Team Description 05/06/2025 Telephone [facility] [address] [place] [address] Sydnee Castrejon RN 05/01/2025 Refill [facility] Medicine Virtual Department [address] [place] [address] Hernán Jimenez DO, MPH Medication Refill 04/30/2025 9:21 PM EDT - 05/01/2025 11:51 AM EDT Hospital Encounter [facility] [address] [address] Gustavo Biggs DO Ewall, Katharine E, MD Altman, Evan K, DO, MPH Discharge Disposition: Home or Self Care 04/30/2025 Procedure Pass [facility], Ct Scan - [address] [address] 04/14/2025 2:30 PM EDT Office Visit [facility] Medicine [address] [place] [address] Maddi Mayers MD Patellofemoral pain syndrome of both knees (Primary Dx) 03/28/2025 1:32 PM EDT - 03/28/2025 11:59 PM EDT Hospital Encounter [address] [address] Logan Doran MD Discharge Disposition: Home or Self Care 03/27/2025 1:16 PM EDT - 03/27/2025 11:59 PM EDT Hospital Encounter [facility] Radiology [address] [place] [address] Antonia Haynes MD Discharge Disposition: Home or Self Care 03/27/2025 8:55 AM EDT - 03/27/2025 1:15 PM EDT Hospital Encounter [facility] Radiology [address] [place] [address] Antonia Haynes MD Discharge Disposition: Home or Self Care 03/21/2025 Procedure Pass [address] [address] from Last 3 Months Immunizations Immunization Administration Dates Next Due COVID-19 (Pre-08/14) Moderna Vaccine, mRNA, PF 12/16/2020 INFLUENZA, SPLIT VIRUS, TRIV ALENT W/ PRESERVATIVE IM 08/22/2018,08/30/2017 Influenza Quadrivalent Prese rvative Free IM 09/19/2023,09/22/2021,08/22/2020,2018 Influenza Recombinant Lulú valent Preservative Free IM 08/23/2022 Influenza, Unspecified Formulation 07/23/2019, Tdap 07/20/2021,05/14/2014 Family History Medical History Relation Comments Malig Hyperthermia Brother 1 Skin cancer Brother 1 Cancer Brother 2 [place] Cardiovascular disease Father Stent Hypertension Father Thyroid disease Father Hypothyroidism Cardiovascular disease Mother Diabetes Mother Heart failure Mother Hypertension Mother Migraines Mother Ovarian cancer Paternal Aunt 1 Cancer Paternal Aunt 2 Ovarian Brain tumor Paternal Grandfather Cancer Paternal Grandfather Cardiovascular disease Paternal Grandfather Heart disease Paternal Grandfather Pacemaker, Heart Transplant Diabetes Paternal Grandmother Cancer Sister Melanoma Breast cancer Neg Hx Relation Status Comments Brother 1 Brother 2 Alive Father Alive Mother Alive Paternal Aunt 1 Paternal Aunt 2 Alive Paternal Grandfather Paternal Grandmother Alive Sister Alive Social History Tobacco Use Types Packs/Day Years [...] your housing situation today? I have tommy sing 05/01/2025 How many times have you move [...] not to disclose 2019 4:52 PM EST Last Filed Vital Signs Vital Sign Reading Time Taken Comments Blood Pressure 94/57 05/01/2025 8:48 AM EDT Pulse 88 05/01/2025 8:48 AM EDT Temperature 36.7 C (98.1 F) 05/01/2025 8:48 AM EDT Respiratory Rate 16 05/01/2025 8:48 AM EDT Oxygen Saturation 94% 05/01/2025 8:48 AM EDT Inhaled Oxygen Concentration - - Weight 65.7 kg (144 lb 13.5 oz) 05/01/2025 4:02 AM EDT Height 165.1 cm (5' 5 ) 05/01/2025 4:14 AM EDT Body Mass Index 24.1 05/01/2025 4:02 AM EDT Plan of Treatment Upcoming Encounters Date Type Department Care Team (Late st Contact Info) Description 07/04/2025 11:30 AM EDT Office Visit [facility] [address] [place] [address] Maddi Mayers MD 4 [facility] [place] [address] [email or web address] Caroline Hobson, PT [address] [place] [address] 07/04/2025 3:00 PM EDT Office Visit [address] [address] Jessica Keyes [address] [place] [address], [address] [place] [address] [email or web address] 07/08/[email or web address] 1:15 PM EDT Office Visit [address] [address] Maddi Mayers MD [address] [place], [place] [address]s [facility] [address] [email or web address] Caroline Hobson, PT 4 [place] [address] 07/15/2025 11:30 AM EDT Office Visit [address] [address] Maddi Mayers MD [address] [place] [address] [facility] [place] [address] [email or web address] Caroline Hobson, PT 4 [place] [address] 07/22/2025 11:30 AM EDT Office Visit [address] [phone] Maddi Mayers MD [address] [place] [address] [facility], [place] [address] [email or web address] Caroline Hobson, PT 4 [place] [address] 07/29/2025 11:00 AM EDT Office Visit [address] [address] Maddi Mayers MD [address] [place] [address] [facility], [place] [address] [email or web address] Indira Willingham, [employer] [address] [place] [phone] 08/05/2025 11:30 AM EDT Office Visit [address] [address] Maddi Mayers MD [address] [place] [address], [place], [place] [phone] [email or web address] Caroline Hobson, PT 4 [place] [address] 08/12/2025 11:00 AM EDT Office Visit [address] [address] Maddi Mayers MD [address] [place] [address], [place], [place] [phone] [email or web address] Indira Willingham, L[employer]UD[employer] [address] [place] [phone] 08/20/2025 11:00 AM EDT Office Visit [address] [phone] Maddi Mayers MD 4 [facility] [place] [address] [email or web address] Caroline Hobson, PT [address] [place] [address] [email or web address] 08/22/2025 11:00 AM EDT Office Visit [facility], Department of Neurology [address] [place] [address] Antonia Haynes MD [address] [place] [address], [address] [address] Health Maintenance Due Date Last Done Comments HEPATITIS C SCREENING 1998 HIV ONE-TIME SCREENING (18-65 YEARS) 1998 PNEUMOCOCCAL VACCINES (0-49 years) (1 of 2 - PCV) 1999 LIPID PANEL 12/01/2023 12/01/2022, 12/01/2022 DIABETIC EYE EXAM 02/02/2024 URINE MICROALBUMIN/CREATININE RATIO 02/02/2024 HEMOGLOBIN A1C 05/03/2024 02/02/2024, 06/24, 07/14/2022, Additional history exists INFLUENZA VACCINE (#1) 2025 , 09/19/2023, 08/23/2022, Additional history exists BLOOD PRESSURE 09/21/2025 03/21/2025 DEPRESSION SCREENING 02/13/2026 02/13/2025 TSH LEVEL 03/04/2026 03/04/2025, 0206/2023, 06/25/2021 PAP SMEAR 02/11/2027 02/11/2022, 01/22, 02/10/2017, Additional history exists MAMMOGRAM 03/25/2027 03/25/2025, 0512/2023, 12/14/2022, Additional history exists Adult Td,Tdap Booster 07/20/2031 07/20/2021, 014 COVID-19 VACCINE Completed 07/27/2024, , 11/29/2022, Additional history exists SMOKING STATUS SCREENING (Once After 26 Yrs) Completed 04/14/2025 HEPATITIS A VACCINES Aged Out No long er eligible based on patient's age to complete this topic HIB VACCINES Aged Out No longer eligi ble based on patient's age to complete this topic MENINGOCOCCAL VACCINES (ACWY) Aged Out No longer eligible based on patient's age to complete this topic MENINGOCOCCAL VACCINES (B) Aged Out N o longer eligible based on patient's age to complete this topic Medical Devices Not on file Procedures Procedure Name Priority Date/Time Associated Diagnosis Comments HC SUSCEPTIBLTY STDY ANTIMICRBIAL MICRO/AGAR DILUTJ Routine 05/01/2025 10:40 AM EDT MYCOBACTERIAL CULTURE/SMEAR STAT 05/01/2025 10:40 AM EDT RESPIRATORY CULTURE/SMEAR STAT 05/01/2025 10:40 AM EDT POCT GLUCOSE Routine 05/01/2025 8:16 AM EDT CBC Routine 05/01/2025 7:00 AM EDT BASIC METABOLIC PANEL Routine 05/01/2025 7:00 AM EDT PHOSPHORUS Routine 05/01/2025 7:00 AM EDT MAGNESIUM Routine 05/01/2025 7:00 AM EDT PREALBUMIN Routine 05/01/2025 7:00 AM EDT PROCALCITONIN Routine 05/01/2025 7:00 AM EDT LEGIONELLA/S.PNEUMO COMBINATION ANTIGEN TEST Routine 05/01/2025 5:[address] CHEST PULMONARY ANGIOGRAM (ACUTE) Routine 05/01/2025 12:11 AM EDT TROPONIN STAT 04/30/2025 11:43 PM EDT MAGNESIUM STAT 04/30/2025 9:53 PM EDT TROPONIN STAT 04/30/2025 9:53 PM EDT LFTS (HEPATIC PANEL) STAT 04/30/2025 9:53 PM EDT BASIC METABOLIC PANEL STAT 04/30/2025 9:53 PM EDT CBC AND DIFFERENTIAL STAT 04/30/2025 9:53 PM EDT ECG 12-LEAD Routine 04/30/2025 9:16 PM EDT MRI BRAIN (PITUITARY) WITH AND WITHOUT CONTRAST Routine 03/28/2025 2:59 PM EDT Hyperprolactinemia NM BRAIN DATSCAN SPECT/CT Routine 03/27/2025 2:36 PM EDT Resting tremor BI MAMMOGRAM SCREENING WITH TOMOSYNTHESIS WITH CAD (BILATERAL) Routine 03/25/2025 9:50 AM EDT Breast screening TSH WITH REFLEX Routine 03/04/2025 11:07 AM EDT Secondary oligomenorrhea HEMOGLOBIN A1C Routine 02/02/2024 8:23 AM EDT Cystic fibrosis with pulmonary manifestations Cystic fibrosis with other manifestations Malnutrition related diabetes mellitus LIPID PANEL Routine 12/01/2022 12:51 PM EST Hair thinning PAP TEST Routine 02/11/2022 12:00 AM EDT from Last 3 Months or Most Recently Relevant to Health Maintenance Results * Suscept aerobic HUEY (05/01/2025 10:40 AM EDT) SUSCEPT AEROBIC,HUEY SEE NOTE 11:51 AM [facility] DPT OF LAB MED AND PAT+ Comment: (NOTE) Test Result Flag Unit RefValue Susceptibility, Aerobic, HUEY SEE NOTE AB SOURCE: SPUTUM, INDUCED SPUTUM, BLOOD SLANT, PSEUDOMONAS AERUGINOSA SUSCEPTIBILITY, AEROBIC, HUEY FINAL PSEUDOMONAS AERUGINOSA Organism identified by client. Gentamicin should not be used for P. aeruginosa. There are no gentamicin breakpoints for P. aeruginosa. Unable to perform susceptibility testing. Organism did not grow on test medium. 05/01/2025 10:4 0 AM EDT 05/05/2025 12:00 PM EDT us Sanjay Fernandes MD LAB BLOOD ORDERABLES Final Result [facility] DPT OF LAB MED AND PAT+ [address] [place] [address] * (ABNORMAL) Respiratory Culture/Gram Stain (05/01/2025 10:40 AM EDT) Special Requests None 05/01/2025 10:31 AM EDT [facility] GRAM STAIN Many WBC'S , Rare EPITHELIAL CELLS , Rare GRAM POSITIVE RODS , Rare GRAM POSITIVE COCCI 05/02/2025 8:00 AM EDT [facility] Respiratory Cult/Smear Moderate PSEUDOMONAS AERUGINOSA ORGANISM SUBMITTED TO [facility] FOR SUSCEPTIBILITY TESTING. [facility] REPORTS THAT SUSCEPTIBILITY TESTING COULD NOT BE COMPLETED DUE TO FAILURE OF ISOLATE TO GROW IN TEST MEDIUM.(A) 05/12/2025 1:25 PM EDT [facility] Respiratory Cult/Smear with MIXED ORGANISMS RESEMBLING OROPHARYNGEAL CHRISTIAN(A) 05/12/2025 1:25 PM EDT [facility] Other (Induced sputum) 05/01/2025 10:40 AM EDT 05/01/2025 10:51 AM EDT us Smita Jacobson MD MICROBIOLOGY - GENERAL HIRMA CHAWLA Edited Result - Final [address] [address] * (ABNORMAL) POCT Glucose (05/01/2025 8:16 AM EDT) Glucose, POCT 197(H) 70 - 100 mg/dL [facility] 05/01/2025 8:16 AM EDT 05/01/2025 8:19 AM EDT us Hernán Jimenez DO, MPH POINT OF CARE TEST ORDERAB LES Final Result Performing Organization Address [facility] de Phone Number [address] [address] * Procalcitonin (05/01/2025 7:00 AM EDT) [facility] Procalcitonin 0.06 0.00 - 0.25 ng/mL [facility] Comment: <=0.25 ng/mL: Bacterial pneumonia is unlikely. <0.5 ng/mL: Low likelihood of systemic bacterial infection / sepsis. Localized infection is possible. 0.5-2.0 ng/mL: Systemic bacterial infection / sepsis is possible, but other conditions can induce PCT levels in this range as well (e.g., pancreatitis,severe trauma, circulatory shock, surgery, montgomery, inhalation injury.) >2.0 ng/mL: Systemic bacterial infection / sepsis is likely. Additional information can be found in the [facility] Procalcitonin Guidelines, available at http://handbook.mgb.org/3817/Content/4-138-251 Blood 05/01/2025 7:00 AM EDT 05/01/2025 7:09 AM EDT us Smita Jacobson MD LAB BLOOD ORDERABLES Final Result Performing Organization Address [facility]/ZIP Co de Phone Number [address] [address] * (ABNORMAL) CBC (05/01/2025 7:00 AM EDT) [facility] WBC 23.87(H) 4.00 - 11.00 K/uL [facility] RBC 3.18(L) 4.00 - 5.20 M/uL [facility] HGB 9.0(L) 12.0 - 16.0 g/dL [facility] HCT 27.1(L) 36.0 - 46.0 % [facility] PLT 476(H) 150 - 450 K/uL [facility] MCV 85.2 80.0 - 100.0 fL [facility] MCH 28.3 27.0 - 31.0 pg [facility] MCHC 33.2 32.0 - 36.0 g/dL [facility] RDW 14.5 11.5 - 14.5 % [facility] MPV 10.1 8.4 - 12.0 fL [facility] NRBC 0.10(H) 0.00 /100 WBCs [facility] ABSOLUTE NRBC 0.02(H) 0.00 K/uL [facility] Blood 05/01/2025 7:00 AM EDT 05/01/2025 7:09 AM EDT us Smita Jacobson MD LAB BLOOD ORDERABLES Final Result [address] [address] * (ABNORMAL) Prealbumin (05/01/2025 7:00 AM EDT) PREALBUMIN 12(L) 20 - 40 mg/dL [facility] Blood 05/01/2025 7:00 AM EDT 05/01/2025 7:09 AM EDT Smita Jacobson MD LAB BLOOD ORDERABLES Final Result [address] [address] * Phosphorus (05/01/2025 7:00 AM EDT) PHOSPHORUS 2.9 2.7 - 4.5 mg/dL [facility] Blood 05/01/2025 7:00 AM EDT 05/01/2025 7:09 AM EDT us Smita Jacobson MD LAB BLOOD ORDERABLES Final Result Performing Organization Address City/[facility] Co de Phone Number [address] [address] * Magnesium (05/01/2025 7:00 AM EDT) Only the most recent of2 resultswithin the time period is included. MAGNESIUM 2.3 1.6 - 2.6 mg/dL [facility] Blood 05/01/2025 7:00 AM EDT 05/01/2025 7:09 AM EDT Smita Jacobson MD LAB BLOOD ORDERABLES Final Result Performing Organization Address [facility] de Phone Number [address] [address] * (ABNORMAL) Basic metabolic panel (05/01/2025 7:00 AM EDT) Only the most recent of2 resultswithin the time period is included. SODIUM 134 133 - 146 mmol/L [facility] CHLORIDE 105 96 - 108 mmol/L [facility] POTASSIUM 4.9 3.3 - 5.1 mmol/L [facility] CO2 21 21 - 35 mmol/L [facility] BUN 8 6 - 19 mg/dL [facility] CREATININE 0.60 0.5 - 1.5 mg/dL [facility] GLUCOSE 143(H) 70 - 99 mg/dL [facility] CALCIUM 9.0 8.4 - 10.3 mg/dL [facility] EGFR 113 >59 mL/min/1.7 3m2 [facility] Comment:Estimated glomerular filtration rate calculated using the CKD-EPI refit equation. ANION GAP 13 10 - 20 mmol/L [facility] Blood 05/01/2025 7:00 AM EDT 05/01/2025 7:09 AM EDT us Smita Jacobson MD LAB BLOOD ORDERABLES Final Result Performing Organization Address City/[facility]/ZIP Co de Phone Number [address] [address] * Legionella/S.pneumo Combination Antigen Test (05/01/2025 5:30 AM EDT) UR LEGIONELLA AG Negative Negative [facility] Strep pneumo Ag Negative Negative [facility] Urine 05/01/2025 5:30 AM EDT 05/01/2025 5:43 AM EDT Smita Jacobson MD URINE ORDERABLES Final Resu lt Performing Organization Address [facility] Co de Phone Number [address] [address] * CT CHEST PULMONARY ANGIOGRAM (ACUTE) (05/01/2025 12:11 AM EDT) Anatomical Region Laterality Modality Chest, Thoracic Vasculature Comp uted Tomography 05/01/2025 12:5 4 AM EDT Impressions 05/01/2025 1:10 AM EDT 1. No acute pulmonary embolus. 2. Bilateral consolidations most likely representing multifocal pneumonia. Narrative 05/01/2025 1:[address] CHEST PULMONARY ANGIOGRAM (ACUTE) Referring clinician's provided indication for this examination in Epic: * PE suspected, high prob TECHNIQUE: Multidetector CT pulmonary angiography was performed after administration of intravenous contrast using tailored dose modulation techniques. 3D angiographic postprocessing techniques were acquired in the form of axial maximum intensity projection images (MIPS). COMPARISON: None. FINDINGS: Ports and Devices: Right chest Port-A-Cath with tip in the right atrium. Pulmonary Angiogram: Normal. Lungs: Bilateral upper lobe and middle lobe bronchiectasis. Right upper lobe mucous plugging with peribronchial opacities. Scattered consolidations throughout both lungs, most pronounced in the lower lobes. Pleura: Normal. Mediastinum: Normal. Lymph Nodes: Normal. Chest Wall / Breasts: Normal. Upper Abdomen: Normal. Bones and Soft Tissues: Thoracic spine degenerative changes. Procedure Note Fabrizio Read MD - 05/01/2025 CT CHEST PULMONARY ANGIOGRAM (ACUTE) Referring clinician's provided indication for this examination in Epic: *PE suspected, high prob TECHNIQUE: Multidetector CT pulmonary angiography was performed afteradministration of intravenous contrast using tailored dose modulationtechniques. 3D angiographic postprocessing techniques were acquired in theform of axial maximum intensity projection images (MIPS). COMPARISON: None. FINDINGS: Ports and Devices: Right chest Port-A-Cath with tip in the right atrium. Pulmonary Angiogram: Normal. Lungs: Bilateral upper lobe and middle lobe bronchiectasis. Right upperlobe mucous plugging with peribronchial opacities. Scatteredconsolidations throughout both lungs, most pronounced in the lowerlobes. Pleura: Normal. Mediastinum: Normal. Lymph Nodes: Normal. Chest Wall / Breasts: Normal. Upper Abdomen: Normal. Bones and Soft Tissues: Thoracic spine degenerative changes. IMPRESSION: 1. No acute pulmonary embolus. 2. Bilateral consolidations most likely representing multifocalpneumonia. us Gustavo Biggs DO IMG CT CHEST Final Result * Troponin (04/30/2025 11:43 PM EDT) Only the most recent of2 resultswithin the time period is included. Troponin-T, HS Gen5 9 0 - 9 ng/L [facility] Blood 04/30/2025 11:4 3 PM EDT 04/30/2025 11:49 PM EDT us Gustavo Biggs DO LAB BLOOD ORDERABLES Final Re sult [address] [address] * (ABNORMAL) LFTs (hepatic panel) (04/30/2025 9:53 PM EDT) ALKALINE PHOSPHATASE 157(H) 39 - 117 U/L [facility] TOTAL BILIRUBIN <0.2 0.0 - 1.2 mg/dL [facility] DIRECT BILIRUBIN 0.1 0.0 - 0.2 mg/dL [facility] Bilirubin (Indirect) NOT CALCULATED 0 - 1.5 mg/dL [facility] AST 13 0 - 37 U/L [facility] ALT 55(H) 0 - 40 U/L [facility] TOTAL PROTEIN 5.9(L) 6.5 - 8.0 g/dL [facility] ALBUMIN 3.0(L) 3.9 - 4.8 g/dL [facility] GLOBULIN 2.9 1 - 4.8 g/dL [facility] A/G Ratio 1.03 1.00 - 4.80 RATIO [facility] Blood 04/30/2025 9:53 PM EDT 04/30/2025 10:47 PM EDT us Gustavo Biggs DO LAB BLOOD ORDERABLES Final Re sult [facility] [address] [place], [place] [id number] * (ABNORMAL) CBC and differential (04/30/2025 9:53 PM EDT) Pathologist [facility] WBC 33.00(HH) 4.00 - 11.00 K/uL [facility] Comment:This result has been called to Janice Vargas by [id number] on 04/30/2025 23:22:05, and has been read back. RBC 3.28(L) 4.00 - 5.20 M/uL [facility] HGB 9.3(L) 12.0 - 16.0 g/dL [facility] HCT 27.6(L) 36.0 - 46.0 % [facility] PLT 454(H) 150 - 450 K/uL [facility] MCV 84.1 80.0 - 100.0 fL [facility] MCH 28.4 27.0 - 31.0 pg [facility] MCHC 33.7 32.0 - 36.0 g/dL [facility] RDW 14.5 11.5 - 14.5 % [facility] MPV 10.0 8.4 - 12.0 fL [facility] NRBC 0.10(H) 0.00 /100 WBCs [facility] ABSOLUTE NRBC 0.02(H) 0.00 K/uL [facility] DIFF METHOD Test Not Performed. [facility] Blood 04/30/2025 9:53 PM EDT 04/30/2025 10:47 PM EDT us Gustavo Biggs DO LAB BLOOD ORDERABLES Final Re sult [address] [address] * ECG 12-LEAD (04/30/2025 9:16 PM EDT) Ventricular Rate EKG/MIN 113 BPM [facility] Atrial Rate 113 BPM [facility] WI Interval 138 ms [facility] QRS Duration 80 ms [facility] QT Interval 324 ms [facility] QTC Interval 444 ms [facility] P [place] 64 degrees [facility] R Wave [place] 18 degrees [facility] T Wave [place] 41 degrees [facility] 04/30/2025 9:16 PM EDT 05/01/2025 9:35 AM EDT Narrative [facility] - 05/01/2025 9:35 AM EDT Sinus tachycardia Nonspecific ST and T wave abnormality Abnormal ECG When compared with ECG of 15-Dec-2024 12:18, Vent. rate has increased by 39 bpm Confirmed by Abelardo Morgan ([id number]) on 05/01/2025 9:35:24 AM us Hernán Jimenez DO, MPH ECG ORDERABLES Final Resu lt [facility] * MRI BRAIN (PITUITARY) WITH AND WITHOUT CONTRAST (03/28/2025 2:59 PM EDT) Anatomical Region Laterality Modality Head Magnetic Resonan ce 04/01/2025 3:54 PM EDT Impressions 04/01/2025 4:23 PM EDT 1. No pituitary lesion is identified. Narrative 04/01/2025 4:23 PM EDT MRI BRAIN (PITUITARY) WITH AND WITHOUT CONTRAST Referring clinician's provided indication for this examination in [facility]: * Infertility, galactorrhea; hyperprolactinemia TECHNIQUE: Multi-sequence, multi-planar MRI of the pituitary was performed before and after intravenous contrast. COMPARISON: FINDINGS: Sella: The pituitary gland is lower limits of normal in size. The gland enhances homogeneously. No hypoenhancing lesion is identified. No sellar enlargement. The infundibulum is midline. There is no mass effect on the optic nerves or optic chiasm. The cavernous sinuses appear normal. Brain: No evidence of acute infarct, mass lesion, hemorrhage or abnormal enhancement. There are scattered punctate foci of T2 hyperintensity in the subcortical white matter, which are nonspecific. There is no evidence of midline shift or hydrocephalus. Extracranial Structures: Postsurgical changes of endoscopic sinus surgery. Mild paranasal sinus mucosal thickening. The extracranial soft tissues and orbits are unremarkable. No osseous lesions are identified. Procedure Note Sarath Gillette MD - 04/01/2025 MRI BRAIN (PITUITARY) WITH AND WITHOUT CONTRAST Referring clinician's provided indication for this examination in [facility]: *Infertility, galactorrhea; hyperprolactinemia TECHNIQUE: Multi-sequence, multi-planar MRI of the pituitary was performedbefore and after intravenous contrast. COMPARISON: FINDINGS: Sella: The pituitary gland is lower limits of normal in size. The glandenhances homogeneously. No hypoenhancing lesion is identified. No sellarenlargement. The infundibulum is midline. There is no mass effect on theoptic nerves or optic chiasm. The cavernous sinuses appear normal. Brain: No evidence of acute infarct, mass lesion, hemorrhage or abnormalenhancement. There are scattered punctate foci of T2 hyperintensity in thesubcortical white matter, which are nonspecific. There is no evidence ofmidline shift or hydrocephalus. Extracranial Structures: Postsurgical changes of endoscopic sinus surgery.Mild paranasal sinus mucosal thickening. The extracranial soft tissues andorbits are unremarkable. No osseous lesions are identified. IMPRESSION: 1. No pituitary lesion is identified. Logan Doran MD IM MR HEAD/NECK Final Result * NM BRAIN DATSCAN SPECT/CT (03/27/2025 2:36 PM EDT) Anatomical Region Laterality Modality Head Nuclear Medicine 03/27/2025 2:09 PM EDT Impressions 03/27/2025 2:51 PM EDT Normal study with no evidence of neurodegenerative parkinsonism. ATTESTATION: Joaquim Craven, as teaching physician have reviewed the images, if any, for this patient's exam, and if necessary, have edited the report originally created by Amy Macario. Narrative 03/27/2025 2:51 PM EDT Reason for exam (per EHR order): Parkinsonism Additional clinical information obtained from the EHR: 44-year-old female. Tremor and bradykinesia. Evaluate for degenerative parkinsonism. TECHNIQUE: Radiopharmaceutical: Ioflupane I-123 (DaTscan). Dose: 4.6 mCi. Premedication: 100 mg SSKI was administered orally one hour prior to tracer injection. TECHNIQUE: Brain SPECT/CT was performed approximately 4 hours after intravenous injection of tracer. COMPARISON: None. FINDINGS: 1. RIGHT: Tracer uptake in the right caudate appears normal. Tracer uptake in the right putamen appears normal. 2. LEFT: Tracer uptake in the left caudate appears normal. Tracer uptake in the left putamen appears normal. Procedure Note Joaquim Rodriges MD - 03/27/2025 Reason for exam (per EHR order): Parkinsonism Additional clinical information obtained from the EHR: 44-year-old female.Tremor and bradykinesia. Evaluate for degenerative parkinsonism. TECHNIQUE: Radiopharmaceutical: Ioflupane I-123 (DaTscan). Dose: 4.6 mCi. Premedication: 100 mg SSKI was administered orally one hour prior totracer injection. TECHNIQUE: Brain SPECT/CT was performed approximately 4 hours afterintravenous injection of tracer. COMPARISON: None. FINDINGS: 1. RIGHT: Tracer uptake in the right caudate appears normal. Traceruptake in the right putamen appears normal. 2. LEFT: Tracer uptake in the left caudate appears normal. Tracer uptakein the left putamen appears normal. IMPRESSION: Normal study with no evidence of neurodegenerative parkinsonism. ATTESTATION: Joaquim Craven, as teaching physician have reviewedthe images, if any, for this patient's exam, and if necessary, have editedthe report originally created by Amy Macario. us Antonia Haynes MD IMG NM BRAIN Final Result * BI MAMMOGRAM SCREENING WITH TOMOSYNTHESIS WITH CAD (BILATERAL) (03/25/2025 9:50 AM EDT) Anatomical Region Laterality Modality Breast Left, Breast Right, Breast Bilateral Bila teral Mammography 03/26/2025 2:19 PM EDT Impressions 03/26/2025 2:21 PM EDT No mammographic evidence of malignancy in either breast. Annual screening mammography is recommended. BI-RADS 1 NEGATIVE The patient will be notified of the results and recommendations. Narrative 03/26/2025 2:21 PM EDT BI MAMMOGRAM SCREENING WITH TOMOSYNTHESIS WITH CAD (BILATERAL) Additional patient information: Screening. COMPARISON: Comparison is made with relevant prior imaging. Breast composition: There are scattered areas of fibroglandular density. FINDINGS: No abnormal masses, suspicious calcifications, or other significant findings are identified mammographically in either breast. Procedure Note Shani Chavez MD - 03/26/2025 BI MAMMOGRAM SCREENING WITH TOMOSYNTHESIS WITH CAD (BILATERAL) Additional patient information: Screening. COMPARISON: Comparison is made with relevant prior imaging. Breast composition: There are scattered areas of fibroglandular density. FINDINGS: No abnormal masses, suspicious calcifications, or other significantfindings are identified mammographically in either breast. IMPRESSION: No mammographic evidence of malignancy in either breast. Annual screening mammography is recommended. BI-RADS 1 NEGATIVE The patient will be notified of the results and recommendations. us Sanjay Fernandes MD IMG MG EXAMS Final Resul t * TSH with reflex (03/04/2025 11:07 AM EDT) TSH 3.45 0.27 - 4.20 uIU/mL [facility] Blood 03/04/2025 11:0 7 AM EDT 03/04/2025 11:23 AM EDT us Logan Doran MD LAB BLOOD ORDERABLES Final Re sult [address] [address] * (ABNORMAL) Hemoglobin A1c (02/02/2024 8:23 AM EDT) HEMOGLOBIN A1C 8.4(H) 4.3 - 5.8 % [facility] Blood 02/02/2024 8:23 AM EDT 02/02/2024 8:30 AM EDT us Sanjay Fernandes MD LAB BLOOD ORDERABLES Final Result Performing Organization Address [facility] Co de Phone Number [address] [address] * (ABNORMAL) Lipid panel (12/01/2022 12:51 PM EST) HDL 71 mg/dL [facility] Comment: Interpretation <40 mg/dL: Low HDL cholesterol (major risk factor for CHD) Greater than or equal to 60 mg/dL: High HDL cholesterol ( negative risk factor for CHD) HDL - cholesterol is affected by a number of factors, e.g. smoking, excerise, hormones, sex and age. CHOLESTEROL 214 0 - 240 mg/dL [facility] TRIGLYCERIDES 332(H) 30 - 160 mg/dL [facility] LDL 77 50 - 129 mg/dL [facility] Comment: LDL levels in terms of risk for coronary heart disease: <100 mg/dL: Optimal 100-129 mg/dL: Near or above optimal 130-159 mg/dL: Borderline high 160-189 mg/dL: High >190 mg/dL: Very High CARDIAC RISK RATIO 3.0(L) 3.3 - 4.4 C [facility] Blood 12/01/2022 12:5 1 PM EST 12/01/2022 1:09 PM EST Gael Stockton MD LAB BLOOD ORDERABLES Fin al Result [address] [address] * Pap Smear (02/11/2022 12:00 AM EDT) 02/11/2022 02/14/2022 9:3 3 AM EDT Narrative SEE NARRATIVE - 02/18/2022 2:03 PM EDT [address] [address] Mutuel Cashier: Jeanie Steven MD NURSE CARE MANAGER Cytology Report FINAL DIAGNOSIS A. PAP SMEAR (SUREPATH) CE: SPECIMEN ADEQUACY: Satisfactory for evaluation; transformation zone present. INTERPRETATION: NEGATIVE FOR INTRAEPITHELIAL LESION OR MALIGNANCY. Reactive changes. Electronically Signed Out By: MD Curtis Benson CT(ASCP) By his/her signature above, the pathologist listed as making the Final Diagnosis certifies that he/she has personally reviewed this case and confirmed or corrected the diagnosis. The Pap test is a screening test primarily for squamous cancers and precursors and has associated false-negative and false-positive results. New technologies such as liquid-based preparations may decrease but will not eliminate all false-negative results. Regular sampling and follow-up of unexplained clinical signs and symptoms are recommended to minimize false negative results. PROCEDURES/ADDENDA HPV Testing (Requested) Ordered Date: 02/14/2022 A. PAP SMEAR (SUREPATH) CE: Human Papilloma Virus Test Negative for high-risk human papillomavirus types 16, 18, 45 and the Other high risk probe set (Includes 31, 33, 35, 39, 51, 52, 56, 58, 59, 66, 68) by [employer] Onclarity HR-HPV analysis. Clinical correlation is advised. This HPV test was performed at [facility], [address] [place] [address]. This test has been FDA approved for SurePath cervical cytology specimens. The accuracy and precision of this test for all other specimen sources has been verified in the Cytopathology Laboratory of the [facility] and has not been cleared or approved by the U.S. Food and Drug Administration. Clinical correlation is advised. CLINICAL HISTORY Date of Last Menstrual Period: Not Provided Menstrual History: Unknown Contraceptive History: Nuva Ring: CONTINUOUS Other Clinical Conditions: Screening Pap SPECIMEN SOURCE A: PAP SMEAR (SUREPATH) CE Patient Name: ILEANA ERNESTO J. : 1980 (Age: 41) Sex: F Institution: [facility] Location: [facility] Date of Collection: 02/11/2022 Date of Reported: 02/18/2022 14:03 Results to: Logan Doran MD, BS Logan Doran MD CYTOLOGY ORDERABLES Final Res ult SEE NARRATIVE from Last 3 Months or Most Recently Relevant to Health Maintenance [place] [address] [place] [address] EPO MEDICARE PART A & B [facility] PPO EPO MEDICARE PART A & B [facility] PPO EPO MEDICARE PART A & B [facility] MEDICARE PART A & B [facility] PPO EPO MEDICARE PART A & B [facility] PPO EPO MEDICARE PART A & [facility] PPO EPO MEDICARE PART A & B [facility] PPO EPO MEDICARE PART A & B Advance Directives For more information, please contact: [phone] (9AM - 5PM [facility], Monday-Monday) * Full Code (Latest Code Status on File) Date Activated Date Inactivated Comments 05/01/2025 4:13 AM Question Answer Comments Code Status Confirmed With: Patient Care Teams Preventive Maintenance Engineer Relationship Specialty Start Date End Date Sanjay Fernandes MD [address] [place] [id number] PCP - General Pulmonary Disease 04/17/18 Azalea Rehman MD [address] [place] [address] Historical LMR Provider 08/09/17 Logan Doran MD [address] [place] [address] Historical LMR Provider 08/09/17 Maddi Mayers MD [address] [place] [address] Orthopedics & Sports Medicine, [place] [address] Historical LMR Provider 08/09/17 Chiquis Gusman MD [address] [place] [address], [place] [address] [email or web address] Historical LMR Provider 08/09/17 Additional Source Comments The information contained in this document represents components of the legal health record. It is not the complete legal health record.[facility]
--- OUTSIDE RECORDS SUMMARY | 2025-06-26 18:26 | XMS_ITS | Encounter Summary ---
Author Organization Formerly [facility] Address [address] [place] [address] Care Team Providers Care Scallop Binder Name Role Phone Franklin Simmons MD Unavailable [phone] Godwin Saunders DO Unavailable Gael Stockton MD Unavailable Unavailable Gael Stockton MD Primary Care Provider Unavail able Godwin Malcolm MD Unavailable Unavailable Gael Stockton MD Unavailable Unavailable OchoaHeather OIL DEVELOPER Unavailable Antonia Willis MD Unavailable Logan Doran MD Unavailable [phone] Sanjay Fernandes MD Primary Care Provider Encounter Details Date Type Department Care Team (Late st Contact Info) Description 03/30/2021 Scanned Document [facility] [address] [place] [address] [address] [place] [phone] Social History Tobacco Use Types Packs/Day Years [...] have Coronavirus / COVID-19? No / Unsure 03/31/2021 2:06 PM EDT documented as of this encounter Plan of Treatment Upcoming Encounters Date Type Department Care Team (Latest Contact Info) Description 07/02/2025 11:00 AM EDT Clinical Support [facility] [address] [place] [address] [address] [place] [phone] 08/18/2025 10:30 AM EDT Hospital Encounter [facility] [address] [place] [phone] Vitor Morales MD [address] [place] [address] 08/18/2025 10:30 AM EDT Appointment [facility] [address] [place] [address] Vitor Morales MD [address] [place] [phone] 08/18/2025 10:30 AM EDT - 08/18/2025 11:00 AM EDT Surgery [facility] [address] [place] [phone] Vitor Morales MD [address] [place] [address] COLONOSCOPY 05/04/2026 11:00 AM EDT Office Visit [facility] Physicians Department of Cardiology [place] [address] [place] [phone] Aashish Silva PA [address] [place] [address] Scheduled Procedures Name Priority Associated Diagnoses Date/Ti [...] documented as of this encounter Care Teams Scallop Binder Relationship Specialty Start Date End Date Gael Stockton MD PCP - General Internal Medicine 06/23/20 05/04/25 Gael Stockton MD PCP - [facility] Medicare Patients 11/23/22 03/22/23 Sanjay Fernandes MD [address] [place], [place] [phone] [place] [address] PCP - General Pulmonary Disease 05/05/25 Franklin Simmons MD Physician Otolaryngology 06/14/17 Godwin Saunders DO Physician Endocrinology 06/14/17 Gael Stockton MD Internal Medicine 05/26/20 Godwin Malcolm MD Hematology Oncology 11/03/20 Heather Packer, OIL DEVELOPER [address] [facility] [address] [place] [address] Respiratory Care Practitioner Respiratory Therapist 09/20/24 Antonia Willis MD [address] [place] [address] [facility] [address] Internal Medicine 02/17/25 Logan Doran MD [address] [place] [address] 03/18/25 documented as of this encounter
--- OUTSIDE RECORDS SUMMARY | 2025-06-26 18:26 | XMS_ITS | Encounter Summary ---
Author Organization [facility] Address [address] [place] [address] Care Team Providers Care Slag Production Worker Name Role Phone Franklin Simmons MD Unavailable Godwin Saunders DO Unavailable Gael Stockton MD Unavailable Unavailable Gael Stockton MD Primary Care Provider Unavail able Godwin Malcolm MD Unavailable Unavailable Gael Stockton MD Unavailable Unavailable DanielHeather fraser MEDICAL TECHNOLOGIST HEMATOLOGY Unavailable Antonia Willis MD Unavailable Logan Doran MD Unavailable Sanjay Fernandes MD Primary Care Provider Encounter Details Date Type Department Care Team (Late st Contact Info) Description 04/04/2021 [facility]IC[facility] [address] [place] [address] Sanjay Fernandes MD 85 [facility] 923 [place] [address] CF (cystic fibrosis) ([facility]) (Primary Dx) Social History Tobacco Use Types [...] AM EDT Clinical Support [facility] [address] [place] [address] 4th [place] [phone] 08/18/2025 10:30 AM EDT Hospital Encounter [facility] Gastroenterology Division [address] [place] [phone] Vitor Morales MD [address] [place] [address] [phone] 08/18/2025 10:30 AM EDT Appointment [facility] [address] [place] [address] Vitor Morales MD [address] [place] [address] [phone] 08/18/2025 10:30 AM EDT - 08/18/2025 11:00 AM EDT Surgery [facility]enterology [facility] [address] [place] [phone] Vitor Morales MD [address] [place] [address] [phone] COLONOSCOPY 05/04/2026 11:00 AM EDT Office Visit [facility] Department of Cardiology [place] [address] [facility] [address] [place] [address] Aashish Silva PA [address] [place] [address] Scheduled Procedures Name Priority Associated Diagnoses Date/Ti me COLONOSCOPY Colon cancer screening 08/18/2025 10:30 AM EDT documented as of this encounter Visit Diagnoses Diagnosis CF (cystic fibrosis) (HCC)- Primary Cystic fibrosis without mention of [...] documented as of this encounter Care Teams Slag Production Worker Relationship Specialty Start Date End Date Gael Stockton MD PCP - General Internal Medicine 06/23/20 05/04/25 Gael Stockton MD PCP - [place] Medicare Patients 11/23/22 03/22/23 Sanjay Fernandes MD [address] [place] [address] PCP - General Pulmonary Disease 05/05/25 Franklin Simmons MD Physician Otolaryngology 06/14/17 Godwin Saunders DO Physician Endocrinology 06/14/17 Gael Stockton MD Internal Medicine 05/26/20 Godwin Malcolm MD Hematology Oncology 11/03/20 Heather Packer, MEDICAL TECHNOLOGIST HEMATOLOGY [address] [place] [address] [address] Respiratory Care Practitioner Respiratory Therapist 09/20/24 Antonia Willis MD [address] [facility] [place] [address] Internal Medicine 02/17/25 Logan Doran MD 30 [place] [address] 03/18/25 documented as of this encounter
--- OUTSIDE RECORDS SUMMARY | 2025-06-26 18:26 | XMS_ITS | Encounter Summary ---
Author Organization [facility] Address [address] [place] [address] Care Team Providers Care Salesperson Burial Needs Name Role Phone Sanjay Fernandes MD Primary Care Provider Franklin Simmons MD Unavailable [phone] Godwin Saunders DO Unavailable Gael Stockton MD Unavailable Unavailable Gael Stockton MD Primary Care Provider Unavail able Godwin Malcolm MD Unavailable Unavailable Gael Stockton MD Unavailable Unavailable Heather Packer AQUATICS MANAGER Unavailable Antonia Willis MD Unavailable Logan Doran MD Unavailable Sanjay Fernandes MD Primary Care Provider Encounter Details Date Type Department Care Team (Late st Contact Info) Description 11/02/2016 Scanned Document [facility]rosis Center [address] [place] [phone] Social History Tobacco Use Types Packs/Day [...] EDT Clinical Support [facility] 79 [facility] 4th [place] [phone] 08/18/2025 10:30 AM EDT Hospital Encounter [facility] Gastroenterology Division [address] [place] [phone] Vitor Morales MD [address] [place] [address] [phone] 08/18/2025 10:30 AM EDT Appointment [facility] [address] 3RD [place] [address] Vitor Morales MD [address] [place] [address] [phone] 08/18/2025 10:30 AM EDT - 08/18/2025 11:00 AM EDT Surgery [facility] Gastroenterology Division [address] [place] [phone] Vitor Morales MD [address] [place] [address] [phone] COLONOSCOPY 05/04/2026 11:00 AM EDT Office Visit [facility] Department of Cardiology [place] [address] [place] [address] Aashish Silva PA [address] [place] [address] [phone] Scheduled Procedures Name Priority Associated Diagnoses Date/Ti [...] documented as of this encounter Care Teams Salesperson Burial Needs Relationship Specialty Start Date End Date Sanjay Fernandes MD [address] [place] [address] PCP - General Pulmonary Disease 05/28/16 06/22/20 Gael Stockton MD [address] [place] [address] PCP - General Internal Medicine 06/23/20 05/04/25 Gael Stockton MD PCP - [place] Medicare Patients 11/23/22 03/22/23 Sanjay Fernandes MD [address] [place] [address] PCP - General Pulmonary Disease 05/05/25 Franklin Simmons MD [address] [place] [address] Physician Otolaryngology 06/14/17 Godwin Saunders DO [address] [place] [address] Physician Endocrinology 06/14/17 Gael Stockton MD [address] [place] [address] Internal Medicine 05/26/20 Godwin Malcolm MD [address] [place] [address] Hematology Oncology 11/03/20 Heather Packer, AQUATICS MANAGER [address] [place] [address] [place] [address] Respiratory Care Practitioner Respiratory Therapist 09/20/24 Antonia Willis MD [address] [facility] [address] Internal Medicine 02/17/25 Logan Doran MD 30 [place] [address] 03/18/25 documented as of this encounter
--- OUTSIDE RECORDS SUMMARY | 2025-06-26 18:26 | XMS_ITS | Encounter Summary ---
Author Organization [facility] Address [address] [place] [address] Care Team Providers Care Wash Driller Helper Name Role Phone Franklin Simmons MD Unavailable Godwin Saunders DO Unavailable [phone] Gael Stockton MD Unavailable Unavailable Gael Stockton MD Primary Care Provider Unavail able Godwin Malcolm MD Unavailable Unavailable Gael Stockton MD Unavailable Unavailable DanieldinorahelyssaeHather solis ANIMAL TRAINER Unavailable [phone] Antonia Willis MD Unavailable Logan Doran MD Unavailable [phone] Sanjay Fernandes MD Primary Care Provider Encounter Details Date Type Department Care Team (Late st Contact Info) Description 03/20/2021 [facility] [address] [place] [address] 4th [place] [phone] Sanjay Fernandes MD [address] [place] [address] Cystic fibrosis (HCC); Moderate persistent asthma without complication Social History [...] have Coronavirus / COVID-19? No / Unsure 02/19/2021 12:19 PM EDT documented as of this encounter Plan of Treatment Upcoming Encounters Date Type Department Care Team (Latest Contact Info) Description 07/02/2025 11:00 AM EDT Clinical Support [facility] [address] [place] [address] 4th [place] [phone] 08/18/2025 10:30 AM EDT Hospital Encounter [facility] Gastroenterology Division [address] [place] [phone] Vitor Morales MD [address] [place] [address] [phone] 08/18/2025 10:30 AM EDT Appointment [facility] [address] [address] Vitor Morales MD [address] [place] [address] [phone] 08/18/2025 10:30 AM EDT - 08/18/2025 11:00 AM EDT Surgery [facility] Gastroenterology Division [address] [place] [address] Vitor Morales MD [address] [place] [address] [phone] COLONOSCOPY 05/04/2026 11:00 AM EDT Office Visit [facility] Department of Cardiology [place] [address] [place] [phone] Aashish Silva PA [address] [place] [address] Scheduled Procedures Name Priority Associated Diagnoses Date/Ti [...] documented as of this encounter Care Teams Wash Driller Helper Relationship Specialty Start Date End Date Gael Stockton MD PCP - General Internal Medicine 06/23/20 05/04/25 Gael Stockton MD PCP - [place] Medicare Patients 11/23/22 03/22/23 Sanjay Fernandes MD [address] [place] [address] PCP - General Pulmonary Disease 05/05/25 Franklin Simmons MD Physician Otolaryngology 06/14/17 Godwin Saunders DO Physician Endocrinology 06/14/17 Gael Stockton MD Internal Medicine 05/26/20 Godwin Malcolm MD Hematology Oncology 11/03/20 Heather Packer, ANIMAL TRAINER [address] [place] [address] [place] [address] Respiratory Care Practitioner Respiratory Therapist 09/20/24 Antonia Willis MD [address] and [place] [address] Internal Medicine 02/17/25 Logan Doran MD 30 [place] [address] 03/18/25 documented as of this encounter
--- OUTSIDE RECORDS SUMMARY | 2025-06-26 18:26 | XMS_ITS | Encounter Summary ---
Author Organization [facility] Address [address] [facility] [address] [place] [address] Phone Care Team Providers Care Events And Promotions Assistant Name Role Phone Azalea Rehman MD Unavailable Logan Doran MD Unavailable [phone] Maddi Mayers MD Unavailable [phone] Chiquis Gusman MD Unavailable [phone] Sanjay Fernandes MD Primary Care Provider Hernán Jimenez DO, MPH Unavailable [phone] Encounter Details Date Type Department Care Team (Latest Contact Info) Description 12/09/2022 Transcribe Orders Virtual Department 30 [place] [address] Logan Doran MD 22 [facility], [address] [place] [address] [email or web address] Breast screening (Primary Dx) Social History Tobacco Use Types [...] Description 07/04/2025 11:30 AM EDT Office Visit [address] [phone] Maddi Mayers MD [address] [place] [address], [place] [address] [email or web address] Caroline Hobson, PT [address] [place] [address] 07/04/2025 3:00 PM EDT Office Visit [address] [address] Jessica Keyes [address] [place] [address], [address] [place] [address] [email or web address] 07/08/2025 1:15 PM EDT Office Visit [address] [phone] Maddi Mayers MD [address] [place] [address], [place], [place] [phone] [email or web address] Caroline Hobson, PT [address] [place], [place] [phone] 07/15/2025 11:30 AM EDT Office Visit [address] [phone] Maddi Mayers MD [address] [place] [address], [place], [place] [phone] [email or web address] Caroline Hobson, PT [address] [place] [address] 07/22/2025 11:30 AM EDT Office Visit [address] [address] Maddi Mayers MD [address] [place] [address], [place] [address] [email or web address] Caroline Hobson, PT [address] [place] [address] 07/29/2025 11:00 AM EDT Office Visit [address] [address] Maddi Mayers MD [address] [place] [address], [place] [address] [email or web address] Indira Willingham PTA [address] [place] [address] 08/05/2025 11:30 AM EDT Office Visit [address] [address] Maddi Mayers MD [address] [place] [address], [place], [place] [phone] [email or web address] Caroline Hobson, PT [address] [place], [place] [phone] 08/12/2025 11:00 AM EDT Office Visit [address] [phone] Maddi Mayers MD [address] [place] [address], [place] [address] [email or web address] Indira Willingham, [employer] COLLECTION SYSTEM OPERATOR [address] [place] [address] 08/20/2025 11:00 AM EDT Office Visit [facility] 4 [place] [address] Maddi Mayers MD [address] [place] [address] Orthopedics & Sports Medicine, [facility] [place] [address] [email or web address] Caroline Hobson, PT [address] [place] [address] 08/22/2025 11:00 AM EDT [facility], Department of Neurology [address] [place] [address] Antonia Haynes MD [address] [place] [address] documented as of this encounter Results * BI MAMMOGRAM SCREENING WITH TOMOSYNTHESIS WITH CAD (BILATERAL) (12/14/2022 1:49 PM EST) Anatomical Region Laterality Modality Breast Left, Breast Right, Breast Bilateral Bila teral Mammography 12/15/2022 12:2 2 PM EST Impressions 12/15/2022 12:27 PM EST BILATERAL BREASTS: Benign, no evidence of malignancy. Recommend bilateral annual screening mammography in 12 months. Bi-RADS: BI-RADS CATEGORY: 2 - Benign finding. DENSITY: There are scattered fibroglandular densities. RIGHT RECOMMENDATION DUE DATE: 12 Months Recommendation: Right Mammography Screening LEFT RECOMMENDATION DUE DATE: 12 Months Recommendation: Left Mammography Screening Narrative 12/15/2022 12:27 PM EST STUDY: Bilateral screening mammography with tomosynthesis and CAD TECHNIQUE: Bilateral full-field digital screening mammography is obtained and read in conjunction with computer-aided detection. Tomosynthesis as well as 2-D C view imaging were obtained. COMPARISON: 11/05/2021 BILATERAL BREASTS: Port-A-Cath projects over the upper right breast at posterior depth, limiting local evaluation. Within this confine: No new masses, suspicious calcifications or other abnormalities are seen. Stable changes of bilateral reduction mammoplasty again noted. No significant interval change. Procedure Note Lotus Simmons MD - 12/15/2022 STUDY: Bilateral screening mammography with tomosynthesis and CAD TECHNIQUE: Bilateral full-field digital screening mammography is obtainedand read in conjunction with computer-aided detection. Tomosynthesis aswell as 2-D C view imaging were obtained. COMPARISON: 11/05/2021 BILATERAL BREASTS: Port-A-Cath projects over the upper right breast atposterior depth, limiting local evaluation. Within this confine: No newmasses, suspicious calcifications or other abnormalities are seen. Stablechanges of bilateral reduction mammoplasty again noted. No significantinterval change. IMPRESSION: BILATERAL BREASTS: Benign, no evidence of malignancy. Recommend bilateralannual screening mammography in 12 months. Bi-RADS: BI-RADS CATEGORY: 2 - Benign finding. DENSITY: There are scattered fibroglandular densities. RIGHT RECOMMENDATION DUE DATE: 12 Months Recommendation: Right Mammography Screening LEFT RECOMMENDATION DUE DATE: 12 Months Recommendation: Left Mammography Screening Logan Doran MD IMG MG EXAMS Final Result documented in this encounter Visit Diagnoses Diagnosis Breast screening- Primary Breast screening, unspecified Breast screening Breast screening, unspecified documented in this encounter Care Teams Events And Promotions Assistant Relationship Specialty Start Date End Date Sanjay Fernandes MD [address] [place] [address] [address] [place] [address] PCP - General Pulmonary Disease 04/17/18 Azalea Rehman MD [address] [place] [address], [address] [place] [address] Historical LMR Provider 08/09/17 Logan Doran MD [address] [place] [address] Historical LMR Provider 08/09/17 Maddi Mayers MD [address] [place] [address] Orthopedics & Sports Medicine, [place] [address] Historical LMR Provider 08/09/17 Chiquis Gusman MD [address] [address] Historical LMR Provider 08/09/17 Hernán Jimenez DO, MPH [address] [place] [phone] [email or web address] Insurance Assigned Provider 01/27/24 03/02/24 documented as of this encounter Additional Source Comments The information contained in this document represents components of the legal health record. It is not the complete legal health record.[facility]
--- OUTSIDE RECORDS SUMMARY | 2025-06-26 18:26 | XMS_ITS | Encounter Summary ---
Author Organization [facility] Address [address] [place] [address] Care Team Providers Care Wood Box Maker Name Role Phone Franklin Simmons MD Unavailable [phone] Godwin Saunders DO Unavailable [phone] Gael Stockton MD Unavailable Unavailable Gael Stockton MD Primary Care Provider Unavail able Godwin Malcolm MD Unavailable Unavailable Heather Packer VACUUM FRAME OPERATOR Unavailable Antonia Willis MD Unavailable Logan Doran MD Unavailable [phone] Sanjay Fernandes MD Primary Care Provider [phone] Encounter Details Date Type Department Care Team (Late st Contact Info) Description 07/20/2023 Scanned Document [facility] Department of Internal Medicine [place] [address] [facility] [address] [place] [phone] Gael Stockton MD Social History Tobacco Use Types Packs/Day Years Used Date Smoking Tobacco: Never Smokeless Tobacco: Never Alcohol Use Standard Drinks/Week Comments No 0 (1 standard drink = 0.6 oz pur e alcohol) PHQ-2 Answer Date Recorded PHQ-2 Total Score 1 04/05/2023 Comments No Sex and Gender Information Value [...] EDT Clinical Support [facility] [address] [place] [address] 4th [place] [phone] 08/18/2025 10:30 AM EDT Hospital Encounter [facility] Gastroenterology Division [address] [place] [phone] Vitor Morales MD [address] [place] [address] [phone] 08/18/2025 10:30 AM EDT Appointment [facility] [address] [place] [address] Vitor Morales MD [address] [place] [address] [phone] 08/18/2025 10:30 AM EDT - 08/18/2025 11:00 AM EDT Surgery [facility] Gastroenterology Division [address] [place] [phone] Vitor Morales MD [address] [place] [address] [phone] COLONOSCOPY 05/04/2026 11:00 AM EDT Office Visit [facility] Department of Cardiology [place] [address] [place] [address] Aashish Silva PA [address] [place] [address] [phone] Scheduled Procedures Name Priority Associated Diagnoses Date/Ti id COLONOSCOPY Colon cancer screening 08/18/2025 10:30 AM [...] documented as of this encounter Care Teams Wood Box Maker Relationship Specialty Start Date End Date Gael Stockton MD PCP - General Internal Medicine 06/23/20 05/04/25 Sanjay Fernandes MD 85 [facility] 923 [place] [address] PCP - General Pulmonary Disease 05/05/25 Franklin Simmons MD Physician Otolaryngology 06/14/17 Godwin Saunders DO Physician Endocrinology 06/14/17 Gael Stockton MD Internal Medicine 05/26/20 Godwin Malcolm MD Hematology Oncology 11/03/20 Heather Packer, VACUUM FRAME OPERATOR [address] [facility] [place] 4 [place] [address] Respiratory Care Practitioner Respiratory Therapist 09/20/24 Antonia Willis MD [address] [facility] [place] [address] Internal Medicine 02/17/25 Logan Doran MD 30 [place] [address] 03/18/25 documented as of this encounter
--- OUTSIDE RECORDS SUMMARY | 2025-06-26 18:26 | XMS_ITS | Encounter Summary ---
Author Organization [facility] Address [address] [facility] [address] [place] [address] Phone Care Team Providers Care Orthodontic Assistant Name Role Phone Azalea Rehman MD Unavailable Logan Doran MD Unavailable Maddi Mayers MD Unavailable [phone] Chiquis Gusman MD Unavailable [phone] Sanjay Fernandes MD Primary Care Provider Hernán Jimenez DO, MPH Unavailable [phone] Encounter Details Date Type Department Care Team (Latest Contact Info) Description 12/19/2023 Transcribe Orders Virtual Department 30 [place] [address] Sanajy Fernandes MD [address] [place] [address] Breast screening (Primary Dx) Social History Tobacco [...] Description 07/04/2025 11:30 AM EDT Office Visit [address] [address] Maddi Mayers MD [address] [place] [address] Orthopedics & Sports [facility], [place], [place] [phone] [email or web address] Caroline Hobson, PT 4 [place] [address] 07/04/2025 3:00 PM EDT Office Visit [facility] [address] [address] Jessica Keyes [address] [place] [address], [address] [place] [address] [email or web address] 07/08/2025 1:15 PM EDT Office Visit [address] [address] Maddi Mayers MD [address] [place] [address] Orthopedics Sports [facility], [place] [phone] [email or web address] Caroline Hobson, PT 4 [place], [place] [phone] 07/15/2025 11:30 AM EDT Office Visit [address] [address] Maddi Mayers MD [address] [place] [address], [place] [address] [email or web address] Caroline Hobson, PT 4 [place] [address] 07/22/2025 11:30 AM EDT Office Visit [address] [address] Maddi Mayers MD [address] [place] [address] [email or web address] Caroline Hobson, PT 4 [place] [address] 07/29/2025 11:00 AM EDT Office Visit [address] [address] Maddi Mayers MD [address] [place] [address] [email or web address] Indira Willingham, ROCK CUTTER [address] [place] [address] 08/05/2025 11:30 AM EDT Office Visit [address] [address] Maddi Mayers MD [address] [place] [address], [place] [address] [email or web address] Caroline Hobson, PT 4 [place] [address] 08/12/2025 11:00 AM EDT Office Visit [address] [address] Maddi Mayers MD [address] [place] [address] Orthopedics Sports [facility], [place] [address] [email or web address] Indira Willingham PTA [address] [place] [address] 08/20/2025 11:00 AM EDT Office Visit [address] [address] Maddi Mayers MD [address] [place] [address] Sports [facility], [place] [address] [email or web address] Caroline Hobson, PT 4 [place] [address] 08/22/2025 11:00 AM EDT [facility] Visit [facility], Department of Neurology 60 [place] [address] Antonia Haynes MD [address] [place] [address] documented as of this encounter Results * BI MAMMOGRAM SCREENING WITH TOMOSYNTHESIS WITH CAD (BILATERAL) (02/23/2024 11:04 AM EDT) Anatomical Region Laterality Modality Breast Left, Breast Right, Breast Bilateral Bila teral Mammography 02/23/2024 5:27 PM EDT Impressions 02/27/2024 11:55 AM EDT No mammographic evidence of malignancy in either breast. Annual screening mammography is recommended. BI-RADS 2 BENIGN The patient will be notified of the results and recommendations. Narrative 02/27/2024 11:55 AM EDT BI MAMMOGRAM SCREENING WITH TOMOSYNTHESIS WITH CAD (BILATERAL) Additional patient information: Screening. COMPARISON: Comparison is made with relevant prior imaging. Breast composition: There are scattered areas of fibroglandular density. FINDINGS: No abnormal masses, suspicious calcifications, or other significant findings are identified mammographically in either breast. Coarse calcifications in the anterior inner left breast have a benign appearance. Procedure Note Derik King MD - 02/27/2024 BI MAMMOGRAM SCREENING WITH TOMOSYNTHESIS WITH CAD (BILATERAL) Additional patient information: Screening. COMPARISON: Comparison is made with relevant prior imaging. Breast composition: There are scattered areas of fibroglandular density. FINDINGS: No abnormal masses, suspicious calcifications, or other significantfindings are identified mammographically in either breast. Coarsecalcifications in the anterior inner left breast have a benignappearance. IMPRESSION: No mammographic evidence of malignancy in either breast. Annual screening mammography is recommended. BI-RADS 2 BENIGN The patient will be notified of the results and recommendations. Sanjay Fernandes MD IMG MG EXAMS Final Resul t documented in this encounter Visit Diagnoses Diagnosis Breast screening- Primary Breast screening, unspecified Breast screening Breast screening, unspecified documented in this encounter Care Teams Orthodontic Assistant Relationship Specialty Start Date End Date Sanjay Fernandes MD [address] [place] [address] PCP - General Pulmonary Disease 04/17/18 Azalea Rehman MD [address] [place] [address] [email or web address] Historical LMR Provider 08/09/17 Logan Doran MD [address] [place] [address] Historical LMR Provider 08/09/17 Maddi Mayers MD [address] [place] [address] Orthopedics & Sports Medicine, [place] [address] Historical LMR Provider 08/09/17 Chiquis Gusman MD [address] [place] [address] 102 [place] [address] Historical LMR Provider 08/09/17 Hernán Jimenez DO, MPH [address] [place] [address] [email or web address] Insurance Assigned Provider 01/27/24 03/02/24 documented as of this encounter Additional Source Comments The information contained in this document represents components of the legal health record. It is not the complete legal health record.[facility]
--- OUTSIDE RECORDS SUMMARY | 2025-06-26 18:26 | XMS_ITS | Encounter Summary ---
Author Organization [facility] Address [address] [place] [address] Care Team Providers Care Bending Machine Operator Name Role Phone Franklin Simmons MD Unavailable [phone] Godwin Saunders DO Unavailable Gael Stockton MD Unavailable Unavailable Gael Stockton MD Primary Care Provider Unavail able Godwin Malcolm MD Unavailable Unavailable Gael Stockton MD Unavailable Unavailable DanielHeather fraser CASTABLES WORKER Unavailable Antonia Willis MD Unavailable Logan Doran MD Unavailable [phone] Sanjay Fernandes MD Primary Care Provider Reason for Visit * Reason Comments Medication Refill Encounter Details Date Type Department Care Team (Late st Contact Info) Description 04/21/2021 Refill [facility] [address] [facility] [address] [place] [phone] Lisa Barr PA [address] [facility] [address] [place] [address] [phone] Chronic migraine without aura, with intractable migraine, [...] encounter Miscellaneous Notes * Telephone Encounter - Jumana Tay LPN - 04/22/2021 10:00 AM EDT Patient is overdue for an appointment, must come in before receiving any refills. Can get refills from PCP in the mean time. documented in this encounter Plan of Treatment Upcoming Encounters Date Type Department Care Team (Latest Contact Info) Description 07/02/2025 11:00 AM EDT Clinical Support [facility] [address] [place] [phone] 08/18/2025 10:30 AM EDT Hospital Encounter [facility] Gastroenterology Division [address] [place] [phone] Vitor Morales MD [address] [place] [address] 08/18/2025 10:30 AM EDT Appointment [facility] [address] [address] Vitor Morales MD [address] [place] [address] 08/18/2025 10:30 AM EDT - 08/18/2025 11:00 AM EDT Surgery [facility] Gastroenterology Division 85 [place] [phone] Vitor Morales MD 85 [facility] [address] [place] [address] COLONOSCOPY 05/04/2026 11:00 AM EDT Office Visit [facility] Department of Cardiology [place] [address] [place] [address] Aashish Silva PA [address] [place] [address] Scheduled Procedures Name Priority Associated Diagnoses Date/Ti [...] documented as of this encounter Care Teams Bending Machine Operator Relationship Specialty Start Date End Date Gael Stockton MD PCP - General Internal Medicine 06/23/20 05/04/25 Gael Stockton MD PCP - [place] Medicare Patients 11/23/22 03/22/23 Sanjay Fernandes MD [address] [place] [address] 923 [place] [address] PCP - General Pulmonary Disease 05/05/25 Franklin Simmons MD Physician Otolaryngology 06/14/17 Godwin Saunders DO Physician Endocrinology 06/14/17 Gael Stockton MD Internal Medicine 05/26/20 Godwin Malcolm MD Hematology Oncology 11/03/20 Heather Packer, CASTABLES WORKER [address] [address] Respiratory Care Practitioner Respiratory Therapist 09/20/24 Antonia Willis MD [address] [place], [place] [address] [place] [address] Internal Medicine 02/17/25 Logan Doran MD 30 [place] [address] 03/18/25 documented as of this encounter
--- OUTSIDE RECORDS SUMMARY | 2025-06-26 18:26 | XMS_ITS | Encounter Summary ---
Author Organization [facility] Address [address] [place] [address] Care Team Providers Care Cornice Maker Name Role Phone Franklin Simmons MD Unavailable Godwin Saunders DO Unavailable [phone] Gael Stockton MD Unavailable Unavailable Gael Stockton MD Primary Care Provider Unavail able Godwin Malcolm MD Unavailable Unavailable Gael Stockton MD Unavailable Unavailable DanieldinorahelyssaHeather solis PRODUCTION EDITOR Unavailable Antonia Willis MD Unavailable Logan Doran MD Unavailable Sanjay Fernandes MD Primary Care Provider Encounter Details Date Type Department Care Team (Late st Contact Info) Description 05/27/2021 Mobile [facility] [address] [place] [address] 4th [place] [phone] Sanjay Fernandes MD [address] [place] [address] Cystic fibrosis with pulmonary manifestations (HCC) Social History Tobacco Use Types Packs/Day Years [...] [facility] [address] [place] [address] 4th [place] [address] 08/18/2025 10:30 AM EDT Hospital Encounter [facility] Gastroenterology Division [address] [place] [phone] Vitor Morales MD [address] [place] [phone] 08/18/2025 10:30 AM EDT Appointment [facility] [address] [place] [address] Vitor Morales MD [address] [place] [phone] 08/18/2025 10:30 AM EDT - 08/18/2025 11:00 AM EDT Surgery [facility] Gastroenterology Division [address] [place] [phone] Vitor Morales MD [address] [place] [phone] COLONOSCOPY 05/04/2026 11:00 AM EDT Office Visit [facility] Department of Cardiology [place] [address] [place] [address] Aashish Silva PA [address] [place] [address] Scheduled Procedures Name Priority Associated Diagnoses Date/Ti me COLONOSCOPY Colon cancer screening 08/18/2025 10:30 AM EDT documented as of this encounter Visit Diagnoses Diagnosis Cystic fibrosis with pulmonary manifestations (HCC) Cystic fibrosis with pulmonary manifestations Colon cancer [...] documented as of this encounter Care Teams Cornice Maker Relationship Specialty Start Date End Date Gael Stockton MD PCP - General Internal Medicine 06/23/20 05/04/25 Gael Stockton MD PCP - [place] Medicare Patients 11/23/22 03/22/23 Sanjay Fernandes MD [address] [place] [address] PCP - General Pulmonary Disease 05/05/25 Franklin Simmons MD Physician Otolaryngology 06/14/17 Godwin Saunders DO Physician Endocrinology 06/14/17 Gael Stockton MD Internal Medicine 05/26/20 Godwin Malcolm MD Hematology Oncology 11/03/20 Heather Packer, PRODUCTION EDITOR [address] [address] Respiratory Care Practitioner Respiratory Therapist 09/20/24 Antonia Willis MD [address] [place] [address] Internal Medicine 02/17/25 Logan Doran MD [address] [place] [address] 03/18/25 documented as of this encounter
--- OUTSIDE RECORDS SUMMARY | 2025-06-26 18:26 | XMS_ITS | Encounter Summary ---
Author Organization [facility] Address [address] [place] [address] Care Team Providers Care Milk Powder Grinder Name Role Phone Franklin Simmons MD Unavailable [phone] Godwin Saunders DO Unavailable [phone] Gael Stockton MD Unavailable Unavailable Gael Stockton MD Primary Care Provider Unavail able Godwin Malcolm MD Unavailable Unavailable Gael Stockton MD Unavailable Unavailable OchoaHeather CLOTH PIECER Unavailable Antonia Willis MD Unavailable Logan Doran MD Unavailable Sanjay Fernandes MD Primary Care Provider Encounter Details Date Type Department Care Team (Late st Contact Info) Description 02/01/2021 Scanned Document [facility] Pulmonary [place] [address] [facility] [address] [place] [phone] Pulmonary, Scan Social History Tobacco Use Types Packs/Day Years [...] have Coronavirus / COVID-19? No / Unsure 01/20/2021 3:49 PM EDT documented as of this encounter Plan of Treatment Upcoming Encounters Date Type Department Care Team (Latest Contact Info) Description 07/02/2025 11:00 AM EDT Clinical Support [facility] [address] [place] [address] 4th [place] [phone] 08/18/2025 10:30 AM EDT Hospital Encounter [facility] Gastroenterology Division [address] [place] [phone] Vitor Morales MD [address] [place] [phone] 08/18/2025 10:30 AM EDT Appointment [facility] [address] [place] [address] Vitor Morales MD [address] [place] [phone] 08/18/2025 10:30 AM EDT - 08/18/2025 11:00 AM EDT Surgery [facility] Gastroenterology Division [address] [place] [phone] Vitor Morales MD [address] [place] [address] COLONOSCOPY 05/04/2026 11:00 AM EDT Office Visit [facility] Physicians Department of Cardiology [place] [address] [place] [address] Aashish Silva PA [address] [place] [address] Scheduled Procedures Name Priority Associated Diagnoses Date/Ti [...] documented as of this encounter Care Teams Milk Powder Grinder Relationship Specialty Start Date End Date Gael Stockton MD PCP - General Internal Medicine 06/23/20 05/04/25 Gael Stockton MD PCP - [place] Medicare Patients 11/23/22 03/22/23 Sanjay Fernandes MD 85 [facility] 923 [place] [address] PCP - General Pulmonary Disease 05/05/25 Franklin Simmons MD Physician Otolaryngology 06/14/17 Godwin Saunders DO Physician Endocrinology 06/14/17 Gael Stockton MD Internal Medicine 05/26/20 Godwin Malcolm MD Hematology Oncology 11/03/20 Heather Packer, CLOTH PIECER [address] [place] [address] [place] [address] Respiratory Care Practitioner Respiratory Therapist 09/20/24 Antonia Willis MD 850 [facility] 530 [facility] [place] [address] Internal Medicine 02/17/25 Logan Doran MD 30 [place] [address] 03/18/25 documented as of this encounter
--- OUTSIDE RECORDS SUMMARY | 2025-06-26 18:26 | XMS_ITS | Encounter Summary ---
Author Organization [facility] Address [address] [place] [address] Phone Care Team Providers Care Director Export Name Role Phone KeyshawnNyla Flor HUMAN RESOURCES FILE CLERK Unavailable Sandrine Bartlett CNM Unavailable Antonia York HUMAN RESOURCES FILE CLERK Unavailable Oscar Ruiz MD Unavailable Elizabeth Mcintosh HUMAN RESOURCES FILE CLERK Unavailable [phone] Demi Perez HUMAN RESOURCES FILE CLERK Unavailable Kady Bryant HUMAN RESOURCES FILE CLERK Unavailable [phone] Azalea Rehman MD Unavailable Jael Ruiz HUMAN RESOURCES FILE CLERK Unavailable [phone] Logan Doran MD Unavailable Sandrine Faustin RDCS Unavailable [email or web address] Halle Cornelius MD Unavailable Maddi Mayers MD Unavailable Chiquis Gusman MD Unavailable [phone] Tremaine Florez MD Unavailable Sanjay Fernandes MD Primary Care Provider Hernán Jimenez DO, MPH Unavailable Encounter Details Date Type Department Care Team (Latest Contact Info) Description 10/03/2020 Transcribe Orders Virtual Department 30 [place] [address] Selena Perez NP [address] [place] [address] [email or web address] Encounter for preprocedure screening laboratory testing for COVID-19 (Primary Dx) Social History Tobacco Use Types [...] Description 07/04/2025 11:30 AM EDT Office Visit [address] [address] Maddi Mayers MD 4 [facility] Orthopedics & Sports Medicine, [facility] [place] [address] [email or web address] Caroline Hobson, PT 4 [place] [address] 07/04/2025 3:00 PM EDT Office Visit [facility] [address] [place] [address] Jessica Keyes [address] [place] [address], [address] [place] [address] [email or web address] 07/08/2025 1:15 PM EDT Office Visit [address] [address] Maddi Mayers MD [address] [place] [address], [place] [address] [email or web address] Caroline Hobson, PT 4 [place] [address] 07/15/2025 11:30 AM EDT Office Visit [address] [address] Maddi Mayers MD [address] [place] [address], [place] [address] [email or web address] Caroline Hobson, PT 4 [place] [address] 07/22/2025 11:30 AM EDT Office Visit [address] [address] Maddi Mayers MD [address] [place] [address], [place] [address] [email or web address] Caroline Hobson, PT 4 [place] [address] 07/29/2025 11:00 AM EDT Office Visit [address] [address] Maddi Mayers MD [address] [place] [address], [place] [address] [email or web address] Indira Willingham PTA 4 [place] [address] 08/05/2025 11:30 AM EDT Office Visit [address] [address] Maddi Mayers MD [address] [place] [address] Orthopedics Sports [facility], [place] [address] [email or web address] Caroline Hobson, PT 4 [place] [address] 08/12/2025 11:00 AM EDT Office Visit [address] [address] Maddi Mayers MD [address] [place] [address] Sports [facility], [place] [address] [email or web address] Indira Willingham PTA [address] [place] [address] 08/20/2025 11:00 AM EDT Office Visit [address] [address] Maddi Mayers MD [address] [place] [address] Sports [facility], [place], [place] [phone] [email or web address] Caroline Hobson, PT 4 [place] [address] 08/22/2025 11:00 AM EDT [facility] Visit [facility], Department of Neurology 60 [place] [address] Antonia Haynes MD [address] [place] [address], [address] [address] documented as of this encounter Results * COVID-19 PCR Order (10/05/2020 8:13 AM EST) COVID-19 Comment [id number] [facility] COVID Testing Status Sent to 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 per Infection Control as part of historical infection status reconciliation 05/09/2004 05/09/2004 01/09/20 1:25 AM EDT CoV-Risk 02/12/2021 02/13/2021 02/22/2021 1:23 AM EDT documented as of this encounter Care Teams Director Export Relationship Specialty Start Date End Date Sanjay Fernandes MD [address] [place] [address] PCP - General Pulmonary Disease 04/17/18 Nyla Mahajan NP [address] [place] [address] Historical LMR Provider 08/09/172 2 Sandrine Bartlett CNM [address] [place] [address] Historical LMR Provider 08/09/172 2 Antonia York NP [address] [place] [address] Historical LMR Provider 08/09/17 2 Oscar Ruiz MD [address] [place] [address] Historical LMR Provider 08/09/17 10/30/21 Elizabeth Mcintosh NP [address] [place] [address] Historical LMR Provider 08/09/17 10/30/21 Demi Perez HUMAN RESOURCES FILE CLERK [address] [place] [phone] Historical LMR Provider 08/09/17 2 Kady Bryant NP [address] [place] [address] Historical LMR Provider 08/09/17 2 Azalea Rehman MD [address] [place] [address] Historical LMR Provider 08/09/17 Jael Ruiz HUMAN RESOURCES FILE CLERK [address] [place] [address] Historical LMR Provider 08/09/17 2 Logan Doran MD [address] [place] [address] Historical LMR Provider 08/09/17 Sandrine Faustin RDCS Historical LMR Provider 08/09/17 10/30/21 Halle Cornelius MD 61 [place] [address] Historical LMR Provider 08/09/17 2 Maddi Mayers MD [address] [place] [address] Orthopedics & Sports Medicine, [facility] [place] [address] Historical LMR Provider 08/09/17 Chiquis Gusman MD [address] [address] Historical LMR Provider 08/09/17 Tremaine Florez MD 61 [place] [address] Historical LMR Provider 08/09/17 2 Hernán Jimenez DO, MPH [address] [place] [address] Insurance Assigned Provider 01/27/24 03/02/24 documented as of this encounter Additional Source Comments The information contained in this document represents components of the legal health record. It is not the complete legal health record[facility]
--- OUTSIDE RECORDS SUMMARY | 2025-06-26 18:26 | XMS_ITS | Encounter Summary ---
Author Organization Formerly [facility] Address [address] [place] [address] Care Team Providers Care Locomotive Lubricating Systems Clerk Name Role Phone Franklin Simmons MD Unavailable [phone] Godwin Saunders DO Unavailable Gael Stockton MD Unavailable Unavailable Gael Stockton MD Primary Care Provider Unavail able Godwin Malcolm MD Unavailable Unavailable Gael Stockton MD Unavailable Unavailable OchoaHeather REGISTERED NURSE MATERNITY Unavailable Antonia Willis MD Unavailable Logan Doran MD Unavailable Sanjay Fernandes MD Primary Care Provider Encounter Details Date Type Department Care Team (Late st Contact Info) Description 05/12/2021 Scanned Document [facility] [address] [place] [address] 4th [place] [phone] Social History Tobacco Use Types Packs/Day Years [...] EDT Clinical Support The [facility] [address] [place] [address] 4th [place] [phone] 08/18/2025 10:30 AM EDT Hospital Encounter [facility] G[facility]ology Division [address] [place] [address] [phone] Vitor Morales MD [address] [place] [address] [id number] 08/18/2025 10:30 AM EDT Appointment [facility] [address] [place] [address] Vitor Morales MD [address] [place] [address] [id number] 08/18/2025 10:30 AM EDT - 08/18/2025 11:00 AM EDT Surgery [facility] [address] [place] [address] [phone] Vitor Morales MD [address] [place] [address] [phone] COLONOSCOPY 05/04/2026 11:00 AM EDT Office Visit [facility] Department of Cardiology [place] [address] [place] [phone] Aashish Silva PA [address] [place] [address] [phone] Scheduled Procedures Name Priority Associated Diagnoses Date/Ti [...] documented as of this encounter Care Teams Locomotive Lubricating Systems Clerk Relationship Specialty Start Date End Date Gael Stockton MD PCP - General Internal Medicine 06/23/20 05/04/25 Gael Stockton MD PCP - [place] Medicare Patients 11/23/22 03/22/23 Sanjay Fernandes MD 85 [facility] 923 [place] [address] PCP - General Pulmonary Disease 05/05/25 Franklin Simmons MD Physician Otolaryngology 06/14/17 Godwin Saunders DO Physician Endocrinology 06/14/17 Gael Stockton MD Internal Medicine 05/26/20 Godwin Malcolm MD Hematology Oncology 11/03/20 Heather Packer, REGISTERED NURSE MATERNITY [address] [place] 4 [place] [address] Respiratory Care Practitioner Respiratory Therapist 09/20/24 Antonia Willis MD 850 [facility] [address] [facility] [place] [address] Internal Medicine 02/17/25 Logan Doran MD 30 [place] [address] 03/18/25 documented as of this encounter
--- OUTSIDE RECORDS SUMMARY | 2025-06-26 18:26 | XMS_ITS | Encounter Summary ---
Author Organization [facility] Address [address] [place] [address] Care Team Providers Care Cleaning Team Member Name Role Phone Sanjay Fernandes MD Primary Care Provider [phone] Franklin Simmons MD Unavailable Godwin Saunders DO Unavailable Gael Stockton MD Unavailable Unavailable Gael Stockton MD Primary Care Provider Unavail able Godwin Malcolm MD Unavailable Unavailable Gael Stockton MD Unavailable Unavailable Heather Packer OUTSIDE SALES Unavailable Antonia Willis MD Unavailable Logan Doran MD Unavailable [phone] Sanjay Fernandes MD Primary Care Provider Encounter Details Date Type Department Care Team (Late st Contact Info) Description 03/21/2019 Scanned Document [facility] 65 [facility] [address] [place] [address] Lisa Barr PA 65 [facility] [address] [place] [address] Social History Tobacco Use Types [...] AM EDT Clinical Support [facility] 79 [facility] 4th [place] [phone] 08/18/2025 10:30 AM EDT Hospital Encounter [facility] Gastroenterology Division [address] [place] [address] [phone] Vitor Morales MD [address] [place] [address] [id number] 08/18/2025 10:30 AM EDT Appointment [facility] [address] [place] [address] Vitor Morales MD [address] [place] [address] [id number] 08/18/2025 10:30 AM EDT - 08/18/2025 11:00 AM EDT Surgery [facility]astro[facility]ology [facility] [address] [place] [address] [phone] Vitor Morales MD [address] [place] [address] COLONOSCOPY 05/04/2026 11:00 AM EDT Office Visit [facility] Department of Cardiology [place] [address] [place] [phone] Aashish Silva PA [address] [place] [address] Scheduled Procedures Name Priority Associated Diagnoses Date/Ti [...] documented as of this encounter Care Teams Cleaning Team Member Relationship Specialty Start Date End Date Sanjay Fernandes MD 85 [place] [address] PCP - General Pulmonary Disease 05/28/16 06/22/20 Gael Stockton MD [address] [place] [address] PCP - General Internal Medicine 06/23/20 05/04/25 Gael Stockton MD PCP - [place] Medicare Patients 11/23/22 03/22/23 Sanjay Fernandes MD [address] [place] [address] PCP - General Pulmonary Disease 05/05/25 Franklin Simmons MD [address] [place] [address] Physician Otolaryngology 06/14/17 Godwin Saunders DO [address] [place] [address] Physician Endocrinology 06/14/17 Gael Stockton MD [address] [place] [address] Internal Medicine 05/26/20 Godwin Malcolm MD 85 [facility] 923 [place] [address] Hematology Oncology 11/03/20 Heather Packer, OUTSIDE SALES [facility] 4 [place] [address] Respiratory Care Practitioner Respiratory Therapist 09/20/24 Antonia Willis MD 850 [facility] 530 [facility] [place] [address] Internal Medicine 02/17/25 Logan Doran MD 30 [place] [address] 03/18/25 documented as of this encounter
--- OUTSIDE RECORDS SUMMARY | 2025-06-26 18:26 | XMS_ITS | Encounter Summary ---
Author Organization [facility] Address [address] [place] [address] Care Team Providers Care Relations Liaison Name Role Phone Franklin Simmons MD Unavailable [phone] Godwin Saunders DO Unavailable [phone] Gael Stockton MD Unavailable Unavailable Gael Stockton MD Primary Care Provider Unavail able Godwin Malcolm MD Unavailable Unavailable Gael Stockton MD Unavailable Unavailable MaryHeather solis DIRECTOR SOFTWARE QUALITY ASSURANCE Unavailable Antonia Willis MD Unavailable Logan Doran MD Unavailable Sanjay Fernandes MD Primary Care Provider Reason for Visit * Reason Comments Medication Refill Encounter Details Date Type Department Care Team (Late st Contact Info) Description 04/19/2021 Refill [facility] 65 [facility] [address] [place] [phone] Courtney Pulido, SESAR [address] [id number] Chronic migraine without aura, with intractable migraine, [...] encounter Miscellaneous Notes * Telephone Encounter - Jory Soriano - 05/05/2021 3:42 PM EDT Left a voicemail for patient to call back to schedule a follow up visit. * Telephone Encounter - Jory Soriano - 04/19/2021 8:29 AM EDT Left Voicemail for patient to call back to schedule follow up visit documented in this encounter Plan of Treatment Upcoming Encounters Date Type Department Care Team (Latest Contact Info) Description 07/02/2025 11:00 AM EDT Clinical Support [facility] [address] [place] [phone] 08/18/2025 10:30 AM EDT Hospital Encounter [facility] [address] [place] [phone] Vitor Morales MD [address] [place] [address] [id number] 08/18/2025 10:30 AM EDT Appointment [facility] [address] [address] Vitor Morales MD [address] [address] 08/18/2025 10:30 AM EDT - 08/18/2025 11:00 AM EDT Surgery [facility] 85 [place] [address] Vitor Morales MD [address] [address] COLONOSCOPY 05/04/2026 11:00 AM EDT Office Visit [facility] Department of Cardiology [place] [address] [place] [phone] Aashish Silva PA [address] [place] [address] Scheduled Procedures Name Priority Associated Diagnoses Date/Ti [...] documented as of this encounter Care Teams Relations Liaison Relationship Specialty Start Date End Date Gael Stockton MD PCP - General Internal Medicine 06/23/20 05/04/25 Gael Stockton MD PCP - [place] Medicare Patients 11/23/22 03/22/23 Sanjay Fernandes MD [address] [place] [address] [place] [address] PCP - General Pulmonary Disease 05/05/25 Franklin Simmons MD Physician Otolaryngology 06/14/17 Godwin Saunders DO Physician Endocrinology 06/14/17 Gael Stockton MD Internal Medicine 05/26/20 Godwin Malcolm MD Hematology Oncology 11/03/20 Heather Packer, [facility] [address] [place] [address] [address] Respiratory Care Practitioner Respiratory Therapist 09/20/24 Antonia Willis MD [address] [facility] [address] Internal Medicine 02/17/25 Logan Doran MD 30 [place] [address] 03/18/25 documented as of this encounter
--- OUTSIDE RECORDS SUMMARY | 2025-06-26 18:26 | XMS_ITS | Encounter Summary ---
Author Organization [facility] Address [address] [place] [address] Phone Care Team Providers Care Scale Operator Name Role Phone KeyshawnNyla Flor KNIFE SETTER Unavailable Sandrine Bartlett CNM Unavailable Antonia York KNIFE SETTER Unavailable Oscar Ruiz MD Unavailable Elizabeth Mcintosh KNIFE SETTER Unavailable [phone] Demi Perez KNIFE SETTER Unavailable Kady Bryant KNIFE SETTER Unavailable [phone] Azalea Rehman MD Unavailable Jael Ruiz KNIFE SETTER Unavailable [phone] Logan Doran MD Unavailable Sandrine Faustin RDCS Unavailable [email or web address] Halle Cornelius MD Unavailable Maddi Mayers MD Unavailable Chiquis Gusman MD Unavailable [phone] Tremaine Florez MD Unavailable [phone] Sanjay Fernandes MD Primary Care Provider Hernán Jimenez DO, MPH Unavailable Encounter Details Date Type Department Care Team (Late st Contact Info) Description 12/18/2020 Procedure Pass [facility], [address] [place] [address] Social History Tobacco Use Types Packs/Day Years [...] Description 07/04/2025 11:30 AM EDT Office Visit [facility] [address] [place] [address] Maddi Mayers MD [address] [place] [address] [facility] [place] [address] [email or web address] Caroline Hobson, PT 4 [place] [address] 07/04/2025 3:00 PM EDT Office Visit [address] [address] Jessica Keyes [address] [place] [address], 201 [place] [address] [email or web address] 07/08/2025 1:15 PM EDT Office Visit [facility] [address] [place] [address] Maddi Mayers MD [address] [place] [address] [facility] [place], [place] [id number] [email or web address] Caroline Hobson, PT 4 [place], [place] [phone] 07/15/2025 11:30 AM EDT Office Visit [address] [address] Maddi Mayers MD [address] [place] [address] Sports [facility], [place] [address] [email or web address] Caroline [email or web address], PT 4 [place] [address] 07/22/2025 11:30 AM EDT Office Visit [address] [address] Maddi Mayers MD [address] [place] [address], [place] [address] [email or web address] Caroline [email or web address], PT 4 [place] [address] 07/29/2025 11:00 AM EDT Office Visit [address] [address] Maddi Mayers MD [address] [place] [address], [place] [address] [email or web address] Indira Willingham, CORN SHUCKER 4 [place] [address] 08/05/2025 11:30 AM EDT Office Visit [address] [phone] Maddi Mayers MD [address] [place] [address], [place] [address] [email or web address] Caroline Hobson, PT 4 [place] [address] 08/12/2025 11:00 AM EDT Office Visit [address] [phone] Maddi Mayers MD [address] [place] [address] [facility], [place] [address] [email or web address] Indira Willingham PTA [address] [place] [address] 08/20/2025 11:00 AM EDT Office Visit [address] [address] Maddi Mayers MD [address] [place] [address] [facility], [place] [address] [email or web address] Caroline Hobson, PT 4 [place] [address] 08/22/2025 11:00 AM EDT Office Visit [facility], Department of Neurology 60 [place] [address] Antonia Haynes MD [address] [place] [address] documented as of this encounter Visit Diagnoses Not on filedocumented in this encounter Additional Health Concerns 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 per Infection Control as part of historical infection status reconciliation 05/09/2004 05/09/2004 01/09/20 1:25 AM EDT CoV-Risk 02/12/2021 02/13/2021 02/22/2021 1:23 AM EDT documented as of this encounter Care Teams Scale Operator Relationship Specialty Start Date End Date Sanjay Fernandes MD [address] [place] [address] PCP - General Pulmonary Disease 04/17/18 Nyla Mahajan, KNIFE SETTER [address] [place] [address] Historical LMR Provider 08/09/17 2 Sandrine Bartlett CNM [address] [place] [address] Historical LMR Provider 08/09/17 2 Antonia York NP [address] [place] [address] Historical LMR Provider 08/09/17 2 Oscar Ruiz MD [address] [place] [address] 102 [place] [address] Historical LMR Provider 08/09/17 10/30/21 Elizabeth Mcintosh, KNIFE SETTER [address] [place] [address] Historical LMR Provider 08/09/17 10/30/21 Demi Perez, KNIFE SETTER [address] [place] [phone] Historical LMR Provider 08/09/17 2 Kady Bryant, KNIFE SETTER [address] [place] [address] Historical LMR Provider 08/09/17 2 Azalea Rehman MD [address] [place] [address] Historical LMR Provider 08/09/17 Jael Ruiz NP [address] [place] [address] Historical LMR Provider 08/09/17 2 Logan Doran MD [address] [place] [address] Historical LMR Provider 08/09/17 Sandrine Faustin, [facility] Historical LMR Provider 08/09/17 10/30/21 Halle Cornelius MD [address] [place] [phone] Historical LMR Provider 08/09/17 2 Maddi Mayers MD [address] [place] [address] [facility], [facility] [place] [address] Historical LMR Provider 08/09/17 Chiquis Gusman MD [address] [place] [address] Historical LMR Provider 08/09/17 Tremaine Florez MD 61 [place] [address] Historical LMR Provider 08/09/17 2 Hernán Jimenez DO, MPH 30 [place] [address] [email or web address] Insurance Assigned Provider 01/27/24 03/02/24 documented as of this encounter Additional Source Comments The information contained in this document represents components of the legal health record. It is not the complete legal health record.[facility]
--- OUTSIDE RECORDS SUMMARY | 2025-06-26 18:26 | XMS_ITS | Encounter Summary ---
Author Organization [facility] Address [address] [place] [address] Care Team Providers Care Knot Cutter Name Role Phone Franklin Simmons MD Unavailable [phone] Godwin Saunders DO Unavailable Gael Stockton MD Unavailable Unavailable Gael Stockton MD Primary Care Provider Unavail able Gowdin Malcolm MD Unavailable Unavailable Gael Stockton MD Unavailable Unavailable DanielHeather fraser CLERK SPECIALIST Unavailable Antonia Willis MD Unavailable Logan Doran MD Unavailable Sanjay Fernandes MD Primary Care Provider Encounter Details Date Type Department Care Team (Late st Contact Info) Description 03/19/2021 [place] [facility] [address] [place] [address] 4th [place] [phone] Sanjay Fernandes MD [address] [place] [address] Cystic fibrosis (HCC) Social History Tobacco Use Types Packs/Day [...] 11:00 AM EDT Clinical Support [facility] [address] [place] [address] 4th [place] [phone] 08/18/2025 10:30 AM EDT Hospital Encounter [facility] Gastroenterology Division [address] [place] [phone] Vitor Morales MD [address] [place] [address] [phone] 08/18/2025 10:30 AM EDT Appointment [facility] [address] [place] [address] Vitor Morales MD [address] [place] [address] [id number] 08/18/2025 10:30 AM EDT - 08/18/2025 11:00 AM EDT Surgery [facility] [address] [place] [phone] Vitor Morales MD [address] [place] [address] COLONOSCOPY 05/04/2026 11:00 AM EDT Office Visit [facility] Department of Cardiology [place] [address] [place] [phone] Aashish Silva PA [address] [place] [address] Scheduled Procedures Name Priority Associated Diagnoses Date/Ti [...] documented as of this encounter Care Teams Knot Cutter Relationship Specialty Start Date End Date Gael Stockton MD PCP - General Internal Medicine 06/23/20 05/04/25 Gael Stockton MD PCP - [place] Medicare Patients 11/23/22 03/22/23 Sanjay Fernandes MD [address] [place] [address] PCP - General Pulmonary Disease 05/05/25 Franklin Simmons MD Physician Otolaryngology 06/14/17 oGdwin Saunders DO Physician Endocrinology 06/14/17 Gael Stockton MD Internal Medicine 05/26/20 Godwin Malcolm MD Hematology Oncology 11/03/20 Heather Packer, CLERK SPECIALIST [address] [place] 4 [place] [address] Respiratory Care Practitioner Respiratory Therapist 09/20/24 Antonia Willis MD [address] [facility] [place] [address] Internal Medicine 02/17/25 Logan Doran MD 30 [place] [address] 03/18/25 documented as of this encounter
--- OUTSIDE RECORDS SUMMARY | 2025-06-26 18:26 | XMS_ITS | Encounter Summary ---
Author Organization [facility] Address [address] [place] [address] Care Team Providers Care Senior Mechanical Development Engineer Name Role Phone Sanjay Fernandes MD Primary Care Provider Franklin Simmons MD Unavailable [phone] Godwin Saunders DO Unavailable Gael Stockton MD Unavailable Unavailable Gael Stockton MD Primary Care Provider Unavail able Godwin Malcolm MD Unavailable Unavailable Gael Stockton MD Unavailable Unavailable Heather Packer SPONGE PRESS OPERATOR Unavailable [phone] Antonia Willis MD Unavailable Logan Doran MD Unavailable [phone] Sanjay Fernandes MD Primary Care Provider Encounter Details Date Type Department Care Team (Late st Contact Info) Description 04/15/2019 Scanned Document [facility] [place] [facility] [address] [place] [phone] Social History Tobacco Use Types Packs/Day [...] EDT Clinical Support The Mai clayton [facility] [address] [place] [address] 4th [place] [phone] 08/18/2025 10:30 AM EDT Hospital Encounter [facility] Gastroenterology Division [address] [place] [phone] Vitor Morales MD [address] [place] [address] [phone] 08/18/2025 10:30 AM EDT Appointment [facility] [address] [place] [address] Vitor Morales MD [address] [place] [address] [phone] 08/18/2025 10:30 AM EDT - 08/18/2025 11:00 AM EDT Surgery [facility] Gastroenterology Division [address] [place] [phone] Vitor Morales MD [address] [place] [address] [phone] COLONOSCOPY 05/04/2026 11:00 AM EDT Office Visit [facility] Department of Cardiology [place] [address] [place] [phone] Aashish Silva PA [address] [place] [phone] Scheduled Procedures Name Priority Associated Diagnoses Date/Ti [...] as of this encounter Care Teams Senior Mechanical Development Engineer Relationship Specialty Start Date End Date Sanjay Fernandes MD [address] [place] [address] PCP - General Pulmonary Disease 05/28/16 06/22/20 Gael Stockton MD [address] [place] [address] PCP - General Internal Medicine 06/23/20 05/04/25 Gael Stockton MD PCP - [place] Medicare Patients 11/23/22 03/22/23 Sanjay Fernandes MD [address] [place] [address] PCP - General Pulmonary Disease 05/05/25 Franklin Simmons MD [address] [place] [address] Physician Otolaryngology 06/14/17 Godwin Saunders DO [address] [place] [address] Physician Endocrinology 06/14/17 Gael Stockton MD [address] [place] [address] Internal Medicine 05/26/20 Godwin Malcolm MD [address] [place] [address] Hematology Oncology 11/03/20 Heather Packer, SPONGE PRESS OPERATOR [address] 4 [place] [address] Respiratory Care Practitioner Respiratory Therapist 09/20/24 Antonia Willis MD [address] [facility] [place] [address] Internal Medicine 02/17/25 Logan Doran MD 30 [place] [address] 03/18/25 documented as of this encounter
--- OUTSIDE RECORDS SUMMARY | 2025-06-26 18:26 | XMS_ITS | Encounter Summary ---
Author Organization [facility] Address [facility] [email or web address] [facility] [address] [place] [address] Phone Care Team Providers Care Budget Clerk Name Role Phone Azalea Rehman MD Unavailable Logan Doran MD Unavailable Maddi Mayers MD Unavailable [phone] Chiquis Gusman MD Unavailable [phone] Sanjay Fernandes MD Primary Care Provider [phone] Hernán Jimenez DO, MPH Unavailable [phone] Encounter Details Date Type Department Care Team (Latest Contact Info) Description 07/26/2023 Transcribe Orders Virtual Department [address] [place] [address] Jersey Morris DO [address] [place] [address] Cystic fibrosis with pulmonary manifestations (Primary Dx) Social History Tobacco Use Types [...] Description 07/04/2025 11:30 AM EDT Office Visit [address] [address] Maddi Mayers MD [address] [place] [address] Orthopedics Sports [facility], [place] [address] [email or web address] PT 4 [place] [address] 07/04/2025 3:00 PM EDT Office Visit [facility] [address] [address] Jessica Keyes [address] [place] [address], [address] [place] [address] [email or web address] 07/08/2025 1:15 PM EDT Office Visit [address] [address] Maddi Mayers MD [address] [place], [place] [address] [facility] [place] [phone] [email or web address], PT 4 [place], [place] [id number] 07/15/2025 11:30 AM EDT Office Visit [address] [address] Maddi Mayers MD [address] [place] [address], [place] [address] [email or web address], PT 4 [place] [address] 07/22/2025 11:30 AM EDT Office Visit [address] [address] Maddi Mayers MD [address] [place] [address] [email or web address], PT 4 [place] [address] 07/29/2025 11:00 AM EDT Office Visit [address] [address] Maddi Mayers MD [address] [place] [address] [email or web address] PTA [address] [place] [address] 08/05/2025 11:30 AM EDT Office Visit [address] [address] Maddi Mayers MD [address] [place] [address], [place] [address] [email or web address], PT 4 [place] [address] 08/12/2025 11:00 AM EDT Office Visit [address] [address] Maddi Mayers MD [address] [place] [address] Orthopedics Sports [facility], [place] [address] [email or web address], [email or web address] CONTROL INSPECTOR [address] [place] [address] 08/20/2025 11:00 AM EDT Office Visit [address] [phone] Maddi Mayers MD [address] [place] [address] Sports [facility], [place] [address] [email or web address], PT 4 [place] [address] 08/22/2025 11:00 AM EDT Office Visit [facility] Department of Neurology [address] [place] [address] Antonia Haynes MD [address] [place] [address] documented as of this encounter Results * XR CHEST PA AND LATERAL 2 VIEWS (07/19/2024 12:08 PM EDT) Anatomical Region Laterality Modality Chest Computed Radiogr aphy 07/19/2024 1:26 PM EDT Impressions 07/19/2024 1:28 PM EDT No acute abnormality. Narrative 07/19/2024 1:28 PM EDT XR CHEST PA AND LATERAL 2 VIEWS Referring clinician's provided indication for this examination in Epic: Other Indication (Please use free text); cystic fibrosis with pulmonary manifestations COMPARISON: None FINDINGS: Devices/Tubes/Lines: Right chest Port-A-Cath with tip projecting over the mid SVC. Lungs: The lungs are clear. No focal consolidation or pulmonary edema. Pleura: No pleural effusion or pneumothorax. Heart/Mediastinum: Normal heart and mediastinum. Bones/Soft Tissues: No acute skeletal abnormality. Procedure Note Charles Francis MD, PhD - 07/19/2024 XR CHEST PA AND LATERAL 2 VIEWS Referring clinician's provided indication for this examination in [facility]:Other Indication (Please use free text); cystic fibrosis with pulmonarymanifestations COMPARISON: None FINDINGS: Devices/Tubes/Lines: Right chest Port-A-Cath with tip projecting over themid SVC. Lungs: The lungs are clear. No focal consolidation or pulmonary edema. Pleura: No pleural effusion or pneumothorax. Heart/Mediastinum: Normal heart and mediastinum. Bones/Soft Tissues: No acute skeletal abnormality. IMPRESSION: No acute abnormality. Jersey Morris DO IMG XR CHEST Final Res ult documented in this encounter Visit Diagnoses Diagnosis Cystic fibrosis with pulmonary manifestations- Primary Cystic fibrosis with pulmonary manifestations documented in this encounter Care Teams Budget Clerk Relationship Specialty Start Date End Date Sanjay Fernandes MD [address] [place] [address] [place] [address] PCP - General Pulmonary Disease 04/17/18 Azalea Rehman MD [address] [place] [address] Historical LMR Provider 08/09/17 Logan Doran MD [address] [place] [address] Historical LMR Provider 08/09/17 Maddi Mayers MD [address] [place] [address] Orthopedics & Sports Medicine, [facility] [place] [address] [email or web address] Historical LMR Provider 08/09/17 Chiquis Gusman MD [address] [place] [address] 102 [place] [address] [email or web address] Historical LMR Provider 08/09/17 Hernán Jimenez DO, MPH [address] [place] [address] [email or web address] Insurance Assigned Provider 01/27/24 03/02/24 documented as of this encounter Additional Source Comments The information contained in this document represents components of the legal health record. It is not the complete legal health record.[facility]
--- OUTSIDE RECORDS SUMMARY | 2025-06-26 18:26 | XMS_ITS | Encounter Summary ---
Author Organization [facility] Address [facility] [address] [place] [address] Phone Care Team Providers Care Him Director Name Role Phone Azalea Rehman MD Unavailable Logan Doran MD Unavailable [phone] Maddi Mayers MD Unavailable [phone] Chiquis Gusman MD Unavailable [phone] Sanjay Fernandes MD Primary Care Provider Hernán Jimenez DO, MPH Unavailable [phone] Encounter Details Date Type Department Care Team (Late st Contact Info) Description 12/19/2023 Procedure Pass [facility], [address] [address] Social History Tobacco Use Types Packs/Day Years [...] Description 07/04/2025 11:30 AM EDT Office Visit [address] [address] Maddi Mayers MD [address] [place] [address] Orthopedics Sports [facility], [place] [address] [email or web address] Caroline [email or web address], PT 4 [place] [address] 07/04/2025 3:00 PM EDT Office Visit [address] [address] Jessica Keyes [address] [place] [address], [address] [place] [address] [email or web address] 07/08/2025 1:15 PM EDT Office Visit [address] [address] Maddi Mayers MD [address] [place] [address], [place] [address] [email or web address] Caroline [email or web address], PT 4 [place], [place] [id number] 07/15/2025 11:30 AM EDT Office Visit [address] [address] Maddi Mayers MD [address] [place] [address], [place] [address] [email or web address] Caroline [email or web address], PT 4 [place] [address] 07/22/2025 11:30 AM EDT Office Visit [address] [address] Maddi Mayers MD [address] [place] [address], [place] [address] [email or web address], PT 4 [place] [address] 07/29/2025 11:00 AM EDT Office Visit [address] [address] Maddi Mayers MD [address] [place] [address], [place] [address] [email or web address] [email or web address] PTA [address] [place] [address] 08/05/2025 11:30 AM EDT Office Visit [address] [address] Maddi Mayers MD [address] [place] [address], [place] [address] [email or web address] Caroline [email or web address], PT 4 [place] [address] 08/12/2025 11:00 AM EDT Office Visit [address] [address] Maddi Mayers MD [address] [place] [address] [facility] [place], [place] [phone] [email or web address] PTA [address] [place] [address] 08/20/2025 11:00 AM EDT Office Visit [facility] [address] [place] [address] [id number] Maddi Mayers MD [address] [place] [address] [facility] [place], [place] 1999888 [email or web address], PT 4 [place], [place] [phone] 08/22/2025 11:00 AM EDT Office Visit [facility], Department of Neurology [address] [place] [address] Antonia Haynes MD [address] [place] [address] documented as of this encounter Visit Diagnoses Not on filedocumented in this encounter Care Teams Him Director Relationship Specialty Start Date End Date Sanjay Fernandes MD [address] [place] [address] PCP - General Pulmonary Disease 04/17/18 Azalea Rehman MD [address] [place] [address] [email or web address] Historical LMR Provider 08/09/17 Logan Doran MD [address] [place] [address] [id number] Historical LMR Provider 08/09/17 Maddi Mayers MD [address] [place] [address] Orthopedics & Sports Medicine, [facility] [place] [address] Historical LMR Provider 08/09/17 Chiquis Gusman MD [address] [place] [address] 102 [place] [address] Historical LMR Provider 08/09/17 Hernán Jimenez DO, MPH [address] [place] [address] Insurance Assigned Provider 01/27/24 03/02/24 documented as of this encounter Additional Source Comments The information contained in this document represents components of the legal health record. It is not the complete legal health record.[facility]
--- OUTSIDE RECORDS SUMMARY | 2025-06-26 18:26 | XMS_ITS | Encounter Summary ---
Author Organization [facility] Address [address] [place] [address] Care Team Providers Care Tempering Kiln Tender Name Role Phone Sanjay Fernandes MD Primary Care Provider Franklin Simmons MD Unavailable Godwin Saunders DO Unavailable [phone] Gael Stockton MD Unavailable Unavailable Gael Stockton MD Primary Care Provider Unavail able Godwin Malcolm MD Unavailable Unavailable Gael Stockton MD Unavailable Unavailable Heather Packer SUBSCRIPTION CLERK Unavailable [phone] Antonia Willis MD Unavailable Logan Doran MD Unavailable Sanjay Fernandes MD Primary Care Provider [phone] Encounter Details Date Type Department Care Team (Late st Contact Info) Description 03/08/2019 Scanned Document [facility] 65 [facility] [address] [place] [address] Lisa Barr PA 65 [facility] [address] [place] [address] Social History Tobacco Use Types [...] 11:00 AM EDT Clinical [facility] 79 [facility] 4th [place] [phone] 08/18/2025 10:30 AM EDT Hospital Encounter [facility] Gastroenterology Division [address] [place] [phone] Vitor Morales MD [address] [place] [address] [id number] 08/18/2025 10:30 AM EDT Appointment [facility] [address] [place] [address] Vitor Morales MD [address] [place] [phone] 08/18/2025 10:30 AM EDT - 08/18/2025 11:00 AM EDT Surgery [facility] Gastroenterology Division [address] [place] [phone] Vitor Morales MD [address] [place] [address] COLONOSCOPY 05/04/2026 11:00 AM EDT Office Visit [facility] Department of Cardiology [place] [address] [place] [address] Aashish Silva PA [address] [place] [address] Scheduled Procedures Name Priority Associated Diagnoses Date/Ti [...] documented as of this encounter Care Teams Tempering Kiln Tender Relationship Specialty Start Date End Date Sanjay Fernandes MD 85 [place] [address] PCP - General Pulmonary Disease 05/28/16 06/22/20 Gael Stockton MD [address] [place] [address] PCP - General Internal Medicine 06/23/20 05/04/25 Gael Stockton MD PCP - [facility] Medicare Patients 11/23/22 03/22/23 Sanjay Fernandes MD [address] [place] [address] PCP - General Pulmonary Disease 05/05/25 Franklin Simmons MD [address] [place] [address] Physician Otolaryngology 06/14/17 Godwin Saunders DO [address] [place] [address] Physician Endocrinology 06/14/17 Gael Stockton MD [address] [place] [address] Internal Medicine 05/26/20 Godwin Malcolm MD 85 [facility] 923 [place] [address] Hematology Oncology 11/03/20 Heather Packer, SUBSCRIPTION CLERK [facility] 4 [place] [address] Respiratory Care Practitioner Respiratory Therapist 09/20/24 Antonia Willis MD 850 [facility] 530 [facility] [place] [address] Internal Medicine 02/17/25 Logan Doran MD 30 [place] [address] 03/18/25 documented as of this encounter
--- OUTSIDE RECORDS SUMMARY | 2025-06-26 18:26 | XMS_ITS | Encounter Summary ---
Author Organization [facility] Address [address] [place] [address] Care Team Providers Care Butane Compressor Operator Name Role Phone Franklin Simmons MD Unavailable [phone] Godwin Saunders DO Unavailable Gael Stockton MD Unavailable Unavailable Gael Stockton MD Primary Care Provider Unavail able Godwin Malcolm MD Unavailable Unavailable Heather Packer INSPECTOR WELDED PARTS Unavailable Antonia Willis MD Unavailable Logan Doran MD Unavailable [phone] Sanjay Fernandes MD Primary Care Provider [phone] Encounter Details Date Type Department Care Team (Late st Contact Info) Description 04/18/2023 Scanned Document [facility] Department of Internal Medicine [place] 160 [facility] [address] [place] [address] Gael Stockton MD Social History Tobacco Use [...] suspected to have Coronavirus/COVID-19? No / Unsure 04/05/2023 9:57 AM EDT documented as of this encounter Plan of Treatment Upcoming Encounters Date Type Department Care Team (Latest Contact Info) Description 07/02/2025 11:00 AM EDT Clinical Support [facility] 79 [facility] 4th [place] [phone] 08/18/2025 10:30 AM EDT Hospital Encounter [facility] Gastroenterology Division [address] [place] [phone] Vitor Morales MD [address] [place] [address] [id number] 08/18/2025 10:30 AM EDT Appointment [facility] [address] [place] [address] Vitor Morales MD [address] [place] [address] [id number] 08/18/2025 10:30 AM EDT - 08/18/2025 11:00 AM EDT Surgery [facility] Gastroenterology Division [address] [place] [phone] Vitor Morales MD [address] [place] [address] [phone] COLONOSCOPY 05/04/2026 11:00 AM EDT Office Visit [facility] Physicians Department of Cardiology [place] [address] [place] [phone] Aashish Silva PA [address] [place] [address] Scheduled Procedures Name Priority Associated Diagnoses Date/Ti [...] documented as of this encounter Care Teams Butane Compressor Operator Relationship Specialty Start Date End Date Gael Stockton MD PCP - General Internal Medicine 06/23/20 05/04/25 Sanjay Fernandes MD 85 [facility] 923 [place] [address] PCP - General Pulmonary Disease 05/05/25 Franklin Simmons MD Physician Otolaryngology 06/14/17 Godwin Saunders DO Physician Endocrinology 06/14/17 Gael Stockton MD Internal Medicine 05/26/20 Godwin Malcolm MD Hematology Oncology 11/03/20 Heather Packer, INSPECTOR WELDED PARTS [address] [place] 4 [place] [address] Respiratory Care Practitioner Respiratory Therapist 09/20/24 Antonia Willis MD [address] [facility] 530 [facility] [place] [address] Internal Medicine 02/17/25 Logan Doran MD 30 [place] [address] 03/18/25 documented as of this encounter
--- OUTSIDE RECORDS SUMMARY | 2025-06-26 18:26 | XMS_ITS | Encounter Summary ---
Author Organization [facility] Address [address] [place] [address] Care Team Providers Care Copy Center Specialist Name Role Phone Sanjay Fernandes MD Primary Care Provider [phone] Franklin Simmons MD Unavailable Godwin Saunders DO Unavailable Gael Stockton MD Unavailable Unavailable Gael Stockton MD Primary Care Provider Unavail able Godwin Malcolm MD Unavailable Unavailable Gael Stockton MD Unavailable Unavailable Heather Packer SUPERVISOR INSPECTION DEPARTMENT Unavailable [phone] Antonia Willis MD Unavailable Logan Doran MD Unavailable Sanjay Fernandes MD Primary Care Provider Encounter Details Date Type Department Care Team (Late st Contact Info) Description 11/14/2016 Scanned Document [facility] [address] [place] [address] [address] [place] [address] Sergio Gonzalez MD [address] [place] [address] Social History Tobacco Use Types Packs/Day Years [...] 11:00 AM EDT Clinical Support [facility] [address] [place] [address] 4th [place] [phone] 08/18/2025 10:30 AM EDT Hospital Encounter [facility] Gastroenterology Division [address] [place] [phone] Vitor Morales MD [address] [place] [address] [phone] 08/18/2025 10:30 AM EDT Appointment [facility] [address] [place] [address] Vitor Morales MD [address] [place] [address] 08/18/2025 10:30 AM EDT - 08/18/2025 11:00 AM EDT Surgery [facility] Gastroenterology Division [address] [place] [phone] Vitor Morales MD [address] [place] [address] [phone] COLONOSCOPY 05/04/2026 11:00 AM EDT Office Visit [facility] Physicians Department of Cardiology [place] [address] [place] [phone] Aashish Silva PA [address] [place] [address] Scheduled Procedures Name Priority Associated Diagnoses Date/Ti [...] documented as of this encounter Care Teams Copy Center Specialist Relationship Specialty Start Date End Date Sanjay Fernandes MD [address] [place] [address] PCP - General Pulmonary Disease 05/28/16 06/22/20 Gael Stockton MD [address] [place] [address] PCP - General Internal Medicine 06/23/20 05/04/25 Gael Stockton MD PCP - [place] Medicare Patients 11/23/22 03/22/23 Sanjay Fernandes MD [address] [place] [address] PCP - General Pulmonary Disease 05/05/25 Franklin Simmons MD [address] [place] [address] Physician Otolaryngology 06/14/17 Godwin Saunders DO [address] [place] [address] Physician Endocrinology 06/14/17 Gael Stockton MD [address] [place] [address] Internal Medicine 05/26/20 Godwin Malcolm MD 85 [facility] 923 [place] [address] Hematology Oncology 11/03/20 Heather Packer, SUPERVISOR INSPECTION DEPARTMENT [address] MD 4 [place] [address] Respiratory Care Practitioner Respiratory Therapist 09/20/24 Antonia Willis MD 850 [facility] 530 [facility] [place] [address] Internal Medicine 02/17/25 Logan Doran MD 30 [place] [address] 03/18/25 documented as of this encounter
--- OUTSIDE RECORDS SUMMARY | 2025-06-26 18:26 | XMS_ITS | Encounter Summary ---
Author Organization Formerly [facility] Address [address] [place] [address] Phone Care Team Providers Care Surgical Instruments Inspector Name Role Phone KeyshawnNyla Flor PRINT JOURNALIST Unavailable Sandrine Bartlett CNM Unavailable Antonia York PRINT JOURNALIST Unavailable Oscar Ruiz MD Unavailable Elizabeth Mcintosh PRINT JOURNALIST Unavailable [phone] Demi Perez PRINT JOURNALIST Unavailable Kady Bryant PRINT JOURNALIST Unavailable [phone] Azalea Rehman MD Unavailable Jael Ruiz PRINT JOURNALIST Unavailable [phone] Logan Doran MD Unavailable Sandrine Faustin RDCS Unavailable [email or web address] Halle Cornelius MD Unavailable Maddi Mayers MD Unavailable Chiquis Gusman MD Unavailable [phone] Tremaine Florez MD Unavailable [phone] Sanjay Fernandes MD Primary Care Provider Hernán Jimenez DO, MPH Unavailable Encounter Details Date Type Department Care Team (Latest Contact Info) Description 02/12/2021 Transcribe Orders Virtual Department 30 [place] [address] Jersey Morris DO [address] [place] [address] Cough (Primary Dx); Mild shortness of breath; Generalized muscle ache Social History Tobacco Use Types Packs/Day Years [...] Description 07/04/2025 11:30 AM EDT Office Visit [facility] [address] [place] [address] Maddi Mayers MD 4 [facility] [place] [address] [email or web address] Caroline [email or web address], PT 4 [place] [address] 07/04/2025 3:00 PM EDT Office Visit [facility] [address] [address] Jesisca Keyes [address] [place] [address], [address] [place] [address] [email or web address] 07/08/2025 1:15 PM EDT Office Visit [address] [address] Maddi Mayers MD 4 [facility], [place] [address] [email or web address] Caroline [email or web address], PT 4 [place] [address] 07/15/2025 11:30 AM EDT Office Visit [address] [address] Maddi Mayers MD [address] [place] [address], [place] [address] [email or web address] Caroline [email or web address], PT 4 [place] [address] 07/22/2025 11:30 AM EDT Office Visit [address] [address] Maddi Mayers MD [address] [place] [address], [place] [address] [email or web address] Caroline [email or web address], PT 4 [place] [address] 07/29/2025 11:00 AM EDT Office Visit [address] [phone] Maddi Mayers MD [address] [place] [address], [place], [place] [phone] [email or web address] Indira Willingham PTA [address] [place] [address] 08/05/2025 11:30 AM EDT Office Visit [address] [phone] Maddi Mayers MD [address] [place] [address] Orthopedics Sports [facility], [place] [address] [email or web address] Caroline [email or web address], PT 4 [place] [address] 08/12/2025 11:00 AM EDT Office Visit [address] [address] Maddi Mayers MD [address] [place] [address], [place] [address] [email or web address] Indira Willingham, [email or web address] [address] [place] [address] 08/20/2025 11:00 AM EDT Office Visit [address] [address] Maddi Mayers MD [address] [place] [address] Sports [facility], [place], [place] [phone] [email or web address] Caroline [email or web address], PT 4 [place] [address] 08/22/2025 11:00 AM EDT Office Visit [facility], Department of Neurology 60 [place] [address] Antonia Haynes MD [address] [place] [address] documented as of this encounter Results * COVID-19 PCR Order (02/13/2021 8:02 AM EDT) COVID Testing Status Specimen received in analyzing lab. Results should be available within 24 to 48 hrs. [facility] Symptomatic? 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 per Infection Control as part of historical infection status reconciliation 05/09/2004 05/09/2004 01/09/20 1:25 AM EDT CoV-Risk 02/12/2021 02/13/2021 02/22/2021 1:23 AM EDT documented as of this encounter Care Teams Surgical Instruments Inspector Relationship Specialty Start Date End Date Sanjay Fernandes MD [address] [place] [address] PCP - General Pulmonary Disease 04/17/18 Nyla Mahajan NP [address] [place] [address] Historical LMR Provider 08/09/172 2 Sandrine Bartlett CNM [address] [place] [address] Historical LMR Provider 08/09/172 2 Antonia York NP 30 [place] [address] Historical LMR Provider 08/09/17 2 Oscar Ruiz MD [address] [place] [address] Historical LMR Provider 08/09/17 10/30/21 Elizabeth Mcintosh NP [address] [place] [address] Historical LMR Provider 08/09/17 10/30/21 Demi Perez PRINT JOURNALIST [address] [place] [address] Historical LMR Provider 08/09/17 2 Kady Bryant NP [address] [place] [address] Historical LMR Provider 08/09/17 2 Azalea Rehman MD [address] [place] [address] Historical LMR Provider 08/09/17 Jael Ruiz PRINT JOURNALIST [address] [place] [address] Historical LMR Provider 08/09/17 2 Logan Doran MD [address] [place] [address] Historical LMR Provider 08/09/17 Sandrine Faustin RDCS Historical LMR Provider 08/09/17 10/30/21 Halle Cornelius MD [address] [place] [address] Historical LMR Provider 08/09/17 2 Maddi Mayers MD [address] [place] [address] Orthopedics [facility] Sports Medicine, [facility] [place] [address] Historical LMR Provider 08/09/17 Chiquis Gusman MD [address] [place] [address] Historical LMR Provider 08/09/17 Tremaine Florez MD 61 [place] [address] Historical LMR Provider 08/09/17 2 Hernán Jimenez DO, MPH 30 [place] [address] Insurance Assigned Provider 01/27/24 03/02/24 documented as of this encounter Additional Source Comments The information contained in this document represents components of the legal health record. It is not the complete legal health record.[facility]
--- OUTSIDE RECORDS SUMMARY | 2025-06-26 18:26 | XMS_ITS | Encounter Summary ---
Author Organization [facility] Address [address] [place] [address] Care Team Providers Care Senior Principal Process Engineer Name Role Phone Sanjay Fernandes MD Primary Care Provider Franklin Simmons MD Unavailable [phone] Godwin Saunders DO Unavailable [phone] Gael Stockton MD Unavailable Unavailable Gael Stockton MD Primary Care Provider Unavail able Godwin Malcolm MD Unavailable Unavailable Gael Stockton MD Unavailable Unavailable Heather Packer HEALTH SAFETY SPECIALIST Unavailable Antonia Willis MD Unavailable Logan Doran MD Unavailable [phone] Sanjay Fernandes MD Primary Care Provider Encounter Details Date Type Department Care Team (Late st Contact Info) Description 11/07/2016 Scanned Document [facility] [address] [place] [phone] Social History Tobacco Use Types Packs/Day [...] EDT Clinical Support [facility] 79 [facility] 4th [place] [phone] 08/18/2025 10:30 AM EDT Hospital Encounter [facility] [address] [place] [phone] Vitor Morales MD [address] [place] [phone] 08/18/2025 10:30 AM EDT Appointment [facility] [address] 3RD [place] [address] Vitor Morales MD [address] [place] [phone] 08/18/2025 10:30 AM EDT - 08/18/2025 11:00 AM EDT Surgery [facility] [address] [place] [phone] Vitor Morales MD [address] [place] [address] [phone] COLONOSCOPY 05/04/2026 11:00 AM EDT Office Visit [facility] Department of Cardiology [place] [address] [place] [address] Aashish Sivla PA [address] [place] [address] 355573 Scheduled Procedures Name Priority Associated Diagnoses Date/Ti [...] as of this encounter Care Teams Senior Principal Process Engineer Relationship Specialty Start Date End Date Sanjay Fernandes MD [address] [place] [address] PCP - General Pulmonary Disease 05/28/16 06/22/20 Gael Stockton MD [address] [place] [address] PCP - General Internal Medicine 06/23/20 05/04/25 Gael Stockton MD PCP - [place] Medicare Patients 11/23/22 03/22/23 Sanjay Fernandes MD [address] [place] [address] PCP - General Pulmonary Disease 05/05/25 Franklin Simmons MD [address] [place] [address] Physician Otolaryngology 06/14/17 Godwin Saunders DO [address] [place] [address] Physician Endocrinology 06/14/17 Gael Stockton MD [address] [place] [address] Internal Medicine 05/26/20 Godwin Malcolm MD [address] [place] [address] Hematology Oncology 11/03/20 Heather Packer, HEALTH SAFETY SPECIALIST [address] [place] [address] [place] [address] Respiratory Care Practitioner Respiratory Therapist 09/20/24 Antonia Willis MD [address] [facility] [place] [address] Internal Medicine 02/17/25 Logan Doran MD 30 [place] [address] 03/18/25 documented as of this encounter
--- OUTSIDE RECORDS SUMMARY | 2025-06-26 18:26 | XMS_ITS | Clinical Summary ---
Author Organization [facility] Address [address] [address] Care Team Providers Care Coin Machine Servicer Repairer Name Role Phone Unavailable Primary Care Provider Unavailabl e Social History Tobacco Use Types Packs/Day Years Used Date Smoking Tobacco: Never Assessed Comments Unknown Sex and Gender Information Value Date Recorded Sex Assigned at Not on file Legal Sex Female 11:15 AM EDT Gender Identity Not on file Sexual Orientation Not on file Plan of Treatment Health Maintenance Due Date Last Done Comments Hepatitis B Vaccine (1 of 3 - 19+ 3-dose series) 1999 Influenza Vaccine (#1) 2025 Pneumococcal Vaccine: Peds ( 0 to 5 Years) and At-Risk Patients (6 to 49 Years) Aged Out No longer eligible b ased on patient's age to complete this topic [place] [address] [facility]
--- OUTSIDE RECORDS SUMMARY | 2025-06-26 18:26 | XMS_ITS | Encounter Summary ---
Author Organization [facility] Address [address] [place] [address] Care Team Providers Care Railroad Brakeman Name Role Phone Sanjay Fernandes MD Primary Care Provider Franklin Simmons MD Unavailable [phone] Godwin Saunders DO Unavailable Gael Stockton MD Unavailable Unavailable Gael Stockton MD Primary Care Provider Unavail able Godwin Malcolm MD Unavailable Unavailable Gael Stockton MD Unavailable Unavailable Heather Packer POPCORN ATTENDANT Unavailable Antonia Willis MD Unavailable Logan Doran MD Unavailable [phone] Sanjay Fernandes MD Primary Care Provider Encounter Details Date Type Department Care Team (Late st Contact Info) Description 11/07/[address] [facility] [address] [place] [phone] Social History Tobacco Use Types Packs/Day [...] EDT Clinical Support [facility] 79 [facility] 4th [place] [phone] 08/18/2025 10:30 AM EDT Hospital Encounter [facility] G[facility] [address] [place] [phone] Vitor Morales MD [address] [place] [phone] 08/18/2025 10:30 AM EDT Appointment [facility] [address] 3[address] [place] [address] Vitor Morales MD [address] [place] [phone] 08/18/2025 10:30 AM EDT - 08/18/2025 11:00 AM EDT Surgery [facility] [address] [place] [phone] Vitor Morales MD [address] [place] [address] [phone] COLONOSCOPY 05/04/2026 11:00 AM EDT Office Visit [facility] Department of Cardiology [place] [address] [place] [address] Aashish Silva PA [address] [place] [address] 8726[address] Scheduled Procedures Name Priority Associated Diagnoses Date/Ti [...] documented as of this encounter Care Teams Railroad Brakeman Relationship Specialty Start Date End Date Sanjay Fernandes MD [address] [place] [address] PCP - General Pulmonary Disease 05/28/16 06/22/20 Gael Stockton MD [address] [place] [address] PCP - General Internal Medicine 06/23/20 05/04/25 Gael Stockton MD PCP - [place] Medicare Patients 11/23/22 03/22/23 Sanjay Fernandes MD [address] [place] [address] PCP - General Pulmonary Disease 05/05/25 Franklin Simmons MD [address] [place] [address] Physician Otolaryngology 06/14/17 Godwin Saunders DO [address] [place] [address] Physician Endocrinology 06/14/17 Gael Stockton MD [address] [place] [address] Internal Medicine 05/26/20 Godwin Malcolm MD [address] [place] [address] Hematology Oncology 11/03/20 Heather Packer, POPCORN ATTENDANT [address] [place] [address] Respiratory Care Practitioner Respiratory Therapist 09/20/24 Antonia Willis MD [address] [facility] [place] [address] Internal Medicine 02/17/25 Logan Doran MD 30 [place] [address] 03/18/25 documented as of this encounter
--- OUTSIDE RECORDS SUMMARY | 2025-06-26 18:26 | XMS_ITS | Encounter Summary ---
Author Organization [facility] Address [facility] [employer] [place] [address] [place] [address] Phone Care Team Providers Care Imaging Specialist Name Role Phone Azalea Rehman MD Unavailable Logan Doran MD Unavailable [phone] Maddi Mayers MD Unavailable [phone] Chiquis Gusman MD Unavailable [phone] Sanjay Fernandes MD Primary Care Provider Hernán Jimenez DO, MPH Unavailable [phone] Encounter Details Date Type Department Care Team (Late st Contact Info) Description 12/09/2022 Procedure Pass [facility], [address] [address] Social History Tobacco Use Types Packs/Day Years [...] Description 07/04/2025 11:30 AM EDT Office Visit [address] [address] Maddi Mayers MD [address] [place] [address] [facility] [place] [address] [email or web address] Caroline [email or web address], PT 4 [place] [address] 07/04/2025 3:00 PM EDT Office Visit [address] [address] Jessica Keyes [address] [place] [address], [address] [place] [address] [email or web address] 07/08/2025 1:15 PM EDT Office Visit [address] [address] Maddi Mayers MD [address] [place], [place] [address]s Sports [facility], [place] [address] [email or web address] Caroline [email or web address], PT 4 [place] [address] 07/15/2025 11:30 AM EDT Office Visit [address] [address] Maddi Mayers MD [address] [place] [address] Orthopedics Sports Medicine, [place], [place] [phone] [email or web address] Caroline [email or web address], PT 4 [place] [address] 07/22/2025 11:30 AM EDT Office Visit [address] [phone] Maddi Mayers MD [address] [place] [address] Orthopedics Sports [facility], [place] [address] [email or web address], PT 4 [place] [address] 07/29/2025 11:00 AM EDT Office Visit [address] [address] Maddi Mayers MD [address] [place] [address] Sports [facility], [place] [address] [email or web address] Indira Willingham, DESKTOP SPECIALIST [address] [place] [address] 08/05/2025 11:30 AM EDT Office Visit [address] [address] Maddi Mayers MD [address] [place] [address], [place] [address] [email or web address] Caroline [email or web address], PT 4 [place] [address] 08/12/2025 11:00 AM EDT Office Visit [address] 1884388 Maddi Mayers MD [address] [place] [address] Sports [facility], [place], [place] [phone] [email or web address] Indira Willingham, DESKTOP SPECIALIST [address] [place] [address] 08/20/2025 11:00 AM EDT Office Visit [facility] 4 [place], [place] [phone] Maddi Mayers MD [address] [place] [address] Orthopedics Sports [facility], [place] [address] [email or web address] Caroline [email or web address], PT 4 [place], [place] [phone] 08/22/2025 11:00 AM EDT Office Visit [facility], Department of Neurology 60 [place] [address] Antonia Haynes MD [address] [place] [address] documented as of this encounter Visit Diagnoses Not on filedocumented in this encounter Care Teams Imaging Specialist Relationship Specialty Start Date End Date Sanjay Fernandes MD [address] [place] [address] PCP - General Pulmonary Disease 04/17/18 Azalea Rehman MD [address] [place] [address] Historical LMR Provider 08/09/17 Logan Doran MD [address] [place] [address] Historical LMR Provider 08/09/17 Maddi Mayers MD [address] [place] [address] Orthopedics Sports [facility], [place], [place] [phone] Historical LMR Provider 08/09/17 Chiquis Gusman MD [address] [place] [address], [facility] [address] [place] [address] [email or web address] Historical LMR Provider 08/09/17 Hernán Jimenez DO, MPH [address] [place] [address] [email or web address] Insurance Assigned Provider 01/27/24 03/02/24 documented as of this encounter Additional Source Comments The information contained in this document represents components of the legal health record. It is not the complete legal health record.[facility]
--- OUTSIDE RECORDS SUMMARY | 2025-06-26 18:26 | XMS_ITS | Encounter Summary ---
Author Organization [facility] Address [facility] [address] [place] [address] Phone Care Team Providers Care Pickling Drum Operator Name Role Phone Azalea Rehman MD Unavailable Logan Doran MD Unavailable [phone] Maddi Mayers MD Unavailable [phone] Chiquis Gusman MD Unavailable [phone] Sanjay Fernandes MD Primary Care Provider Hernán Jimenez DO, MPH Unavailable [phone] Encounter Details Date Type Department Care Team (Latest Contact Info) Description 12/16/2021 Transcribe Orders Virtual Department 30 [place] [address] Jeimy Caba PA [address] [place] [address] Left arm pain (Primary Dx) Social History Tobacco Use Types [...] 07/04/2025 11:30 AM EDT Office Visit [address] [phone] Maddi Mayers MD [address] [place] [address] Sports [facility], [place] [address] [email or web address] Caroline [email or web address], PT 4 [place] [address] 07/04/2025 3:00 PM EDT Office Visit [address] [address] Jessica Keyes [address] [place] [address], [address] [place] [address] [email or web address] 07/08/2025 1:15 PM EDT Office Visit [address] [phone] Maddi Mayers MD [address] [place] [address], [place], [place] [phone] [email or web address] Caroline [email or web address], PT 4 [place] [address] 07/15/2025 11:30 AM EDT Office Visit [address] [phone] Maddi Mayers MD [address] [place] [address], [place], [place] [phone] [email or web address] Caroline [email or web address], PT 4 [place], [place] [id number] 07/22/2025 11:30 AM EDT Office Visit [address] [address] Maddi Mayers MD [address] [place] [address], [place] [address] [email or web address] Caroline [email or web address], PT 4 [place] [address] 07/29/2025 11:00 AM EDT Office Visit [address] [address] Maddi Mayers MD [address] [place] [address], [place] [address] [email or web address] Indira Willingham PTA [address] [place] [address] 08/05/2025 11:30 AM EDT Office Visit [address] [address] Maddi Mayers MD [address] [place] [address], [place] [address] [email or web address] Caroline [email or web address], PT 4 [place] [address] 08/12/2025 11:00 AM EDT Office Visit [address] [phone] Maddi Mayers MD [address] [place] [address], [place] [address] [email or web address] Indira Willingham PTA 4 [place] [address] 08/20/2025 11:00 AM EDT Office Visit [facility] 4 [place] [address] Maddi Mayers MD 4 [facility] Orthopedics & Sports Medicine, [facility] 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 per Infection Control as part of historical infection status reconciliation 05/09/2004 05/09/2004 01/09/20 22 1:25 AM EDT documented as of this encounter Care Teams Pickling Drum Operator Relationship Specialty Start Date End Date Sanjay Fernandes MD [address] [place] [address] PCP - General Pulmonary Disease 04/17/18 Azalea Rehman MD [address] [place] [address] Historical LMR Provider 08/09/17 Logan Doran MD [address] [place] [address] Historical LMR Provider 08/09/17 Maddi Mayers MD [address] [place] [address] Orthopedics & Sports Medicine, [facility] [place] [address] Historical LMR Provider 08/09/17 Chiquis Gusman MD [address] [place] [address] Historical LMR Provider 08/09/17 Hernán Jimenez DO, MPH [address] [place] [address] Insurance Assigned Provider 01/27/24 03/02/24 documented as of this encounter Additional Source Comments The information contained in this document represents components of the legal health record. It is not the complete legal health record.[facility]
--- OUTSIDE RECORDS SUMMARY | 2025-06-26 18:26 | XMS_ITS | Encounter Summary ---
Author Organization [facility] Address [address] [place] [address] Care Team Providers Care Gas Or Water Meter Installer Name Role Phone Franklin Simmons MD Unavailable [phone] Godwin Saunders DO Unavailable Gael Stockton MD Unavailable Unavailable Gael Stockton MD Primary Care Provider Unavail able Godwin Malcolm MD Unavailable Unavailable Gael Stockton MD Unavailable Unavailable OchoaHeather JANITORIAL MANAGER Unavailable Antonia Willis MD Unavailable Logan Doran MD Unavailable Sanjay Fernandes MD Primary Care Provider Encounter Details Date Type Department Care Team (Late st Contact Info) Description 03/31/2021 Scanned Document [facility] [address] [place] [address] 4th [place] [phone] Social History Tobacco Use Types Packs/Day Years [...] 11:00 AM EDT Clinical Support [facility] [address] [place] [address] 4th [place] [phone] 08/18/2025 10:30 AM EDT Hospital Encounter [facility] [address] [place] [address] [phone] Vitor Morales MD [address] [place] [address] 08/18/2025 10:30 AM EDT Appointment [facility] [address] [place] [address] Vitor Morales MD [address] [place] [address] [phone] 08/18/2025 10:30 AM EDT - 08/18/2025 11:00 AM EDT Surgery [facility] [address] [place] [address] [phone] Vitor Morales MD [address] [place] [address] COLONOSCOPY 05/04/2026 11:00 AM EDT Office Visit [facility] Department of Cardiology Home [address] [place] [phone] Aashish Silva PA [address] [place] [address] Scheduled Procedures Name Priority Associated Diagnoses Date/Ti [...] documented as of this encounter Care Teams Gas Or Water Meter Installer Relationship Specialty Start Date End Date Gael Stockton MD PCP - General Internal Medicine 06/23/20 05/04/25 Gael Stockton MD PCP - [place] Medicare Patients 11/23/22 03/22/23 Sanjay Fernandes MD [address] [place], [place] [address] [place] [address] PCP - General Pulmonary Disease 05/05/25 Franklin Simmons MD Physician Otolaryngology 06/14/17 Godwin Saunders DO Physician Endocrinology 06/14/17 Gael Stockton MD Internal Medicine 05/26/20 Godwin Malcolm MD Hematology Oncology 11/03/20 Heather Packer, JANITORIAL MANAGER [address] [facility] 4 [place] [address] Respiratory Care Practitioner Respiratory Therapist 09/20/24 Antonia Willis MD [address] [place] [address] [facility] [place] [address] Internal Medicine 02/17/25 Logan Doran MD 30 [place] [address] 03/18/25 documented as of this encounter
--- OUTSIDE RECORDS SUMMARY | 2025-06-26 18:26 | XMS_ITS | Encounter Summary ---
Author Organization [facility] Address [address] [place] [address] Care Team Providers Care Residential Program Coordinator Name Role Phone Franklin Simmons MD Unavailable [phone] Godwin Saunders DO Unavailable Gael Stockton MD Unavailable Unavailable Gael Stockton MD Primary Care Provider Unavail able Godwin Malcolm MD Unavailable Unavailable Gael Stockton MD Unavailable Unavailable OchoaHeather SPORTS ATTORNEY Unavailable Antonia Willis MD Unavailable Logan Doran MD Unavailable Sanjay Fernandes MD Primary Care Provider Encounter Details Date Type Department Care Team (Late st Contact Info) Description 03/30/2021 Scanned Document [facility] [address] [place] [address] 4th [place] [phone] Social History Tobacco Use Types Packs/Day Years [...] 11:00 AM EDT Clinical Support [facility] [address] [place] [address] 4[address] [place] [phone] 08/18/2025 10:30 AM EDT Hospital Encounter [facility] [address] [place] [address] [phone] Vitor Morales MD [address] [place] [address] 08/18/2025 10:30 AM EDT Appointment [facility] [address] [place] [address] Vitor Morales MD [address] [place] [address] [phone] 08/18/2025 10:30 AM EDT - 08/18/2025 11:00 AM EDT Surgery [facility] [address] [place] [address] [phone] Vitor Morales MD [address] [place] [address] COLONOSCOPY 05/04/2026 11:00 AM EDT Office Visit [facility] Department of Cardiology [place] [address] [place] [phone] Aashish Silva PA [address] [place] [address] Scheduled Procedures Name Priority Associated Diagnoses Date/Ti [...] documented as of this encounter Care Teams Residential Program Coordinator Relationship Specialty Start Date End Date Gael Stockton MD PCP - General Internal Medicine 06/23/20 05/04/25 Gael Stockton MD PCP - [place] Medicare Patients 11/23/22 03/22/23 Sanjay Fernandes MD [address] [place], [place] [address] [place] [address] PCP - General Pulmonary Disease 05/05/25 Franklin Simmons MD Physician Otolaryngology 06/14/17 Godwin Saunders DO Physician Endocrinology 06/14/17 Gael Stockton MD Internal Medicine 05/26/20 Godwin Malcolm MD Hematology Oncology 11/03/20 Heather Packer, SPORTS ATTORNEY [address] [facility] 4 [place] [address] Respiratory Care Practitioner Respiratory Therapist 09/20/24 Antonia Willis MD [address] [place] [address] [facility] [place] [address] Internal Medicine 02/17/25 Logan Doran MD 30 [place] [address] 03/18/25 documented as of this encounter
--- OUTSIDE RECORDS SUMMARY | 2025-06-26 18:26 | XMS_ITS | Encounter Summary ---
Author Organization [facility] Address [address] [place] [address] Care Team Providers Care Fire Apparatus Engineer Name Role Phone [place] Simmons MD Unavailable [phone] Godwin Saunders DO Unavailable Gael Stockton MD Unavailable Unavailable Gael Stockton MD Primary Care Provider Unavail able Godwin Malcolm MD Unavailable Unavailable Gael Stockton MD Unavailable Unavailable DanielHeather fraser SET MAKING MACHINE OPERATOR Unavailable [phone] Antonia Willis MD Unavailable Logan Doran MD Unavailable [phone] Sanjay Fernandes MD Primary Care Provider Encounter Details Date Type Department Care Team (Late st Contact Info) Description 04/03/2021 [facility] [address] [place] [address] Sanjay Fernandes MD 85 [facility] 923 [place] [address] Cough (Primary Dx) Social History Tobacco Use Types [...] 11:00 AM EDT Clinical Support [facility] [address] [place] [phone] 08/18/2025 10:30 AM EDT Hospital Encounter [facility] [address] [place] [address] [phone] Vitor Morales MD [address] [place] [address] [phone] 08/18/2025 10:30 AM EDT Appointment [facility] [address] [address] Vitor Morales MD [address] [place] [address] [phone] 08/18/2025 10:30 AM EDT - 08/18/2025 11:00 AM EDT Surgery [facility] [address] [place] [phone] Vitor Morales MD [address] [place] [address] COLONOSCOPY 05/04/2026 11:00 AM EDT [facility] Department [facility]iology [place] [address] [place] [phone] Aashish Silva PA [address] [place] [address] Scheduled Procedures Name Priority Associated Diagnoses Date/Ti me COLONOSCOPY Colon cancer screening 08/18/2025 10:30 AM EDT documented as of this encounter Visit Diagnoses Diagnosis Cough- Primary Colon cancer screening Special screening for malignant [...] documented as of this encounter Care Teams Fire Apparatus Engineer Relationship Specialty Start Date End Date Gael Stockton MD PCP - General Internal Medicine 06/23/20 05/04/25 Gael Stockton MD PCP - [place] Medicare Patients 11/23/22 03/22/23 Sanjay Fernandes MD [address] [place] [address] PCP - General Pulmonary Disease 05/05/25 [place] Simmons MD Physician Otolaryngology 06/14/17 Godwin Saunders DO Physician Endocrinology 06/14/17 Gael Stockton MD Internal Medicine 05/26/20 Godwin Malcolm MD Hematology Oncology 11/03/20 Heather Packer, SET MAKING MACHINE OPERATOR [address] 4 [place] [address] Respiratory Care Practitioner Respiratory Therapist 09/20/24 Antonia Willis MD [address] [address] [facility] [place] [address] Internal Medicine 02/17/25 Logan Doran MD 30 [place] [address] 03/18/25 documented as of this encounter
--- OUTSIDE RECORDS SUMMARY | 2025-06-26 18:26 | XMS_ITS | Encounter Summary ---
Author Organization [facility] Address [address] [place] [address] Care Team Providers Care Dock Pumper Name Role Phone Sanjay Fernandes MD Primary Care Provider [place] Simmons MD Unavailable [phone] Godwin Saunders DO Unavailable Gael Stockton MD Unavailable Unavailable Gael Stockton MD Primary Care Provider Unavail able Godwin Malcolm MD Unavailable Unavailable Gael Stockton MD Unavailable Unavailable Heather Packer WELFARE ADMINISTRATOR Unavailable [phone] Antonia Willis MD Unavailable Logan Doran MD Unavailable Sanjay Fernandes MD Primary Care Provider [phone] Encounter Details Date Type Department Care Team (Late st Contact Info) Description 05/01/2019 Scanned Document [facility] [address] [place] [phone] Social History Tobacco Use Types Packs/Day [...] EDT Clinical Support [facility] [address] [place] [address] 4th [place] [phone] 08/18/2025 10:30 AM EDT Hospital Encounter [facility] [address] [place] [phone] Vitor Morales MD [address] [place] [address] [phone] 08/18/2025 10:30 AM EDT Appointment [facility] [address] [place] [address] Vitor Morales MD [address] [place] [address] [phone] 08/18/2025 10:30 AM EDT - 08/18/2025 11:00 AM EDT Surgery [facility] [address] [place] [phone] Vitor Morales MD [address] [place] [address] [phone] COLONOSCOPY 05/04/2026 11:00 AM EDT Office Visit [facility] Department of Cardiology [place] [address] [place] [phone] Aashish Silva PA [address] [place] [address] [phone] Scheduled Procedures Name Priority Associated Diagnoses Date/Ti [...] documented as of this encounter Care Teams Dock Pumper Relationship Specialty Start Date End Date Sanjay Fernandes MD [address] [place] [address] PCP - General Pulmonary Disease 05/28/16 06/22/20 Gael Stockton MD [address] [place] [address] PCP - General Internal Medicine 06/23/20 05/04/25 Gael Stockton MD PCP - [place] Medicare Patients 11/23/22 03/22/23 Sanjay Fernandes MD [address] [place] [address] PCP - General Pulmonary Disease 05/05/25 [place] Simmons MD [address] [place] [address] Physician Otolaryngology 06/14/17 Godwin Saunders DO [address] [place] [address] Physician Endocrinology 06/14/17 Gael Stockton MD [address] [place] [address] Internal Medicine 05/26/20 Godwin Malcolm MD [address] [place] [address] Hematology Oncology 11/03/20 Heather Packer, WELFARE ADMINISTRATOR [address] [place] [address] [place] [address] Respiratory Care Practitioner Respiratory Therapist 09/20/24 Antonia Willis MD [address] [facility] [place] [address] Internal Medicine 02/17/25 Logan Doran MD 30 [place] [address] 03/18/25 documented as of this encounter
--- OUTSIDE RECORDS SUMMARY | 2025-06-26 18:26 | XMS_ITS | Encounter Summary ---
Author Organization [facility] Address [address] [place] [address] Care Team Providers Care Furnace Mechanic Name Role Phone [place] Simmons MD Unavailable [phone] Godwin Saunders DO Unavailable Gael Stockton MD Unavailable Unavailable Gael Stockton MD Primary Care Provider Unavail able Godwin Malcolm MD Unavailable Unavailable Heather Packer AQUACULTURIST Unavailable Antonia Willis MD Unavailable Logan Doran MD Unavailable Sanjay Fernandes MD Primary Care Provider Encounter Details Date Type Department Care Team (Late st Contact Info) Description 03/30/2023 Scanned Document [facility] Department of Internal Medicine [place] [address] [facility] [address] [place] [phone] Gael Stockton MD Social History Tobacco Use [...] EDT Clinical Support [facility] [address] [place] [address] 4th [place] [phone] 08/18/2025 10:30 AM EDT Hospital Encounter [facility] Gastroenterology Division [address] [place] [phone] Vitor Morales MD [address] [place] [address] [phone] 08/18/2025 10:30 AM EDT Appointment [facility] [address] [place] [address] Vitor Morales MD [address] [place] [address] [phone] 08/18/2025 10:30 AM EDT - 08/18/2025 11:00 AM EDT Surgery [facility] [address] [place] [phone] Vitor Morales MD [address] [place] [address] [phone] COLONOSCOPY 05/04/2026 11:00 AM EDT Office Visit [facility] Department of Cardiology [place] [address] [place] [phone] Aashish Silva PA [address] [place] [address] 360293 Scheduled Procedures Name Priority Associated Diagnoses Date/Ti ar COLONOSCOPY Colon cancer screening 08/18/2025 10:30 AM [...] documented as of this encounter Care Teams Furnace Mechanic Relationship Specialty Start Date End Date Gael Stockton MD PCP - General Internal Medicine 06/23/20 05/04/25 Sanjay Fernandes MD 85 [facility] 923 [place] [address] PCP - General Pulmonary Disease 05/05/25 [place] Simmons MD Physician Otolaryngology 06/14/17 Godwin Saunders DO Physician Endocrinology 06/14/17 Gael Stockton MD Internal Medicine 05/26/20 Godwin Malcolm MD Hematology Oncology 11/03/20 Heather Packer, AQUACULTURIST [address] [facility] 4 [place] [address] Respiratory Care Practitioner Respiratory Therapist 09/20/24 Antonia Willis MD [address] [facility] [place] [address] Internal Medicine 02/17/25 [place] Doran MD 30 [place] [address] 03/18/25 documented as of this encounter
--- OUTSIDE RECORDS SUMMARY | 2025-06-26 18:27 | XMS_ITS | Encounter Summary ---
Author Organization [facility] Address [address] [place] [address] Care Team Providers Care Estimator Lumber Name Role Phone Sanjay Fernandes MD Primary Care Provider [place] Simmons MD Unavailable Godwin Saunders DO Unavailable Gael Stockton MD Unavailable Unavailable Gael Stockton MD Primary Care Provider Unavail able Godwin Malcolm MD Unavailable Unavailable Gael Stockton MD Unavailable Unavailable Heather Packer VICE PRESIDENT QUALITY ASSURANCE Unavailable Antonia Willis MD Unavailable [place] Doran MD Unavailable Sanjay Fernandes MD Primary Care Provider Encounter Details Date Type Department Care Team (Late st Contact Info) Description 06/19/2019 Scanned Document [facility] [address] [facility] [address] [place] [address] Lisa Barr PA 65 [facility] [address] [place], [place] [phone] Social History Tobacco Use Types Packs/Day Years [...] EDT Clinical Support [facility] 79 [facility] 4th [place] [phone] 08/18/2025 10:30 AM EDT Hospital Encounter [facility] [address] [place] [address] [phone] Vitor Morales MD [address] [place] [address] [phone] 08/18/2025 10:30 AM EDT Appointment [facility] [address] [place] [address] Vitor Morales MD [address] [place] [address] [phone] 08/18/2025 10:30 AM EDT - 08/18/2025 11:00 AM EDT Surgery [facility] [address] [place] [address] [phone] Vitor Morales MD [address] [place] [address] COLONOSCOPY 05/04/2026 11:00 AM EDT Office Visit [facility] Department of Cardiology [place] [address] [place] [phone] Aashish Silva PA [address] [place] [address] Scheduled Procedures Name Priority Associated Diagnoses Date/Ti [...] documented as of this encounter Care Teams Estimator Lumber Relationship Specialty Start Date End Date Sanjay Fernandes MD 85 [place] [address] PCP - General Pulmonary Disease 05/28/16 06/22/20 Gael Stockton MD [address] [place] [address] PCP - General Internal Medicine 06/23/20 05/04/25 Gael Stockton MD PCP - [place] Medicare Patients 11/23/22 03/22/23 Sanjay Fernandes MD [address] [place] [address] PCP - General Pulmonary Disease 05/05/25 [place] Simmons MD [address] [place] [address] Physician Otolaryngology 06/14/17 Godwin Saunders DO [address] [place] [address] Physician Endocrinology 06/14/17 Gael Stockton MD [address] [place] [address] Internal Medicine 05/26/20 Godwin Malcolm MD 85 [facility] 923 [place] [address] Hematology Oncology 11/03/20 Heather Packer, VICE PRESIDENT QUALITY ASSURANCE [facility] [place] [address] Respiratory Care Practitioner Respiratory Therapist 09/20/24 Antonia Willis MD 850 [facility] [employer] 530 [facility] [place] [address] Internal Medicine 02/17/25 [place] Doran MD 30 [place] [address] 03/18/25 documented as of this encounter
--- OUTSIDE RECORDS SUMMARY | 2025-06-26 18:27 | XMS_ITS | Encounter Summary ---
Author Organization [facility] Address [address] [place] [address] Care Team Providers Care Booking Supervisor Name Role Phone [place] Simmons MD Unavailable [phone] Godwin Saunders DO Unavailable [phone] Gael Stockton MD Unavailable Unavailable Gael Stockton MD Primary Care Provider Unavail able Godwin Malcolm MD Unavailable Unavailable Gael Stockton MD Unavailable Unavailable OchoaHeather IN HOME BABY SITTER Unavailable Antonia Willis MD Unavailable Logan Doran MD Unavailable Sanjay Fernandes MD Primary Care Provider Encounter Details Date Type Department Care Team (Late st Contact Info) Description 12/12/2022 Scanned Document [facility] Pulmonary [address] [place] [phone] Pulmonology, Scan Social History Tobacco Use Types Packs/Day [...] [facility] [address] [place] [address] 4th [place] [phone] 08/18/2025 10:30 AM EDT Hospital Encounter [facility] Gastroenterology Division [address] [place] [phone] Vitor Morales MD [address] [place] [address] [phone] 08/18/2025 10:30 AM EDT Appointment [facility] [address] [place] [address] Vitor Morales MD [address] [place] [address] [phone] 08/18/2025 10:30 AM EDT - 08/18/2025 11:00 AM EDT Surgery [facility] [address] [place] [address] [phone] Vitor Morales MD [address] [place] [address] [phone] COLONOSCOPY 05/04/2026 11:00 AM EDT Office Visit [facility] Department of Cardiology [place] [address] [place] [phone] Aashish Silva PA [address] [place] [address] [phone] Scheduled Procedures Name Priority Associated Diagnoses Date/Ti [...] documented as of this encounter Care Teams Booking Supervisor Relationship Specialty Start Date End Date Gael Stockton MD PCP - General Internal Medicine 06/23/20 05/04/25 Gael Stockton MD PCP - [place] Medicare Patients 11/23/22 03/22/23 Sanjay Fernandes MD 85 [facility] 923 [place] [address] PCP - General Pulmonary Disease 05/05/25 [place] Simmons MD Physician Otolaryngology 06/14/17 Godwin Saunders DO Physician Endocrinology 06/14/17 Gael Stockton MD Internal Medicine 05/26/20 Godwin Malcolm MD Hematology Oncology 11/03/20 Heather Packer, IN HOME BABY SITTER [address] [place] [address] Respiratory Care Practitioner Respiratory Therapist 09/20/24 Antonia Willis MD 850 [facility] 530 [facility] [place] [address] Internal Medicine 02/17/25 [place] Doran MD [address] [place] [address] 03/18/25 documented as of this encounter
--- OUTSIDE RECORDS SUMMARY | 2025-06-26 18:27 | XMS_ITS | Encounter Summary ---
Author Organization [facility] Address [address] [place] [address] Care Team Providers Care Back Tufter Name Role Phone Sanjay Fernandes MD Primary Care Provider [phone] Franklin Simmons MD Unavailable [phone] Godwin Saunders DO Unavailable Gael Stockton MD Unavailable Unavailable Gael Stockton MD Primary Care Provider Unavail able Godwin Malcolm MD Unavailable Unavailable Gael Stockton MD Unavailable Unavailable Heather Packer HEATING AND REFRIGERATION INSPECTOR Unavailable [phone] Antonia Willis MD Unavailable Logan Doran MD Unavailable Sanjay Fernandes MD Primary Care Provider Encounter Details Date Type Department Care Team (Late st Contact Info) Description 05/03/2017 Scanned Document [facility]rosis Center [address] [place] [address] 4th [place] [phone] Sanjay Fernandes MD [address] [place] [address] Social History Tobacco Use Types Packs/Day Years [...] [facility] 79 [facility] 4th [place] [phone] 08/18/2025 10:30 AM EDT Hospital Encounter [facility] Gastroenterology Division [address] [place] [address] [phone] Vitor Morales MD [address] [place] [address] [id number] 08/18/2025 10:30 AM EDT Appointment [facility] [address] [place] [address] Vitor Morales MD [address] [place] [address] [id number] 08/18/2025 10:30 AM EDT - 08/18/2025 11:00 AM EDT Surgery [facility] Gastroenterology Division [address] [place] [address] [phone] Vitor Morales MD [address] [place] [address] COLONOSCOPY 05/04/2026 11:00 AM EDT Office Visit [facility] Physicians Department of Cardiology [place] [address] [place] [phone] Aashish Silva PA [address] [place] [address] Scheduled Procedures Name Priority Associated Diagnoses Date/Ti sc COLONOSCOPY Colon cancer screening 08/18/2025 10:30 AM [...] documented as of this encounter Care Teams Back Tufter Relationship Specialty Start Date End Date Sanjay Fernandes MD [address] [place] [address] PCP - General Pulmonary Disease 05/28/16 06/22/20 Gael Stockton MD [address] [place] [address] PCP - General Internal Medicine 06/23/20 05/04/25 Gael Stockton MD PCP - [facility] Medicare Patients 11/23/22 03/22/23 Sanjay Fernandes MD [address] [place] [address] PCP - General Pulmonary Disease 05/05/25 Franklin Simmons MD [address] [place] [address] Physician Otolaryngology 06/14/17 Godwin Saunders DO [address] [place] [address] Physician Endocrinology 06/14/17 Gael Stockton MD [address] [address] Internal Medicine 05/26/20 Godwin Malcolm MD [address] [address] Hematology Oncology 11/03/20 Heather Packer, HEATING AND REFRIGERATION INSPECTOR [address] [place] [address] Respiratory Care Practitioner Respiratory Therapist 09/20/24 Antonia Willis MD [address] [facility] [place] [address] Internal Medicine 02/17/25 Logan Doran MD 30 [place] [address] 03/18/25 documented as of this encounter
--- OUTSIDE RECORDS SUMMARY | 2025-06-26 18:27 | XMS_ITS | Encounter Summary ---
Author Organization [facility] Address [address] [place] [address] Care Team Providers Care Press Box Custodian Name Role Phone Sanjay Fernandes MD Primary Care Provider Franklin Simmons MD Unavailable [phone] Godwin Saunders DO Unavailable Gael Stockton MD Unavailable Unavailable Gael Stockton MD Primary Care Provider Unavail able Godwin Malcolm MD Unavailable Unavailable Gael Stockton MD Unavailable Unavailable Heather Packer PARIMUTUEL CLERK Unavailable [phone] Antonia Willis MD Unavailable Logan Doran MD Unavailable Sanjay Fernandes MD Primary Care Provider Encounter Details Date Type Department Care Team (Late st Contact Info) Description 05/15/2017 Scanned Document [address] [place] [address] Yvette Green APRN Social History Tobacco Use [...] EDT Clinical Support [facility] Cystic Fibrosis Center [address] [place] [address] 4th [place] [phone] 08/18/2025 10:30 AM EDT Hospital Encounter Gastroenterology Division [address] [place] [phone] Vitor Morales MD [address] [place] [address] [id number] 08/18/2025 10:30 AM EDT Appointment [facility] [address] [place] [address] Vitor Morales MD [address] [place] [address] [id number] 08/18/2025 10:30 AM EDT - 08/18/2025 11:00 AM EDT Surgery Gastroenterology Division [address] [place] [address] [phone] Vitor Morales MD [address] [place] [address] [phone] COLONOSCOPY 05/04/2026 11:00 AM EDT Office Visit [facility] Physicians Department of Cardiology [place] [address] [place] [phone] Aashish Silva PA [address] [place] [address] [phone] Scheduled Procedures Name Priority Associated Diagnoses Date/Ti [...] documented as of this encounter Care Teams Press Box Custodian Relationship Specialty Start Date End Date Sanjay Fernandes MD [address] [address] PCP - General Pulmonary Disease 05/28/16 06/22/20 Gael Stockton MD [address] [place] [address] PCP - General Internal Medicine 06/23/20 05/04/25 Gael Stockton MD PCP - [place] Medicare Patients 11/23/22 03/22/23 Sanjay Fernandes MD [address] [place] [address] PCP - General Pulmonary Disease 05/05/25 Franklin iSmmons MD [address] [place] [address] Physician Otolaryngology 06/14/17 Godwin Saunders DO [address] [address] Physician Endocrinology 06/14/17 Gael Stockton MD [address] [place] [address] Internal Medicine 05/26/20 Godwin Malcolm MD 85 [facility] 923 [place] [address] Hematology Oncology 11/03/20 Heather Packer, PARIMUTUEL CLERK [address] [facility] 4 [place] [address] Respiratory Care Practitioner Respiratory Therapist 09/20/24 Antonia Willis MD 850 [facility] 530 [facility] [place] [address] Internal Medicine 02/17/25 Logan Doran MD 30 [place] [address] 03/18/25 documented as of this encounter
--- OUTSIDE RECORDS SUMMARY | 2025-06-26 18:27 | XMS_ITS | Encounter Summary ---
Author Organization [facility] Address [address] [place] [address] Care Team Providers Care Metallic Yarn Slitting Machine Operator Name Role Phone Franklin Simmons MD Unavailable [phone] Godwin Saunders DO Unavailable [phone] Gael Stockton MD Unavailable Unavailable Gael Stockton MD Primary Care Provider Unavail able Godwin Malcolm MD Unavailable Unavailable Gael Stockton MD Unavailable Unavailable OchoaHeather GUMMED TAPE PRESS OPERATOR Unavailable Antonia Willis MD Unavailable Logan Doran MD Unavailable Sanjay Fernandes MD Primary Care Provider Encounter Details Date Type Department Care Team (Late st Contact Info) Description 12/02/2022 Scanned Document [facility] [address] [address] Vitor Morales MD 85 [facility] [address] [place], [place] [phone] Social History Tobacco Use Types Packs/Day Years [...] AM EDT Clinical Support [facility] 79 [facility] 4th [place] [phone] 08/18/2025 10:30 AM EDT Hospital Encounter [facility] Gastroenterology Division [address] [place] [phone] Vitor Morales MD [address] [place] [address] [id number] 08/18/2025 10:30 AM EDT Appointment [facility] [address] [place] [address] Vitor Morales MD [address] [place] [address] [id number] 08/18/2025 10:30 AM EDT - 08/18/2025 11:00 AM EDT Surgery [facility] Gastroenterology Division [address] [place] [phone] Vitor Morales MD [address] [place] [address] COLONOSCOPY 05/04/2026 11:00 AM EDT Office Visit [facility] Physicians Department of Cardiology [place] [address] [place] [phone] Aashish Silva PA [address] [place] [address] Scheduled Procedures Name Priority Associated Diagnoses Date/Ti [...] documented as of this encounter Care Teams Metallic Yarn Slitting Machine Operator Relationship Specialty Start Date End Date Gael Stockton MD PCP - General Internal Medicine 06/23/20 05/04/25 Gael Stockton MD PCP - [place] Medicare Patients 11/23/22 03/22/23 Sanjay Fernandes MD 85 [facility] 923 [place] [address] PCP - General Pulmonary Disease 05/05/25 Franklin Simmons MD Physician Otolaryngology 06/14/17 Godwin Saunders DO Physician Endocrinology 06/14/17 Gael Stockton MD Internal Medicine 05/26/20 Godwin Malcolm MD Hematology Oncology 11/03/20 Heather Packer, GUMMED TAPE PRESS OPERATOR [address] 4 [place] [address] Respiratory Care Practitioner Respiratory Therapist 09/20/24 Antonia Willis MD 850 [facility] 530 [facility] [place] [address] Internal Medicine 02/17/25 Logan Doran MD 30 [place] [address] 03/18/25 documented as of this encounter
--- OUTSIDE RECORDS SUMMARY | 2025-06-26 18:27 | XMS_ITS | Encounter Summary ---
Author Organization [facility] Address [address] [place] [address] Care Team Providers Care Pigment Pumper Name Role Phone Sanjay Fernandes MD Primary Care Provider Franklin Simmons MD Unavailable Godwin Saunders DO Unavailable [phone] Gael Stockton MD Unavailable Unavailable Gael Stockton MD Primary Care Provider Unavail able Godwin Malcolm MD Unavailable Unavailable Gael Stockton MD Unavailable Unavailable Heather Packer IRRIGATING PUMP OPERATOR Unavailable [phone] Antonia Willis MD Unavailable Logan Doran MD Unavailable [phone] Sanjay Fernandes MD Primary Care Provider Encounter Details Date Type Department Care Team (Late st Contact Info) Description 06/04/2019 Scanned Document [facility] [address] [facility] [address] [place] [address] Lisa Barr PA 65 [facility] [address] [place], [place] [phone] Social History Tobacco Use Types Packs/Day Years [...] [facility] C[facility]ic Fibrosis Center 79 [facility] 4th [place] [phone] 08/18/2025 10:30 AM EDT Hospital Encounter [facility] Gastroenterology Division [address] [place] [phone] Vitor Morales MD [address] [place] [address] [phone] 08/18/2025 10:30 AM EDT Appointment [facility] [address] [place] [address] Vitor Morales MD [address] [place] [address] [phone] 08/18/2025 10:30 AM EDT - 08/18/2025 11:00 AM EDT Surgery [facility] Gastroenterology Division [address] [place] [address] [phone] Vitor Morales MD [address] [place] [address] COLONOSCOPY 05/04/2026 11:00 AM EDT [facility] Department [facility]iology [place] [address] [place] [phone] Aashish Silva PA [address] [place] [address] Scheduled Procedures Name Priority Associated Diagnoses Date/Ti [...] documented as of this encounter Care Teams Pigment Pumper Relationship Specialty Start Date End Date Sanjay Fernandes MD 85 [place] [address] PCP - General Pulmonary Disease 05/28/16 06/22/20 Gael Stockton MD [address] [place] [address] PCP - General Internal Medicine 06/23/20 05/04/25 Gael Stockton MD PCP - [facility] Medicare Patients 11/23/22 03/22/23 Sanjay Fernandes MD [address] [place] [address] PCP - General Pulmonary Disease 05/05/25 Franklin Simmons MD [address] [place] [address] Physician Otolaryngology 06/14/17 Godwin Saunders DO [address] [place] [address] Physician Endocrinology 06/14/17 Gael Stockton MD [address] [place] [address] Internal Medicine 05/26/20 Godwin Malcolm MD 85 [facility] 923 [place] [address] Hematology Oncology 11/03/20 Heather Packer, IRRIGATING PUMP OPERATOR [facility] [place] [facility] [place] [address] Respiratory Care Practitioner Respiratory Therapist 09/20/24 Antonia Willis MD 850 [facility] 530 [facility] [place] [address] Internal Medicine 02/17/25 Logan Doran MD 30 [place] [address] 03/18/25 documented as of this encounter
--- OUTSIDE RECORDS SUMMARY | 2025-06-26 18:27 | XMS_ITS | Encounter Summary ---
Author Organization [facility] Address [address] [place] [address] Care Team Providers Care Paste Worker Name Role Phone Franklin Simmons MD Unavailable [phone] Godwin Saunders DO Unavailable [phone] Gael Stockton MD Unavailable Unavailable Gael Stockton MD Primary Care Provider Unavail able Godwin Malcolm MD Unavailable Unavailable Gael Stockton MD Unavailable Unavailable OchoaHeather CRIMINAL ANALYST Unavailable [phone] Antonia Willis MD Unavailable Logan Doran MD Unavailable Sanjay Fernandes MD Primary Care Provider Reason for Visit * Reason Comments Prior Authorization Encounter Details Date Type Department Care Team (Late st Contact Info) Description 11/29/2022 Telephone [facility], 30 [place] [address] Vitor Morales MD [address] [place] [address] Prior Authorization Social History Tobacco Use Types Packs/Day Years [...] encounter Miscellaneous Notes * Telephone Encounter - Vitor Morales MD - 12/02/2022 3:36 PM EST Thank you. * Telephone Encounter - Vitor Morales MD - 12/02/2022 11:58 AM EST The basis of the denial at that time was that she had to try and fail Linzess and Amitiza. Now maximino has tried and failed both and wants to restart Motegrity, what is the next step? Do we send PA again or do we call number below to set up a time for me to speak with someone for appeal? * Telephone Encounter - Brittny Loza - 11/29/2022 11:38 AM EST Denial was uploaded onto patient's media non-clinical. for the appeal. Case # :[id number] * Telephone Encounter - Brittny Loza - 11/29/2022 11:38 AM EST ----- Message from Shelby Mcneil MA sent at 11/29/2022 11:33 AM EST ----- Regarding: FW: Motegrity Contact: Need PA denial in order for RAS to do appeal ----- Message ----- From: Vitor Morales MD Sent: 11/28/2022 3:27 PM EST To: Shelby Mcneli MA Subject: FW: Motegrity ----- Message ----- From: Shelby Mcneil MA Sent: 11/28/2022 1:56 PM EST To: Vitor Morales MD Subject: FW: Motegrity ----- Message ----- From: Long Carla Oconnor Sent: 11/28/2022 1:37 PM EST To: Philip Morales Subject: Motegrity Hi Dr. Morales, I was just wondering if I have been on the Amitiza long enough and we could try for the Motegrity again? The Amitiza makes me really constipated and I have to take at least 6 senna with it. Thank you, Carla documented in this encounter Plan of Treatment Upcoming Encounters Date Type Department Care Team (Latest Contact Info) Description 07/02/2025 11:00 AM EDT Clinical Support [facility] [place] [facility] Cystic Fibrosis Center [address] [place] [phone] 08/18/2025 10:30 AM EDT Hospital Encounter [facility] Gastroenterology Division [address] [place] [phone] Vitor Morales MD [address] [place], [place] [phone] 08/18/2025 10:30 AM EDT Appointment [address] [address] Vitor Morales MD [address] [place], [place] [phone] 08/18/2025 10:30 AM EDT - 08/18/2025 11:00 AM EDT Surgery [facility] Gastroenterology Division [address] [place] [phone] Vitor Morales MD [address] [place] [address] COLONOSCOPY 05/04/2026 11:00 AM EDT Office Visit [facility] Physicians Department of Cardiology [place] [address] [place] [phone] Aashish Silva PA [address] [place] [address] Scheduled Procedures Name Priority Associated Diagnoses Date/Ti [...] documented as of this encounter Care Teams Paste Worker Relationship Specialty Start Date End Date Gael Stockton MD PCP - General Internal Medicine 06/23/20 05/04/25 Gael Stockton MD PCP - [place] Medicare Patients 11/23/22 03/22/23 Sanjay Fernandes MD [address] [place] [address] PCP - General Pulmonary Disease 05/05/25 Franklin Simmons MD Physician Otolaryngology 06/14/17 Godwin Saunders DO Physician Endocrinology 06/14/17 Gael Stockton MD Internal Medicine 05/26/20 Godwin Malcolm MD Hematology Oncology 11/03/20 Heather Packer, CRIMINAL ANALYST 79 [facility] 4 [place] [address] Respiratory Care Practitioner Respiratory Therapist 09/20/24 Antonia Willis MD [address] and [place] [address] Internal Medicine 02/17/25 Logan Doran MD 30 [place] [address] 03/18/25 documented as of this encounter
--- OUTSIDE RECORDS SUMMARY | 2025-06-26 18:27 | XMS_ITS | Encounter Summary ---
Author Organization [facility] Address [address] [place] [address] Care Team Providers Care Community Leader Name Role Phone Sanjay Fernandes MD Primary Care Provider [phone] Franklin Simmons MD Unavailable Godwin Saunders DO Unavailable Gael Stockton MD Unavailable Unavailable Gael Stockton MD Primary Care Provider Unavail able Godwin Malcolm MD Unavailable Unavailable Gael Stockton MD Unavailable Unavailable Heather Packer DOMESTIC CLEANER Unavailable Antonia Willis MD Unavailable Logan Doran MD Unavailable Sanjay Fernandes MD Primary Care Provider Encounter Details Date Type Department Care Team (Late st Contact Info) Description 12/12/2019 Scanned Document [facility] Fibrosis Center [address] [place] [phone] Terry Su MD [address] [facility] 105 [place] [address] Social History Tobacco Use Types Packs/Day Years [...] EDT Clinical Support [facility] [address] [place] [address] 4th [place] [phone] 08/18/2025 10:30 AM EDT Hospital Encounter [facility] Gastroenterology Division [address] [place] [address] [phone] Vitor Morales MD [address] [place] [address] 08/18/2025 10:30 AM EDT Appointment [facility] [address] [place] [address] Vitor Morales MD [address] [place] [address] [phone] 08/18/2025 10:30 AM EDT - 08/18/2025 11:00 AM EDT Surgery [facility] Gastroenterology Division [address] [place] [address] [phone] Vitor Morales MD [address] [place] [address] COLONOSCOPY 05/04/2026 11:00 AM EDT Office Visit [facility] Physicians Department of Cardiology [place] [address] [place] [phone] Aashish Silva PA [address] [place] [address] Scheduled Procedures Name Priority Associated Diagnoses Date/Ti [...] documented as of this encounter Care Teams Community Leader Relationship Specialty Start Date End Date Sanjay Fernandes MD [address] [place] [address] PCP - General Pulmonary Disease 05/28/16 06/22/20 Gael Stockton MD [address] [place] [address] PCP - General Internal Medicine 06/23/20 05/04/25 Gael Stockton MD PCP - [place] Medicare Patients 11/23/22 03/22/23 Sanjay Fernandes MD [address] [place] [address] PCP - General Pulmonary Disease 05/05/25 Franklin Simmons MD [address] [place] [address] Physician Otolaryngology 06/14/17 Godwin Saunders DO [address] [place] [address] Physician Endocrinology 06/14/17 Gael Stockton MD [address] [place] [address] Internal Medicine 05/26/20 Godwin Malcolm MD 85 [facility] 923 [place] [address] Hematology Oncology 11/03/20 Heather Packer, DOMESTIC CLEANER [address] 4 [place] [address] Respiratory Care Practitioner Respiratory Therapist 09/20/24 Antonia Willis MD 850 [facility] [place] [address] Internal Medicine 02/17/25 Logan Doran MD 30 [place] [address] 03/18/25 documented as of this encounter
--- OUTSIDE RECORDS SUMMARY | 2025-06-26 18:27 | XMS_ITS | Encounter Summary ---
Author Organization [facility] Address [address] [place] [address] Care Team Providers Care Auto Design Checker Name Role Phone Franklin Simmons MD Unavailable [phone] Godwin Saunders DO Unavailable Gael Stockton MD Unavailable Unavailable Gael Stockton MD Primary Care Provider Unavail able Godwin Malcolm MD Unavailable Unavailable Gael Stockton MD Unavailable Unavailable DanielHeather fraser CORRECTIONS COUNSELOR Unavailable Antonia Willis MD Unavailable Logan Doran MD Unavailable [phone] Sanjay Fernandes MD Primary Care Provider Reason for Visit * Reason Comments Medication Refill Encounter Details Date Type Department Care Team (Late st Contact Info) Description 02/25/2021 Refill [facility] 65 [facility] [address] [place] [phone] Lisa Barr PA 65 [facility] [address] [place] [address] Chronic migraine without aura, with intractable migraine, [...] encounter Miscellaneous Notes * Telephone Encounter - Reij Jamie Willis - 03/05/2021 9:36 AM EDT Called left voicemail to call back to schedule an in office appointment accordingly. * Telephone Encounter - Reji Willis - 02/26/2021 10:52 AM EDT Called left voicemail to call back to schedule follow up visit accordingly. documented in this encounter Plan of Treatment Upcoming Encounters Date Type Department Care Team (Latest Contact Info) Description 07/02/2025 11:00 AM EDT Clinical Support [facility] [address] [place] [phone] 08/18/2025 10:30 AM EDT Hospital Encounter [facility] G[facility]ology Division [address] [place] [phone] Vitor Morales MD [address] [place] [address] [phone] 08/18/2025 10:30 AM EDT Appointment [facility] [address] [address] Vitor Morales MD [address] [address] 08/18/2025 10:30 AM EDT - 08/18/2025 11:00 AM EDT Surgery [facility] [address] [place] [phone] Vitor Morales MD [address] [place] [address] COLONOSCOPY 05/04/2026 11:00 AM EDT Office Visit [facility] Department of Cardiology [place] [address] [place] [phone] Aashish Silva PA [address] [place] [address] Scheduled Procedures Name Priority Associated Diagnoses Date/Ti [...] documented as of this encounter Care Teams Auto Design Checker Relationship Specialty Start Date End Date Gael Stockton MD PCP - General Internal Medicine 06/23/20 05/04/25 Gael Stockton MD PCP - [place] Medicare Patients 11/23/22 03/22/23 Sanjay Fernandes MD [address] [place] [address] PCP - General Pulmonary Disease 05/05/25 Franklin Simmons MD Physician Otolaryngology 06/14/17 Godwin Saunders DO Physician Endocrinology 06/14/17 Gael Stockton MD Internal Medicine 05/26/20 Godwin Malcolm MD Hematology Oncology 11/03/20 Heather Packer, [facility] [address] [address] Respiratory Care Practitioner Respiratory Therapist 09/20/24 Antonia Willis MD [address] [place], [place] [address]am [place] [address] Internal Medicine 02/17/25 Logan Doran MD 30 [place] [address] 03/18/25 documented as of this encounter
--- OUTSIDE RECORDS SUMMARY | 2025-06-26 18:27 | XMS_ITS | Encounter Summary ---
Author Organization [facility] Address [address] [place] [address] Care Team Providers Care Packager Machine Name Role Phone Franklin Simmons MD Unavailable [phone] Godwin Saunders DO Unavailable Gael Stockton MD Unavailable Unavailable Gael Stockton MD Primary Care Provider Unavail able Godwin Malcolm MD Unavailable Unavailable Gael Stockton MD Unavailable Unavailable OchoaHeather METAL BENDING MACHINE OPERATOR Unavailable Antonia Willis MD Unavailable Logan Doran MD Unavailable Sanjay Fernandes MD Primary Care Provider [phone] Encounter Details Date Type Department Care Team (Late st Contact Info) Description 12/10/2020 Scanned Document [facility] [address] [facility] [address] [place] [address] Vitor Morales MD 85 [facility] [address] [place] [address] Social History Tobacco Use Types Packs/Day Years [...] 11:00 AM EDT Clinical Support [facility] [address] [place] [address] 4th [place] [phone] 08/18/2025 10:30 AM EDT Hospital Encounter [facility] Gastro[facility]ology Division [address] [place] [phone] Vitor Morales MD [address] [place] [address] [phone] 08/18/2025 10:30 AM EDT Appointment [facility] [address] [place] [address] Vitor Morales MD [address] [place] [address] [phone] 08/18/2025 10:30 AM EDT - 08/18/2025 11:00 AM EDT Surgery [facility] G[facility]ology Division [address] [place] [phone] Vitor Morales MD [address] [place] [address] [phone] COLONOSCOPY 05/04/2026 11:00 AM EDT Office Visit [facility] Department of Cardiology [place] [address] [place] [phone] Aashish Silva PA [address] [place] [address] Scheduled Procedures Name Priority Associated Diagnoses Date/Ti [...] documented as of this encounter Care Teams Packager Machine Relationship Specialty Start Date End Date Gael Stockton MD PCP - General Internal Medicine 06/23/20 05/04/25 Gael Stockton MD PCP - [place] Medicare Patients 11/23/22 03/22/23 Sanjay Fernandes MD 85 [facility] 923 [place] [address] PCP - General Pulmonary Disease 05/05/25 Franklin Simmons MD Physician Otolaryngology 06/14/17 Godwin Saunders DO Physician Endocrinology 06/14/17 Gael Stockton MD Internal Medicine 05/26/20 Godwin Malcolm MD Hematology Oncology 11/03/20 Heather Packer, METAL BENDING MACHINE OPERATOR [address] [place] [address] [place] [address] Respiratory Care Practitioner Respiratory Therapist 09/20/24 Antonia Willis MD 850 [facility] 530 [place] and [place] [address] Internal Medicine 02/17/25 Logan Doran MD [address] [place] [address] 03/18/25 documented as of this encounter
--- OUTSIDE RECORDS SUMMARY | 2025-06-26 18:27 | XMS_ITS | Encounter Summary ---
Author Organization [facility] Address [address] [place] [address] Care Team Providers Care Tetryl Nitrator Operator Name Role Phone Sanjay Fernandes MD Primary Care Provider Franklin Simmons MD Unavailable Godwin Saunders DO Unavailable Gael Stockton MD Unavailable Unavailable Gael Stockton MD Primary Care Provider Unavail able Godwin Malcolm MD Unavailable Unavailable Gael Stockton MD Unavailable Unavailable Heather Packer LABORER AMMUNITION ASSEMBLY Unavailable Antonia Willis MD Unavailable Logan Doran MD Unavailable Sanjay Fernandes MD Primary Care Provider Encounter Details Date Type Department Care Team (Late st Contact Info) Description 06/19/2019 Scanned Document [facility] [address] [facility] [address] [place] [address] Lisa Barr PA 65 [facility] [address] [place], [place] [phone] Social History Tobacco Use Types Packs/Day Years [...] 11:00 AM EDT Clinical Support [facility] 79 [facility] 4th [place] [phone] 08/18/2025 10:30 AM EDT Hospital Encounter [facility] Gastroenterology Division [address] [place] [phone] Vitor Morales MD [address] [place] [address] [phone] 08/18/2025 10:30 AM EDT Appointment [facility] [address] [place] [address] Vitor Morales MD [address] [place] [address] [phone] 08/18/2025 10:30 AM EDT - 08/18/2025 11:00 AM EDT Surgery [facility] Gastroenterology Division [address] [place] [phone] Vitor Morales MD [address] [place] [address] COLONOSCOPY 05/04/2026 11:00 AM EDT Office Visit [facility] Department of Cardiology [place] [address] [place] [phone] Aashish Silva PA [address] [place] [address] Scheduled Procedures Name Priority Associated Diagnoses Date/Ti [...] documented as of this encounter Care Teams Tetryl Nitrator Operator Relationship Specialty Start Date End Date Sanjay Fernandes MD 85 [place] [address] PCP - General Pulmonary Disease 05/28/16 06/22/20 Gael Stockton MD [address] [place] [address] PCP - General Internal Medicine 06/23/20 05/04/25 Gael Stockton MD PCP - [place] Medicare Patients 11/23/22 03/22/23 Sanjya Fernandes MD [address] [place] [address] PCP - General Pulmonary Disease 05/05/25 Franklin Simmons MD [address] [place] [address] Physician Otolaryngology 06/14/17 Godwin Saunders DO [address] [place] [address] Physician Endocrinology 06/14/17 Gael Stockton MD [address] [place] [address] Internal Medicine 05/26/20 Godwin Malcolm MD 85 [facility] 923 [place] [address] Hematology Oncology 11/03/20 Heather Packer, LABORER AMMUNITION ASSEMBLY [address] [facility] 4 [place] [address] Respiratory Care Practitioner Respiratory Therapist 09/20/24 Antonia Willis MD 850 [facility] 530 [facility] [address] Internal Medicine 02/17/25 Logan Doran MD 30 [place] [address] 03/18/25 documented as of this encounter
--- OUTSIDE RECORDS SUMMARY | 2025-06-26 18:27 | XMS_ITS | Encounter Summary ---
Author Organization [facility] Address [address] [place] [address] Care Team Providers Care Care Process Manager Name Role Phone Sanjay Fernandes MD Primary Care Provider Franklin Simmons MD Unavailable [phone] Godwin Saunders DO Unavailable Gael Stockton MD Unavailable Unavailable Gael Stockton MD Primary Care Provider Unavail able Godwin Malcolm MD Unavailable Unavailable Gael Stockton MD Unavailable Unavailable Ochoa Heather IP ARCHITECT Unavailable Antonia Willis MD Unavailable Logan Doran MD Unavailable Sanjay Fernandes MD Primary Care Provider [phone] Reason for Visit * Reason Comments Medication Refill Encounter Details Date Type Department Care Team (Late st Contact Info) Description 05/05/[address] [facility] [address] [address] Derik Neri MD [address] [place] [address] GERD with esophagitis Social History Tobacco Use [...] encounter Miscellaneous Notes * Telephone Encounter - Derik Neri MD - 05/06/2019 10:03 AM EDT Needs OV for refills * Telephone Encounter - Emily Alexandre MA - 05/06/2019 9:58 AM EDT Images from the original note were not included. Last OV 03/14/19 Allergies CeftazidimeOther (See Comments) Sulfa AntibioticsRash/Dermatitis VancomycinRash/Dermatitis documented in this encounter Plan of Treatment Upcoming Encounters Date Type Department Care Team (Latest Contact Info) Description 07/02/2025 11:00 AM EDT Clinical Support [facility] [address] [place] [phone] 08/18/2025 10:30 AM EDT Hospital Encounter [facility] Gastroenterology Division [address] [place] [phone] Vitor Morales MD [address] [place] [address] 08/18/2025 10:30 AM EDT Appointment [facility] [address] [address] Vitor Morales MD [address] [place] [address] 08/18/2025 10:30 AM EDT - 08/18/2025 11:00 AM EDT Surgery [facility] Gastroenterology Division 85 [place] [phone] Vitor Morales MD [address] [address] COLONOSCOPY 05/04/2026 11:00 AM EDT Office Visit [facility] Department of Cardiology [place] [address] [place] [phone] Aashish Silva PA [address] [place] [address] Scheduled Procedures Name Priority Associated Diagnoses Date/Ti [...] documented as of this encounter Care Teams Care Process Manager Relationship Specialty Start Date End Date Sanjay Fernandes MD [address] [place] [address] PCP - General Pulmonary Disease 05/28/16 06/22/20 Gael Stockton MD [address] [place] [address] PCP - General Internal Medicine 06/23/20 05/04/25 Gael Stockton MD PCP - [place] Medicare Patients 11/23/22 03/22/23 Sanjay Fernandes MD [address] [place] [address] PCP - General Pulmonary Disease 05/05/25 Franklin Simmons MD [address] [address] Physician Otolaryngology 06/14/17 Godwin Saunders DO [address] [address] Physician Endocrinology 06/14/17 Gael Stockton MD 85 [place] [address] Internal Medicine 05/26/20 Godwin Malcolm MD [address] [place] [address] Hematology Oncology 11/03/20 Heather Packer, IP ARCHITECT [address] [place] 4 [place] [address] Respiratory Care Practitioner Respiratory Therapist 09/20/24 Antonia Willis MD [address] [place], [place] [address]am and [place] [address] Internal Medicine 02/17/25 Logan Doran MD [address] [place] [address] 03/18/25 documented as of this encounter
--- OUTSIDE RECORDS SUMMARY | 2025-06-26 18:27 | XMS_ITS | Encounter Summary ---
Author Organization [facility] Address [address] [place] [address] Care Team Providers Care Cook Fish And Chips Name Role Phone Sanjay Fernandes MD Primary Care Provider Franklin Simmons MD Unavailable [phone] Godwin Saunders DO Unavailable Gael Stockton MD Unavailable Unavailable Gael Stockton MD Primary Care Provider Unavail able Godwin Malcolm MD Unavailable Unavailable Gael Stockton MD Unavailable Unavailable Heather Packer COMMUNITY DIRECTOR Unavailable [phone] Antonia Willis MD Unavailable Logan Doran MD Unavailable Sanjay Fernandes MD Primary Care Provider Encounter Details Date Type Department Care Team (Late st Contact Info) Description 07/17/2019 Scanned Document [facility] [address] [place] [phone] Social History Tobacco Use Types Packs/Day [...] [facility] [address] [place] [address] 4th [place] [phone] 08/18/2025 10:30 AM EDT Hospital Encounter [facility] Gastroenterology Division [address] [place] [phone] Vitor Morales MD [address] [place] [address] [phone] 08/18/2025 10:30 AM EDT Appointment [facility] [address] [place] [address] Vitor Morales MD [address] [place] [address] [phone] 08/18/2025 10:30 AM EDT - 08/18/2025 11:00 AM EDT Surgery [facility] Gastroenterology Division [address] [place] [phone] Vitor Morales MD [address] [place] [address] [phone] COLONOSCOPY 05/04/2026 11:00 AM EDT Office Visit [facility] Department of Cardiology [place] [address] [place] [phone] Aashish Silva PA [address] [place] [address] [phone] Scheduled Procedures Name Priority Associated Diagnoses Date/Ti [...] documented as of this encounter Care Teams Cook Fish And Chips Relationship Specialty Start Date End Date Sanjay Fernandes MD [address] [place] [address] PCP - General Pulmonary Disease 05/28/16 06/22/20 Gael Stockton MD [address] [place] [address] PCP - General Internal Medicine 06/23/20 05/04/25 Gael Stockton MD PCP - [place] Medicare Patients 11/23/22 03/22/23 Sanjay Fernandes MD [address] [place] [address] PCP - General Pulmonary Disease 05/05/25 Franklin Simmons MD [address] [place] [address] Physician Otolaryngology 06/14/17 Godwin Saunders DO [address] [place] [address] Physician Endocrinology 06/14/17 Gael Stockton MD [address] [place] [address] Internal Medicine 05/26/20 Godwin Malcolm MD [address] [place] [address] Hematology Oncology 11/03/20 Heather Packer, COMMUNITY DIRECTOR [address] [place] 4 [place] [address] Respiratory Care Practitioner Respiratory Therapist 09/20/24 Antonia Willis MD [address] and [place] [address] Internal Medicine 02/17/25 Logan Doran MD 30 [place] [address] 03/18/25 documented as of this encounter
--- OUTSIDE RECORDS SUMMARY | 2025-06-26 18:27 | XMS_ITS | Encounter Summary ---
Author Organization [facility] Address [address] [place] [address] Care Team Providers Care Oil Separator Name Role Phone Franklin Simmons MD Unavailable [phone] Godwin Saunders DO Unavailable Gael Stockton MD Unavailable Unavailable Gael Stockton MD Primary Care Provider Unavail able Godwin Malcolm MD Unavailable Unavailable Gael Stockton MD Unavailable Unavailable OchoaHeather MULTIMEDIA SERVICES MANAGER Unavailable Antonia Willis MD Unavailable Logan Doran MD Unavailable [phone] Sanjay Fernandes MD Primary Care Provider Encounter Details Date Type Department Care Team (Late st Contact Info) Description 02/11/2021 Scanned Document [facility] [address] [place] [address] [address] [place] [phone] Social History Tobacco Use Types Packs/Day Years [...] have Coronavirus / COVID-19? No / Unsure 02/10/2021 3:05 PM EDT documented as of this encounter Plan of Treatment Upcoming Encounters Date Type Department Care Team (Latest Contact Info) Description 07/02/2025 11:00 AM EDT Clinical Support [facility] [address] [place] [address] 4[address] [place] [phone] 08/18/2025 10:30 AM EDT Hospital Encounter Gastroenterology Division [address] [place] [phone] Vitor Morales MD [address] [place] [address] [phone] 08/18/2025 10:30 AM EDT Appointment [facility] [address] [place] [address] Vitor Morales MD [address] [place] [address] [phone] 08/18/2025 10:30 AM EDT - 08/18/2025 11:00 AM EDT Surgery Gastroenterology Division [address] [place] [phone] Vitor Morales MD [address] [place] [address] COLONOSCOPY 05/04/2026 11:00 AM EDT Office Visit [facility] Department of Cardiology [place] [address] [place] [phone] Aashish Silva PA [address] [place] [address] Scheduled Procedures Name Priority Associated Diagnoses Date/Ti [...] documented as of this encounter Care Teams Oil Separator Relationship Specialty Start Date End Date Gael Stockton MD PCP - General Internal Medicine 06/23/20 05/04/25 Gael Stockton MD PCP - [place] Medicare Patients 11/23/22 03/22/23 Sanjay Fernandes MD 85 [facility] 923 [place] [address] PCP - General Pulmonary Disease 05/05/25 Franklin Simmons MD Physician Otolaryngology 06/14/17 Godwin Saunders DO Physician Endocrinology 06/14/17 Gael Stockton MD Internal Medicine 05/26/20 Godwin Malcolm MD Hematology Oncology 11/03/20 Heather Packer, MULTIMEDIA SERVICES MANAGER [address] [place] 4 [place] [address] Respiratory Care Practitioner Respiratory Therapist 09/20/24 Antonia Willis MD 850 [employer] 530 [facility] and [facility] [place] [address] Internal Medicine 02/17/25 Logan Doran MD 30 [place] [address] 03/18/25 documented as of this encounter
--- OUTSIDE RECORDS SUMMARY | 2025-06-26 18:27 | XMS_ITS | Encounter Summary ---
Author Organization [facility] Address [address] [place] [address] Care Team Providers Care Director Of Database Marketing Name Role Phone Sanjay Fernandes MD Primary Care Provider Franklin Simmons MD Unavailable [phone] Godwin Saunders DO Unavailable Gael Stockton MD Unavailable Unavailable Gael Stockton MD Primary Care Provider Unavail able Godwin Malcolm MD Unavailable Unavailable Gael Stockton MD Unavailable Unavailable Heather Packer SOLVENT STATION ATTENDANT Unavailable [phone] Antonia Willis MD Unavailable Logan Doran MD Unavailable [phone] Sanjay Fernandes MD Primary Care Provider Encounter Details Date Type Department Care Team (Late st Contact Info) Description 01/01/2020 Scanned Document [facility] [address] [place] [phone] Social History Tobacco Use Types Packs/Day [...] EDT Clinical Support [facility] [address] [place] [address] 4th [place] [phone] 08/18/2025 10:30 AM EDT Hospital Encounter [facility] Gastroenterology Division [address] [place] [phone] Vitor Morales MD [address] [place] [address] [phone] 08/18/2025 10:30 AM EDT Appointment [facility] [address] [place] [address] Vitor Morales MD [address] [place] [address] [phone] 08/18/2025 10:30 AM EDT - 08/18/2025 11:00 AM EDT Surgery [facility] Gastroenterology Division [address] [place] [phone] Vitor Morales MD [address] [place] [address] [phone] COLONOSCOPY 05/04/2026 11:00 AM EDT Office Visit [facility] Department of Cardiology [place] [address] [place] [phone] Aashish Silva PA [address] [place] [address] [phone] Scheduled Procedures Name Priority Associated Diagnoses Date/Ti [...] of this encounter Care Teams Director Of Database Marketing Relationship Specialty Start Date End Date Sanjay Fernandes MD [address] [place] [address] PCP - General Pulmonary Disease 05/28/16 06/22/20 Gael Stockton MD [address] [place] [address] PCP - General Internal Medicine 06/23/20 05/04/25 Gael Stockton MD PCP - [place] Medicare Patients 11/23/22 03/22/23 Sanjay Fernandes MD [address] [place] [address] PCP - General Pulmonary Disease 05/05/25 Franklin Simmons MD [address] [place] [address] Physician Otolaryngology 06/14/17 Godwin Saunders DO [address] [place] [address] Physician Endocrinology 06/14/17 Gael Stockton MD [address] [place] [address] Internal Medicine 05/26/20 Godwin Malcolm MD [address] [place] [address] Hematology Oncology 11/03/20 Heather Packer, SOLVENT STATION ATTENDANT [address] [place] 4 [place] [address] Respiratory Care Practitioner Respiratory Therapist 09/20/24 Antonia Willis MD [address] and [place] [address] Internal Medicine 02/17/25 Logan Doran MD 30 [place] [address] 03/18/25 documented as of this encounter
--- OUTSIDE RECORDS SUMMARY | 2025-06-26 18:27 | XMS_ITS | Encounter Summary ---
Author Organization Formerly [facility] Address [address] [place] [address] Care Team Providers Care Tow Driver Name Role Phone Franklin Simmons MD Unavailable [phone] Godwin Saunders DO Unavailable Gael Stockton MD Unavailable Unavailable Gael Stockton MD Primary Care Provider Unavail able Godwin Malcolm MD Unavailable Unavailable Gael Stockton MD Unavailable Unavailable OchoaHeather TRAILHEAD CONSTRUCTION WORKER Unavailable Antonia Willis MD Unavailable Logan Doran MD Unavailable Sanjay Fernandes MD Primary Care Provider Reason for Visit * Reason Comments Prior Authorization Encounter Details Date Type Department Care Team (Late st Contact Info) Description 12/02/2022 Telephone [facility], [address] [place] [address] Vitor Morales MD [address] [place] [phone] Prior Authorization Social History Tobacco Use Types [...] Encounter - Vitor Morales MD - 12/02/2022 3:38 PM EST Thank you so much- Shelby- let Carla know that Motegrity has been approved until 2024. * Telephone Encounter - Brittny Loza - 12/02/2022 2:48 PM EST Approval for Motegrity 2mg MA# [id number] Valid through 11/30/2024 * Telephone Encounter - Brittny Loza - 12/02/2022 2:47 PM EST ----- Message from Vitor Morales MD sent at 12/01/2022 3:28 PM EST ----- Regarding: RE: motegrity denial Thank you ----- Message ----- From: Brittny Loza Sent: 12/01/2022 2:58 PM EST To: Vitor Morales MD Subject: RE: motegrity denial I'll call her insurance & see what the next steps are. Since she has medicare they usually wantto do an appeal. I'll get back to you once I speak with them. The phones are down here in [place] currently ----- Message ----- From: Vitor Morales MD Sent: 12/01/2022 1:57 PM EST To: Shelby Mcneil MA, Brittny Loza Subject: motegrity denial [place] Brittny- Patient was denied Motegrity last year. She has tried and failed Amitiza and Linzess which were required. Can we resubmit or do we have to do appeal on phone? documented in this encounter Plan of Treatment Upcoming Encounters Date Type Department Care Team (Latest Contact Info) Description 07/02/2025 11:00 AM EDT Clinical Support The [facility] Fibrosis Center [address] [place] [address] 4th [place] [phone] 08/18/2025 10:30 AM EDT Hospital Encounter [facility] Gastroenterology Division [address] [place] [address] [phone] Vitor Morales MD [address] [place] [address] [id number] 08/18/2025 10:30 AM EDT Appointment [facility] [address] [place] [address] Vitor Morales MD [address] [place] [address] [phone] 08/18/2025 10:30 AM EDT - 08/18/2025 11:00 AM EDT Surgery [facility] Gastroenterology Division [address] [place] [address] [phone] Vitor Morales MD [address] [place] [address] [phone] COLONOSCOPY 05/04/2026 11:00 AM EDT Office Visit [facility] Physicians Department of Cardiology [place] [address] [place] [address] Aashish Silva PA [address] [place] [address] [phone] Scheduled Procedures Name Priority Associated Diagnoses Date/Ti [...] documented as of this encounter Care Teams Tow Driver Relationship Specialty Start Date End Date Gael Stockton MD PCP - General Internal Medicine 06/23/20 05/04/25 Gael Stockton MD PCP - [place] Medicare Patients 11/23/22 03/22/23 Sanjay Fernandes MD 85 [facility] 923 [place] [address] PCP - General Pulmonary Disease 05/05/25 Franklin Simmons MD Physician Otolaryngology 06/14/17 Godwin Saunders DO Physician Endocrinology 06/14/17 Gael Stockton MD Internal Medicine 05/26/20 Godwin Malcolm MD Hematology Oncology 11/03/20 Heather Packer, TRAILHEAD CONSTRUCTION WORKER [address] [facility] 4 [place] [address] Respiratory Care Practitioner Respiratory Therapist 09/20/24 Antonia Willis MD 850 [facility] 530 [facility] [place] [address] Internal Medicine 02/17/25 Logan Doran MD 30 [place] [address] 03/18/25 documented as of this encounter
--- OUTSIDE RECORDS SUMMARY | 2025-06-26 18:27 | XMS_ITS | Encounter Summary ---
Author Organization [facility] Address [address] [place] [address] Care Team Providers Care Special Event Assistant Name Role Phone Franklin Simmons MD Unavailable [phone] Godwin Saunders DO Unavailable [phone] Gael Stockton MD Unavailable Unavailable Gael Stockton MD Primary Care Provider Unavail able Godwin Malcolm MD Unavailable Unavailable Gael Stockton MD Unavailable Unavailable OchoaHeather ELECTRICAL MECHANICAL TECHNICIAN Unavailable Antonia Willis MD Unavailable Logan Doran MD Unavailable [phone] Sanjay Fernandes MD Primary Care Provider [phone] Encounter Details Date Type Department Care Team (Late st Contact Info) Description 12/01/2022 Scanned Document [facility] Medical Group Pulmonary [place] 85 [facility] [address] [place] [phone] Pulmonary, Scan Social History Tobacco Use Types [...] EDT Clinical Support The [facility] Cystic Fibrosis Center [address] [place] [address] 4th [place] [phone] 08/18/2025 10:30 AM EDT Hospital Encounter [facility] Gastroenterology Division [address] [place] [phone] Vitor Morales MD [address] [place] [address] [phone] 08/18/2025 10:30 AM EDT Appointment [facility] [address] [place] [address] Vitor Morales MD [address] [place] [address] [phone] 08/18/2025 10:30 AM EDT - 08/18/2025 11:00 AM EDT Surgery [facility] Gastroenterology Division [address] [place] [phone] Vitor Morales MD [address] [place] [address] [phone] COLONOSCOPY 05/04/2026 11:00 AM EDT Office Visit [facility] Department of Cardiology [place] [address] [place] [phone] Aashish Silva PA [address] [place] [address] [phone] Scheduled Procedures Name Priority Associated Diagnoses Date/Ti [...] documented as of this encounter Care Teams Special Event Assistant Relationship Specialty Start Date End Date Gael Stockton MD PCP - General Internal Medicine 06/23/20 05/04/25 Gael Stockton MD PCP - [place] Medicare Patients 11/23/22 03/22/23 Sanjay Fernandes MD [address] [place] [address] PCP - General Pulmonary Disease 05/05/25 Franklin Simmons MD Physician Otolaryngology 06/14/17 Godwin Saunders DO Physician Endocrinology 06/14/17 Gael Stockton MD Internal Medicine 05/26/20 Godwin Malcolm MD Hematology Oncology 11/03/20 Heather Packer, ELECTRICAL MECHANICAL TECHNICIAN [address] [place] [address] [place] [address] Respiratory Care Practitioner Respiratory Therapist 09/20/24 Antonia Willis MD [address] [facility] [place] [address] Internal Medicine 02/17/25 Logan Doran MD [address] [place] [address] 03/18/25 documented as of this encounter
--- OUTSIDE RECORDS SUMMARY | 2025-06-26 18:27 | XMS_ITS | Encounter Summary ---
Author Organization [facility] Address [address] [place] [address] Care Team Providers Care Drafter Civil Name Role Phone Franklin Simmons MD Unavailable Godwin Saunders DO Unavailable Gael Stockton MD Unavailable Unavailable Gael Stockton MD Primary Care Provider Unavail able Godwin Malcolm MD Unavailable Unavailable Gael Stockton MD Unavailable Unavailable MaryHeather solis TEMPLATE CHECKER Unavailable Antonia Willis MD Unavailable Logan Doran MD Unavailable Sanjay Fernandes MD Primary Care Provider Reason for Visit * Reason Comments Medication Refill Encounter Details Date Type Department Care Team (Late st Contact Info) Description 11/02/2020 [address] [facility] [address] [place] [address] Vitor Morales MD 85 [facility] [address] [place] [address] Iron deficiency anemia, unspecified iron deficiency anemia type Social History Tobacco Use Types Packs/Day Years [...] PM EST documented as of this encounter Miscellaneous Notes * Telephone Encounter - Shelby Mcneil MA - 11/03/2020 11:37 AM EST Called pharmacy and everything is backordered Nulytely, Gavilyte and Colyte Any other suggestions? documented in this encounter Plan of Treatment Upcoming Encounters Date Type Department Care Team (Latest Contact Info) Description 07/02/2025 11:00 AM EDT Clinical [facility] [address] [place] [phone] 08/18/2025 10:30 AM EDT Hospital Encounter [facility] Gastroenterology Division [address] [place] [phone] Vitor Morales MD [address] [place], [place] [phone] 08/18/2025 10:30 AM EDT Appointment [facility] [address] [address] Vitor Morales MD [address] [place] [address] [phone] 08/18/2025 10:30 AM EDT - 08/18/2025 11:00 AM EDT Surgery [facility] Gastroenterology Division [address] [place] [phone] Vitor Morales MD 85 [facility] [address] [place] [address] COLONOSCOPY 05/04/2026 11:00 AM EDT Office Visit [facility] Physicians Department of Cardiology [place] [address] [place] [phone] Aashish Silva PA [address] [place] [address] Scheduled Procedures Name Priority Associated Diagnoses Date/Ti me COLONOSCOPY Colon cancer screening 08/18/2025 10:30 AM EDT documented as of this encounter Visit Diagnoses Diagnosis Iron deficiency anemia, unspecified iron deficiency anemia type Colon cancer screening Special screening for malignant [...] documented as of this encounter Care Teams Drafter Civil Relationship Specialty Start Date End Date Gael Stockton MD PCP - General Internal Medicine 06/23/20 05/04/25 Gael Stockton MD PCP - [place] Medicare Patients 11/23/22 03/22/23 Sanjay Fernandes MD 85 [facility] 923 [place] [address] PCP - General Pulmonary Disease 05/05/25 Franklin Simmons MD Physician Otolaryngology 06/14/17 Godwin Saunders DO Physician Endocrinology 06/14/17 Gael Stockton MD Internal Medicine 05/26/20 Godwin Malcolm MD Hematology Oncology 11/03/20 Heather Packer, TEMPLATE CHECKER [address] [place] [address] [place] [address] Respiratory Care Practitioner Respiratory Therapist 09/20/24 Antonia Willis MD [address] [facility] [place] [address] Internal Medicine 02/17/25 Logan Doran MD 30 [place] [address] 03/18/25 documented as of this encounter
--- OUTSIDE RECORDS SUMMARY | 2025-06-26 18:27 | XMS_ITS | Encounter Summary ---
Author Organization [facility] Address [address] [place] [address] Care Team Providers Care Paster Hat Lining Name Role Phone Franklin Simmons MD Unavailable [phone] Godwin Saunders DO Unavailable Gael Stockton MD Unavailable Unavailable Gael Stockton MD Primary Care Provider Unavail able Godwin Malcolm MD Unavailable Unavailable Heather Packer AT HOME INDEPENDENT CALL CENTER AGENT Unavailable Antonia Willis MD Unavailable Logan Doran MD Unavailable Sanjay Fernandes MD Primary Care Provider Encounter Details Date Type Department Care Team (Late st Contact Info) Description 04/26/2023 Scanned Document [facility] Department of Internal Medicine [place] 160 [facility] [address] [place] [address] Gael Stockton MD Social History Tobacco Use [...] [facility] 79 [facility] 4th [place] [phone] 08/18/2025 10:30 AM EDT Hospital Encounter [facility] Gastroenterology Division [address] [place] [address] [phone] Vitor Morales MD [address] [place] [address] [phone] 08/18/2025 10:30 AM EDT Appointment [facility] [address] [place] [address] Vitor Morales MD [address] [place] [address] [phone] 08/18/2025 10:30 AM EDT - 08/18/2025 11:00 AM EDT Surgery [facility] Gastroenterology Division [address] [place] [address] [phone] Vitor Morales MD [address] [place] [address] [phone] COLONOSCOPY 05/04/2026 11:00 AM EDT Office Visit [facility] Physicians Department of Cardiology [place] [address] [place] [phone] Aashish Silva PA [address] [place] [address] Scheduled Procedures Name Priority Associated Diagnoses Date/Ti [...] documented as of this encounter Care Teams Paster Hat Lining Relationship Specialty Start Date End Date Gael Stockton MD PCP - General Internal Medicine 06/23/20 05/04/25 Sanjay Fernandes MD 85 [facility] 923 [place] [address] PCP - General Pulmonary Disease 05/05/25 Franklin Simmons MD Physician Otolaryngology 06/14/17 Godwin Saunders DO Physician Endocrinology 06/14/17 Gael Stockton MD Internal Medicine 05/26/20 Godwin Malcolm MD Hematology Oncology 11/03/20 Heather Packer, AT HOME INDEPENDENT CALL CENTER AGENT [address] 4 [place] [address] Respiratory Care Practitioner Respiratory Therapist 09/20/24 Antonia Willis MD 850 [facility] 530 [facility] [place] [address] Internal Medicine 02/17/25 Logan Doran MD 30 [place] [address] 03/18/25 documented as of this encounter
--- OUTSIDE RECORDS SUMMARY | 2025-06-26 18:27 | XMS_ITS | Encounter Summary ---
Author Organization [facility] Address [address] [place] [address] Care Team Providers Care Salesperson Household Appliances Name Role Phone Franklin Simmons MD Unavailable [phone] Godwin Saunders DO Unavailable Gael Stockton MD Unavailable Unavailable Gael Stockton MD Primary Care Provider Unavail able Godwin Malcolm MD Unavailable Unavailable Gael Stockton MD Unavailable Unavailable Heather Packer SCHOOL BUS DRIVER/TEACHER ASSISTANT Unavailable [phone] Antonia Willis MD Unavailable Logan Doran MD Unavailable Sanjay Fernandes MD Primary Care Provider Encounter Details Date Type Department Care Team (Late st Contact Info) Description 03/16/2021 Scanned Document [facility] PULMON[facility] Pulmonary, Scan Social History Tobacco Use Types [...] [facility] Fibrosis Center 79 [facility] 4th [place] [phone] 08/18/2025 10:30 AM EDT Hospital Encounter [facility] Gastroenterology Division [address] [place] [address] [phone] Vitor Morales MD [address] [place] [address] [phone] 08/18/2025 10:30 AM EDT Appointment [facility] [address] [place] [address] Vitor Morales MD [address] [place] [address] [phone] 08/18/2025 10:30 AM EDT - 08/18/2025 11:00 AM EDT Surgery [facility] Gastroenterology Division [address] [place] [address] [phone] Vitor Morales MD [address] [place] [address] [phone] COLONOSCOPY 05/04/2026 11:00 AM EDT Office Visit [facility] Department of Cardiology [place] [address] [place] [address] Aashish Silva PA [address] [place] [address] [phone] Scheduled Procedures Name Priority Associated Diagnoses Date/Ti [...] as of this encounter Care Teams Salesperson Household Appliances Relationship Specialty Start Date End Date Gael Stockton MD PCP - General Internal Medicine 06/23/20 05/04/25 Gael Stockton MD PCP - [place] Medicare Patients 11/23/22 03/22/23 Sanjay Fernandes MD 85 [facility] 923 [place] [address] PCP - General Pulmonary Disease 05/05/25 Franklin Simmons MD Physician Otolaryngology 06/14/17 Godwin Saunders DO Physician Endocrinology 06/14/17 Gael Stockton MD Internal Medicine 05/26/20 Godwin Malcolm MD Hematology Oncology 11/03/20 Heather Packer, SCHOOL BUS DRIVER/TEACHER ASSISTANT [address] 4 [place] [address] Respiratory Care Practitioner Respiratory Therapist 09/20/24 Antonia Willis MD 850 [facility] 530 [facility] [place] [address] Internal Medicine 02/17/25 Logan Doran MD [address] [place] [address] 03/18/25 documented as of this encounter
--- OUTSIDE RECORDS SUMMARY | 2025-06-26 18:27 | XMS_ITS | Encounter Summary ---
Author Organization [facility] Address [address] [place] [address] Care Team Providers Care Barrel Roller Operator Name Role Phone Sanjay Fernandes MD Primary Care Provider Franklin Simmons MD Unavailable [phone] Godwin Saunders DO Unavailable Gael Stockton MD Unavailable Unavailable Gael Stockton MD Primary Care Provider Unavail able Godwin Malcolm MD Unavailable Unavailable Gael Stockton MD Unavailable Unavailable Heather Packer SURVEY AND MAPPING TECHNICIAN Unavailable Antonia Willis MD Unavailable Logan Doran MD Unavailable Sanjay Fernandes MD Primary Care Provider Encounter Details Date Type Department Care Team (Late st Contact Info) Description 07/16/2019 Scanned Document [facility] [address] [facility] [address] [place] [address] Lisa Barr PA 65 [facility] [address] [place], [place] [phone] Social History Tobacco Use Types Packs/Day Years [...] [facility] 79 [facility] 4th [place] [phone] 08/18/2025 10:30 AM EDT Hospital Encounter [facility] Gastroenterology Division [address] [place] [address] [phone] Vitor Morales MD [address] [place] [address] [phone] 08/18/2025 10:30 AM EDT Appointment [facility] [address] [place] [address] Vitor Morales MD [address] [place] [address] [phone] 08/18/2025 10:30 AM EDT - 08/18/2025 11:00 AM EDT Surgery [facility] Gastroenterology Division [address] [place] [address] [phone] Vitor Morales MD [address] [place] [address] COLONOSCOPY 05/04/2026 11:00 AM EDT Office Visit [facility] Department of Cardiology [place] [address] [place] [phone] Aashish Silva PA [address] [place] [address] Scheduled Procedures Name Priority Associated Diagnoses Date/Ti [...] documented as of this encounter Care Teams Barrel Roller Operator Relationship Specialty Start Date End Date Sanjay Fernandes MD 85 [place] [address] PCP - General Pulmonary Disease 05/28/16 06/22/20 Gael Stockton MD [address] [place] [address] PCP - General Internal Medicine 06/23/20 05/04/25 Gael Stockton MD PCP - [place] Medicare Patients 11/23/22 03/22/23 Sanjay Fernadnes MD [address] [place] [address] PCP - General Pulmonary Disease 05/05/25 Franklin Simmons MD [address] [place] [address] Physician Otolaryngology 06/14/17 Godwin Saunders DO [address] [place] [address] Physician Endocrinology 06/14/17 Gael Stockton MD [address] [place] [address] Internal Medicine 05/26/20 Godwin Malcolm MD 85 [facility] 923 [place] [address] Hematology Oncology 11/03/20 Heather Packer, SURVEY AND MAPPING TECHNICIAN [address] [facility] 4 [place] [address] Respiratory Care Practitioner Respiratory Therapist 09/20/24 Antonia Willis MD 850 [facility] 530 [facility] [place] [address] Internal Medicine 02/17/25 Logan Doran MD 30 [place] [address] 03/18/25 documented as of this encounter
--- OUTSIDE RECORDS SUMMARY | 2025-06-26 18:27 | XMS_ITS | Encounter Summary ---
Author Organization [facility] Address [address] [place] [address] Care Team Providers Care Programmer Analyst Consultant Name Role Phone Sanjay Fernandes MD Primary Care Provider Franklin Simmons MD Unavailable [phone] Godwin Saunders DO Unavailable Gael Stockton MD Unavailable Unavailable Gael Stockton MD Primary Care Provider Unavail able Godwin Malcolm MD Unavailable Unavailable Gael Stockton MD Unavailable Unavailable Heather Packer BIOMASS PRODUCTION MANAGER Unavailable [phone] Antonia Wilils MD Unavailable Logan Doran MD Unavailable [phone] Sanjay Fernandes MD Primary Care Provider Encounter Details Date Type Department Care Team (Late st Contact Info) Description 06/13/2017 Scanned Document [address] [place] [address] Yvette Green APRN Social History Tobacco Use [...] Clinical Support The [facility] Cystic Fibrosis Center [address] [place] [address] 4th [place] [phone] 08/18/2025 10:30 AM EDT Hospital Encounter [facility] Gastroenterology Division [address] [place] [phone] Vitor Morales MD [address] [place] [address] [phone] 08/18/2025 10:30 AM EDT Appointment [facility] [address] [place] [address] Vitor Morales MD [address] [place] [address] [phone] 08/18/2025 10:30 AM EDT - 08/18/2025 11:00 AM EDT Surgery [facility] Gastroenterology Division [address] [place] [address] [phone] Vitor Morales MD [address] [place] [address] [phone] COLONOSCOPY 05/04/2026 11:00 AM EDT Office Visit [facility] Physicians Department of Cardiology [place] [address] [place] [phone] Aashish Silva PA [address] [place] [address] [phone] Scheduled Procedures Name Priority Associated Diagnoses Date/Ti [...] documented as of this encounter Care Teams Programmer Analyst Consultant Relationship Specialty Start Date End Date Sanjay Fernandes MD [address] [address] PCP - General Pulmonary Disease 05/28/16 06/22/20 Gael Stockton MD [address] [place] [address] PCP - General Internal Medicine 06/23/20 05/04/25 Gael Stockton MD PCP - [place] Medicare Patients 11/23/22 03/22/23 Sanjay Fernandes MD [address] [place] [address] PCP - General Pulmonary Disease 05/05/25 Franklin Simmons MD [address] [place] [address] Physician Otolaryngology 06/14/17 Godwin Saunders DO [address] [address] Physician Endocrinology 06/14/17 Gael Stockton MD [address] [place] [address] Internal Medicine 05/26/20 Godwin Malcolm MD 85 [facility] 923 [place] [address] Hematology Oncology 11/03/20 Heather Packer, BIOMASS PRODUCTION MANAGER 79 [facility] 4 [place] [address] Respiratory Care Practitioner Respiratory Therapist 09/20/24 Antonia Willis MD 850 [place] [facility] 530 [facility] [place] [address] Internal Medicine 02/17/25 Logan Doran MD 30 [place] [address] 03/18/25 documented as of this encounter
--- OUTSIDE RECORDS SUMMARY | 2025-06-26 18:27 | XMS_ITS | Encounter Summary ---
Author Organization [facility] Address [address] [place] [address] Care Team Providers Care Space Control Agent Name Role Phone Franklin Simmons MD Unavailable [phone] Godwin Saunders DO Unavailable Gael Stockton MD Unavailable Unavailable Gael Stockton MD Primary Care Provider Unavail able Godwin Malcolm MD Unavailable Unavailable Gael Stockton MD Unavailable Unavailable Heather Packer TUMBLING MACHINE OPERATOR Unavailable Antonia Willis MD Unavailable Logan Doran MD Unavailable Sanjay Fernandes MD Primary Care Provider [phone] Reason for Visit * Reason Comments Medication Refill Encounter Details Date Type Department Care Team (Late st Contact Info) Description 12/02/2020 Refill [facility] [place] [address] [place] [phone] Sanjay Fernandes MD [address] [place] [address] GERD with esophagitis Social History Tobacco Use [...] have Coronavirus / COVID-19? No / Unsure 11/09/2020 2:19 PM EST documented as of this encounter Plan of Treatment Upcoming Encounters Date Type Department Care Team (Latest Contact Info) Description 07/02/2025 11:00 AM EDT Clinical Support [facility] [address] [place] [address] 4[address] [place] [phone] 08/18/2025 10:30 AM EDT Hospital Encounter [facility] Gastroenterology Division [address] [place] [address] Vitor Morales MD [address] [place] [address] [phone] 08/18/2025 10:30 AM EDT Appointment [facility] [address] [place] [address] Vitor Morales MD [address] [place] [address] [id number] 08/18/2025 10:30 AM EDT - 08/18/2025 11:00 AM EDT Surgery [facility]ology [facility] [address] [place] [phone] Vitor Morales MD [address] [place] [address] COLONOSCOPY 05/04/2026 11:00 AM EDT Office Visit [facility] Department of Cardiology [place] [address] [place] [address] Aashish Silva PA [address] [place] [address] Scheduled Procedures Name Priority Associated Diagnoses Date/Ti [...] documented as of this encounter Care Teams Space Control Agent Relationship Specialty Start Date End Date Gael Stockton MD PCP - General Internal Medicine 06/23/20 05/04/25 Gael Stockton MD PCP - [place] Medicare Patients 11/23/22 03/22/23 Sanjay Fernandes MD [address] [place] [address] PCP - General Pulmonary Disease 05/05/25 Franklin Simmons MD Physician Otolaryngology 06/14/17 Godwin Saunders DO Physician Endocrinology 06/14/17 Gael Stockton MD Internal Medicine 05/26/20 Godwin Malcolm MD Hematology Oncology 11/03/20 Heather Packer, TUMBLING MACHINE OPERATOR [address] [place] [address] [place] [address] Respiratory Care Practitioner Respiratory Therapist 09/20/24 Antonia Willis MD [address] [address] [facility] [place] [address] Internal Medicine 02/17/25 Logan Doran MD 30 [place] [address] 03/18/25 documented as of this encounter
--- OUTSIDE RECORDS SUMMARY | 2025-06-26 18:27 | XMS_ITS | Encounter Summary ---
Author Organization [facility] Address [address] [place] [address] Care Team Providers Care Marketing Ambassador Name Role Phone Sanjay Fernadnes MD Primary Care Provider [phone] Franklin Simmons MD Unavailable [phone] Godwin Saunders DO Unavailable [phone] Gael Stockton MD Unavailable Unavailable Gael Stockton MD Primary Care Provider Unavail able Godwin Malcolm MD Unavailable Unavailable Gael Stockton MD Unavailable Unavailable Ochoa Heather ACTING INSTRUCTOR Unavailable [phone] Antonia Willis MD Unavailable Logan Doran MD Unavailable Sanjay Fernandes MD Primary Care Provider [phone] Reason for Visit * Reason Comments Medication Refill Encounter Details Date Type Department Care Team (Late st Contact Info) Description 11/15/2017 Refill [facility] [address] [place] [address] [address] [place] [address] Yvette Green APRN Chronic migraine without aura, [...] AM EDT Clinical Support [facility] [address] [place] [address] 4th [place] [phone] 08/18/2025 10:30 AM EDT Hospital Encounter [facility] Gastroenterology Division [address] [place] [phone] Vitor Morales MD [address] [place] [address] [phone] 08/18/2025 10:30 AM EDT Appointment [facility] [address] [place] [address] Vitor Morales MD [address] [place] [address] 08/18/2025 10:30 AM EDT - 08/18/2025 11:00 AM EDT Surgery [facility] Gastroenterology Division [address] [place] [phone] Vitor Morales MD [address] [place] [address] COLONOSCOPY 05/04/2026 11:00 AM EDT Office Visit [facility] Physicians Department of Cardiology [place] [address] [place] [phone] Aashish Silva PA [address] [place] [address] Scheduled Procedures Name Priority Associated Diagnoses Date/Ti [...] documented as of this encounter Care Teams Marketing Ambassador Relationship Specialty Start Date End Date Sanjay Fernandes MD [address] [place] [address] PCP - General Pulmonary Disease 05/28/16 06/22/20 Gael Stockton MD [address] [place] [address] PCP - General Internal Medicine 06/23/20 05/04/25 Gael Stockton MD PCP - [place] Medicare Patients 11/23/22 03/22/23 Sanjay Fernandes MD [address] [place] [address] PCP - General Pulmonary Disease 05/05/25 Franklin Simmons MD [address] [place], [place] [phone] Physician Otolaryngology 06/14/17 Godwin Saunders DO [address] [place] [address] Physician Endocrinology 06/14/17 Gael Stockton MD [address] [address] Internal Medicine 05/26/20 Godwin Malcolm MD [address] [address] Hematology Oncology 11/03/20 Heather Packer, ACTING INSTRUCTOR [address] [place] 4 [place] [address] Respiratory Care Practitioner Respiratory Therapist 09/20/24 Antonia Willis MD [address] [facility] [place] [address] Internal Medicine 02/17/25 Logan Doran MD 30 [place] [address] 03/18/25 documented as of this encounter
--- OUTSIDE RECORDS SUMMARY | 2025-06-26 18:27 | XMS_ITS | Encounter Summary ---
Author Organization [facility] Address [address] [place] [address] Care Team Providers Care Fine Arts Chair Name Role Phone Franklin Simmons MD Unavailable Godwin Saunders DO Unavailable Gael Stockton MD Unavailable Unavailable Gael Stockton MD Primary Care Provider Unavail able Godwin Malcolm MD Unavailable Unavailable Gael Stockton MD Unavailable Unavailable OchoaHeather WELDER PLASTIC Unavailable Antonia Willis MD Unavailable Logan Doran MD Unavailable [phone] Sanjay Fernandes MD Primary Care Provider Reason for Visit * Reason Comments Medication Refill Encounter Details Date Type Department Care Team (Late st Contact Info) Description 12/01/2022 Refill [facility] [address] [place] [address] Vitor Morales MD 85 [facility] [address] [place] [address] Other constipation Social History Tobacco Use Types Packs/Day Years [...] 11:00 AM EDT Clinical Support [facility] [address] [facility] 4th [place] [phone] 08/18/2025 10:30 AM EDT Hospital Encounter [facility] G[facility]ology [facility] [address] [place] [phone] Vitor Morales MD [address] [place] [address] [phone] 08/18/2025 10:30 AM EDT Appointment [facility] [address] [place] [address] Vitor Morales MD [address] [place] [address] [phone] 08/18/2025 10:30 AM EDT - 08/18/2025 11:00 AM EDT Surgery [facility]ology [facility] [address] [place] [phone] Vitor Morales MD [address] [place] [address] COLONOSCOPY 05/04/2026 11:00 AM EDT Office Visit [facility] Department of Cardiology [place] [address] [place] [address] Aashish Silva PA [address] [place] [address] Scheduled Procedures Name Priority Associated Diagnoses Date/Ti me COLONOSCOPY Colon cancer screening 08/18/2025 10:30 AM EDT documented as of this encounter Visit Diagnoses Diagnosis Other constipation Colon cancer screening Special screening for malignant [...] documented as of this encounter Care Teams Fine Arts Chair Relationship Specialty Start Date End Date Gael Stockton MD PCP - General Internal Medicine 06/23/20 05/04/25 Gael Stockton MD PCP - [place] Medicare Patients 11/23/22 03/22/23 Sanjay Fernandes MD [address] [place] [address] 923 [place] [address] PCP - General Pulmonary Disease 05/05/25 Franklin Simmons MD Physician Otolaryngology 06/14/17 Godwin Saunders DO Physician Endocrinology 06/14/17 Gael Stockton MD Internal Medicine 05/26/20 Godwin Malcolm MD Hematology Oncology 11/03/20 Heather Packer, WELDER PLASTIC [address] [place] [facility] 4 [place] [address] Respiratory Care Practitioner Respiratory Therapist 09/20/24 Antonia Willis MD [address] [place] [address] 530 [facility] [place] [address] Internal Medicine 02/17/25 Logan Doran MD 30 [place] [address] 03/18/25 documented as of this encounter
--- OUTSIDE RECORDS SUMMARY | 2025-06-26 18:27 | XMS_ITS | Encounter Summary ---
Author Organization [facility] Address [address] [place] [address] Care Team Providers Care Roller Machine Operator Name Role Phone Sanjay Fernandes MD Primary Care Provider Franklin Simmons MD Unavailable [phone] Godwin Saunders DO Unavailable Gael Stockton MD Unavailable Unavailable Gael Stockton MD Primary Care Provider Unavail able Godwin Malcolm MD Unavailable Unavailable Gael Stockton MD Unavailable Unavailable Heather Packer ASSURANCE ENGINEER Unavailable [phone] Antonia Willis MD Unavailable Logan Doran MD Unavailable [phone] Sanjay Fernandes MD Primary Care Provider Encounter Details Date Type Department Care Team (Late st Contact Info) Description 08/12/2019 Scanned Document [facility]rosis [facility] [address] [place] [phone] Social History Tobacco Use Types Packs/Day [...] EDT Clinical Support [facility] Fibrosis Center [address] [place] [address] 4[address] [place] [phone] 08/18/2025 10:30 AM EDT Hospital Encounter [facility] Gastroenterology Division [address] [place] [phone] Vitor Morales MD [address] [place] [address] [phone] 08/18/2025 10:30 AM EDT Appointment [facility] [address] [place] [address] Vitor Morales MD [address] [place] [address] [phone] 08/18/2025 10:30 AM EDT - 08/18/2025 11:00 AM EDT Surgery [facility] Gastroenterology Division [address] [place] [phone] Vitor Morales MD [address] [place] [address] [phone] COLONOSCOPY 05/04/2026 11:00 AM EDT Office Visit [facility] Physicians Department of Cardiology [place] [address] [place] [address] Aashish Silva PA [address] [place] [address] [phone] Scheduled Procedures Name Priority Associated Diagnoses Date/Ti [...] documented as of this encounter Care Teams Roller Machine Operator Relationship Specialty Start Date End Date Sanjay Fernandes MD [address] [place] [address] PCP - General Pulmonary Disease 05/28/16 06/22/20 Gael Stockton MD [address] [place] [address] PCP - General Internal Medicine 06/23/20 05/04/25 Gael Stockton MD PCP - [place] Medicare Patients 11/23/22 03/22/23 Sanjay Fernandes MD [address] [place] [address] PCP - General Pulmonary Disease 05/05/25 Franklin Simmons MD [address] [place] [address] Physician Otolaryngology 06/14/17 Godwin Saunders DO [address] [place] [address] Physician Endocrinology 06/14/17 Gael Stockton MD [address] [place] [address] Internal Medicine 05/26/20 Godwin Malcolm MD [address] [place] [address] Hematology Oncology 11/03/20 Heather Packer, ASSURANCE ENGINEER [address] [place] 4 [place] [address] Respiratory Care Practitioner Respiratory Therapist 09/20/24 Antonia Willis MD [address] [facility] [place] [address] Internal Medicine 02/17/25 Logan Doran MD 30 [place] [address] 03/18/25 documented as of this encounter
--- OUTSIDE RECORDS SUMMARY | 2025-06-26 18:27 | XMS_ITS | Encounter Summary ---
Author Organization [facility] Address [address] [place] [address] Care Team Providers Care Uncrater Name Role Phone Sanjay Fernandes MD Primary Care Provider [phone] Franklin Simmons MD Unavailable [phone] Godwin Saunders DO Unavailable Gael Stockton MD Unavailable Unavailable Gael Stockton MD Primary Care Provider Unavail able Godwin Malcolm MD Unavailable Unavailable Gael Stockton MD Unavailable Unavailable Heather Packer CORRUGATOR MACHINE OPERATOR Unavailable [phone] Antonia Willis MD Unavailable Logan Doran MD Unavailable Sanjay Fernandes MD Primary Care Provider Encounter Details Date Type Department Care Team (Late st Contact Info) Description 06/09/2017 Scanned Document [address] [place] [address] Yvette Green APRN Social History Tobacco Use [...] EDT Clinical Support [facility] [place] [address] [place] [address] 4[address] [place] [phone] 08/18/2025 10:30 AM EDT Hospital Encounter [facility] Gastroenterology Division [address] [place] [phone] Vitor Morales MD [address] [place] [address] [phone] 08/18/2025 10:30 AM EDT Appointment [facility] [address] [place] [address] Vitor Morales MD [address] [place] [address] [phone] 08/18/2025 10:30 AM EDT - 08/18/2025 11:00 AM EDT Surgery [facility] Gastroenterology Division [address] [place] [phone] Vitor Morales MD [address] [place] [address] [phone] COLONOSCOPY 05/04/2026 11:00 AM EDT Office Visit [facility] Physicians Department of Cardiology [place] [address] [place] [phone] Aashish Silva PA [address] [place] [address] 999323 Scheduled Procedures Name Priority Associated Diagnoses Date/Ti [...] documented as of this encounter Care Teams Uncrater Relationship Specialty Start Date End Date Sanjay Fernandes MD [address] [address] PCP - General Pulmonary Disease 05/28/16 06/22/20 Gael Stockton MD [address] [place] [address] PCP - General Internal Medicine 06/23/20 05/04/25 Gael Stockton MD PCP - [place] Medicare Patients 11/23/22 03/22/23 Sanjay Fernandes MD [address] [place] [address] PCP - General Pulmonary Disease 05/05/25 Franklin Simmons MD [address] [place] [address] Physician Otolaryngology 06/14/17 Godwin Saunders DO [address] [address] Physician Endocrinology 06/14/17 Gael Stockton MD [address] [place] [address] Internal Medicine 05/26/20 Godwin Malcolm MD 85 [facility] 923 [place] [address] Hematology Oncology 11/03/20 Heather Packer, CORRUGATOR MACHINE OPERATOR [address] [place] [facility] 4 [place] [address] Respiratory Care Practitioner Respiratory Therapist 09/20/24 Antonia Willis MD 850 [facility] 530 [facility] [address] Internal Medicine 02/17/25 Logan Doran MD 30 [place] [address] 03/18/25 documented as of this encounter
--- OUTSIDE RECORDS SUMMARY | 2025-06-26 18:27 | XMS_ITS | Encounter Summary ---
Author Organization [facility] Address [address] [place] [address] Care Team Providers Care Dog Sitter Name Role Phone Sanjay Fernandes MD Primary Care Provider Franklin Simmons MD Unavailable Godwin Saunders DO Unavailable Gael Stockton MD Unavailable Unavailable Gael Stockton MD Primary Care Provider Unavail able Godwin Malcolm MD Unavailable Unavailable Gael Stockton MD Unavailable Unavailable OchoaHeather REFUELING RAMP ATTENDANT Unavailable Antonia Willis MD Unavailable Logan Doran MD Unavailable [phone] Sanjay Fernandes MD Primary Care Provider Reason for Visit * Reason Onset Date Comments Medication Refill 05/09/2017 Encounter Details Date Type Department Care Team (Late st Contact Info) Description 05/09/2017 Refill [facility] [address] [place] [phone] Provider, MD Devyn [address] [place] [address] Social History Tobacco Use Types Packs/Day Years [...] [facility] [address] [place] [address] 4th [place] [phone] 08/18/2025 10:30 AM EDT Hospital Encounter [facility] Gastroenterology Division [address] [place] [phone] Vitor Morales MD [address] [place] [address] 08/18/2025 10:30 AM EDT Appointment [facility] [address] [place] [address] Vitor Morales MD [address] [place] [address] [phone] 08/18/2025 10:30 AM EDT - 08/18/2025 11:00 AM EDT Surgery [facility] Gastroenterology Division [address] [place] [address] [phone] Vitor Morales MD [address] [place] [address] [phone] COLONOSCOPY 05/04/2026 11:00 AM EDT Office Visit [facility] Physicians Department of Cardiology [place] [address] [place] [phone] Aashish Silva PA [address] [place] [address] Scheduled Procedures Name Priority Associated Diagnoses Date/Ti [...] documented as of this encounter Care Teams Dog Sitter Relationship Specialty Start Date End Date Sanjay Fernandes MD [address] [place] [address] PCP - General Pulmonary Disease 05/28/16 06/22/20 Gael Stockton MD [address] [place] [address] PCP - General Internal Medicine 06/23/20 05/04/25 Gael Stockton MD PCP - [place] Medicare Patients 11/23/22 03/22/23 Sanjay Fernandes MD [address] [place] [address] PCP - General Pulmonary Disease 05/05/25 Franklin Simmons MD [address] [place] [address] Physician Otolaryngology 06/14/17 Godwin Saunders DO [address] [place] [address] Physician Endocrinology 06/14/17 Gael Stockton MD [address] [address] Internal Medicine 05/26/20 Godwin Malcolm MD [address] [address] Hematology Oncology 11/03/20 Heather Packer, REFUELING RAMP ATTENDANT [address] [place] [address] [place] [address] Respiratory Care Practitioner Respiratory Therapist 09/20/24 Antonia Willis MD [address] [address] [facility] [place] [address] Internal Medicine 02/17/25 Logan Doran MD 30 [place] [address] 03/18/25 documented as of this encounter
--- OUTSIDE RECORDS SUMMARY | 2025-06-26 18:27 | XMS_ITS | Encounter Summary ---
Author Organization [facility] Address [address] [place] [address] Care Team Providers Care Data Visualization Developer Name Role Phone Sanjay Fernandes MD Primary Care Provider Franklin Simmons MD Unavailable [phone] Godwin Saunders DO Unavailable Gael Stockton MD Unavailable Unavailable Gael Stockton MD Primary Care Provider Unavail able Godwin Malcolm MD Unavailable Unavailable Gael Stockton MD Unavailable Unavailable Heather Packer ARCHITECTURAL PRACTICE MANAGER Unavailable [phone] Antonia Willis MD Unavailable Logan Doran MD Unavailable Sanjay Fernandes MD Primary Care Provider [phone] Encounter Details Date Type Department Care Team (Late st Contact Info) Description 07/17/2019 Scanned Document [facility] [address] [place] [phone] Social History Tobacco Use Types Packs/Day [...] [facility] [place] [facility] [address] [place] [address] 4th [place] [phone] 08/18/2025 10:30 AM EDT Hospital Encounter [facility] Gastroenterology Division [address] [place] [phone] Vitor Morales MD [address] [place] [address] [phone] 08/18/2025 10:30 AM EDT Appointment [facility] [address] [place] [address] Vitor Morales MD [address] [place] [address] [phone] 08/18/2025 10:30 AM EDT - 08/18/2025 11:00 AM EDT Surgery [facility] Gastroenterology Division [address] [place] [phone] Vitor Morales MD [address] [place] [address] [phone] COLONOSCOPY 05/04/2026 11:00 AM EDT Office Visit [facility] Physicians Department of Cardiology [place] [address] [place] [phone] Aashish Silva PA [address] [place] [address] [phone] Scheduled Procedures Name Priority Associated Diagnoses Date/Ti [...] documented as of this encounter Care Teams Data Visualization Developer Relationship Specialty Start Date End Date Sanjay Fernandes MD [address] [place] [address] PCP - General Pulmonary Disease 05/28/16 06/22/20 Gael Stockton MD [address] [place] [address] PCP - General Internal Medicine 06/23/20 05/04/25 Gael Stockton MD PCP - [place] Medicare Patients 11/23/22 03/22/23 Sanjay Fernandes MD [address] [place] [address] PCP - General Pulmonary Disease 05/05/25 Franklin Simmons MD [address] [place] [address] Physician Otolaryngology 06/14/17 Godwin Saunders DO [address] [place] [address] Physician Endocrinology 06/14/17 Gael Stockton MD [address] [place] [address] Internal Medicine 05/26/20 Godwin Malcolm MD [address] [place] [address] Hematology Oncology 11/03/20 Heather Packer, ARCHITECTURAL PRACTICE MANAGER [address] [place] [address] [place] [address] Respiratory Care Practitioner Respiratory Therapist 09/20/24 Antonia Willis MD [address] [facility] [address] Internal Medicine 02/17/25 Logan Doran MD 30 [place] [address] 03/18/25 documented as of this encounter
--- OUTSIDE RECORDS SUMMARY | 2025-06-26 18:27 | XMS_ITS | Encounter Summary ---
Author Organization [facility] Address [address] [place] [address] Care Team Providers Care Care Professional Name Role Phone Franklin Simmons MD Unavailable [phone] Godwin Saunders DO Unavailable Gael Stockton MD Unavailable Unavailable Gael Stockton MD Primary Care Provider Unavail able Godwin Malcolm MD Unavailable Unavailable Gael Stockton MD Unavailable Unavailable OchoaHeather POWER BUILDER DEVELOPER Unavailable Antonia Willsi MD Unavailable Logan Doran MD Unavailable [phone] Sanjay Fernandes MD Primary Care Provider Encounter Details Date Type Department Care Team (Late st Contact Info) Description 11/09/2020 Scanned Document [facility] 65 [facility] [address] [place] [address] [phone] Lisa Barr PA 65 [facility] [address] [place] [address] Social History Tobacco Use Types Packs/Day [...] 11:00 AM EDT Clinical Support [facility] [address] [place] [address] 4th [place] [phone] 08/18/2025 10:30 AM EDT Hospital Encounter [facility] G[facility]ology Division [address] [place] [address] [phone] Vitor Morales MD [address] [place] [address] 08/18/2025 10:30 AM EDT Appointment [facility] [address] [place] [address] Vitor Morales MD [address] [place] [address] [id number] 08/18/2025 10:30 AM EDT - 08/18/2025 11:00 AM EDT Surgery [facility]ology Division [address] [place] [address] [phone] Vitor Morales MD [address] [place] [address] [phone] COLONOSCOPY 05/04/2026 11:00 AM EDT Office Visit [facility] Department of Cardiology [place] [address] [place] [address] Aashish Silva PA [address] [place] [address] Scheduled Procedures Name Priority Associated Diagnoses Date/Ti [...] as of this encounter Care Teams Care Professional Relationship Specialty Start Date End Date Gael Stockton MD PCP - General Internal Medicine 06/23/20 05/04/25 Gael Stockton MD PCP - [place] Medicare Patients 11/23/22 03/22/23 Sanjay Fernandes MD [address] [place] [address] PCP - General Pulmonary Disease 05/05/25 Franklin Simmons MD Physician Otolaryngology 06/14/17 Godwin Saunders DO Physician Endocrinology 06/14/17 Gael Stockton MD Internal Medicine 05/26/20 Godwin Malcolm MD Hematology Oncology 11/03/20 Heather Packer, POWER BUILDER DEVELOPER [address] [facility] 4 [place] [address] Respiratory Care Practitioner Respiratory Therapist 09/20/24 Antonia Willis MD [address] [place], [place] [address]am [place] [address] Internal Medicine 02/17/25 Logan Doran MD 30 [place] [address] 03/18/25 documented as of this encounter
--- OUTSIDE RECORDS SUMMARY | 2025-06-26 18:27 | XMS_ITS | Encounter Summary ---
Author Organization [facility] Address [address] [place] [address] Care Team Providers Care Medtronics Technician Name Role Phone Franklin Simmons MD Unavailable [phone] Godwin Sanuders DO Unavailable Gael Stockton MD Unavailable Unavailable Gael Stockton MD Primary Care Provider Unavail able Godwin Malcolm MD Unavailable Unavailable Gael Stockton MD Unavailable Unavailable OchoaHeather PUBLIC SAFETY TELECOMMUNICATOR Unavailable Antonia Willis MD Unavailable Logan Doran MD Unavailable Sanjay Fernandes MD Primary Care Provider Encounter Details Date Type Department Care Team (Late st Contact Info) Description 11/04/[address] [facility] Pulmonary [place] 85 [facility] [address] [place] [phone] Pulmonary, Scan Social History Tobacco Use Types [...] 11:00 AM EDT Clinical Support [facility] [address] [place] [address] 4th [place] [phone] 08/18/2025 10:30 AM EDT Hospital Encounter [facility] Gastroenterology Division [address] [place] [address] [phone] Vitor Morales MD [address] [place] [address] [phone] 08/18/2025 10:30 AM EDT Appointment [facility] [address] [place] [address] Vitor Morales MD [address] [place] [address] [phone] 08/18/2025 10:30 AM EDT - 08/18/2025 11:00 AM EDT Surgery [facility] Gastroenterology Division [address] [place] [phone] Vitor Morales MD [address] [place] [address] COLONOSCOPY 05/04/2026 11:00 AM EDT Office Visit [facility] Department of Cardiology [place] [address] [place] [address] Aashish Silva PA [address] [place] [address] Scheduled Procedures Name Priority Associated Diagnoses Date/Ti [...] documented as of this encounter Care Teams Medtronics Technician Relationship Specialty Start Date End Date Gael Stockton MD PCP - General Internal Medicine 06/23/20 05/04/25 Gael Stockton MD PCP - [place] Medicare Patients 11/23/22 03/22/23 Sanjay Fernandes MD [address] [place] [address] 923 [place] [address] PCP - General Pulmonary Disease 05/05/25 Franklin Simmons MD Physician Otolaryngology 06/14/17 Godwin Saunders DO Physician Endocrinology 06/14/17 Gael Stockton MD Internal Medicine 05/26/20 Godwin Malcolm MD Hematology Oncology 11/03/20 Heather Packer, PUBLIC SAFETY TELECOMMUNICATOR [address] [place] 4 [place] [address] Respiratory Care Practitioner Respiratory Therapist 09/20/24 Antonia Willis MD 850 [facility] 530 [place] and [place] [address] Internal Medicine 02/17/25 Logan Doran MD 30 [place] [address] 03/18/25 documented as of this encounter
--- OUTSIDE RECORDS SUMMARY | 2025-06-26 18:27 | XMS_ITS | Encounter Summary ---
Author Organization [facility] Address [address] [place] [address] Care Team Providers Care Molasses Coloring Operator Name Role Phone Franklin Simmons MD Unavailable [phone] Godwin Saunders DO Unavailable Gael Stockton MD Unavailable Unavailable Gael Stockton MD Primary Care Provider Unavail able Godwin Malcolm MD Unavailable Unavailable Heather Packer CUPOLA MECHANIC Unavailable Antonia Willis MD Unavailable Logan Doran MD Unavailable Sanjay Fernandes MD Primary Care Provider [phone] Encounter Details Date Type Department Care Team (Late st Contact Info) Description 08/18/2023 [facility] Pulmonary [address] [address] Sanjay Fernandes MD [address] [place] [address] Cystic fibrosis of the lung (HCC) (Primary [...] 11:00 AM EDT Clinical Support [facility] 79 [facility] 4th [place] [phone] 08/18/2025 10:30 AM EDT Hospital Encounter [facility] Gastroenterology Division [address] [place] [address] [phone] Vitor Morales MD [address] [place] [address] [phone] 08/18/2025 10:30 AM EDT Appointment [facility] [address] [place] [address] Vitor Morales MD [address] [place] [address] [phone] 08/18/2025 10:30 AM EDT - 08/18/2025 11:00 AM EDT Surgery [facility] Gastroenterology Division [address] [place] [address] [phone] Vitor Morales MD [address] [place] [address] COLONOSCOPY 05/04/2026 11:00 AM EDT Office Visit [facility] Department of Cardiology [place] [address] [place] [address] Aashish Silva PA [address] [place] [address] Scheduled Procedures Name Priority Associated Diagnoses Date/Ti [...] documented as of this encounter Care Teams Molasses Coloring Operator Relationship Specialty Start Date End Date Gael Stockton MD PCP - General Internal Medicine 06/23/20 05/04/25 Sanjay Fernandes MD 85 [facility] 923 [place] [address] PCP - General Pulmonary Disease 05/05/25 Franklin Simmons MD Physician Otolaryngology 06/14/17 Godwin Saunders DO Physician Endocrinology 06/14/17 Gael Stockton MD Internal Medicine 05/26/20 Godwin Malcolm MD Hematology Oncology 11/03/20 Heather Packer, CUPOLA MECHANIC [address] [place] 4 [place] [address] Respiratory Care Practitioner Respiratory Therapist 09/20/24 Antonia Willis MD 850 [facility] 530 [facility] [place] [address] Internal Medicine 02/17/25 Logan Doran MD 30 [place] [address] 03/18/25 documented as of this encounter
--- OUTSIDE RECORDS SUMMARY | 2025-06-26 18:27 | XMS_ITS | Encounter Summary ---
Author Organization [facility] Address [address] [place] [address] Care Team Providers Care Business Performance Manager Name Role Phone Franklin Simmons MD Unavailable Godwin Saunders DO Unavailable [phone] Gael Stockton MD Unavailable Unavailable Gael Stockton MD Primary Care Provider Unavail able Godwin Malcolm MD Unavailable Unavailable Gael Stockton MD Unavailable Unavailable Heather Packer FLATBED COMPANY DRIVER Unavailable Antonia Willis MD Unavailable Logan Doran MD Unavailable Sanjay Fernandes MD Primary Care Provider Encounter Details Date Type Department Care Team (Late st Contact Info) Description 12/22/2022 Scanned Document [facility] Department of Internal Medicine [place] 160 [facility] [address] [place] [phone] Gael Stockton MD Social History Tobacco Use [...] suspected to have Coronavirus/COVID-19? No / Unsure 12/21/2022 9:46 AM EST documented as of this encounter Plan of Treatment Upcoming Encounters Date Type Department Care Team (Latest Contact Info) Description 07/02/2025 11:00 AM EDT Clinical Support [facility] [address] [place] [address] 4th [place] [phone] 08/18/2025 10:30 AM EDT Hospital Encounter [facility] Gastroenterology Division [address] [place] [address] [phone] Vitor Morales MD [address] [place] [address] 08/18/2025 10:30 AM EDT Appointment [facility] [address] [place] [address] Vitor Morales MD [address] [place] [address] [phone] 08/18/2025 10:30 AM EDT - 08/18/2025 11:00 AM EDT Surgery [facility] Gastroenterology Division [address] [place] [address] [phone] Vitor Morales MD [address] [place] [address] COLONOSCOPY 05/04/2026 11:00 AM EDT Office Visit [facility] Physicians Department of Cardiology [place] [address] [place] [address] Aashish Silva PA [address] [place] [address] Scheduled Procedures Name Priority Associated Diagnoses Date/Ti [...] as of this encounter Care Teams Business Performance Manager Relationship Specialty Start Date End Date Gael Stockton MD PCP - General Internal Medicine 06/23/20 05/04/25 Gael Stockton MD PCP - [place] Medicare Patients 11/23/22 03/22/23 Sanjay Fernandes MD [address] [place] [address] 923 [place] [address] PCP - General Pulmonary Disease 05/05/25 Franklin Simmons MD Physician Otolaryngology 06/14/17 Godwin Saunders DO Physician Endocrinology 06/14/17 Gael Stockton MD Internal Medicine 05/26/20 Godwin Malcolm MD Hematology Oncology 11/03/20 Heather Packer, FLATBED COMPANY DRIVER [address] [facility] 4 [place] [address] Respiratory Care Practitioner Respiratory Therapist 09/20/24 Antonia Willis MD [address] [place], [place] [address]am and [place] [address] Internal Medicine 02/17/25 Logan Doran MD 30 [place] [address] 03/18/25 documented as of this encounter
--- OUTSIDE RECORDS SUMMARY | 2025-06-26 18:27 | XMS_ITS | Encounter Summary ---
Author Organization [facility] Address [address] [place] [address] Care Team Providers Care Emergency Service Worker Name Role Phone Sanjay Fernandes MD Primary Care Provider [phone] Franklin Simmons MD Unavailable [phone] Godwin Saunders DO Unavailable [phone] Gael Stockton MD Unavailable Unavailable Gael Stockton MD Primary Care Provider Unavail able Godwin Malcolm MD Unavailable Unavailable Gael Stockton MD Unavailable Unavailable Heather Packer TRADE CLERK Unavailable Antonia Willis MD Unavailable Logan Doran MD Unavailable Sanjay Fernandes MD Primary Care Provider Encounter Details Date Type Department Care Team (Late st Contact Info) Description 11/15/2017 Scanned Document [facility] Fibrosis Center [address] [place] [address] 4th [place] [phone] Sanjay Fernandes MD [address] [place] [address] Social History Tobacco Use Types Packs/Day Years [...] [facility] 79 [facility] 4th [place] [address] 08/18/2025 10:30 AM EDT Hospital Encounter [facility] Gastroenterology Division [address] [place] [address] [phone] Vitor Morales MD [address] [place] [address] [phone] 08/18/2025 10:30 AM EDT Appointment [facility] [address] [place] [address] Vitor Morales MD [address] [place] [address] [phone] 08/18/2025 10:30 AM EDT - 08/18/2025 11:00 AM EDT Surgery [facility] Gastroenterology Division [address] [place] [address] [phone] Vitor Morales MD [address] [place] [address] COLONOSCOPY 05/04/2026 11:00 AM EDT Office Visit [facility]icians Department of Cardiology [place] [address] [place] [phone] Aashish Silva PA [address] [place] [address] Scheduled Procedures Name Priority Associated Diagnoses Date/Ti in COLONOSCOPY Colon cancer screening 08/18/2025 10:30 AM [...] documented as of this encounter Care Teams Emergency Service Worker Relationship Specialty Start Date End Date Sanjay Fernandes MD [address] [place] [address] PCP - General Pulmonary Disease 05/28/16 06/22/20 Gael Stockton MD [address] [place] [address] PCP - General Internal Medicine 06/23/20 05/04/25 Gael Stockton MD PCP - [place] Medicare Patients 11/23/22 03/22/23 Sanjay Fernandes MD [address] [place] [address] PCP - General Pulmonary Disease 05/05/25 Franklin Simmons MD [address] [place] [address] Physician Otolaryngology 06/14/17 Godwin Saunders DO [address] [place] [address] Physician Endocrinology 06/14/17 Gael Stockton MD [address] [address] Internal Medicine 05/26/20 Godwin Malcolm MD [address] [address] Hematology Oncology 11/03/20 Heather Packer, TRADE CLERK [address] [place] 4 [place] [address] Respiratory Care Practitioner Respiratory Therapist 09/20/24 Antonia Willis MD [address] and [place] [address] Internal Medicine 02/17/25 Logan Doran MD 30 [place] [address] 03/18/25 documented as of this encounter
[2025-06-26 18:28] LABS: MANUAL DIFF FLAG NO
--- OUTSIDE RECORDS SUMMARY | 2025-06-26 18:28 | XMS_ITS | Encounter Summary ---
Author Organization [facility] Address [address] [place] [address] Care Team Providers Care Glove Cleaner Name Role Phone Franklin Simmons MD Unavailable [phone] Godwin Saunders DO Unavailable [phone] Gael Stockton MD Unavailable Unavailable Gael Stockton MD Primary Care Provider Unavail able Godwin Malcolm MD Unavailable Unavailable Gael Stockton MD Unavailable Unavailable MaryHeather solis REGULATORY COMPLIANCE DIRECTOR Unavailable Antonia Willis MD Unavailable Logan Doran MD Unavailable Sanjay Fernandes MD Primary Care Provider Reason for Visit * Reason Comments Med Change Request Encounter Details Date Type Department Care Team (Late st Contact Info) Description 08/22/2022 Refill [facility] [address] [place] [address] Vitor Morales MD 85 [facility] [address] [place] [address] Other constipation Social History Tobacco Use Types [...] Telephone Encounter - Vitor Morales MD - 08/23/2022 10:12 AM EDT Ok. Let Carla know that we can try to appeal in Sep. Also, see if she has been on Amitiza. If not, we should try Amitiza instead of Linzess as this will be a requirement before going back on Motegrity per Mady's message. * Telephone Encounter - Mady Case - 08/23/2022 9:27 AM EDT Good morning, I tried resubmitting request for Motegrity 2mg but I received a message that there was a denial on file. I called [facility] spoke with Ellie who stated that with the policy the pt has she is only allowed to have 2 denials within 6 months for the same medication. This request would have to be appealed orwait until the 6 month is up which would be Martell to submit a new request. Pt still has to try and fail both Linzess and Amitiza. If Dr Morales would like to appeal please call [phone]. * Telephone Encounter - Vitor Morales MD - 08/22/2022 4:03 PM EDT Not sure why the pharmacy would send Metoclopramide as alternative as this medication is not used for constipation. We need Motegrity (failed Linzess)- may need prior auth- can you let pharmacy know. documented in this encounter Plan of Treatment Upcoming Encounters Date Type Department Care Team (Latest Contact Info) Description 07/02/2025 11:00 AM EDT Clinical Support [facility] 79 [facility] 4th [place] [phone] 08/18/2025 10:30 AM EDT Hospital Encounter [facility] Gastroenterology Division [address] [place] [phone] Vitor Morales MD [address] [place] [address] [phone] 08/18/2025 10:30 AM EDT Appointment [facility] [address] [facility] [place] [address] Vitor Morales MD [address] [place] [address] [phone] 08/18/2025 10:30 AM EDT - 08/18/2025 11:00 AM EDT Surgery [facility] Gastroenterology Division [address] [place] [address], [place] [address] Vitor Morales MD [address] [place] [address] [phone] COLONOSCOPY 05/04/2026 11:00 AM EDT Office Visit [facility] Department of Cardiology [place] [address] [place] [phone] Aashish Silva PA [address] [place] [address] Scheduled Procedures Name Priority Associated Diagnoses Date/Ti ky COLONOSCOPY Colon cancer screening 08/18/2025 10:30 AM [...] as of this encounter Care Teams Glove Cleaner Relationship Specialty Start Date End Date Gael Stockton MD PCP - General Internal Medicine 06/23/20 05/04/25 Gael Stockton MD PCP - [place] Medicare Patients 11/23/22 03/22/23 Sanjay Fernandes MD 85 [facility] 923 [place] [address] PCP - General Pulmonary Disease 05/05/25 Franklin Simmons MD Physician Otolaryngology 06/14/17 Godwin Saunders DO Physician Endocrinology 06/14/17 Gael Stockton MD Internal Medicine 05/26/20 Godwin Malcolm MD Hematology Oncology 11/03/20 Heather Packer, REGULATORY COMPLIANCE DIRECTOR [address] [place] [address] Respiratory Care Practitioner Respiratory Therapist 09/20/24 Antonia Willis MD [address] and [place] [address] Internal Medicine 02/17/25 Logan Doran MD 30 [place] [address] 03/18/25 documented as of this encounter
--- OUTSIDE RECORDS SUMMARY | 2025-06-26 18:28 | XMS_ITS | Encounter Summary ---
Author Organization [facility] Address [address] [place] [address] Care Team Providers Care Ehr Trainer Name Role Phone Sanjay Fernandes MD Primary Care Provider [phone] Franklin Simmons MD Unavailable [phone] Godwin Saunders DO Unavailable Gael Stockton MD Unavailable Unavailable Gael Stockton MD Primary Care Provider Unavail able Godwin Malcolm MD Unavailable Unavailable Gael Stockton MD Unavailable Unavailable Hayes Packeristina [employer] FOOD COOK SPECIALTY Unavailable [phone] Antonia Willis MD Unavailable Logan Doran MD Unavailable Sanjay Fernandes MD Primary Care Provider [phone] Reason for Visit * Reason Comments Medication Refill Encounter Details Date Type Department Care Team (Late st Contact Info) Description 10/12/2017 Refill [facility] [address] [place] [address] Yvette Green APRN Chronic migraine without aura, [...] 11:00 AM EDT Clinical Support [facility] [address] [place] [address] 4th [place] [address] 08/18/2025 10:30 AM EDT Hospital Encounter [facility] Gastroenterology Division [address] [place] [address] [phone] Vitor Morales MD [address] [place] [address] [phone] 08/18/2025 10:30 AM EDT Appointment [facility] [address] [place] [address] Vitor Morales MD [address] [place] [address] [phone] 08/18/2025 10:30 AM EDT - 08/18/2025 11:00 AM EDT Surgery [facility] Gastroenterology Division [address] [place] [phone] Vitor Morales MD [address] [place] [address] COLONOSCOPY 05/04/2026 11:00 AM EDT Office Visit [facility] Physicians Department of Cardiology [place] [address] [place] [address] Aashish Silva PA [address] [place] [address] Scheduled Procedures Name Priority Associated Diagnoses Date/Ti [...] documented as of this encounter Care Teams Ehr Trainer Relationship Specialty Start Date End Date Sanjay Fernandes MD [address] [place] [address] PCP - General Pulmonary Disease 05/28/16 06/22/20 Gael Stockton MD [address] [place] [address] PCP - General Internal Medicine 06/23/20 05/04/25 Gael Stockton MD PCP - [place] Medicare Patients 11/23/22 03/22/23 Sanjay Fernandes MD [address] [place] [address] PCP - General Pulmonary Disease 05/05/25 Franklin Simmons MD [address] [place] [address] Physician Otolaryngology 06/14/17 Godwin Saunders DO [address] [place] [address] Physician Endocrinology 06/14/17 Gael Stockton MD [address] [address] Internal Medicine 05/26/20 Godwin Malcolm MD [address] [address] Hematology Oncology 11/03/20 Heather Packer, FOREIGN FOOD COOK SPECIALTY [address] [place] [address] Respiratory Care Practitioner Respiratory Therapist 09/20/24 Antonia Willis MD [address] and [place] [address] Internal Medicine 02/17/25 Logan Doran MD 30 [place] [address] 03/18/25 documented as of this encounter
--- OUTSIDE RECORDS SUMMARY | 2025-06-26 18:28 | XMS_ITS | Encounter Summary ---
Author Organization [facility] Address [address] [place] [address] Care Team Providers Care Undercoater Name Role Phone Snajay Fernandes MD Primary Care Provider [place] Simmons MD Unavailable Godwin Saunders DO Unavailable [phone] Gael Stockton MD Unavailable Unavailable Gael Stockton MD Primary Care Provider Unavail able Godwin Malcolm MD Unavailable Unavailable Gael Stockton MD Unavailable Unavailable Ochoa Heather CLOCK MAKER Unavailable Antonia Willis MD Unavailable Logan Doran MD Unavailable [phone] Sanjay Fernandes MD Primary Care Provider Reason for Visit * Reason Comments Medication Refill Encounter Details Date Type Department Care Team (Late st Contact Info) Description 11/24/2019 Refill [facility] [address] [place], [place] [phone] Lisa Barr PA [address] [place], [place] [id number] Chronic migraine without aura, with intractable migraine, [...] 11:00 AM EDT Clinical Support [facility] [address] [place] [address] 4th [place] [phone] 08/18/2025 10:30 AM EDT Hospital Encounter [facility] Gastroenterology Division [address] [place] [address] [phone] Vitor Morales MD [address] [place], [place] [phone] 08/18/2025 10:30 AM EDT Appointment [facility] [address] [place] [address] Vitor Morales MD [address] [place] [address] [phone] 08/18/2025 10:30 AM EDT - 08/18/2025 11:00 AM EDT Surgery [facility] [address] [place] [address] [phone] Vitor Morales MD [address] [place] [address] [phone] COLONOSCOPY 05/04/2026 11:00 AM EDT [facility] Department of Cardiology [place] [address] [place] [address] Aashish Silva PA [address] [place] [address] Scheduled Procedures Name Priority Associated Diagnoses Date/Ti [...] documented as of this encounter Care Teams Undercoater Relationship Specialty Start Date End Date Sanjay Fernandes MD [address] [place] [address] PCP - General Pulmonary Disease 05/28/16 06/22/20 Gael Stockton MD [address] [place] [address] PCP - General Internal Medicine 06/23/20 05/04/25 Gael Stockton MD PCP - [facility] Medicare Patients 11/23/22 03/22/23 Sanjay Fernandes MD [address] [place] [address] PCP - General Pulmonary Disease 05/05/25 [place] Simmons MD [address] [place] [address] Physician Otolaryngology 06/14/17 Godwin Saunders DO [address] [place] [address] Physician Endocrinology 06/14/17 Gael Stockton MD [address] [address] Internal Medicine 05/26/20 Godwin Malcolm MD [address] [address] Hematology Oncology 11/03/20 Heather Packer, CLOCK MAKER [address] [place] [address] [place] [address] Respiratory Care Practitioner Respiratory Therapist 09/20/24 Antonia Willis MD [address] [facility] [place] [address] Internal Medicine 02/17/25 [place] Doran MD 30 [place] [address] 03/18/25 documented as of this encounter
--- OUTSIDE RECORDS SUMMARY | 2025-06-26 18:28 | XMS_ITS | Encounter Summary ---
Author Organization [facility] Address [address] [place] [address] Care Team Providers Care Osd Clerk Name Role Phone Sanjay Fernandes MD Primary Care Provider [place] MD Unavailable [phone] Godwin Saunders DO Unavailable Gael Stockton MD Unavailable Unavailable Gael Stockton MD Primary Care Provider Unavail able Godwin [place] MD Unavailable Unavailable Gael Stockton MD Unavailable Unavailable Heather Packer SAND SLINGER OPERATOR Unavailable [phone] Antonia Willis MD Unavailable [place] Doran MD Unavailable Sanjay Fernandes MD Primary Care Provider [phone] Encounter Details Date Type Department Care Team (Late st Contact Info) Description 10/02/2019 Scanned Document [facility] [address] [place] [phone] Social History Tobacco Use Types Packs/Day [...] EDT Clinical Support [facility] [address] [place] [address] 4th [place] [phone] 08/18/2025 10:30 AM EDT Hospital Encounter [facility] Gastroenterology Division [address] [place] [phone] Vitor Morales MD [address] [place] [address] [phone] 08/18/2025 10:30 AM EDT Appointment [facility] [address] [place] [address] Vitor Morales MD [address] [place] [address] [phone] 08/18/2025 10:30 AM EDT - 08/18/2025 11:00 AM EDT Surgery [facility] Gastro[facility]ology Division [address] [place] [phone] Vitor Morales MD [address] [place] [address] [phone] COLONOSCOPY 05/04/2026 11:00 AM EDT Office Visit [facility] Physicians Department of Cardiology [place] [address] [place] [phone] Aashish Silva PA [address] [place] [address] 013223 Scheduled Procedures Name Priority Associated Diagnoses Date/Ti [...] documented as of this encounter Care Teams Osd Clerk Relationship Specialty Start Date End Date Sanjay Fernandes MD [address] [place] [address] PCP - General Pulmonary Disease 05/28/16 06/22/20 Gael Stockton MD [address] [place] [address] PCP - General Internal Medicine 06/23/20 05/04/25 Gael Stockton MD PCP - [facility] Medicare Patients 11/23/22 03/22/23 Sanjay Fernandes MD [address] [place] [address] PCP - General Pulmonary Disease 05/05/25 [place] Simmons MD [address] [place] [address] Physician Otolaryngology 06/14/17 Godwin Saunders DO [address] [place] [address] Physician Endocrinology 06/14/17 Gael Stockton MD [address] [place] [address] Internal Medicine 05/26/20 Godwin [place] MD [address] [place] [address] Hematology Oncology 11/03/20 Heather Packer, SAND SLINGER OPERATOR [address] [place] [address] [place] [address] Respiratory Care Practitioner Respiratory Therapist 09/20/24 Antonia Willis MD [address] and [place] [address] Internal Medicine 02/17/25 [place] Doran MD 30 [place] [address] 03/18/25 documented as of this encounter
--- OUTSIDE RECORDS SUMMARY | 2025-06-26 18:28 | XMS_ITS | Encounter Summary ---
Author Organization [facility] Address [address] [place] [address] Care Team Providers Care Car Worker Name Role Phone [place] MD Unavailable [phone] Godwin Saunders DO Unavailable [phone] Gael Stockton MD Unavailable Unavailable Gael Stockton MD Primary Care Provider Unavail able Godwin [place] MD Unavailable Unavailable Gael Stockton MD Unavailable Unavailable OchoaHeather PHYSICAL THERAPIST TECHNICIAN Unavailable Antonia Willis MD Unavailable [place] Doran MD Unavailable [phone] Sanjay Fernandes MD Primary Care Provider Encounter Details Date Type Department Care Team (Late st Contact Info) Description 06/15/2022 Scanned Document [facility] Pulmonary [place] [address] [place] [address] Pulmonary, Scan Social History Tobacco Use Types [...] [facility] Fibrosis [facility] [address] [place] [address] 4[address] [place] [phone] 08/18/2025 10:30 AM EDT Hospital Encounter [facility] Gastroenterology Division [address] [place] [phone] Vitor Morales MD [address] [place] [address] [phone] 08/18/2025 10:30 AM EDT Appointment [facility] [address] [place] [address] Vitor Morales MD [address] [place] [address] [phone] 08/18/2025 10:30 AM EDT - 08/18/2025 11:00 AM EDT Surgery [facility] Gastroenterology Division [address] [place] [phone] Vitor Morales MD [address] [place] [address] [phone] COLONOSCOPY 05/04/2026 11:00 AM EDT Office Visit [facility] Department of Cardiology [place] [address] [place] [phone] Aashish Silva PA [address] [place] [address] [phone] Scheduled Procedures Name Priority Associated Diagnoses Date/Ti [...] documented as of this encounter Care Teams Car Worker Relationship Specialty Start Date End Date Gael tSockton MD PCP - General Internal Medicine 06/23/20 05/04/25 Gael [place]ton MD PCP - [facility] Medicare Patients 11/23/22 03/22/23 Sanjay Fernandes MD [address] [place] [address] PCP - General Pulmonary Disease 05/05/25 [place] Simmons MD Physician Otolaryngology 06/14/17 Godwin Saunders DO Physician Endocrinology 06/14/17 Gael Stoctkon MD Internal Medicine 05/26/20 Godwin [place] MD Hematology Oncology 11/03/20 Heather Packer, PHYSICAL THERAPIST TECHNICIAN [address] [place] [address] Respiratory Care Practitioner Respiratory Therapist 09/20/24 Antonia Willis MD [address] [facility] [place] [address] Internal Medicine 02/17/25 Logan Doran MD [address] [place] [address] 03/18/25 documented as of this encounter
--- OUTSIDE RECORDS SUMMARY | 2025-06-26 18:28 | XMS_ITS | Encounter Summary ---
Author Organization [facility] Address [address] [place] [address] Care Team Providers Care Correctional Sergeant Name Role Phone [place] MD Unavailable Godwin Saunders DO Unavailable [phone] Gael Stockton MD Unavailable Unavailable Gael Stockton MD Primary Care Provider Unavail able Godwin [place] MD Unavailable Unavailable Gael Stockton MD Unavailable Unavailable ArsenioHeather lópez GANG RIPSAW OPERATOR Unavailable Antonia Willis MD Unavailable [place] Doran MD Unavailable Sanjay Fernandes MD Primary Care Provider Reason for Visit * Reason Comments Med Change Request Encounter Details Date Type Department Care Team (Late st Contact Info) Description 09/28/2022 [address] [facility] [address] [place] [address] Vitor Morales MD 85 [facility] [address] [place] [address] Other constipation Social History Tobacco Use Types [...] Telephone Encounter - Vitor Morales MD - 09/30/2022 12:59 PM EST Thanks. * Telephone Encounter - Brittny Loza - 09/30/2022 11:56 AM EST Narciso, I got in contact with the patient's insurance and brand name Amitiza does not require a PA & it appears that the pharmacy has been running it for the generic. I spoke with the pharmacy as well & they now have a paid claim for Amitiza 8mcg, They are getting it ready for the patient. She's all set. * Telephone Encounter - Brittny Loza - 09/29/2022 9:17 AM EST PA request for Lubiprostone 8mcg has been submitted. I will update once I receive a response. documented in this encounter Plan of Treatment Upcoming Encounters Date Type Department Care Team (Latest Contact Info) Description 07/02/2025 11:00 AM EDT Clinical Support [facility] [address] [place] [address] 4th [place] [phone] 08/18/2025 10:30 AM EDT Hospital Encounter [facility] Gastroenterology Division [address] [place] [address] Vitor Morales MD [address] [place] [address] 08/18/2025 10:30 AM EDT Appointment [facility] [address] [place] [address] Vitor Morales MD [address] [place] [address] 08/18/2025 10:30 AM EDT - 08/18/2025 11:00 AM EDT Surgery [facility]astroenterology Division [address] [place] [phone] Vitor Morales MD [address] [place] [address] [phone] COLONOSCOPY 05/04/2026 11:00 AM EDT Office Visit [facility] Physicians Department of Cardiology [place] [address] [place] [phone] Aashish Silva PA [address] [place] [address] Scheduled Procedures Name Priority Associated Diagnoses Date/Ti [...] documented as of this encounter Care Teams Correctional Sergeant Relationship Specialty Start Date End Date Gael Stockton MD PCP - General Internal Medicine 06/23/20 05/04/25 Gael [place]ton MD PCP - [facility] Medicare Patients 11/23/22 03/22/23 Sanjay Fernandes MD [address] [place] [address] [place] [address] PCP - General Pulmonary Disease 05/05/25 [place] Simmons MD Physician Otolaryngology 06/14/17 Godwin Saunders DO Physician Endocrinology 06/14/17 Gael Stockton MD Internal Medicine 05/26/20 Godwin Malcolm MD Hematology Oncology 11/03/20 Heather Packer, GANG RIPSAW OPERATOR [address] [facility] [place] [address] Respiratory Care Practitioner Respiratory Therapist 09/20/24 Antonia Willis MD 850 [facility] [address] [facility] [place] [address] Internal Medicine 02/17/25 [place] Doran MD 30 [place] [address] 03/18/25 documented as of this encounter
--- OUTSIDE RECORDS SUMMARY | 2025-06-26 18:28 | XMS_ITS | Encounter Summary ---
Author Organization [facility] Address [address] [place] [address] Care Team Providers Care Clinical Laboratory Aides Teacher Name Role Phone Sanjay Fernandes MD Primary Care Provider [place] Simmons MD Unavailable [phone] Godwin Saunders DO Unavailable Gael Stockton MD Unavailable Unavailable Gael Stockton MD Primary Care Provider Unavail able Godwin [place] MD Unavailable Unavailable Gael Stockton MD Unavailable Unavailable Heather Packer ORDER PLANNER Unavailable nAtonia Willis MD Unavailable [place] Doran MD Unavailable [phone] Sanjay Fernandes MD Primary Care Provider [phone] Encounter Details Date Type Department Care Team (Late st Contact Info) Description 08/30/2017 Scanned Document [facility] [address] [place] [address] 4th [place] [phone] Sanjay Fernandes MD [address] [place] [address] Social History Tobacco Use Types Packs/Day Years [...] 11:00 AM EDT Clinical Support [facility] [address] [facility] 4th [place] [phone] 08/18/2025 10:30 AM EDT Hospital Encounter [facility] Gastroenterology Division [address] [place] [phone] Vitor Morales MD [address] [place] [address] [phone] 08/18/2025 10:30 AM EDT Appointment [facility] [address] [place] [address] Vitor Morales MD [address] [place] [address] [phone] 08/18/2025 10:30 AM EDT - 08/18/2025 11:00 AM EDT Surgery [facility] Gastroenterology Division [address] [place] [address] [phone] Vitor Morales MD [address] [place] [address] COLONOSCOPY 05/04/2026 11:00 AM EDT Office Visit [facility] Physicians Department of Cardiology [place] [address] [place] [phone] Aashish Silva PA [address] [place] [address] Scheduled Procedures Name Priority Associated Diagnoses Date/Ti mi COLONOSCOPY Colon cancer screening 08/18/2025 10:30 AM [...] as of this encounter Care Teams Clinical Laboratory Aides Teacher Relationship Specialty Start Date End Date Sanjay Fernandes MD [address] [place] [address] PCP - General Pulmonary Disease 05/28/16 06/22/20 Gael Stockton MD [address] [place] [address] PCP - General Internal Medicine 06/23/20 05/04/25 Gael [place]ton MD PCP - [facility] Medicare Patients 11/23/22 03/22/23 Sanjay Fernandes MD [address] [place] [address] PCP - General Pulmonary Disease 05/05/25 [place] Simmons MD [address] [place] [address] Physician Otolaryngology 06/14/17 Godwin Saunders DO [address] [place] [address] Physician Endocrinology 06/14/17 Gael Stockton MD [address] [address] Internal Medicine 05/26/20 Godwni [place] MD [address] [address] Hematology Oncology 11/03/20 Heather Packer, ORDER PLANNER [address] [place] [address] [place] [address] Respiratory Care Practitioner Respiratory Therapist 09/20/24 Antonia Willis MD [address] and [place] [address] Internal Medicine 02/17/25 Logan Doran MD 30 [place] [address] 03/18/25 documented as of this encounter
--- OUTSIDE RECORDS SUMMARY | 2025-06-26 18:28 | XMS_ITS | Encounter Summary ---
Author Organization [facility] Address [address] [place] [address] Care Team Providers Care Medical Care Evaluation Specialist Name Role Phone Sanjay Fernandes MD Primary Care Provider [phone] [place] MD Unavailable [phone] Godwin Saunders DO Unavailable Gael Stockton MD Unavailable Unavailable Gael Stockton MD Primary Care Provider Unavail able Godwin [place] MD Unavailable Unavailable Gael [place]ton MD Unavailable Unavailable Hayes Packeristina SCALLOP CUTTER MACHINE Unavailable [phone] Antonia Willis MD Unavailable [place] Doran MD Unavailable [phone] Sanjay Fernandes MD Primary Care Provider [phone] Reason for Visit * Reason Comments Medication Refill Encounter Details Date Type Department Care Team (Late st Contact Info) Description 09/12/2017 Refill [facility] [address] [place] [address] Yvette Green APRN Chronic migraine without aura, [...] [facility] [address] [place] [address] 4th [place] [phone] 08/18/2025 10:30 AM EDT Hospital Encounter [facility] Gastroenterology Division [address] [place] [phone] Vitor Morales MD [address] [place] [address] [phone] 08/18/2025 10:30 AM EDT Appointment [facility] [address] [place] [address] Vitor Morales MD [address] [place] [address] [phone] 08/18/2025 10:30 AM EDT - 08/18/2025 11:00 AM EDT Surgery [facility] Gastroenterology Division [address] [place] [phone] Vitor Morales MD [address] [place] [address] COLONOSCOPY 05/04/2026 11:00 AM EDT Office Visit [facility] Physicians Department of Cardiology [place] [address] [place] [address] Aashish Silva PA [address] [place] [address] Scheduled Procedures Name Priority Associated Diagnoses Date/Ti [...] documented as of this encounter Care Teams Medical Care Evaluation Specialist Relationship Specialty Start Date End Date Sanjay Fernandes MD [address] [place] [address] PCP - General Pulmonary Disease 05/28/16 06/22/20 Gael Stockton MD [address] [place] [address] PCP - General Internal Medicine 06/23/20 05/04/25 Gael [place]ton MD PCP - [facility] Medicare Patients 11/23/22 03/22/23 Sanjay Fernandes MD [address] [place] [address] PCP - General Pulmonary Disease 05/05/25 [place] Simmons MD [address] [place] [address] Physician Otolaryngology 06/14/17 Godwin Saunders DO [address] [place] [address] Physician Endocrinology 06/14/17 Gael Stockton MD [address] [address] Internal Medicine 05/26/20 Godwin [place] MD [address] [address] Hematology Oncology 11/03/20 Heather Packer, SCALLOP CUTTER MACHINE [address] [place] [address] [place] [address] Respiratory Care Practitioner Respiratory Therapist 09/20/24 Antonia Willis MD [address] [facility] [place] [address] Internal Medicine 02/17/25 Logan Doran MD 30 [place] [address] 03/18/25 documented as of this encounter
--- OUTSIDE RECORDS SUMMARY | 2025-06-26 18:28 | XMS_ITS | Encounter Summary ---
Author Organization [facility] Address [address] [place] [address] Care Team Providers Care Skein Drier Name Role Phone Sanjay Fernandes MD Primary Care Provider [place] MD Unavailable [phone] Godwin Saunders DO Unavailable Gael Stockton MD Unavailable Unavailable Gael Stockton MD Primary Care Provider Unavail able Godwin [place] MD Unavailable Unavailable Gael Stockton MD Unavailable Unavailable Heather Packer DEPUTY COURT Unavailable [phone] Antonia Willis MD Unavailable [place] Doran MD Unavailable Sanjay Fernandes MD Primary Care Provider Encounter Details Date Type Department Care Team (Late st Contact Info) Description 08/31/2017 Scanned Document [facility] Fibrosis Center [address] [place] [phone] Social History Tobacco Use Types Packs/Day [...] EDT Clinical Support [facility] Cyst[facility] Fibrosis Center [address] [place] [address] 4th [place] [phone] 08/18/2025 10:30 AM EDT Hospital Encounter [facility] Gastroenterology Division [address] [place] [phone] Vitor Morales MD [address] [place] [address] [phone] 08/18/2025 10:30 AM EDT Appointment [facility] [address] [place] [address] Vitor Morales MD [address] [place] [address] [phone] 08/18/2025 10:30 AM EDT - 08/18/2025 11:00 AM EDT Surgery [facility]astroenter[facility] Division [address] [place] [phone] Vitor Morales MD [address] [place] [address] [phone] COLONOSCOPY 05/04/2026 11:00 AM EDT Office Visit [facility] Physicians Department of Cardiology [place] [address] [place] [phone] Aashish Silva PA [address] [place] [address] [phone] Scheduled Procedures Name Priority Associated Diagnoses Date/Ti [...] documented as of this encounter Care Teams Skein Drier Relationship Specialty Start Date End Date Sanjay Fernandes MD [address] [address] PCP - General Pulmonary Disease 05/28/16 06/22/20 Gael Stockton MD [address] [place] [address] PCP - General Internal Medicine 06/23/20 05/04/25 Gael Stockton MD PCP - [facility] Medicare Patients 11/23/22 03/22/23 Sanjay Fernandes MD [address] [place] [address] PCP - General Pulmonary Disease 05/05/25 [place] Simmons MD [address] [place] [address] Physician Otolaryngology 06/14/17 Godwin Saunders DO [address] [address] Physician Endocrinology 06/14/17 Gael Stockton MD [address] [place] [address] Internal Medicine 05/26/20 Godwin [place] MD 85 [facility] 923 [place] [address] Hematology Oncology 11/03/20 Hetaher Packer, DEPUTY COURT 79 [facility] 4 [place] [address] Respiratory Care Practitioner Respiratory Therapist 09/20/24 Antonia Willis MD 850 [facility] [address] [facility] [place] [address] Internal Medicine 02/17/25 Logan Doran MD 30 [place] [address] 03/18/25 documented as of this encounter
--- OUTSIDE RECORDS SUMMARY | 2025-06-26 18:28 | XMS_ITS | Encounter Summary ---
Author Organization [facility] Address [address] [place] [address] Care Team Providers Care Preschool Assistant Principal Name Role Phone Sanjay Fernandes MD Primary Care Provider [phone] Franklin Simmons MD Unavailable [phone] Godwin Saunders DO Unavailable Gael Stockton MD Unavailable Unavailable Gael Stockton MD Primary Care Provider Unavail able Godwin Malcolm MD Unavailable Unavailable Gael Stockton MD Unavailable Unavailable Ochoa Heather MANAGER PLANT Unavailable [phone] Antonia Willis MD Unavailable Logan Doran MD Unavailable Sanjay Fernandes MD Primary Care Provider Encounter Details Date Type Department Care Team (Late st Contact Info) Description 10/29/2019 Scanned Document [facility] [address] [place] [address] Vitor Morales MD [address] [address] Social History Tobacco Use Types Packs/Day Years [...] 11:00 AM EDT Clinical Support [facility] 79 [facility] 4th [place] [address] 08/18/2025 10:30 AM EDT Hospital Encounter [facility] [address] [place] [phone] Vitor Morales MD [address] [place] [address] [id number] 08/18/2025 10:30 AM EDT Appointment [facility] [address] [place] [address] Vitor Morales MD [address] [place] [address] [id number] 08/18/2025 10:30 AM EDT - 08/18/2025 11:00 AM EDT Surgery [facility] [address] [place] [phone] Vitor Morales MD [address] [place] [address] COLONOSCOPY 05/04/2026 11:00 AM EDT Office Visit [facility] Physicians Department of Cardiology [place] [address] [place] [phone] Aashish Silva PA [address] [place] [address] Scheduled Procedures Name Priority Associated Diagnoses Date/Ti [...] documented as of this encounter Care Teams Preschool Assistant Principal Relationship Specialty Start Date End Date Sanjay Fernandes MD [address] [place] [address] PCP - General Pulmonary Disease 05/28/16 06/22/20 Gael Stockton MD [address] [place] [address] PCP - General Internal Medicine 06/23/20 05/04/25 Gael Stockton MD PCP - [place] Medicare Patients 11/23/22 03/22/23 Sanjay Fernandes MD [address] [place] [address] PCP - General Pulmonary Disease 05/05/25 Franklin Simmons MD [address] [place] [address] Physician Otolaryngology 06/14/17 Godwin Saunders DO [address] [place] [address] Physician Endocrinology 06/14/17 Gael Stockton MD [address] [place] [address] Internal Medicine 05/26/20 Godwin Malcolm MD [address] [place] [address] 923 [place] [address] Hematology Oncology 11/03/20 Heather Packer, MANAGER PLANT [address] 4 [place] [address] Respiratory Care Practitioner Respiratory Therapist 09/20/24 Antonia Willis MD 850 [facility] [address] [facility] [address] Internal Medicine 02/17/25 Logan Doran MD 30 [place] [address] 03/18/25 documented as of this encounter
--- OUTSIDE RECORDS SUMMARY | 2025-06-26 18:28 | XMS_ITS | Encounter Summary ---
Author Organization [facility] Address [address] [place] [address] Care Team Providers Care Software Test Manager Name Role Phone Sanjay Fernandes MD Primary Care Provider Franklin Simmons MD Unavailable [phone] Godwin Saunders DO Unavailable Gael Stockton MD Unavailable Unavailable Gael Stockton MD Primary Care Provider Unavail able Godwin Malcolm MD Unavailable Unavailable Gael Stockton MD Unavailable Unavailable Heather Packer CUSTOMER SERVICE AND SALES CONSULTANT Unavailable [phone] Antonia Willis MD Unavailable Logan Doran MD Unavailable [phone] Sanjay Fernandes MD Primary Care Provider [phone] Encounter Details Date Type Department Care Team (Late st Contact Info) Description 10/10/2017 Scanned Document [facility] [address] [place] [address] Social History Tobacco Use Types Packs/Day [...] EDT Clinical Support [facility] [address] [place] [address] 4th [place] [phone] 08/18/2025 10:30 AM EDT Hospital Encounter [facility] [address] [place] [phone] Vitor Morales MD [address] [place] [address] [id number] 08/18/2025 10:30 AM EDT Appointment [facility] [address] [place] [address] Vitor Morales MD [address] [place] [address] [id number] 08/18/2025 10:30 AM EDT - 08/18/2025 11:00 AM EDT Surgery [facility] [address] [place] [phone] Vitor Morales MD [address] [place] [address] [phone] COLONOSCOPY 05/04/2026 11:00 AM EDT Office Visit [facility] Physicians Department of Cardiology [place] [address] [place] [phone] Aashish Silva PA [address] [place] [address] [phone] Scheduled Procedures Name Priority Associated Diagnoses Date/Ti [...] documented as of this encounter Care Teams Software Test Manager Relationship Specialty Start Date End Date Sanjay Fernandes MD [address] [address] PCP - General Pulmonary Disease 05/28/16 06/22/20 Gael Stockton MD [address] [place] [address] PCP - General Internal Medicine 06/23/20 05/04/25 Gael Stockton MD PCP - [place] Medicare Patients 11/23/22 03/22/23 Sanjay Fernandes MD [address] [place] [address] PCP - General Pulmonary Disease 05/05/25 Franklin Simmons MD [address] [place] [address] Physician Otolaryngology 06/14/17 Godwin Saunders DO [address] [address] Physician Endocrinology 06/14/17 Gael Stockton MD [address] [place] [address] Internal Medicine 05/26/20 Godwin Malcolm MD 85 [facility] 923 [place] [address] Hematology Oncology 11/03/20 Heather Packer, CUSTOMER SERVICE AND SALES CONSULTANT [address] [facility] 4 [place] [address] Respiratory Care Practitioner Respiratory Therapist 09/20/24 Antonia Willis MD 850 [facility] 530 [facility] [place] [address] Internal Medicine 02/17/25 Logan Doran MD 30 [place] [address] 03/18/25 documented as of this encounter
--- OUTSIDE RECORDS SUMMARY | 2025-06-26 18:28 | XMS_ITS | Encounter Summary ---
Author Organization [facility] Address [address] [place] [address] Care Team Providers Care Print Line Feeder Name Role Phone Franklin Simmons MD Unavailable [phone] Godwin Saunders DO Unavailable Gael Stockton MD Unavailable Unavailable Gael Stockton MD Primary Care Provider Unavail able Godwin Malcolm MD Unavailable Unavailable Gael Stockton MD Unavailable Unavailable OchoaHeather ENERGY SALES CONSULTANT Unavailable Antonia Willis MD Unavailable Logan Doran MD Unavailable Sanjay Fernandes MD Primary Care Provider Reason for Visit * Reason Comments Medication Management Encounter Details Date Type Department Care Team (Late st Contact Info) Description 08/29/2022 Telephone [facility] 30 [place] [address] Vitor Morales MD [address] [phone] Medication Management Social History Tobacco Use Types [...] Telephone Encounter - Shelby Mcneil MA - 09/28/2022 3:04 PM EST Called and patient aware of plan Patient agrees * Telephone Encounter - Vitor Morales MD - 09/28/2022 2:25 PM EST Will try Amitiza again. If Amitiza also does not work as well as Motegrity (Linzess already did notwork as well as Motegrity), we can then submit to insurance now to try to get Motegrity approved. * Telephone Encounter - Brittny Loza - 09/23/2022 10:25 AM EST I attempted to resubmit through [facility] and they stated:PA was already submitted for this patient and drug which was denied.;CaseId:[id number]. An appeal would have to be done. * Telephone Encounter - Vitor Morales MD - 08/30/2022 11:37 AM EST Yes- lets appeal- call number provided and see if a time needs to be scheduled to speak with someone to get approval. * Telephone Encounter - Itzel Barclay - 08/30/2022 10:35 AM EST Good morning, I tried resubmitting request for Motegrity 2mg but I received a message that there was a denial on file. I called [facility] spoke with Ellie who stated that [...] Morales would like to appeal please call [phone]. * Telephone Encounter - Vitor Morales MD - 08/30/2022 9:22 AM EST Pt currently on Linzess but she requested lower dose so I sent Linzess 145 mcg daily to pharmacy yesterday. However, we are still awaiting PA for motegrity. 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 * Telephone Encounter - Mady Case - 08/29/2022 7:50 PM EST PA for Linzess 145mcg submitted via [facility] received message: Drug is covered by current benefit plan.No further PA activity needed documented in this encounter Plan of Treatment Upcoming Encounters Date Type Department Care Team (Latest Contact Info) Description 07/02/2025 11:00 AM EDT Clinical Support [facility] [address] [place] [address] 4th [place] [address] 08/18/2025 10:30 AM EDT Hospital Encounter [facility] [address] [place] [phone] Vitor Morales MD [address] [place] [address] [phone] 08/18/2025 10:30 AM EDT Appointment [facility] [address] 3RD [place] [address] Vitor Morales MD [address] [place] [address] [id number] 08/18/2025 10:30 AM EDT - 08/18/2025 11:00 AM EDT Surgery [facility] [address] [place] [phone] Vitor Morales MD [address] [place] [address] [phone] COLONOSCOPY 05/04/2026 11:00 AM EDT Office Visit [facility] Physicians Department of Cardiology [place] [address] [place] [address] Aashish Silva PA [address] [place] [address] Scheduled Procedures Name Priority Associated Diagnoses Date/Ti [...] documented as of this encounter Care Teams Print Line Feeder Relationship Specialty Start Date End Date Gael Stockton MD PCP - General Internal Medicine 06/23/20 05/04/25 Gael Stockton MD PCP - [place] Medicare Patients 11/23/22 03/22/23 Sanjay Fernandes MD 85 [facility] 923 [place] [address] PCP - General Pulmonary Disease 05/05/25 Franklin Simmons MD Physician Otolaryngology 06/14/17 Godwin Saunders DO Physician Endocrinology 06/14/17 Gael Stockton MD Internal Medicine 05/26/20 Godwin Malcolm MD Hematology Oncology 11/03/20 Heather Packer, ENERGY SALES CONSULTANT [address] [place] [facility] 4 [place] [address] Respiratory Care Practitioner Respiratory Therapist 09/20/24 Antonia Willis MD 850 [facility] [address] [facility] [place] [address] Internal Medicine 02/17/25 Logan Doran MD 30 [place] [address] 03/18/25 documented as of this encounter
--- OUTSIDE RECORDS SUMMARY | 2025-06-26 18:28 | XMS_ITS | Encounter Summary ---
Author Organization [facility] Address [address] [place] [address] Care Team Providers Care Loan Manager Name Role Phone Franklin Simmons MD Unavailable Godwin Saunders DO Unavailable Gael Stockton MD Unavailable Unavailable Gael Stockton MD Primary Care Provider Unavail able Godwin Malcolm MD Unavailable Unavailable Gael Stockton MD Unavailable Unavailable Ochoa Heather REELING OPERATOR Unavailable Antonia Willis MD Unavailable Logan Doran MD Unavailable Sanjay Fernandes MD Primary Care Provider [phone] Encounter Details Date Type Department Care Team (Late st Contact Info) Description 06/17/2022 Documentation [facility] [address] [place] [address] 4th [place] [phone] Selena Perez, PLANT HEALTH MANAGER 533 [place] [address] Social History Tobacco Use Types Packs/Day Years [...] [facility] 79 [facility] 4th [place] [phone] 08/18/2025 10:30 AM EDT Hospital Encounter [facility] [address] [place] [address] [phone] Vitor Morales MD [address] [place] [address] [phone] 08/18/2025 10:30 AM EDT Appointment [facility] [address] [place] [address] Vitor Morales MD [address] [place] [address] [id number] 08/18/2025 10:30 AM EDT - 08/18/2025 11:00 AM EDT Surgery [facility] [address] [place] [phone] Vitor Morales MD [address] [place] [address] [phone] COLONOSCOPY 05/04/2026 11:00 AM EDT Office Visit [facility] Department of Cardiology [place] [address] [place] [address] Aashish Silva PA [address] [place] [address] Scheduled Procedures Name Priority Associated Diagnoses Date/Ti [...] documented as of this encounter Care Teams Loan Manager Relationship Specialty Start Date End Date Gael Stoctkon MD PCP - General Internal Medicine 06/23/20 05/04/25 Gael Stockton MD PCP - [place] Medicare Patients 11/23/22 03/22/23 Sanjay Fernandes MD [address] [place] [address] 923 [place] [address] PCP - General Pulmonary Disease 05/05/25 Franklin Simmons MD Physician Otolaryngology 06/14/17 Godwin Saunders DO Physician Endocrinology 06/14/17 Gael Stockton MD Internal Medicine 05/26/20 Godwin Malcolm MD Hematology Oncology 11/03/20 Heather Packer, REELING OPERATOR [address] [place] 4 [place] [address] Respiratory Care Practitioner Respiratory Therapist 09/20/24 Antonia Willis MD [address] [place] [address] 530 [facility] [place] [address] Internal Medicine 02/17/25 Logan Doran MD 30 [place] [address] 03/18/25 documented as of this encounter
--- OUTSIDE RECORDS SUMMARY | 2025-06-26 18:28 | XMS_ITS | Encounter Summary ---
Author Organization [facility] Address [address] [place] [address] Care Team Providers Care Unclaimed Property Officer Name Role Phone Sanjay Fernandes MD Primary Care Provider Franklin Simmons MD Unavailable [phone] Godwin Saunders DO Unavailable [phone] Gael Stockton MD Unavailable Unavailable Gael Stockton MD Primary Care Provider Unavail able Godwin Malcolm MD Unavailable Unavailable Gael Stockton MD Unavailable Unavailable Hayes Packeristina HEAD COOK Unavailable [phone] Antonia Willis MD Unavailable Logan Doran MD Unavailable Sanjay Fernandes MD Primary Care Provider Encounter Details Date Type Department Care Team (Late st Contact Info) Description 10/29/2019 Scanned Document [facility] [address] [place] [address] Provider, Devyn, 193 [place] [address] Social History Tobacco Use Types Packs/Day Years [...] 11:00 AM EDT Clinical Support [facility] [address] [place] [address] 4th [place] [phone] 08/18/2025 10:30 AM EDT Hospital Encounter [facility] [address] [place] [phone] Vitor Morales MD [address] [place] [address] [id number] 08/18/2025 10:30 AM EDT Appointment [facility] [address] [address] Vitro Morales MD [address] [place] [address] [phone] 08/18/2025 10:30 AM EDT - 08/18/2025 11:00 AM EDT Surgery [facility] [address] [place] [phone] Vitor Morales MD [address] [place] [address] COLONOSCOPY 05/04/2026 11:00 AM EDT Office Visit [facility] Physicians Department of Cardiology [place] [address] [place] [address] Aashish Silva PA [address] [place] [address] Scheduled Procedures Name Priority Associated Diagnoses Date/Ti [...] documented as of this encounter Care Teams Unclaimed Property Officer Relationship Specialty Start Date End Date Sanjay Fernandes MD [address] [address] PCP - General Pulmonary Disease 05/28/16 06/22/20 Gael Stockton MD [address] [place] [address] PCP - General Internal Medicine 06/23/20 05/04/25 Gael Stockton MD PCP - [place] Medicare Patients 11/23/22 03/22/23 Sanjay Fernandes MD [address] [place] [address] PCP - General Pulmonary Disease 05/05/25 Franklin Simmons MD [address] [address] Physician Otolaryngology 06/14/17 Godwin Saunders DO [address] [address] Physician Endocrinology 06/14/17 Gael Stockton MD [address] [place] [address] Internal Medicine 05/26/20 Godwin Malcolm MD [address] [place] [address] [place] [address] Hematology Oncology 11/03/20 Heather Packer, HEAD COOK [address] 4 [place] [address] Respiratory Care Practitioner Respiratory Therapist 09/20/24 Antonia Willis MD 850 [facility] [address] [facility] [place] [address] Internal Medicine 02/17/25 Logan Doran MD 30 [place] [address] 03/18/25 documented as of this encounter
--- OUTSIDE RECORDS SUMMARY | 2025-06-26 18:28 | XMS_ITS | Encounter Summary ---
Author Organization [facility] Address [address] [place] [address] Care Team Providers Care Silverware Buffer Name Role Phone Sanjay Fernandes MD Primary Care Provider Franklin Simmons MD Unavailable Godwin Saunders DO Unavailable Gael Stockton MD Unavailable Unavailable Gael Stockton MD Primary Care Provider Unavail able Godwin Malcolm MD Unavailable Unavailable Gael Sotckton MD Unavailable Unavailable Heather Packer BUSINESS ANALYST SALES OPERATIONS Unavailable [phone] Antonia Willis MD Unavailable Logan Doran MD Unavailable Sanjay Fernandes MD Primary Care Provider Encounter Details Date Type Department Care Team (Late st Contact Info) Description 10/10/2019 Scanned Document [facility] [address] [facility] [address] [place] [address] Alanis Saleh PA-C [address] [facility] [address] [place] [address] Social History Tobacco Use Types [...] 11:00 AM EDT Clinical Support [facility] 79 [facility] 4th [place] [address] 08/18/2025 10:30 AM EDT Hospital Encounter [facility] Gastro[facility]ology Division [address] [place] [phone] Vitor Morales MD [address] [place] [address] [phone] 08/18/2025 10:30 AM EDT Appointment [facility] [address] [place] [address] Vitor Morales MD [address] [place] [address] [id number] 08/18/2025 10:30 AM EDT - 08/18/2025 11:00 AM EDT Surgery [facility]astro[facility]ology Division [address] [place] [address] [phone] Vitor Morales MD [address] [place] [address] COLONOSCOPY 05/04/2026 11:00 AM EDT Office Visit [facility] Department of Cardiology [place] [address] [place] [address] Aashish Silva PA [address] [place] [address] Scheduled Procedures Name Priority Associated Diagnoses Date/Ti [...] documented as of this encounter Care Teams Silverware Buffer Relationship Specialty Start Date End Date Sanjay Fernandes MD 85 [place] [address] PCP - General Pulmonary Disease 05/28/16 06/22/20 Gael Stockton MD [address] [place] [address] PCP - General Internal Medicine 06/23/20 05/04/25 Gael Stockton MD PCP - [place] Medicare Patients 11/23/22 03/22/23 Sanjay Fernandes MD [address] [place] [address] PCP - General Pulmonary Disease 05/05/25 Franklin Simmons MD [address] [place] [address] Physician Otolaryngology 06/14/17 Godwin Saunders DO [address] [place] [address] Physician Endocrinology 06/14/17 Gael Stockton MD [address] [place] [address] Internal Medicine 05/26/20 Godwin Malcolm MD 85 [facility] 923 [place] [address] Hematology Oncology 11/03/20 Heather Packer, BUSINESS ANALYST SALES OPERATIONS [address] [place] [facility] 4 [place] [address] Respiratory Care Practitioner Respiratory Therapist 09/20/24 Antonia Willis MD 850 [facility] 530 [facility] [place] [address] Internal Medicine 02/17/25 Logan Doran MD 30 [place] [address] 03/18/25 documented as of this encounter
--- OUTSIDE RECORDS SUMMARY | 2025-06-26 18:28 | XMS_ITS | Encounter Summary ---
Author Organization [facility] Address [address] [place] [address] Care Team Providers Care Glue Mixer Name Role Phone Sanjay Fernandes MD Primary Care Provider Franklin Simmons MD Unavailable [phone] Godwin Saunders DO Unavailable [phone] Geal Stockton MD Unavailable Unavailable Gael Stockton MD Primary Care Provider Unavail able Godwin Malcolm MD Unavailable Unavailable Gael Stockton MD Unavailable Unavailable Heather Packer PLASTERING SUPERVISOR Unavailable [phone] Antonia Willis MD Unavailable Logan Doran MD Unavailable [phone] Sanjay Fernandes MD Primary Care Provider Encounter Details Date Type Department Care Team (Late st Contact Info) Description 06/14/2017 Scanned Document [facility] [address] [place] [address] Social History Tobacco Use Types Packs/Day [...] EDT Clinical Support [facility] [address] [place] [address] 4th [place] [phone] 08/18/2025 10:30 AM EDT Hospital Encounter [facility]astro[facility]ology Division [address] [place] [phone] Vitor Morales MD [address] [place] [address] [phone] 08/18/2025 10:30 AM EDT Appointment [facility] [address] [place] [address] Vitor Morales MD [address] [place] [address] [phone] 08/18/2025 10:30 AM EDT - 08/18/2025 11:00 AM EDT Surgery [facility] [address] [place] [phone] Vitor Morales MD [address] [place] [address] [phone] COLONOSCOPY 05/04/2026 11:00 AM EDT Office Visit [facility] Physicians Department of Cardiology [place] [address] [place] [address] Aashish Silva PA [address] [place] [address] 296153 Scheduled Procedures Name Priority Associated Diagnoses Date/Ti [...] documented as of this encounter Care Teams Glue Mixer Relationship Specialty Start Date End Date Sanjay Fernandes MD [address] [address] PCP - General Pulmonary Disease 05/28/16 06/22/20 Gael Stockton MD [address] [place] [address] PCP - General Internal Medicine 06/23/20 05/04/25 Gael Stockton MD PCP - [place] Medicare Patients 11/23/22 03/22/23 Sanjay Fernandes MD [address] [place] [address] PCP - General Pulmonary Disease 05/05/25 Franklin Simmons MD [address] [place] [address] Physician Otolaryngology 06/14/17 Godwin Saunders DO [address] [address] Physician Endocrinology 06/14/17 Gael Stockton MD [address] [place] [address] Internal Medicine 05/26/20 Godwin Malcolm MD 85 [facility] 923 [place] [address] Hematology Oncology 11/03/20 Heather Packer, PLASTERING SUPERVISOR 79 [place] [facility] 4 [place] [address] Respiratory Care Practitioner Respiratory Therapist 09/20/24 Antonia Willis MD 850 [facility] 530 [facility] [address] Internal Medicine 02/17/25 Logan Doran MD 30 [place] [address] 03/18/25 documented as of this encounter
--- OUTSIDE RECORDS SUMMARY | 2025-06-26 18:28 | XMS_ITS | Encounter Summary ---
Author Organization [facility] Address [address] [place] [address] Care Team Providers Care Foreclosure Paralegal Name Role Phone Sanjay Fernandes MD Primary Care Provider Franklin Simmons MD Unavailable Godwin Saunders DO Unavailable Gael Stockton MD Unavailable Unavailable Gael Stockton MD Primary Care Provider Unavail able Godwin Malcolm MD Unavailable Unavailable Gael Stockton MD Unavailable Unavailable Hayes Packeristina [employer]FIXING PLUMBER Unavailable [phone] Antonia Willis MD Unavailable Logan Doran MD Unavailable Sanjay Fernandes MD Primary Care Provider Encounter Details Date Type Department Care Team (Late st Contact Info) Description 10/25/2019 Scanned Document [facility] [address] [place] [address] Provider, Devyn, [address] [place] [address] Social History Tobacco Use Types Packs/Day Years [...] 11:00 AM EDT Clinical Support [facility] [address] [place] [address] [address] [place] [id number] 08/18/2025 10:30 AM EDT Hospital Encounter [facility] [address] [place] [phone] Vitor Morales MD [address] [place] [id number] 08/18/2025 10:30 AM EDT Appointment [facility] [address] [address] Vitor Morales MD [address] [place] [id number] 08/18/2025 10:30 AM EDT - 08/18/2025 11:00 AM EDT Surgery [facility] [address] [place] [phone] Vitor Morales MD [address] [place] [phone] COLONOSCOPY 05/04/2026 11:00 AM EDT Office Visit [facility] Department of Cardiology [place] [address] [place] [address] Aashish Silva PA [address] [place] [phone] Scheduled Procedures Name Priority Associated Diagnoses Date/Ti [...] documented as of this encounter Care Teams Foreclosure Paralegal Relationship Specialty Start Date End Date Sanjay Fernandes MD [address] [address] PCP - General Pulmonary Disease 05/28/16 06/22/20 Gael Stockton MD [address] [place] [phone] PCP - General Internal Medicine 06/23/20 05/04/25 Gael Stockton MD PCP - [place] Medicare Patients 11/23/22 03/22/23 Sanjay Fernandes MD [address] [place] [phone] PCP - General Pulmonary Disease 05/05/25 Franklin Simmons MD [address] [address] Physician Otolaryngology 06/14/17 Godwin Saunders DO [address] [address] Physician Endocrinology 06/14/17 Gael Stockton MD [address] [place] [phone] Internal Medicine 05/26/20 Godwin Malcolm MD [address] [place] [address] [place] [address] Hematology Oncology 11/03/20 Heather Packer, [employer]UMBER [address] [place] [address] [place] [address] Respiratory Care Practitioner Respiratory Therapist 09/20/24 Antonia Willis MD [address] [facility] [address] [facility] [place] [place] [address] Internal Medicine 02/17/25 Logan Doran MD [address] [place] [address] 03/18/25 documented as of this encounter
[2025-06-26 18:55] LABS: Hematocrit 27.5 % (37.0-47.0); Hemoglobin 9.2 g/dl (12.0-16.0); Imm Gran Abs Auto 0.08 X10*3/uL (0.00-0.03); Imm Gran Pct Auto 0.7 % (0.0-0.4); Lymphocytes Absolute Auto 1.9 X10*3/uL (1.2-4.9); Mean Corpuscular HGB Conc 33.5 g/dl (31.0-35.0); Mean Corpuscular Hemoglobin 27.3 pg (27.0-33.0); Mean Corpuscular Volume 81.6 fL (80.0-98.0); NRBC Abs Auto 0.000 X10*3/uL (0.0-0.012); NRBC Pct Auto 0.0 /100WBC (0.0-0.2); Platelet Count 430 X10*3/uL (160-400); Red Blood Count 3.37 X10*6/uL (4.20-5.50); White Blood Count 11.5 X10*3/uL (4.8-10.8)
[2025-06-26 19:39] LABS: Anion Gap 16 (12-20); Blood Urea Nitrogen 8 mg/dL (9-16); Calcium 9.1 mg/dL (8.4-10.2); Carbon Dioxide 20 mmol/L (22-29); Chloride 99 mmol/L (96-108); Cholesterol 171 mg/dL (<200); Estimated Glomerular Filt Rate > 60; HDL Cholesterol 56 mg/dL (>40); Magnesium 1.6 mg/dL (1.6-2.6); Potassium 4.1 mmol/L (3.3-5.1); Sodium 131 mmol/L (135-145); Triglycerides 129 mg/dL (<150)
[2025-06-27 06:31] LABS: Hemoglobin A1C 135.5351 umol/L; Total Hemoglobin (HGBA1C) 2430.7388 umol/L
== END 2025-06-26 18:14 | disposition home or self-care (01) ==
LOC: HO.LNP 18:13
PROVIDERS: Visit Provider Internal Medicine Pulmonary Disease
DX: Z13.1 Encounter for screening for diabetes mellitus (principal); Z13.6 Encounter for screening for cardiovascular disorders; E84.0 Cystic fibrosis with pulmonary manifestations
CPT/HCPCS: 80048; 80061; 82306; 82652; 82785; 83036; 83735; 84100; 85025; 86140